=== PATIENT | male | born 1975 | race Caucasian/White ===

== ENCOUNTER → 2016-04-19 | Outpatient (CLI) | payer OTHER ==
[~2016-04-19] MED LIST: ACET-1311 PO; ARIP1INJ INJ; AUG0.05O4 TOP; AZITTAB PO; BENZ100C84 PO; CARV25TA2 PO; CHLO100T8 PO; CHOL2000 PO; CLOT1CRE4 TOP; CRG25 PO; DICY10CA12 PO; EPP3 IM; EPP3/2 IM; EZET10TA63 PO; FLUO40CA8 PO; GUAI1TAB55 PO; HALO2TAB PO; IMD/2 PO; INSDGIPEN SC; IPRA1AER2 INH; IPRASOL4 INH; LEVO100T7 PO; LEVO100T84 PO; LISI-461 PO; LISI40TA PO; LTRCR15 TOP; LVQ750 PO; MENTOIN TOP; METF1000 PO; NVLGI/PEN SC; NYST80OI TOP; OMEP40CA PO; POTA-335 PO; POTA20TA16 PO; PRLSR20 PO; PSYLPOW6 PO; SIMV40TA2 PO; TRAZ100T29 PO; TRAZ150T64 PO
[2016-04-19 08:34] LABS: BLOOD UREA NITROGEN 20 mg/dl (7-18); BUN/CREATININE RATIO 17.9 (10-20); CALCIUM 8.9 mg/dl (8.5-10.1); CARBON DIOXIDE 25 mmol/L (21-32); CHLORIDE 106 mmol/L (98-107); GLUCOSE 71 mg/dl (70-99); POTASSIUM 4.1 mmol/L (3.5-5.1); SODIUM 141 mmol/L (136-145)
== END | disposition home or self-care (01) ==
LOC: C.LABSPEC 08:17
PROVIDERS: ATTEND Nurse Practitioner Family
DX: I10 Essential (primary) hypertension (principal)

== ENCOUNTER 2016-06-27 13:25 | Emergency (ER) | payer OTHER ==
[~2016-06-27] VITALS: Ht 172.7 cm; Wt 125.1 kg
[~2016-06-27 13:25] MED LIST changes: -AZITTAB PO; -BENZ100C84 PO; -CARV25TA2 PO; -CHLO100T8 PO; -CLOT1CRE4 TOP; -EPP3/2 IM; -HALO2TAB PO; -IPRA1AER2 INH; -IPRASOL4 INH; -LEVO100T7 PO; -LISI40TA PO; -MENTOIN TOP; -METF1000 PO; -POTA20TA16 PO; -PRLSR20 PO; -TRAZ100T29 PO
[2016-06-27 13:31] VITALS: TEMP 37.1; Ht 172.7 cm; Wt 125.1 kg
[2016-06-27] MEDS ORDERED: ALBUT/IPRATROP 3MG/0.5MG NEB 3 ML VIAL INH STA (14:26)
--- NOTE | 2016-06-27 14:33 | EMERGENCY ROOM VISIT NOTE ---
History Report prepared by Anuradha: Marialuisa Andres Under the Supervision of: Dr. Claudia Mota, RosannaO. First contact with patient: 14:21 Chief Complaint: CONGESTION Stated Complaint: CONGESTION, COUGH Nursing Triage Summary: pt reports stuffy nose and cough with yellow mucus. started 1 week ago has hx of copd. has been taken mucinex and combivent inhaler no relief History of Present Illness The patient is a 40 year old male who presents to the Emergency Room with complaints of a persistent cold-like symptoms for the past week. His symptoms include nasal congestion and a productive cough with yellow sputum. He has been taking Mucinex DM every 12 hours and uses a Combivent inhaler with little relief. He most recently used the Combivent around 7:15 this morning. The patient was evaluated by a nurse this morning at [facility] and was referred to the ED. He has not been around sick contacts. Denies recent travel. Denies fevers, ear ache, sore throat, chest pain, shortness of breath, leg pain or swelling, or other complaints. He is a former smoker. Past medical history includes COPD and pneumonia. Source of History: patient Onset: a week ago Position: other (global) Quality: other (cold-like symptoms) Timing: other (persistent) Associated Symptoms: + cough, No SOB, No chest pain, No fevers, No sorethroat Note: Other symptoms: congestion Review of Systems See HPI for pertinent positives & negatives. A total of 10 systems reviewed and were otherwise negative. Past Medical & Surgical Medical Problems: (1) COPD (chronic obstructive pulmonary disease) (2) Depression (3) Diabetes mellitus (4) Dyslipidemia (5) GERD (gastroesophageal reflux disease) (6) Hypothyroidism (7) Neurogenic bladder (8) Paranoid schizophrenia (9) Respiratory failure Surgical Problems: (1) H/O inguinal hernia repair Family History Cancer Diabetes mellitus Hypertension Lung disease Social History Smoking Status: Former Smoker Smokeless Tobacco Use: No Alcohol Use: none Marital Status: single Housing Status: other ([facility]) Occupation Status: disabled Current/Historical Medications Scheduled Aripiprazole (Abilify Maintena), 400 MG INJ Q4WK Azithromycin (Zithromax Z-Johnathon), 1 PKT PO UD Carvedilol (Coreg), 25 MG PO BID Cholecalciferol (Vitamin D3), 2,000 UNITS PO DAILY Clotrimazole (Topical) (Lotrimin Af), 1 APPLN TOP BID Dicyclomine Hcl (Dicyclomine Hcl), 10 MG PO BID Epinephrine (Epipen), 0.3 MG IM UD Ezetimibe (Zetia), 10 MG PO QAM Fluoxetine (Prozac), 40 MG PO QAM Haloperidol (Haloperidol), 1 MG PO BID Insulin Aspart (Novolog Flexpen), Unknown Dose SC TID Insulin Glargine (Lantus Solostar), 85 UNITS SC BID Levothyroxine Sodium (Levothyroxine Sodium), 100 MCG PO QAM Lisinopril (Zestril), 40 MG PO DAILY Loperamide Hcl (Imodium), 2 MG PO BID PRN Menthol-Zinc Oxide (Calmoseptine), 1 APPLN TOP PRN Metformin Hcl (Glucophage), 1,000 MG PO BID Omeprazole (Prilosec), 40 MG PO BID Potassium Ext Rel (Klor-Con), 20 MEQ PO QAM Simvastatin (Zocor), 40 MG PO HS Trazodone Hcl (Trazodone), 150 MG PO QPM Scheduled PRN Acetaminophen (Tylenol), 650 MG PO Q6H PRN for Pain Guaifenesin Ext Rel (Mucinex Ext Rel), 600 MG PO BID PRN for congestion Ipratropium-Albuterol (Combivent Respimat), 1 PUFFS INH QID PRN for SOB/Wheezing Allergies Coded Allergies: BEE STING (Verified Allergy, Severe, ANAPHYLAXIS, 05/27/15) Antihistamines, Diphenhydramine-typ (Unverified Allergy, Unknown, _, ) Physical Exam Vital Signs Date Time Temp Pulse Resp B/P Pulse Ox O2 Delivery O2 Flow Rate FiO2 06/27/16 15:05 95 24 142/98 21 Room Air 06/27/16 13:31 37.1 97 22 165/83 93 Room Air Physical Exam GENERAL: The patient is a pleasant 40 year old male in no acute distress. VITALS: Afebrile, hypertensive, normal pulse oximetry on room air. EARS: Right sided cerumen impaction. Left TM clear. THROAT: No pharyngeal injection, exudates, or tonsillar hypertrophy. Airway is patent. NECK: Supple, nontender, no lymphadenopathy or nuchal rigidity. THORAX : Symmetrical and nontender to palpation without deformity or palpable crepitus. LUNGS : Rhonchi and expiratory wheezes throughout. HEART: Regular rate and rhythm without murmur, S3, S4, or rub. ABDOMEN: Soft and nontender without guarding, rigidity, or rebound tenderness. Bowel sounds are present in all 4 quadrants. There are no palpable masses organomegaly. No CVA tenderness. Femoral pulses are symmetrical EXTREMITIES : Without deformity or point tenderness. There are no palpable cords, edema, or erythema.. NEUROLOGIC: Intact without focal deficits Medical Decision & Procedures ER Provider Diagnostic Interpretation: Radiology results as stated below per my review and radiologist interpretation: CHEST ONE VIEW PORTABLE CLINICAL HISTORY: cough/copd dyspnea COMPARISON STUDY: 05/22/2015 FINDINGS: Subtle indistinctness of the right cardiac border with mild interstitial prominence both lung bases. There are no focal or consolidative infiltrative changes. Mid and upper lungs are entirely clear. IMPRESSION: Mild basilar bronchitis. Medications Administered Medications (Trade) Dose Ordered Sig/Arlen Route Start Time Stop Time Status Last Admin Dose Admin Albuterol/ Ipratropium (Duoneb) 3 ml NOW STAT INH 06/27/16 14:26 06/27/16 14:27 DC 06/27/16 15:04 3 ML ED Course 1423: The patient was evaluated in room C3. A complete history and physical examination was performed. On examination he appeared comfortable . He did have rhonchi and wheezing throughout. He was treated with a DuoNeb with improvement. X-ray was done and he had findings consistent with acute bronchitis. No pneumonia. No heart failure. At this time he, is being discharged home accompanied his , with instructions on symptomatic care. He is being placed on Zithromax and is to continue using [id number] products, as prescribed. He should have close outpatient follow-up with his personal physician. Return if worsening symptoms or concerns. The patient is comfortable with this treatment plan. 1426: Ordered DuoNeb 3 ml INH. Medical Decision EMR, nurse's notes, diagnostic studies personally reviewed Differential diagnosis-see above The chart was completed utilizing [employer] Voice [employer]ognition Software. Grammatical errors, random word insertions, pronoun errors, and incomplete sentences are an occasional consequence of this system due to software limitations, ambient noise, and hardware issues. Any formal questions or concerns about the content, text, or information contained within the body of this dictation should be directly addressed to the physician for clarification. Impression Primary Impression: Bronchitis Additional Impression: COPD (chronic obstructive pulmonary disease) Scribe Attestation The scribe's documentation has been prepared under my direction and personally reviewed by me in its entirety. I confirm that the note above accurately reflects all work, treatment, procedures, and medical decision making performed by me. Departure Information Prescriptions Azithromycin (ZITHROMAX Z-JOHANTHON) 250 Mg Tab 1 PKT PO UD for 5 Days, #1 PKT Prov: Claudia Mota D.O. 06/27/16 Referrals [facility] (PCP) Patient Instructions My [facility] Problem Qualifiers
[2016-06-27] MEDS ORDERED: TRAZ100T29 PO (14:49)
[2016-06-27] MEDS ORDERED: LEVO100T7 PO (14:49)
[2016-06-27] MEDS ORDERED: HALO2TAB PO (14:49)
[2016-06-27] MEDS ORDERED: PRLSR20 PO (14:49)
[2016-06-27] MEDS ORDERED: MENTOIN TOP (14:49)
[2016-06-27] MEDS ORDERED: METF1000 PO (14:49)
[2016-06-27] MEDS ORDERED: CARV25TA2 PO (14:49)
[2016-06-27] MEDS ORDERED: LISI40TA PO (14:49)
[2016-06-27] MEDS ORDERED: POTA20TA16 PO (14:49)
[2016-06-27] MEDS ORDERED: CLOT1CRE4 TOP (14:49)
[2016-06-27] MEDS ORDERED: IPRA1AER2 INH (14:49)
[2016-06-27] MEDS ORDERED: EPP3/2 IM (14:49)
--- NOTE | 2016-06-27 15:00 | DIAGNOSTIC IMAGING REPORT ---
CHEST ONE VIEW PORTABLE CLINICAL HISTORY: cough/copd dyspnea COMPARISON STUDY: 05/22/2015 FINDINGS: Subtle indistinctness of the right cardiac border with mild interstitial prominence both lung bases. There are no focal or consolidative infiltrative changes. Mid and upper lungs are entirely clear. IMPRESSION: Mild basilar bronchitis. Electronically signed by: Elijah Abebe M.D. 06/27/2016 2:59 PM Dictated Date/Time: 06/27/2016 2:58 PM
[2016-06-27 15:05] VITALS: BP 142/98; PULSE 95; O2SAT 21
[2016-06-27] MEDS ORDERED: AZITTAB PO (15:09)
== END 2016-06-27 15:30 | disposition home or self-care (01) ==
LOC: C.EDB 13:26 → C.EDC 15:30
DX: J40 Bronchitis, not specified as acute or chronic (principal); J44.9 Chronic obstructive pulmonary disease, unspecified; E11.9 Type 2 diabetes mellitus without complications; E78.5 Hyperlipidemia, unspecified; K21.9 Gastro-esophageal reflux disease without esophagitis; E03.9 Hypothyroidism, unspecified; F32.9 Major depressive disorder, single episode, unspecified; F20.0 Paranoid schizophrenia; Z98.890 Other specified postprocedural states; Z87.891 Personal history of nicotine dependence; Z79.4 Long term (current) use of insulin; Z79.84 Long term (current) use of oral hypoglycemic drugs; Z79.899 Other long term (current) drug therapy; Z88.8 Allergy status to other drugs, medicaments and biological substances; Z91.030 Bee allergy status

== ENCOUNTER → 2016-08-02 | Outpatient (CLI) | payer OTHER ==
[~2016-08-02] MED LIST changes: -AUG0.05O4 TOP; +BENZ100C84 PO; +CARV25TA2 PO; +CHLO100T8 PO; +CLOT-40 TOP; -CRG25 PO; -EPP3 IM; +EPP3/2 IM; +HALO2TAB PO; +IPRA1AER2 INH; +IPRASOL4 INH; +LEVO100T7 PO; -LEVO100T84 PO; -LISI-461 PO; +LISI40TA PO; -LTRCR15 TOP; -LVQ750 PO; +MENTOIN TOP; +METF1000 PO; -NYST80OI TOP; -OMEP40CA PO; -POTA-335 PO; +POTA20TA16 PO; +PRLSR20 PO; -PSYLPOW6 PO; +TRAZ100T29 PO; -TRAZ150T64 PO
[2016-08-02 10:17] LABS: AST/SGOT 27 U/L (15-37); BLOOD UREA NITROGEN 21 mg/dl (7-18); BUN/CREATININE RATIO 17.1 (10-20); CALCIUM 8.5 mg/dl (8.5-10.1); CARBON DIOXIDE 27 mmol/L (21-32); CHLORIDE 107 mmol/L (98-107); CHOLESTEROL 131 mg/dl (0-200); GLUCOSE 200 mg/dl (70-99); POTASSIUM 4.2 mmol/L (3.5-5.1); SODIUM 140 mmol/L (136-145)
[2016-08-02 10:29] LABS: ALB/GLOB RATIO 1.1 (0.9-2); ALKALINE PHOSPHATASE 81 U/L (45-117); ALT/SGPT 60 U/L (12-78); CHOLESTEROL/HDL RATIO 2.3; HDL CHOLESTEROL 57 mg/dl; TRIGLYCERIDES 182 mg/dl (0-150); VERY LOW DENSITY LIPOPROT CALC 36 mg/dl
[2016-08-02 10:48] LABS: ESTIMATED AVERAGE GLUCOSE 169 mg/dl; HA1C FLAG Normal (Normal)
== END | disposition home or self-care (01) ==
LOC: C.LABSPEC 08:58
PROVIDERS: ATTEND Nurse Practitioner Family
DX: E78.5 Hyperlipidemia, unspecified (principal); E11.9 Type 2 diabetes mellitus without complications; E03.9 Hypothyroidism, unspecified

== ENCOUNTER → 2016-08-22 | Outpatient (CLI) | payer OTHER ==
--- NOTE | 2016-08-22 10:55 | DIAGNOSTIC IMAGING REPORT ---
RENAL ULTRASOUND HISTORY: Infection R33.9 Retention of [id number] Urinary tract [id number] Bladed COMPARISON: None. FINDINGS: Right kidney: Maximum dimension 11.3 cm. No evidence for hydronephrosis. Left kidney: Maximum dimension 11.5 cm. No evidence for hydronephrosis. Normal corticomedullary differentiation and cortical thickness. Bladder: No bladder wall thickening. The bilateral ureteral jets were identified. IMPRESSION: Normal renal ultrasound. Electronically signed by: Elijah Abebe M.D. 08/22/2016 10:54 AM Dictated Date/Time: 08/22/2016 10:01 AM
== END | disposition home or self-care (01) ==
LOC: C.ULTR 09:34
PROVIDERS: ATTEND Urology
DX: N21.0 Calculus in bladder (principal); N39.0 Urinary tract infection, site not specified; R33.9 Retention of urine, unspecified

== ENCOUNTER 2016-11-22 08:04 | Emergency (ER) | payer OTHER ==
[~2016-11-22] VITALS: Ht 172.7 cm; Wt 125.6 kg
[~2016-11-22 08:04] MED LIST changes: -BENZ100C84 PO; -CHLO100T8 PO; -CLOT-40 TOP; +CLOT1CRE4 TOP; -IPRASOL4 INH
[2016-11-22 08:09] VITALS: TEMP 36.8; Ht 172.7 cm; Wt 125.6 kg
[2016-11-22] MEDS ORDERED: SODIUM CHLORIDE 0.9% 1000ML 1,000 ML IV STA (08:23)
--- NOTE | 2016-11-22 08:29 | EMERGENCY ROOM VISIT NOTE ---
History Report prepared by Anuradha: Apoorva Baptiste Under the Supervision of: Dr. Russell Young M.D. First contact with patient: 08:16 Chief Complaint: HYPERGLYCEMIA Stated Complaint: BLOOD SUGAR HIGH History of Present Illness The patient is a 41 year old male who presents to the Emergency Room with complaints of persistent hyperglycemia that began today prior to arrival. Per the patient's caregiver, the patient had some high blood glucose levels over the weekend, but notes that they normalized. The patient's caregiver reports that last night the patient's blood glucose reading was 308. She states that this morning his blood glucose was up over 400. The patient's caregiver states that she consulted the patient's PCP and was instructed to give the patient 22 units of NovoLog and 85 units of Lantus. She states that the patient typically takes 85 units of Lantus twice per day. The patient's caregiver states that the patient has had a cough for quite some time. She states that one week ago the patient was started on Thorazine. Source of History: patient, caregiver Onset: prior to arrival Position: other (global) Quality: other (hyperglycemia) Timing: other (persistent) Associated Symptoms: + cough Review of Systems See HPI for pertinent positives & negatives. A total of 10 systems reviewed and were otherwise negative. Past Medical & Surgical Medical Problems: (1) COPD (chronic obstructive pulmonary disease) (2) Depression (3) Diabetes mellitus (4) Dyslipidemia (5) GERD (gastroesophageal reflux disease) (6) Hypothyroidism (7) Neurogenic bladder (8) Paranoid schizophrenia (9) Respiratory failure Surgical Problems: (1) H/O inguinal hernia repair Family History Cancer Diabetes mellitus Hypertension Lung disease Social History Smoking Status: Former Smoker Alcohol Use: none Marital Status: single Housing Status: other Occupation Status: disabled Current/Historical Medications Scheduled Aripiprazole (Abilify Maintena), 400 MG INJ Q4WK Carvedilol (Coreg), 25 MG PO BID Chlorpromazine Hcl (Thorazine), 100 MG PO DAILY Cholecalciferol (Vitamin D3), 2,000 UNITS PO DAILY Clotrimazole (Topical) (Lotrimin Af), 1 APPLN TOP BID Dicyclomine Hcl (Dicyclomine Hcl), 10 MG PO BID Epinephrine (Epipen), 0.3 MG IM UD Fluoxetine (Prozac), 40 MG PO QAM Insulin Aspart (Novolog Flexpen), Unknown Dose SC TID Insulin Glargine (Lantus Solostar), 85 UNITS SC BID Levothyroxine Sodium (Levothyroxine Sodium), 100 MCG PO QAM Lisinopril (Zestril), 40 MG PO DAILY Loperamide Hcl (Imodium), 2 MG PO BID PRN Menthol-Zinc Oxide (Calmoseptine), 1 APPLN TOP PRN Metformin Hcl (Glucophage), 1,000 MG PO BID Omeprazole (Prilosec), 40 MG PO BID Potassium Ext Rel (Klor-Con), 20 MEQ PO QAM Simvastatin (Zocor), 40 MG PO HS Trazodone Hcl (Trazodone), 150 MG PO QPM Scheduled PRN Acetaminophen (Tylenol), 650 MG PO Q6H PRN for Pain Benzonatate (Tessalon Perles), 100 MG PO HS PRN for cough\ Guaifenesin Ext Rel (Mucinex Ext Rel), 600 MG PO BID PRN for congestion Ipratropium-Albuterol (Combivent Respimat), 1 PUFFS INH QID PRN for SOB/Wheezing Ipratropium-Albuterol (Duoneb), 1 TREATMENT INH QID PRN for Shortness of Breath Allergies Coded Allergies: BEE STING (Verified Allergy, Severe, ANAPHYLAXIS, 11/22/16) Antihistamines, Diphenhydramine-typ (Unverified Allergy, Unknown, _, ) Physical Exam Vital Signs Date Time Temp Pulse Resp B/P (MAP) Pulse Ox O2 Delivery O2 Flow Rate FiO2 11/22/16 10:38 105 150/75 94 11/22/16 10:13 105 20 134/84 99 Room Air 11/22/16 09:16 103 133/72 93 Room Air 11/22/16 09:14 104 11/22/16 08:09 36.8 102 18 160/84 94 Room Air Physical Exam GENERAL: Patient is in no acute distress. HEENT: No acute trauma, normocephalic atraumatic, mucous membranes moist, no nasal congestion, no scleral icterus. NECK: No stridor, no adenopathy, no meningismus, trachea is midline. LUNGS: Clear to auscultation bilaterally, no wheeze, no rhonchi, breath sounds equal. HEART: Tachycardic with a regular rhythm, no murmurs. ABDOMEN: Soft, nontender, bowel sounds positive, no hernias, no peritonitis. EXTREMITIES: No cyanosis or edema, full range of motion of all the joints without pain or difficulty, no signs for acute trauma. NEUROLOGIC: Mild MR noted, moving all extremities, awake and alert. SKIN: No rash, no jaundice, no diaphoresis. Medical Decision & Procedures ER Provider Diagnostic Interpretation: X-ray results as stated below per interpretation by me and the radiologist: CHEST ONE VIEW PORTABLE HISTORY: EVALUATE ALTERED MENTAL STATUS/WEAKNESS COMPARISON: Chest 06/27/2016. FINDINGS: Mild diffuse interstitial thickening which is likely chronic. No focal lung consolidations to suggest pneumonia. No evidence for pulmonary edema. Small lobular retrocardiac density favors a hiatus hernia. The heart is normal in size. No pleural effusions. No pneumothorax. IMPRESSION: Mild chronic interstitial thickening, unchanged. No acute process within the chest. Electronically signed by: Bro Alfaro M.D. 11/22/2016 8:58 AM Dictated Date/Time: 11/22/2016 8:57 AM Laboratory Results 11/22/16 09:09 Red Blood Count 4.59, Mean Corpuscular Volume 89.1, Mean Corpuscular Hemoglobin 30.3, Mean Corpuscular Hemoglobin Concent 34.0, Mean Platelet Volume 10.0, Neutrophils (%) (Auto) 82.0, Lymphocytes (%) (Auto) 12.5, Monocytes (%) (Auto) 5.2, Eosinophils (%) (Auto) 0.0, Basophils (%) (Auto) 0.1, Neutrophils # (Auto) 11.11, Lymphocytes # (Auto) 1.70, Monocytes # (Auto) 0.70, Eosinophils # (Auto) 0.00, Basophils # (Auto) 0.02 11/22/16 09:09 Test 11/22/16 08:20 11/22/16 09:09 11/22/16 10:09 Urine Color YELLOW Urine Appearance CLEAR (CLEAR) Urine pH 5.5 (4.5-7.5) Urine Specific Thornton 1.030 (1.000-1.030) Urine Protein NEG (NEG) Urine Glucose (UA) 3+ (NEG) Urine Ketones NEG (NEG) Urine Occult Blood NEG (NEG) Urine Nitrite NEG (NEG) Urine Bilirubin NEG (NEG) Urine Urobilinogen NEG (NEG) Urine Leukocyte Esterase NEG (NEG) White Blood Count 13.56 K/uL (4.8-10.8) Red Blood Count 4.59 M/uL (4.7-6.1) Hemoglobin 13.9 g/dL (14.0-18.0) Hematocrit 40.9 % (42-52) Mean Corpuscular Volume 89.1 fL (80-100) Mean Corpuscular Hemoglobin 30.3 pg (25-34) Mean Corpuscular Hemoglobin Concent 34.0 g/dl (32-36) Platelet Count 160 K/uL (130-400) Mean Platelet Volume 10.0 fL (7.4-10.4) Neutrophils (%) (Auto) 82.0 % Lymphocytes (%) (Auto) 12.5 % Monocytes (%) (Auto) 5.2 % Eosinophils (%) (Auto) 0.0 % Basophils (%) (Auto) 0.1 % Neutrophils # (Auto) 11.11 K/uL (1.4-6.5) Lymphocytes # (Auto) 1.70 K/uL (1.2-3.4) Monocytes # (Auto) 0.70 K/uL (0.11-0.59) Eosinophils # (Auto) 0.00 K/uL (0-0.5) Basophils # (Auto) 0.02 K/uL (0-0.2) RDW Standard Deviation 45.3 fL (36.4-46.3) RDW Coefficient of Variation 13.8 % (11.5-14.5) Immature Granulocyte % (Auto) 0.2 % Immature Granulocyte # (Auto) 0.03 K/uL (0.00-0.02) Polychromasia 1+ Anion Gap 7.0 mmol/L (3-11) Est Creatinine Clear Calc Drug Dose 102.5 ml/min Estimated GFR () 85.3 Estimated GFR (Non- 73.6 BUN/Creatinine Ratio 10.0 (10-20) Calcium Level 8.3 mg/dl (8.5-10.1) Magnesium Level 1.8 mg/dl (1.8-2.4) Total Bilirubin 0.4 mg/dl (0.2-1) Aspartate Amino Transf (AST/SGOT) 22 U/L (15-37) Alanine Aminotransferase (ALT/SGPT) 43 U/L (12-78) Alkaline Phosphatase 86 U/L (45-117) Total Protein 7.3 gm/dl (6.4-8.2) Albumin 3.4 gm/dl (3.4-5.0) Globulin 3.9 gm/dl (2.5-4.0) Albumin/Globulin Ratio 0.9 (0.9-2) Beta-Hydroxybutyric Acid 1.11 mg/dL (0.2-2.81) Thyroid Stimulating Hormone (TSH) 1.400 uIu/ml (0.300-4.500) Free Thyroxine 1.05 ng/dl (0.80-1.60) Bedside Glucose 259 mg/dl (70-99) Laboratory results reviewed by me. Medications Administered Medications (Trade) Dose Ordered Sig/Arlen Route Start Time Stop Time Status Last Admin Dose Admin Sodium Chloride 1,000 ml @ 999 mls/hr Q1H1M STAT IV 11/22/16 08:23 11/22/16 09:23 DC 11/22/16 09:16 999 MLS/HR ECG Indication: other (hyperglycemia) Rate (beats per minute): 100 Rhythm: normal sinus Findings: no acute ischemic change, no ectopy ED Course 0819: The patient was evaluated in room B3B. A complete history and physical exam was performed. 0823: Ordered Sodium Chloride 1000 ml @ 999 mls/hr IV. 0830: Per the pharmacist, there are some rare cases of Thorazine causing hyperglycemia according to literature. 1019: Per nursing staff, the patient is feeling fine and his blood glucose is down to 259. Nursing staff states that the patient has a doctors appointment tomorrow regarding his hyperglycemia. The patient additionally reports that he has been running in the 200s the last couple weeks. 1023: I reevaluated the patient and he is resting comfortably. I discussed the exam findings with him and his caregiver and I discussed the treatment plan. They verbalized complete understanding and agreement. The patient is ready to go home. The patient's caregiver notes that the patient will also be started on Januvia for his blood glucose. Medical Decision The patient is a 41 year old male who presents to the ED with complaints of hyperglycemia. Differential diagnoses considered include Dehydration, hyperglycemia, electrolyte imbalance, UTI, pneumonia, cellulitis, viral illness , medication reaction. There is a mild leukocytosis with a white count of 13,000, this could be consistent with infection or the stress of his current situation. No concerning anemia. No kidney failure or hepatitis. Glucose is elevated at over 400. Urinalysis does not show infection. Chest film does not show pneumonia. On exam, there were no findings to suggest cellulitis. The patient was not toxic or febrile. The patient presents with hyperglycemia. He received IV saline. His sugar is now in the mid 200s, I suspect the saline coupled with his insulin taken prior to arrival has decreased his blood sugar. He has an appointment tomorrow with his doctor's office, his doctor has already called in a new medication for his hyperglycemia. I did discuss the use of Thorazine with the pharmacist-this is a new medication for the patient. Thorazine has occasionally been responsible for hyperglycemia. This information was relayed to the caregiver. The patient is stable for discharge, hydration, frequent blood sugar checks were recommended. If things are worsening, he can return for reassessment. Medication Reconcilliation Current Medication List: was personally reviewed by me Blood Pressure Screening Patient's blood pressure: Elevated blood pressure Blood pressure disposition: Elevated BP felt to be situational, Did not require urgent referral Impression Primary Impression: Hyperglycemia Scribe Attestation The scribe's documentation has been prepared under my direction and personally reviewed by me in its entirety. I confirm that the note above accurately reflects all work, treatment, procedures, and medical decision making performed by me. Departure Information Dispostion Home / Self-Care Referrals Josephine Garnett,C.R.N.P. Forms HOME CARE DOCUMENTATION FORM, IMPORTANT VISIT INFORMATION Patient Instructions My [facility] Additional Instructions keep watch on the sugars fluids see doctor tomorrow as scheduled return for fever or vomiting or uncontrolled sugars
[2016-11-22 08:39] LABS: URINE APPEARANCE CLEAR (CLEAR); URINE BILIRUBIN NEG (NEG); URINE COLOR YELLOW; URINE NITRITE NEG (NEG); URINE PH 5.5 (4.5-7.5); UROBILINOGEN NEG (NEG); ZZUR CULT IF INDIC CLEAN CATCH NO
[2016-11-22 08:41] LABS: MANUAL MICROSCOPIC REQUIRED? NO; REVIEW REQ? NO
[2016-11-22] MEDS ORDERED: IPRASOL4 INH (08:44)
[2016-11-22] MEDS ORDERED: BENZ100C84 PO (08:44)
[2016-11-22] MEDS ORDERED: CHLO100T8 PO (08:44)
--- NOTE | 2016-11-22 09:00 | DIAGNOSTIC IMAGING REPORT ---
CHEST ONE VIEW PORTABLE HISTORY: EVALUATE ALTERED MENTAL STATUS/WEAKNESS COMPARISON: Chest 06/27/2016. FINDINGS: Mild diffuse interstitial thickening which is likely chronic. No focal lung consolidations to suggest pneumonia. No evidence for pulmonary edema. Small lobular retrocardiac density favors a hiatus hernia. The heart is normal in size. No pleural effusions. No pneumothorax. IMPRESSION: Mild chronic interstitial thickening, unchanged. No acute process within the chest. Electronically signed by: Bro Alfaro M.D. 11/22/2016 8:58 AM Dictated Date/Time: 11/22/2016 8:57 AM
[2016-11-22 09:25] LABS: HEMATOCRIT 40.9 % (42-52); MEAN CELL VOLUME 89.1 fL (80-100); MEAN CORPUSCULAR HEMOGLOBIN 30.3 pg (25-34); PLATELET COUNT 160 K/uL (130-400); RED BLOOD COUNT 4.59 M/uL (4.7-6.1); WHITE BLOOD COUNT 13.56 K/uL (4.8-10.8)
[2016-11-22 09:43] LABS: BASO % 0.1 %; BASO ABS # 0.02 K/uL (0-0.2); COMPLETE YES; IG% 0.2 %; LYMPH % 12.5 %; MONO % 5.2 %; POLYCHROMASIA 1+
[2016-11-22 09:49] LABS: CALCIUM 8.3 mg/dl (8.5-10.1); CREATININE 1.2 mg/dl (0.60-1.40); MAGNESIUM 1.8 mg/dl (1.8-2.4); POTASSIUM 4.5 mmol/L (3.5-5.1)
[2016-11-22 09:52] LABS: ALB/GLOB RATIO 0.9 (0.9-2)
[2016-11-22 10:01] LABS: BETA-HYDROXYBUTYRATE 1.11 mg/dL (0.2-2.81); THYROID STIMULATING HORMONE 1.4 uIu/ml (0.300-4.500)
[2016-11-22 10:38] VITALS: BP 150/75; PULSE 105; O2SAT 94
== END 2016-11-22 10:40 | disposition home or self-care (01) ==
LOC: C.EDB 08:06
DX: E11.65 Type 2 diabetes mellitus with hyperglycemia (principal); R05 Cough; J44.9 Chronic obstructive pulmonary disease, unspecified; F32.9 Major depressive disorder, single episode, unspecified; E78.5 Hyperlipidemia, unspecified; E03.9 Hypothyroidism, unspecified; K21.9 Gastro-esophageal reflux disease without esophagitis; F20.0 Paranoid schizophrenia; N31.9 Neuromuscular dysfunction of bladder, unspecified; Z87.891 Personal history of nicotine dependence; Z79.4 Long term (current) use of insulin; Z79.84 Long term (current) use of oral hypoglycemic drugs; Z83.3 Family history of diabetes mellitus; Z82.49 Family history of ischemic heart disease and other diseases of the circulatory system

== ENCOUNTER → 2016-11-29 | Outpatient (CLI) | payer OTHER ==
[~2016-11-29] MED LIST changes: +BENZ100C84 PO; +CHLO100T8 PO; -EZET10TA63 PO; -HALO2TAB PO; +IPRASOL4 INH
[2016-11-29 08:30] LABS: BLOOD UREA NITROGEN 17 mg/dl (7-18); BUN/CREATININE RATIO 13.2 (10-20); CALCIUM 8.8 mg/dl (8.5-10.1); CARBON DIOXIDE 27 mmol/L (21-32); CHLORIDE 106 mmol/L (98-107); GLUCOSE 114 mg/dl (70-99); POTASSIUM 4.2 mmol/L (3.5-5.1); SODIUM 139 mmol/L (136-145)
[2016-11-29 13:30] LABS: ESTIMATED AVERAGE GLUCOSE 180 mg/dl; HA1C FLAG Normal (Normal)
== END | disposition home or self-care (01) ==
LOC: C.LABSPEC 07:39
PROVIDERS: ATTEND Nurse Practitioner Family
DX: E11.9 Type 2 diabetes mellitus without complications (principal)

== ENCOUNTER 2017-05-14 06:27 | Inpatient (IN) | payer OTHER ==
[~2017-05-14] VITALS: Ht 170.2 cm; Wt 129.5 kg
[2017-05-14] VITALS (10 sets, daily range): BP systolic 115–144; BP diastolic 57–84; PULSE 99–125; TEMP 36.4–37.1; O2SAT 90–97; Ht 170.2 cm; Wt 129.5 kg
[~2017-05-14 06:27] MED LIST changes: +CLOT-51 TOP; -CLOT1CRE4 TOP
[2017-05-14] MEDS ORDERED: SITA100T3 PO (06:53)
[2017-05-14] MEDS ORDERED: EZET10TA63 PO (06:55)
[2017-05-14] MEDS ORDERED: TRAZ1TAB52 PO (06:55)
[2017-05-14] MEDS ORDERED: SODIUM CHLORIDE 0.9% 1000ML 1,000 ML IV STA (06:57)
[2017-05-14] MEDS ORDERED: LEVAQUIN 750MG / 150ML D5W IV STA (06:57)
[2017-05-14] MEDS ORDERED: CEFTRIAXONE SOD INJ 1 GM ADDVIAL IV STA (06:57)
[2017-05-14] MEDS ORDERED: POLYSOL OPB (06:57)
[2017-05-14] MEDS ORDERED: ALBUT/IPRATROP 3MG/0.5MG NEB 3 ML VIAL INH STA (06:57)
[2017-05-14] MEDS ORDERED: ABL10 PO (06:59)
[2017-05-14] MEDS ORDERED: INSU100I23 SQ (06:59)
[2017-05-14 07:07] LABS: HEMATOCRIT 40.5 % (42-52); HEMOGLOBIN 13.6 g/dL (14.0-18.0); MEAN CELL VOLUME 89.2 fL (80-100); MEAN CORPUSCULAR HGB CONC 33.6 g/dl (32-36); MEAN PLATELET VOLUME 9.8 fL (7.4-10.4); PLATELET COUNT 127 K/uL (130-400); RED CELL DISTRIBUTION WIDTH CV 14.2 % (11.5-14.5); RED CELL DISTRIBUTION WIDTH SD 46.1 fL (36.4-46.3); WHITE BLOOD COUNT 8.64 K/uL (4.8-10.8)
[2017-05-14] MEDS ORDERED: NVLGI/PEN SQ (07:17)
[2017-05-14] MEDS ORDERED: NVLGIPEN SQ (07:17)
[2017-05-14 07:18] LABS: PTT PATIENT 23.6 SECONDS (21.0-31.0)
--- NOTE | 2017-05-14 07:19 | EMERGENCY ROOM VISIT NOTE ---
History Report prepared by Anuradha: Russell Wall Under the Supervision of: Dr. Rian Salgado D.O. First contact with patient: 06:52 Chief Complaint: ILLNESS Stated Complaint: PALPITATIONS/SHORT OF BREATH History of Present Illness The patient is a 41 year old male who presents to the Emergency Room with complaints of a rapid heart rate and constant shortness of breath that he noticed this morning at 0530, 1 hour prior to arrival. The patient states that when he woke up this morning he felt like his "heart was beating out of my chest ," and he was short of breath. The assisted living staff member at bedside with the patient notes that the "longterm" staff at [facility] woke him up this morning at 0530 as usual, and noticed that his breathing was labored. They administered his morning medications and recorded a Pulse O2 of 78% on room air. The patient is not normally on oxygen. The staff member notes that he has been coughing persistently at night time for the past two nights. He does not cough throughout the day. 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 A total of 10 systems reviewed and were otherwise negative. Past Medical & Surgical Medical Problems: (1) COPD (chronic obstructive pulmonary disease) (2) Depression (3) Diabetes mellitus (4) Dyslipidemia (5) GERD (gastroesophageal reflux disease) (6) Hypothyroidism (7) Neurogenic bladder (8) Paranoid schizophrenia (9) Respiratory failure (10) Sepsis Surgical Problems: (1) H/O inguinal hernia repair Family History Cancer Diabetes mellitus Hypertension Lung disease Social History Smoking Status: Former Smoker Alcohol Use: none Marital Status: single Housing Status: other Occupation Status: disabled Current/Historical Medications Scheduled Aripiprazole (Abilify Maintena), 400 MG INJ Q4WK Aripiprazole (Abilify), 1 TAB PO DAILY Carvedilol (Coreg), 25 MG PO BID Chlorpromazine Hcl (Thorazine), 100 MG PO HS Cholecalciferol (Vitamin D3), 2,000 UNITS PO DAILY Dicyclomine Hcl (Dicyclomine Hcl), 10 MG PO BID Ezetimibe (Zetia), 10 MG PO QAM Fluoxetine (Prozac), 40 MG PO QAM Insulin Aspart (Novolog Flexpen), SQ BID Insulin Aspart (Novolog Flexpen), SQ HS Insulin Glargine (Basaglar Kwikpen), 75 UNITS SQ Q12 Levothyroxine Sodium (Levothyroxine Sodium), 100 MCG PO QAM Lisinopril (Zestril), 40 MG PO DAILY Menthol-Zinc Oxide (Calmoseptine), 1 APPLN TOP PRN Metformin Hcl (Glucophage), 1,000 MG PO BID Omeprazole (Prilosec), 40 MG PO BID Potassium Ext Rel (Klor-Con), 20 MEQ PO QAM Simvastatin (Zocor), 40 MG PO HS Sitagliptin Phosphate (Januvia), 100 MG PO DAILY Trazodone Hcl (Desyrel), 150 MG PO HS Scheduled PRN Acetaminophen (Tylenol), 650 MG PO Q6H PRN for Pain Benzonatate (Tessalon Perles), 100 MG PO HS PRN for cough\\ Epinephrine (Epipen), 0.3 MG IM UD PRN for BEE STING Guaifenesin Ext Rel (Mucinex Ext Rel), 600 MG PO BID PRN for congestion Ipratropium-Albuterol (Combivent Respimat), 1 PUFFS INH QID PRN for SOB/Wheezing Ipratropium-Albuterol (Duoneb), 1 TREATMENT INH QID PRN for Shortness of Breath Polyvinyl Alcohol-Povidone (Op (Refresh), 1 DROP OPB QID PRN for DRYNESS Allergies Coded Allergies: BEE STING (Verified Allergy, Severe, ANAPHYLAXIS, 05/14/17) Antihistamines, Diphenhydramine-typ (Unverified Allergy, Unknown, _, ) Physical Exam Vital Signs Date Time Temp Pulse Resp B/P (MAP) Pulse Ox O2 Delivery O2 Flow Rate FiO2 05/14/17 09:36 123 94 05/14/17 09:32 126 05/14/17 09:31 122/60 05/14/17 09:07 37.6 126 110/54 05/14/17 09:06 127 94 05/14/17 09:01 110/54 05/14/17 08:36 126 18 93 05/14/17 08:31 143/73 05/14/17 08:06 120 20 94 2/12/18 08:01 113/53 05/14/17 07:36 120 28 97 05/14/17 07:31 122/74 05/14/17 07:27 122 21 94 05/14/17 07:13 93 Nasal Cannula 4.0 05/14/17 07:01 121/83 05/14/17 06:57 120 35 90 05/14/17 06:54 38.7 122 22 121/83 88 Room Air 05/14/17 06:37 124 05/14/17 06:34 134/66 Physical Exam CONSTITUTIONAL/VITAL SIGNS: Reviewed / noted above. GENERAL: Non-toxic in appearance. INTEGUMENTARY: Warm, dry, and [place]. HEAD: Normocephalic. EYES: without scleral icterus or trauma. ENT/OROPHARYNX: clear and moist. LYMPHADENOPATHY/NECK: Is supple without lymphadenopathy or meningismus. RESPIRATORY: There are decreased breath sounds bilaterally. There is increased work of breathing any tachypnea. CARDIOVASCULAR: Regular rate and rhythm. GI/ABDOMEN: Soft and nontender. No organomegaly or pulsatile mass. No rebound or guarding. Normal bowel sounds. EXTREMITIES: Warm and well perfused. BACK: No CVA tenderness. NEUROLOGICAL: Intact without focal deficits. PSYCHIATRIC: normal affect. SKIN: Diaphoretic MUSCULOSKELETAL: Normally developed with good muscle tone. Medical Decision & Procedures ER Provider Diagnostic Interpretation: Radiology results as stated below per my review and radiologist interpretation: CHEST ONE VIEW PORTABLE CLINICAL HISTORY: 41 years-old Male presenting with Evaluate Fever/Sepsis. TECHNIQUE: Portable upright AP view of the chest was obtained. COMPARISON: 11/22/2016. FINDINGS: Atherosclerosis of aortic arch. Cardiac silhouette mildly enlarged. Pulmonary vascular prominence. Patchy nodular opacities somewhat diffusely throughout the left lung and focally in the right lower lung. Bronchial wall thickening. No large effusion or pneumothorax. Osseous structures normal. Upper abdomen normal. IMPRESSION: 1. Findings concerning for multifocal pneumonia. Electronically signed by: Miles Connors M.D. 05/14/2017 7:22 AM Dictated Date/Time: 05/14/2017 7:21 AM Laboratory Results 05/14/17 06:40 Red Blood Count 4.54, Mean Corpuscular Volume 89.2, Mean Corpuscular Hemoglobin 30.0, Mean Corpuscular Hemoglobin Concent 33.6, Mean Platelet Volume 9.8, Neutrophils (%) (Auto) 82.3, Lymphocytes (%) (Auto) 8.9, Monocytes (%) (Auto) 8.6, Eosinophils (%) (Auto) 0.0, Basophils (%) (Auto) 0.0, Neutrophils # (Auto) 7.11, Lymphocytes # (Auto) 0.77, Monocytes # (Auto) 0.74, Eosinophils # (Auto) 0.00, Basophils # (Auto) 0.00 05/14/17 06:40 Test 05/14/17 06:37 05/14/17 06:40 05/14/17 09:00 Influenza Type A Antigen Neg for Influ A (NEG) Influenza Type B Antigen Neg for Influ B (NEG) White Blood Count 8.64 K/uL (4.8-10.8) Red Blood Count 4.54 M/uL (4.7-6.1) Hemoglobin 13.6 g/dL (14.0-18.0) Hematocrit 40.5 % (42-52) Mean Corpuscular Volume 89.2 fL (80-100) Mean Corpuscular Hemoglobin 30.0 pg (25-34) Mean Corpuscular Hemoglobin Concent 33.6 g/dl (32-36) Platelet Count 127 K/uL (130-400) Mean Platelet Volume 9.8 fL (7.4-10.4) Neutrophils (%) (Auto) 82.3 % Lymphocytes (%) (Auto) 8.9 % Monocytes (%) (Auto) 8.6 % Eosinophils (%) (Auto) 0.0 % Basophils (%) (Auto) 0.0 % Neutrophils # (Auto) 7.11 K/uL (1.4-6.5) Lymphocytes # (Auto) 0.77 K/uL (1.2-3.4) Monocytes # (Auto) 0.74 K/uL (0.11-0.59) Eosinophils # (Auto) 0.00 K/uL (0-0.5) Basophils # (Auto) 0.00 K/uL (0-0.2) RDW Standard Deviation 46.1 fL (36.4-46.3) RDW Coefficient of Variation 14.2 % (11.5-14.5) Immature Granulocyte % (Auto) 0.2 % Immature Granulocyte # (Auto) 0.02 K/uL (0.00-0.02) Prothrombin Time 10.6 SECONDS (9.0-12.0) Prothromb Time International Ratio 1.0 (0.9-1.1) Activated Partial Thromboplast Time 23.6 SECONDS (21.0-31.0) Partial Thromboplastin Ratio 0.9 Anion Gap 11.0 mmol/L (3-11) Est Creatinine Clear Calc Drug Dose 101.8 ml/min Estimated GFR () 84.5 Estimated GFR (Non- 72.9 BUN/Creatinine Ratio 14.6 (10-20) Calcium Level 7.9 mg/dl (8.5-10.1) Total Bilirubin 0.4 mg/dl (0.2-1) Direct Bilirubin 0.2 mg/dl (0-0.2) Aspartate Amino Transf (AST/SGOT) 23 U/L (15-37) Alanine Aminotransferase (ALT/SGPT) 47 U/L (12-78) Alkaline Phosphatase 57 U/L (45-117) Total Creatine Kinase 283 U/L (39-308) Creatine Kinase MB 2.2 ng/ml (0.5-3.6) Creatine Kinase MB Ratio 0.8 (0-3.0) Troponin I < 0.015 ng/ml (0-0.045) Total Protein 6.5 gm/dl (6.4-8.2) Albumin 3.2 gm/dl (3.4-5.0) Lipase 101 U/L (73-393) Bedside Lactic Acid Venous 2.52 mmol/L (0.90-1.70) Laboratory results as stated above per my review. Medications Administered Medications (Trade) Dose Ordered Sig/Arlen Route Start Time Stop Time Status Last Admin Dose Admin Sodium Chloride 1,000 ml @ 999 mls/hr Q1H1M STAT IV 05/14/17 06:57 05/14/17 07:57 DC 05/14/17 07:21 999 MLS/HR Albuterol/ Ipratropium (Duoneb) 3 ml NOW STAT INH 05/14/17 06:57 18 07:00 DC 05/14/17 07:22 3 ML Ceftriaxone Sodium (Rocephin Inj) 1 gm NOW STAT IV 05/14/17 06:57 2/12/18 07:00 DC 05/14/17 07:22 1 GM Levofloxacin (Levaquin / D5W) 750 mg NOW STAT IV 05/14/17 06:57 05/14/17 07:00 DC 05/14/17 07:51 750 MG Sodium Chloride 2,000 ml @ 999 mls/hr Q2H1M STAT IV 05/14/17 08:41 05/14/17 10:41 05/14/17 08:41 999 MLS/HR ECG Rate (beats per minute): 125 Rhythm: sinus tachycardia Findings: RBBB, other (No ST Elevations or Depressions, Normal [place], Normal Intervals. ) Change: Patient's electrocardiogram interpreted by me. ED Course 0653: Previous medical records were reviewed. The patient was evaluated in room B11B. A complete history and physical examination was performed. 0657: Ordered Levofloxacin 750 mg IV, Rocephin 1 gm IV, Duoneb 3 mL INH, Sodium Chloride 1000 mL @ 999 mL/hr IV. 0838: I discussed the case with Dr. Briggs [place] [facility] [place]. He will evaluate the patient for further treatment. 0840: I checked on the patient at this time. He is still agreeable to an admission stay. Medical Decision the differential was considered includes acute myocardial infarction, acute coronary syndrome, myocarditis, pericarditis, pericardial effusions /tamponade, esophageal perforation, pulmonary embolism, pneumonia, pneumothorax, cardiomyopathy, congestive heart, anemia , COPD/asthma exacerbation. This is a 41-year-old male who presents to the ED with a chief complaint of shortness of breath and tachycardia. The patient was at home at the longterm where he resides. The patient was noted, by staff, to have an elevated heart rate and respiratory rate. His pulse ox was noted to be 78% there. BST was 216. He is a diabetic. The patient denies any other complaints. He only reports tachycardia on this initial assessment. His vital signs revealed temperature of 38.7 and a heart rate of 124. His exam reveals some scattered wheezes and diminished breath sounds bilaterally. He does have some mild increased respiratory rate and mild increased work of breathing. He is also diaphoretic on exam. A chest x-ray reveals multifocal pneumonia. His CBC is normal, complete metabolic panel was unremarkable, troponin is negative and a flu swab was negative. The patient was treated with Levaquin IV, Rocephin IV, normal saline 3 L IV, DuoNeb treatment as well as oxygen via nasal cannula. The patient does have a slightly elevated lactate level. He will be seen by the hospitalist for further inpatient evaluation and care. Medication Reconcilliation Current Medication List: was personally reviewed by me Blood Pressure Screening Patient's blood pressure: Normal blood pressure Consults Time Called: 08 Consulting Physician: Dr. Chester ALEXIS Hospitalist Returned Call: 08 I discussed the case with Dr. Chester ALEXIS Hospitalist. He will evaluate the patient for further treatment. Impression Primary Impression: Pneumonia Additional Impression: Hypoxia Scribe Attestation The scribe's documentation has been prepared under my direction and personally reviewed by me in its entirety. I confirm that the note above accurately reflects all work, treatment, procedures, and medical decision making performed by me. Departure Information Dispostion Being Evaluated By Hospitalist [facility] Patient Instructions My [facility] Problem Qualifiers
--- NOTE | 2017-05-14 07:24 | DIAGNOSTIC IMAGING REPORT ---
CHEST ONE VIEW PORTABLE CLINICAL HISTORY: 41 years-old Male presenting with Evaluate Fever/Sepsis. TECHNIQUE: Portable upright AP view of the chest was obtained. COMPARISON: 11/22/2016. FINDINGS: Atherosclerosis of aortic arch. Cardiac silhouette mildly enlarged. Pulmonary vascular prominence. Patchy nodular opacities somewhat diffusely throughout the left lung and focally in the right lower lung. Bronchial wall thickening. No large effusion or pneumothorax. Osseous structures normal. Upper abdomen normal. IMPRESSION: 1. Findings concerning for multifocal pneumonia. Electronically signed by: Miles Connors M.D. 05/14/2017 7:22 AM Dictated Date/Time: 05/14/2017 7:21 AM
[2017-05-14 07:26] LABS: ALBUMIN 3.2 gm/dl (3.4-5.0); ALT/SGPT 47 U/L (12-78); BLOOD UREA NITROGEN 18 mg/dl (7-18); CALCIUM 7.9 mg/dl (8.5-10.1); CARBON DIOXIDE 21 mmol/L (21-32); CREATININE 1.21 mg/dl (0.60-1.40); GLUCOSE 149 mg/dl (70-99); LIPASE 101 U/L (73-393); POTASSIUM 3.9 mmol/L (3.5-5.1); SODIUM 140 mmol/L (136-145)
[2017-05-14 07:31] LABS: ALKALINE PHOSPHATASE 57 U/L (45-117); AST/SGOT 23 U/L (15-37); CKMB 2.2 ng/ml (0.5-3.6); TOTAL PROTEIN 6.5 gm/dl (6.4-8.2)
[2017-05-14 07:51] LABS: IG# 0.02 K/uL (0.00-0.02); LYMPH % 8.9 %; LYMPH ABS # 0.77 K/uL (1.2-3.4); MONO % 8.6 %; MONO ABS # 0.74 K/uL (0.11-0.59); NEUT % 82.3 %; NEUT ABS # 7.11 K/uL (1.4-6.5)
[2017-05-14 07:54] LABS: INFLUENZA B ANTIGEN Neg for Influ B (NEG)
[2017-05-14] MEDS ORDERED: SODIUM CHLORIDE 0.9% 1000ML 2,000 ML IV STA (08:41)
[2017-05-14] MEDS ORDERED: LEVALBUTEROL 1.25MG/0.5ML NEB INH PRN (09:15)
[2017-05-14] MEDS ORDERED: MENTHOL-ZINC OXIDE 360 APPLN/120 GM TUBE EXT PRN (09:15)
[2017-05-14] MEDS ORDERED: NITROGLYCERIN 0.4 MG SL PER TAB CHARGE SL PRN (09:15)
[2017-05-14] MEDS ORDERED: ONDANSETRON INJ 2 MG/ML 2 ML VIAL IV PRN (09:15)
[2017-05-14] MEDS ORDERED: MoRPHine SULFATE 2 MG/ML CARP IV PRN (09:15)
[2017-05-14] MEDS ORDERED: MAGNESIUM HYDROXIDE SUSP 30 ML UDC PO PRN (09:15)
[2017-05-14] MEDS ORDERED: ALUMINUM/MAGNESIUM/SIMETH (MAALOX MAX) 30 ML UDC PO PRN (09:15)
[2017-05-14] MEDS ORDERED: POLYETHYLENE (MIRALAX) 17 GM PACK PO PRN (09:15)
[2017-05-14] MEDS ORDERED: GUAIFENESIN 600 MG TABCR PO PRN (09:15)
[2017-05-14] MEDS ORDERED: ACETAMINOPHEN 325 MG TAB PO PRN (09:15)
--- NOTE | 2017-05-14 09:36 | History and Physical ---
History & Physical Date & Time of Service: May 14, 2017 at 09:17 Chief Complaint: Palpitations/Short Of Breath Primary Care Physician: Reji Zayas,Personal Care,Panda History of Present Illness Source: patient, caregiver, clinic records, hospital records Patient is a pleasant 41 y/o male, with PMHx of T2DM, HTN, HLD, hypothyroidism, neurogenic bladder, COPD, mood disorder, depression, hypokalemia, and GERD, who presented to the ED because of chest palpitations and hypoxia. Patient was resides at [facility]. When he was woken by staff this AM, he complained of "heart beating out of chest." Staff noted labored breathing and O2 sats were found to be 78%. Patient states he has been coughing at night, but otherwise denies any other complaints. Per client integration manager present, patient has demonstrated no signs of acute illness until this AM. Patient/client integration manager denies any issues with swallowing. Patient denies any fever, chills, sweats, lightheadedness, dizziness, vision changes, CP, edema, SOB, wheezing, abdominal pain, nausea, vomiting, diarrhea, urinary symptoms, melena, numbness/tingling, weakness, muscle/joint pain, anxiety/depression, active bleeding, or new skin discoloration/changes. Past Medical/Surgical History Medical Problems: T2DM HTN HLD hypothyroidism neurogenic bladder COPD mood disorder depression hypokalemia GERD Surgical Problems: (1) H/O inguinal hernia repair Status: Chronic Family History Cancer Diabetes mellitus Hypertension Lung disease Social History Smoking Status: Former Smoker Alcohol Use: none Marital Status: single Housing status: assisted living Occupational Status: disabled Multi-Drug Resistant Organisms History of MDRO: No Allergies Coded Allergies: BEE STING (Verified Allergy, Severe, ANAPHYLAXIS, 05/14/17) Antihistamines, Diphenhydramine-typ (Unverified Allergy, Unknown, _, ) Home Medications Scheduled Aripiprazole (Abilify Maintena), 400 MG INJ Q4WK Aripiprazole (Abilify), 1 TAB PO DAILY Carvedilol (Coreg), 25 MG PO BID Chlorpromazine Hcl (Thorazine), 100 MG PO HS Cholecalciferol (Vitamin D3), 2,000 UNITS PO DAILY Dicyclomine Hcl (Dicyclomine Hcl), 10 MG PO BID Ezetimibe (Zetia), 10 MG PO QAM Fluoxetine (Prozac), 40 MG PO QAM Insulin Aspart (Novolog Flexpen), SQ BID Insulin Aspart (Novolog Flexpen), SQ HS Insulin Glargine (Basaglar Kwikpen), 75 UNITS SQ Q12 Levothyroxine Sodium (Levothyroxine Sodium), 100 MCG PO QAM Lisinopril (Zestril), 40 MG PO DAILY Menthol-Zinc Oxide (Calmoseptine), 1 APPLN TOP PRN Metformin Hcl (Glucophage), 1,000 MG PO BID Omeprazole (Prilosec), 40 MG PO BID Potassium Ext Rel (Klor-Con), 20 MEQ PO QAM Simvastatin (Zocor), 40 MG PO HS Sitagliptin Phosphate (Januvia), 100 MG PO DAILY Trazodone Hcl (Desyrel), 150 MG PO HS Scheduled PRN Acetaminophen (Tylenol), 650 MG PO Q6H PRN for Pain Benzonatate (Tessalon Perles), 100 MG PO HS PRN for cough\\ Epinephrine (Epipen), 0.3 MG IM UD PRN for BEE STING Guaifenesin Ext Rel (Mucinex Ext Rel), 600 MG PO BID PRN for congestion Ipratropium-Albuterol (Combivent Respimat), 1 PUFFS INH QID PRN for SOB/Wheezing Ipratropium-Albuterol (Duoneb), 1 TREATMENT INH QID PRN for Shortness of Breath Polyvinyl Alcohol-Povidone (Op (Refresh), 1 DROP OPB QID PRN for DRYNESS Physical Exam Vital Signs Date Time Temp Pulse Resp B/P (MAP) Pulse Ox O2 Delivery O2 Flow Rate FiO2 05/14/17 09:07 37.6 126 110/54 05/14/17 07:31 122/74 05/14/17 07:27 122 21 94 05/14/17 07:13 93 Nasal Cannula 4.0 05/14/17 07:01 121/83 05/14/17 06:57 120 35 90 05/14/17 06:54 38.7 122 22 121/83 88 Room Air 05/14/17 06:37 124 05/14/17 06:34 134/66 General Appearance: no apparent distress, + obese, + pertinent finding ( diaphoretic ) Head: normocephalic, atraumatic Eyes: normal inspection, PERRL ENT: hearing grossly normal Neck: supple Respiratory/Chest: lungs clear, no respiratory distress, no accessory muscle use, + decreased breath sounds (throughout ) Cardiovascular: + tachycardia (regular rhythm ) Abdomen/GI: normal bowel sounds, non tender, soft Back: normal inspection Extremities/Musculoskelatal: no calf tenderness, no pedal edema Neurologic/Psych: alert, normal mood/affect, oriented x 3 Skin: normal color, warm/dry, no rash Diagnostics Laboratory Results Results Past 24 Hours Test 05/14/17 06:37 05/14/17 06:40 05/14/17 09:00 Range/Units Influenza Type A Antigen Neg for Influ A NEG Influenza Type B Antigen Neg for Influ B NEG White Blood Count 8.64 4.8-10.8 K/uL Red Blood Count 4.54 4.7-6.1 M/uL Hemoglobin 13.6 14.0-18.0 g/dL Hematocrit 40.5 42-52 % Mean Corpuscular Volume 89.2 80-100 fL Mean Corpuscular Hemoglobin 30.0 25-34 pg Mean Corpuscular Hemoglobin Concent 33.6 32-36 g/dl Platelet Count 127 130-400 K/uL Mean Platelet Volume 9.8 7.4-10.4 fL Neutrophils (%) (Auto) 82.3 % Lymphocytes (%) (Auto) 8.9 % Monocytes (%) (Auto) 8.6 % Eosinophils (%) (Auto) 0.0 % Basophils (%) (Auto) 0.0 % Neutrophils # (Auto) 7.11 1.4-6.5 K/uL Lymphocytes # (Auto) 0.77 1.2-3.4 K/uL Monocytes # (Auto) 0.74 0.11-0.59 K/uL Eosinophils # (Auto) 0.00 0-0.5 K/uL Basophils # (Auto) 0.00 0-0.2 K/uL RDW Standard Deviation 46.1 36.4-46.3 fL RDW Coefficient of Variation 14.2 11.5-14.5 % Immature Granulocyte % (Auto) 0.2 % Immature Granulocyte # (Auto) 0.02 0.00-0.02 K/uL Prothrombin Time 10.6 9.0-12.0 SECONDS Prothromb Time International Ratio 1.0 0.9-1.1 Activated Partial Thromboplast Time 23.6 21.0-31.0 SECONDS Partial Thromboplastin Ratio 0.9 Sodium Level 140 136-145 mmol/L Potassium Level 3.9 3.5-5.1 mmol/L Chloride Level 108 98-107 mmol/L Carbon Dioxide Level 21 21-32 mmol/L Anion Gap 11.0 3-11 mmol/L Blood Urea Nitrogen 18 7-18 mg/dl Creatinine 1.21 0.60-1.40 mg/dl Est Creatinine Clear Calc Drug Dose 101.8 ml/min Estimated GFR () 84.5 Estimated GFR (Non- 72.9 BUN/Creatinine Ratio 14.6 10-20 Random Glucose 149 70-99 mg/dl Calcium Level 7.9 8.5-10.1 mg/dl Total Bilirubin 0.4 0.2-1 mg/dl Direct Bilirubin 0.2 0-0.2 mg/dl Aspartate Amino Transf (AST/SGOT) 23 15-37 U/L Alanine Aminotransferase (ALT/SGPT) 47 12-78 U/L Alkaline Phosphatase 57 45-117 U/L Total Creatine Kinase 283 39-308 U/L Creatine Kinase MB 2.2 0.5-3.6 ng/ml Creatine Kinase MB Ratio 0.8 0-3.0 Troponin I < 0.015 0-0.045 ng/ml Total Protein 6.5 6.4-8.2 gm/dl Albumin 3.2 3.4-5.0 gm/dl Lipase 101 73-393 U/L Bedside Lactic Acid Venous 2.52 0.90-1.70 mmol/L Microbiology Results 05/14/17 Blood Culture, Received Pending 05/14/17 Blood Culture, Received Pending Diagnostic Radiology CHEST ONE VIEW PORTABLE CLINICAL HISTORY: 41 years-old Male presenting with Evaluate Fever/Sepsis. TECHNIQUE: Portable upright AP view of the chest was obtained. COMPARISON: 11/22/2016. FINDINGS: Atherosclerosis of aortic arch. Cardiac silhouette mildly enlarged. Pulmonary vascular prominence. Patchy nodular opacities somewhat diffusely throughout the left lung and focally in the right lower lung. Bronchial wall thickening. No large effusion or pneumothorax. Osseous structures normal. Upper abdomen normal. IMPRESSION: 1. Findings concerning for multifocal pneumonia. Electronically signed by: Miles Connors M.D. 05/14/2017 7:22 AM Dictated Date/Time: 05/14/2017 7:21 AM The status of this report is Signed. Draft = Not yet reviewed or approved by Radiologist. Signed = Reviewed and approved by Radiologist. Impression Assessment and Plan Patient is a pleasant 41 y/o male, with PMHx of T2DM, HTN, HLD, hypothyroidism, neurogenic bladder, COPD, mood disorder, depression, hypokalemia, and GERD, who presented to the ED because of chest palpitations and hypoxia. Acute hypoxic respiratory failure secondary to sepsis from multifocal PNA: - Admit to tele for cardiac monitoring - Cardiac enzymes negative x1- repeat x1 more in q8 hrs - O2 protocol, wean as tolerated- does NOT wear O2 supplement normally - IV Levaquin 750 mg daily- check MRSA swab, if + will add Vancomycin - DuoNebs QID and q2h PRN for SOB/wheezing - Mucinex 600 mg BID - BCx, UA, and sputum culture pending - Influenza negative - Lactic acidosis at 2.5- repeat in q6 hrs HTN: Continue Coreg 25 mg BID and Lisinopril 40 mg daily Hypothyroidism: Continue Synthroid 100 mcg daily HLD: Continue Zetia and Zocor 40 mg HS T2DM: - Hold Metformin while inpatient - Continue Januvia 100 mg daily and Lantus 75 u BID - BSG ACHS and ISS Chronic hypokalemia: Continue KCL 20 mEq daily supplement COPD- STABLE: - No indication for steroids at this time - Combivent held due to DuoNeb treatments Mood disorder, depression: Continue Trazodone 150 mg HS, Prozac 40 mg daily, Thorazine 100 mg HS, Abilify 10 mg daily and 400 mg injection monthly GERD: Protonix daily- resume Prilosec at discharge DVT prophylaxis: Lovenox SQ daily Code status: LEVEL I, FULL Dispo: From assisted living- PT/OT and CM consulted Supervising Note Dr. Phillips I performed a history and physical examination on the patient. I reviewed above note and agree with it. I discussed plan with APC and patient. During my face to face encounter with the patient, I answered all of the patient's questions. Level of Care Telemetry Resuscitation Status FULL RESUSCITATION VTE Prophylaxis VTE Risk Assessment Done? Y/N: Yes Risk Level: Moderate Given or contraindicated: Enoxaparin (Lovenox)SQ, Lori Walsh, SCD's
[2017-05-14] MEDS ORDERED: GLUCAGON FOR INJ 1 MG VIAL SQ PRN (10:15)
[2017-05-14] MEDS ORDERED: DEXTROSE 50% 50 ML SYR IV PRN (10:15)
[2017-05-14] MEDS ORDERED: GLUCOSE 10 TABS/TUBE PO PRN (10:15)
[2017-05-14] MEDS ORDERED: GLUCOSE 40% GEL 15 GM TUBE PO PRN (10:15)
[2017-05-14] MEDS ORDERED: ARTIFICIAL TEARS OP SOLN OPB PRN (10:15)
[2017-05-14] MEDS: ENOXAPARIN 40 MG/0.4 ML SYR SC SCH (11:40)
[2017-05-14] MEDS: SODIUM CHLORIDE 0.9% 1000ML 1,000 ML IV SCH ×2 (11:40→22:05)
[2017-05-14] MEDS: INSULIN ASPART 100 UNITS/ML 3 ML PEN SC SCH ×3 (12:46→21:00)
[2017-05-14] MEDS: LEVALBUTEROL 1.25MG/0.5ML NEB INH SCH ×2 (13:52→19:24)
[2017-05-14 15:30] LABS: CKMB 2.7 ng/ml (0.5-3.6)
[2017-05-14] MEDS: INSULIN GLARGINE SOLOSTAR 100 UNITS/ML 3 ML PEN SQ SCH (17:27)
[2017-05-14] MEDS: DICYCLOMINE HCL 10 MG CAP PO SCH (21:07)
[2017-05-14] MEDS: CHLORPROMAZINE HCL 100 MG TAB PO SCH (21:07)
[2017-05-14] MEDS: TRAZODONE HCL 50 MG TAB PO SCH (21:07)
[2017-05-14] MEDS: CARVEDILOL 25 MG TAB PO SCH (21:07)
[2017-05-14] MEDS: SIMVASTATIN 40 MG TAB PO SCH (21:08)
[2017-05-15] VITALS (14 sets, daily range): BP systolic 126–160; BP diastolic 65–92; PULSE 92–111; TEMP 36.8–37.5; O2SAT 90–95
[2017-05-15] MEDS: LEVALBUTEROL 1.25MG/0.5ML NEB INH SCH ×4 (01:47→19:35)
[2017-05-15] MEDS: SODIUM CHLORIDE 0.9% 1000ML 1,000 ML IV SCH (04:58)
[2017-05-15] MEDS: CEFTRIAXONE SOD INJ 1 GM in DEXTROSE 5% ADD-VANTAGE 50ML 50 ML IV SCH (04:58)
[2017-05-15] MEDS: INSULIN GLARGINE SOLOSTAR 100 UNITS/ML 3 ML PEN SQ SCH ×2 (05:57→17:35)
[2017-05-15] MEDS: LEVOTHYROXINE 100 MCG TAB PO SCH (05:58)
[2017-05-15 06:56] LABS: HEMATOCRIT 38.1 % (42-52); HEMOGLOBIN 12.5 g/dL (14.0-18.0); MEAN CELL VOLUME 90.5 fL (80-100); MEAN CORPUSCULAR HEMOGLOBIN 29.7 pg (25-34); MEAN CORPUSCULAR HGB CONC 32.8 g/dl (32-36); MEAN PLATELET VOLUME 9.7 fL (7.4-10.4); PLATELET COUNT 134 K/uL (130-400); RED CELL DISTRIBUTION WIDTH CV 14.6 % (11.5-14.5); WHITE BLOOD COUNT 10.58 K/uL (4.8-10.8)
[2017-05-15 07:37] LABS: CALCIUM 7.5 mg/dl (8.5-10.1); CREATININE 1.16 mg/dl (0.60-1.40); POTASSIUM 3.9 mmol/L (3.5-5.1)
[2017-05-15] MEDS ORDERED: LEVOFLOXACIN / D5W 750 MG in PREMIXED IN D5W 150 ML IV SCH (08:00)
[2017-05-15] MEDS: PANTOprazole SOD 40 MG TAB PO SCH (08:30)
[2017-05-15] MEDS: EZETIMIBE 10MG TAB PO SCH (08:31)
[2017-05-15] MEDS: DICYCLOMINE HCL 10 MG CAP PO SCH ×2 (08:32→21:20)
[2017-05-15] MEDS: CARVEDILOL 25 MG TAB PO SCH ×2 (08:32→21:20)
[2017-05-15] MEDS: FLUOXETINE HCL 20 MG CAP PO SCH (08:33)
[2017-05-15] MEDS: SITAGLIPTIN 100 MG TAB PO SCH (08:33)
[2017-05-15] MEDS: POTASSIUM CHLORIDE 20 MEQ TABCR PO SCH (08:33)
[2017-05-15] MEDS: LISINOPRIL 40 MG TAB PO SCH (08:33)
[2017-05-15] MEDS: INSULIN ASPART 100 UNITS/ML 3 ML PEN SC SCH ×4 (08:36→21:00)
[2017-05-15] MEDS ORDERED: ARIPIprazole TAB 10 MG TAB PO SCH (09:00)
[2017-05-15] MEDS: ENOXAPARIN 40 MG/0.4 ML SYR SC SCH (11:11)
--- NOTE | 2017-05-15 13:14 | Hospitalist Progress Note ---
Hospitalist Progress Note Date of Service May 15, 2017. (Mónica Livingston ., PABrittneyC) Subjective Pt evaluation today including: conversation w/ patient, physical exam, lab review, review of inpatient medication list Voiding: no voiding problems Patient sitting in bedside chair. States he is feeling significantly improved since admission. +cough- no sputum production. Eating and drinking OK. Denies SOB- now on RA. Patient denies any fever, chills, sweats, lightheadedness, dizziness, vision changes, CP, palpitations, edema, SOB, wheezing, abdominal pain, nausea, vomiting, diarrhea, urinary symptoms, melena, numbness/tingling, weakness, muscle/joint pain, anxiety/depression, active bleeding, or new skin discoloration/changes. (Mónica Livingston ., RILEYC) Medications Current Inpatient Medications Medications (Trade) Dose Ordered Sig/Arlen Route Start Time Stop Time Status Last Admin Dose Admin Enoxaparin Sodium (Lovenox Inj) 40 mg Q24H SC 05/14/17 11:00 06/13/17 10:59 05/15/17 11:11 40 MG Acetaminophen (Tylenol Tab) 650 mg Q4H PRN PO 05/14/17 09:15 06/13/17 09:14 Al Hydrox/Mg Hydrox/Simethicone (Maalox Max Susp) 15 ml Q4H PRN PO 05/14/17 09:15 06/13/17 09:14 Magnesium Hydroxide (Milk Of Magnesia Susp) 30 ml Q12H PRN PO 05/14/17 09:15 06/13/17 09:14 Ondansetron HCl (Zofran Inj) 4 mg Q6H PRN IV 05/14/17 09:15 06/13/17 09:14 Nitroglycerin (Nitrostat Tab) 0.4 mg UD PRN SL 05/14/17 09:15 06/13/17 09:14 Morphine Sulfate (MoRPHine SULFATE INJ) 2 mg Q30M PRN IV 05/14/17 09:15 05/28/17 09:14 Polyethylene (Miralax Powder Packet) 17 gm DAILY PRN PO 05/14/17 09:15 06/13/17 09:14 Levalbuterol (Xopenex 1.25MG/ 0.5ML Neb) 1.25 mg Q6R INH 05/14/17 15:00 06/13/17 14:59 05/15/17 07:06 1.25 MG Levalbuterol (Xopenex 1.25MG/ 0.5ML Neb) 1.25 mg Q2H PRN INH 05/14/17 09:15 06/13/17 09:14 Levofloxacin 750 mg/Prmx 150 ml @ 100 mls/hr Q24H IV 05/15/17 08:00 05/21/17 07:59 05/15/17 08:34 100 MLS/HR Carvedilol (Coreg Tab) 25 mg BID PO 05/14/17 21:00 06/13/17 20:59 05/15/17 08:32 25 MG Chlorpromazine HCl (Thorazine Tab) 100 mg HS PO 05/14/17 21:00 06/13/17 20:59 05/14/17 21:07 100 MG Dicyclomine HCl (Bentyl Cap) 10 mg BID PO 05/14/17 21:00 06/13/17 20:59 05/15/17 08:32 10 MG EZETIMIBE (Zetia Tab) 10 mg QAM PO 05/15/17 09:00 06/14/17 08:59 05/15/17 08:31 10 MG Fluoxetine HCl (Prozac Cap) 40 mg QAM PO 05/15/17 09:00 06/14/17 08:59 05/15/17 08:33 40 MG Guaifenesin (Mucinex Contr Rel Tab) 600 mg BID PRN PO 05/14/17 09:15 06/13/17 09:14 Insulin Glargine (Lantus Solostar Pen) 75 units Q12H SQ 05/14/17 18:00 06/13/17 17:59 05/15/17 05:57 75 UNITS Levothyroxine Sodium (Synthroid Tab) 100 mcg DAILYBB PO 05/15/17 06:30 06/14/17 06:29 05/15/17 05:58 100 MCG Lisinopril (Zestril Tab) 40 mg DAILY PO 05/15/17 09:00 06/14/17 08:59 05/15/17 08:33 40 MG Menthol/Zinc Oxide (Calmoseptine Oint) 1 appln UD PRN EXT 05/14/17 09:15 06/13/17 09:14 Potassium Chloride (Klor-Con Tab) 20 meq QAM PO 05/15/17 09:00 06/14/17 08:59 05/15/17 08:33 20 MEQ Simvastatin (Zocor Tab) 40 mg HS PO 05/14/17 21:00 06/13/17 20:59 05/14/17 21:08 40 MG Sitagliptin Phosphate (Januvia Tab) 100 mg DAILY PO 05/15/17 09:00 06/14/17 08:59 05/15/17 08:33 100 MG Trazodone HCl (Desyrel Tab) 150 mg HS PO 05/14/17 21:00 06/13/17 20:59 05/14/17 21:07 150 MG Artificial Tears (Artificial Tears) 1 drops QID PRN OPB 05/14/17 10:15 06/13/17 10:14 Sodium Chloride 1,000 ml @ 100 mls/hr Q10H IV 05/14/17 09:15 06/13/17 09:14 05/15/17 04:58 100 MLS/HR Pantoprazole Sodium (Protonix Tab) 40 mg QAM PO 05/15/17 09:00 05/19/17 08:59 05/15/17 08:30 40 MG Insulin Aspart (novoLOG ASPART) SLIDING SCALE G... ACHS SC 05/14/17 11:00 06/13/17 10:59 05/15/17 12:15 6 UNITS Glucose (Glucose 40% Gel) 15-30 GRAMS 15 GRAMS... UD PRN PO 05/14/17 10:15 06/13/17 10:14 Glucose (Glucose Chew Tab) 4-8 Tablets 4 Tabl... UD PRN PO 05/14/17 10:15 06/13/17 10:14 Dextrose (Dextrose 50% 50ML Syringe) 25-50ML OF 50% DW IV FOR... UD PRN IV 05/14/17 10:15 06/13/17 10:14 Glucagon (Glucagon Inj) 1 mg UD PRN SQ 05/14/17 10:15 06/13/17 10:14 Aripiprazole (Abilify Maintena Kit) 400 mg Q28D IM 06/07/17 09:00 4/7/18 08:59 Ceftriaxone Sodium 1 gm/ Dextrose 50 ml @ 100 mls/hr Q24H IV 05/15/17 05:00 05/29/17 04:59 05/15/17 04:58 100 MLS/HR (Mónica Livingston, PA-C) Objective Vital Signs Date Time Temp Pulse Resp B/P (MAP) Pulse Ox O2 Delivery O2 Flow Rate FiO2 05/15/17 11:51 36.9 92 18 126/77 (93) 93 Room Air 05/15/17 10:27 92 Room Air 05/15/17 09:16 Room Air 05/15/17 09:11 159/86 (110) 92 Room Air 05/15/17 08:19 37.0 99 20 145/91 (109) 91 Room Air 05/15/17 08:00 91 Room Air 05/15/17 07:06 103 18 90 Room Air 05/15/17 04:00 Room Air 05/15/17 03:52 36.8 107 18 160/65 (96) 90 Room Air 05/15/17 01:47 107 18 90 Room Air 05/15/17 00:00 90 Room Air 05/14/17 23:52 37.1 99 18 129/84 (99) 90 Room Air 05/14/17 21:12 108 90 Room Air 05/14/17 20:05 36.4 107 17 144/83 (103) 94 Nasal Cannula 2.0 05/14/17 20:00 94 Nasal Cannula 2.0 05/14/17 19:24 111 16 94 Nasal Cannula 2.0 05/14/17 16:00 94 Nasal Cannula 2.0 05/14/17 15:49 36.4 117 22 129/70 (89) 94 Nasal Cannula 3.0 05/14/17 13:55 115 16 97 Nasal Cannula 4.0 (Mónica Livingston, PA-C) Physical Exam General Appearance: no apparent distress, + obese Eyes: normal inspection, PERRL ENT: hearing grossly normal Neck: supple Respiratory/Chest: lungs clear, no respiratory distress, no accessory muscle use, + decreased breath sounds (throughout ) Cardiovascular: regular rate, rhythm Abdomen: normal bowel sounds, non tender, soft Extremities: no pedal edema, no calf tenderness Neurologic/Psychiatric: alert, normal mood/affect Skin: normal color, warm/dry, no rash (Mónica Livingston ., PA-C) Laboratory Results Last 24 Hours Test 05/14/17 14:30 05/14/17 14:59 05/14/17 16:57 05/14/17 20:55 Creatine Kinase MB Ratio Lactic Acid Level 1.7 mmol/L Creatine Kinase MB 2.7 ng/ml Troponin I < 0.015 ng/ml Bedside Glucose 146 mg/dl 157 mg/dl Test 05/15/17 05:54 05/15/17 06:38 05/15/17 07:23 05/15/17 11:06 Bedside Glucose 178 mg/dl 142 mg/dl 230 mg/dl White Blood Count 10.58 K/uL Red Blood Count 4.21 M/uL Hemoglobin 12.5 g/dL Hematocrit 38.1 % Mean Corpuscular Volume 90.5 fL Mean Corpuscular Hemoglobin 29.7 pg Mean Corpuscular Hemoglobin Concent 32.8 g/dl RDW Standard Deviation 48.0 fL RDW Coefficient of Variation 14.6 % Platelet Count 134 K/uL Mean Platelet Volume 9.7 fL Sodium Level 142 mmol/L Potassium Level 3.9 mmol/L Chloride Level 110 mmol/L Carbon Dioxide Level 25 mmol/L Anion Gap 7.0 mmol/L Blood Urea Nitrogen 19 mg/dl Creatinine 1.16 mg/dl Est Creatinine Clear Calc Drug Dose 106.2 ml/min Estimated GFR () 88.9 Estimated GFR (Non- 76.7 BUN/Creatinine Ratio 16.2 Random Glucose 157 mg/dl Calcium Level 7.5 mg/dl Magnesium Level 2.1 mg/dl Thyroid Stimulating Hormone (TSH) 0.740 uIu/ml (Mónica Livingston ., PA-C) Assessment and Plan Patient is a pleasant 41 y/o male, with PMHx of T2DM, HTN, HLD, hypothyroidism, neurogenic bladder, COPD, mood disorder, depression, hypokalemia, and GERD, who presented to the ED because of chest palpitations and hypoxia. Acute hypoxic respiratory failure secondary to sepsis from multifocal PNA- IMPROVING: - Admit to tele for cardiac monitoring- no acute events, transfer to med/surg - Cardiac enzymes negative x2- negative - O2 protocol, wean as tolerated- does NOT wear O2 supplement normally- currently on RA - IV Levaquin 750 mg daily- transition to PO tomorrow - DuoNebs QID and q2h PRN for SOB/wheezing - Mucinex 600 mg BID - Sputum culture, if able, pending - Influenza negative, MRSA negative, UA unremarkable - Lactic acidosis at 2.5- repeat in q6 hrs 1/2 BCx positive for Bacillus species, likely contamination: - IV Rocephin started - Pending final BCx on 05/14; repeat BCx today HTN: Continue Coreg 25 mg BID and Lisinopril 40 mg daily Hypothyroidism: Continue Synthroid 100 mcg daily HLD: Continue Zetia and Zocor 40 mg HS T2DM: - Hold Metformin while inpatient - Continue Januvia 100 mg daily and Lantus 75 u BID - BSG ACHS and ISS Chronic hypokalemia: Continue KCL 20 mEq daily supplement COPD- STABLE: - No indication for steroids at this time - Combivent held due to DuoNeb treatments Mood disorder, depression: Continue Trazodone 150 mg HS, Prozac 40 mg daily, Thorazine 100 mg HS, Abilify 10 mg daily and 400 mg injection monthly GERD: Protonix daily- resume Prilosec at discharge DVT prophylaxis: Lovenox SQ daily Code status: LEVEL I, FULL Dispo: From assisted living- PT/OT and CM consulted- likely discharge tomorrow (Mónica Livingston, PA-C) Supervising Note Dr. Phillips I performed a history and physical examination on the patient. I reviewed above note and agree with it. I discussed plan with APC and patient. During my face to face encounter with the patient, I answered all of the patient's questions. (Yash Phillips M.D.)
[2017-05-15] MEDS ORDERED: NURSING VERBAL MED ORDER ONE (13:15)
[2017-05-15] MEDS: SIMVASTATIN 40 MG TAB PO SCH (21:20)
[2017-05-15] MEDS: TRAZODONE HCL 50 MG TAB PO SCH (21:21)
[2017-05-15] MEDS: CHLORPROMAZINE HCL 100 MG TAB PO SCH (21:21)
[2017-05-16] VITALS (8 sets, daily range): BP systolic 142–145; BP diastolic 83–86; PULSE 91–109; TEMP 36.7–36.9; O2SAT 92–96
[2017-05-16] MEDS: LEVALBUTEROL 1.25MG/0.5ML NEB INH SCH ×3 (01:50→15:06)
[2017-05-16] MEDS: CEFTRIAXONE SOD INJ 1 GM in DEXTROSE 5% ADD-VANTAGE 50ML 50 ML IV SCH (05:52)
[2017-05-16] MEDS: LEVOTHYROXINE 100 MCG TAB PO SCH (05:52)
[2017-05-16] MEDS: INSULIN GLARGINE SOLOSTAR 100 UNITS/ML 3 ML PEN SQ SCH (05:55)
[2017-05-16 06:17] LABS: HEMOGLOBIN 12.2 g/dL (14.0-18.0); MEAN CELL VOLUME 90.2 fL (80-100); MEAN CORPUSCULAR HEMOGLOBIN 29.8 pg (25-34); MEAN PLATELET VOLUME 9.9 fL (7.4-10.4); PLATELET COUNT 144 K/uL (130-400); RED CELL DISTRIBUTION WIDTH CV 14.3 % (11.5-14.5); RED CELL DISTRIBUTION WIDTH SD 47.1 fL (36.4-46.3)
[2017-05-16 06:51] LABS: CALCIUM 7.9 mg/dl (8.5-10.1); CREATININE 1.01 mg/dl (0.60-1.40)
[2017-05-16] MEDS: LISINOPRIL 40 MG TAB PO SCH (08:20)
[2017-05-16] MEDS: CARVEDILOL 25 MG TAB PO SCH (08:20)
[2017-05-16] MEDS: PANTOprazole SOD 40 MG TAB PO SCH (08:20)
[2017-05-16] MEDS: FLUOXETINE HCL 20 MG CAP PO SCH (08:20)
[2017-05-16] MEDS: DICYCLOMINE HCL 10 MG CAP PO SCH (08:21)
[2017-05-16] MEDS: POTASSIUM CHLORIDE 20 MEQ TABCR PO SCH (08:21)
[2017-05-16] MEDS: SITAGLIPTIN 100 MG TAB PO SCH (08:21)
[2017-05-16] MEDS: INSULIN ASPART 100 UNITS/ML 3 ML PEN SC SCH (08:23)
[2017-05-16] MEDS: EZETIMIBE 10MG TAB PO SCH (08:24)
[2017-05-16] MEDS ORDERED: LEVOFLOXACIN 750 MG TAB PO SCH (11:00)
[2017-05-16] MEDS: ENOXAPARIN 40 MG/0.4 ML SYR SC SCH (11:50)
[2017-05-16] MEDS ORDERED: LVQ750 PO (11:50)
--- NOTE | 2017-05-16 11:51 | Discharge Instructions ---
Discharge Instructions Date of Service May 16, 2017. Admission Reason for Admission: Pneumonia, Sepsis Discharge Discharge Diagnosis / Problem: Pneumonia Discharge Goals Goal(s): Decrease discomfort, Improve function, Improve disease control, Learn about illness, Diagnostic testing, Therapeutic intervention, Prevent Disease Progression Activity Recommendations Activity Limitations: resume your previous activity . Instructions / Follow-Up Instructions / Follow-Up Pneumonia (lung infection): Levaquin 750 mg daily until prescription is completed- start this medication on 05/17 Resume all other regular home medications as prescribed FOLLOW-UPS: Please follow-up with your PCP within 5-7 days Please follow-up/keep all of your subspecialty appointments Current Hospital Diet Patient's current hospital diet: Diabetes Type 2 Diet Discharge Diet Recommended Diet: Diabetes Type 2 Diet Pending Studies Studies pending at discharge: yes List of pending studies: Repeat blood cultures Medical Emergencies . Who to Call and When: Medical Emergencies: If at any time you feel your situation is an emergency, please call 911 immediately. . Non-Emergent Contact Non-Emergency issues call your: Primary Care Provider Call Non-Emergent contact if: you have a fever, your pain is not controlled, your pain is worsening, your pain is unusual for you, your pain is concerning you, you have any medication questions . . "Provider Documentation" section prepared by Mónica Livingston. . VTE Core Measure Inpt VTE Proph given/why not?: Enoxaparin (Lovenox)HAO, TPumaEGabriela Walsh, SCD's
--- NOTE | 2017-05-16 11:59 | Discharge Summary ---
Discharge Summary Date of Service May 16, 2017. Discharge Summary Admission Date: May 14, 2017 at 09:17 Discharge Date: May 16, 2017 Discharge Disposition: Personal care Principal Diagnosis: Pneumonia Problems/Secondary Diagnoses: Acute hypoxic respiratory failure secondary to sepsis from multifocal PNA 1/2 BCx positive for Bacillus species, likely contamination HTN Hypothyroidism HLD T2DM Chronic hypokalemia COPD Mood disorder depression GERD Procedures: CHEST ONE VIEW PORTABLE CLINICAL HISTORY: 41 years-old Male presenting with Evaluate Fever/Sepsis. TECHNIQUE: Portable upright AP view of the chest was obtained. COMPARISON: 11/22/2016. FINDINGS: Atherosclerosis of aortic arch. Cardiac silhouette mildly enlarged. Pulmonary vascular prominence. Patchy nodular opacities somewhat diffusely throughout the left lung and focally in the right lower lung. Bronchial wall thickening. No large effusion or pneumothorax. Osseous structures normal. Upper abdomen normal. IMPRESSION: 1. Findings concerning for multifocal pneumonia. Electronically signed by: Miles Connors M.D. 05/14/2017 7:22 AM Dictated Date/Time: 05/14/2017 7:21 AM The status of this report is Signed. Draft = Not yet reviewed or approved by Radiologist. Signed = Reviewed and approved by Radiologist. Medication Reconciliation New Medications: Levofloxacin (Levofloxacin) 750 Mg Tab 750 MG PO DAILY for 2 Days, #2 TAB Continued Medications: Acetaminophen (Tylenol) 325 Mg Tab 650 MG PO Q6H PRN for Pain, TAB Aripiprazole (Abilify Maintena) 400 Mg Inj 400 MG INJ Q4WK Aripiprazole (Abilify) 10 Mg Tab 1 TAB PO DAILY, TAB 2 Refills Benzonatate (Tessalon Perles) 100 Mg Cap 100 MG PO HS PRN for cough\, CAP Carvedilol (Coreg) 25 Mg Tab 25 MG PO BID 0600 & 1600 Chlorpromazine Hcl (Thorazine) 100 Mg Tab 100 MG PO HS, TAB Cholecalciferol (Vitamin D3) 2,000 Unit Cap 2000 UNITS PO DAILY Dicyclomine Hcl (Dicyclomine Hcl) 10 Mg Cap 10 MG PO BID 0600 & 1600 Epinephrine (Epipen) 0.3 Mg/0.3 Ml Inj 0.3 MG IM UD PRN for BEE STING, BOX Ezetimibe (Zetia) 10 Mg Tab 10 MG PO QAM, TAB Fluoxetine (Prozac) 40 Mg Cap 40 MG PO QAM Guaifenesin Ext Rel (Mucinex Ext Rel) 600 Mg Tab 600 MG PO BID PRN for congestion, TAB Insulin Aspart (Novolog Flexpen) 100 Units/Ml Inj SQ BID BREAKFAST AND SUPPER SLIDING SCALE 80-129=6U 130-139=7U 140-159=8U 160-169=9U 170-179=10U 180-189=11U 190-199=12U 200-209=13U 210-219=14U 220-229=15U 230-239=16U 240-249=17U 250-259=18U 260-269=19U 270-279=20U 280-289=21U 290-299=22U 300-309=23U 310-319=24U 320-329=25U 330-339=26U 340-349=27U 350-359=28U 360-369=29U 370-379=30U 380-389=31U 390-399=32U 400-409=33U 410-419=34U GREATER THAN 419 CALL Insulin Aspart (Novolog Flexpen) 100 Units/Ml Inj SQ HS HS SLIDING SCALE <160 = 0U 160-169=1U 170-179=2U 180-189=3U 190-199=4U 200-209=5U 210-219=6U 220-229=7U 230-239=8U 240-249=9U 250-259=10U 260-269=11U 270-279=12U 280-289=13U 290-299=14U 300-309=15U 310-319=16U 320-329=17U 330-339=18U 340-349=19U 350-359=20U 360-369=21U 370-379=22U 380-389=23U 390-399=24U 400-409=25U 410-419=26U GREATER THAN 419 CALL Insulin Glargine (Basaglar Kwikpen) 100 Unit/Ml Inj 75 UNITS SQ Q12 GIVE AT 6AM & 6PM Ipratropium-Albuterol (Combivent Respimat) 1 Aer Aer 1 PUFFS INH QID PRN for SOB/Wheezing Ipratropium-Albuterol (Duoneb) 3 Ml Nebu 1 TREATMENT INH QID PRN for Shortness of Breath, INHA Levothyroxine Sodium (Levothyroxine Sodium) 100 Mcg Tab 100 MCG PO QAM Lisinopril (Zestril) 40 Mg Tab 40 MG PO DAILY Menthol-Zinc Oxide (Calmoseptine) 1 Oin Oin 1 APPLN TOP PRN Metformin Hcl (Glucophage) 1,000 Mg Tab 1000 MG PO BID Omeprazole (Prilosec) 20 Mg Capcr 40 MG PO BID 0600 & 1600 Polyvinyl Alcohol-Povidone (Op (Refresh) 1 Scott Scott 1 DROP OPB QID PRN for DRYNESS Potassium Ext Rel (Klor-Con) 20 Meq Tabcr 20 MEQ PO QAM Simvastatin (Zocor) 40 Mg Tab 40 MG PO HS, 0 Refills Sitagliptin Phosphate (Januvia) 100 Mg Tab 100 MG PO DAILY, TAB Trazodone Hcl (Desyrel) 150 Mg Tab 150 MG PO HS, TAB Discharge Exam Review of Systems: Constitutional: No fever, No chills, No sweats, No weakness, No fatigue Eyes: No worsening of vision ENT: No hearing loss Respiratory: + cough, + sputum, No shortness of breath, No hemoptysis Cardiovascular: No chest pain, No edema, No palpitations Abdomen: No pain, No nausea, No vomiting, No diarrhea, No constipation Musculoskeletal: No joint pain, No muscle pain, No swelling, No calf pain Genitourinary - Male: No hematuria, No dysuria Neurologic: No weakness, No numbness/tingling Psychiatric: No depression symptoms, No anxiety Endocrine: No fatigue Hematologic / Lymphatic: No abnormal bleeding/bruising Integumentary: No rash, No itch, No new/changing skin lesions Physical Exam: General Appearance: no apparent distress, + obese Eyes: normal inspection, PERRL ENT: hearing grossly normal Neck: supple Respiratory/Chest: lungs clear, no respiratory distress, no accessory muscle use Cardiovascular: regular rate, rhythm Abdomen / GI: normal bowel sounds, non tender, soft Extremities: no calf tenderness, no pedal edema Neurologic/Psychiatric: alert, normal mood/affect, oriented x 3 Skin: normal color, warm/dry, no rash Hospital Course Patient is a pleasant 41 y/o male, with PMHx of T2DM, HTN, HLD, hypothyroidism, neurogenic bladder, COPD, mood disorder, depression, hypokalemia, and GERD, who presented to the ED because of chest palpitations and hypoxia. Acute hypoxic respiratory failure secondary to sepsis from multifocal PNA- IMPROVING: - Admit to tele for cardiac monitoring- no acute events, transferred to med/surg - Cardiac enzymes negative x2- negative - O2 protocol, wean as tolerated- does NOT wear O2 supplement normally- currently on RA - Levaquin 750 mg daily x5 days- last day of treatment on 05/18 - DuoNebs QID and q2h PRN for SOB/wheezing - Mucinex 600 mg BID - No sputum culture collected - Influenza negative, MRSA negative, UA unremarkable - Lactic acidosis at 2.5- repeat in q6 hrs at 1.7 / BCx on 05/14 positive for Bacillus species, likely contamination: - NGTD on 04/03 on BCx from 05/14 - Repeat BCx on 05/15 pending- will continue to follow-up and call if positive results - IV Rocephin x2 doses HTN: Continue Coreg 25 mg BID and Lisinopril 40 mg daily Hypothyroidism: Continue Synthroid 100 mcg daily HLD: Continue Zetia and Zocor 40 mg HS T2DM: - Hold Metformin while inpatient- resume at discharge - Continue Januvia 100 mg daily and Lantus 75 u BID - BSG ACHS and ISS Chronic hypokalemia: Continue KCL 20 mEq daily supplement COPD- STABLE: - No indication for steroids at this time - Combivent held due to DuoNeb treatments- resume at discharge Mood disorder, depression: Continue Trazodone 150 mg HS, Prozac 40 mg daily, Thorazine 100 mg HS, Abilify 10 mg daily and 400 mg injection monthly GERD: Protonix daily- resume Prilosec at discharge DVT prophylaxis: Lovenox SQ daily Code status: LEVEL I, FULL Dispo: Discharge to [facility] Supervising Note Dr. Phillips I performed a history and physical examination on the patient. I reviewed above note and agree with it. I discussed plan with APC and patient. During my face to face encounter with the patient, I answered all of the patient's questions. Total Time Spent: Greater than 30 minutes This includes examination of the patient, discharge planning, medication reconciliation, and communication with other providers. Discharge Instructions Please refer to the electronic Patient Visit Report (Discharge Instructions) for additional information. Follow-Up Please follow-up with your PCP within 5-7 days Please follow-up/keep all of your subspecialty appointments Additional Copies To [facility]ention
[2017-06-07] MEDS ORDERED: ARIPIPRAZOLE 400 MG KIT IM SCH (09:00)
== END 2017-05-16 16:18 | disposition home or self-care (01) | DRG 871 ==
LOC: EDBD 06:27 → C.EDB 06:28 → C.MED 09:17 → ENRESERV 09:42
PROVIDERS: ADMIT Internal Medicine Sports Medicine; ATTEND Internal Medicine Sports Medicine
DX: A41.9 Sepsis, unspecified organism (principal); J18.9 Pneumonia, unspecified organism; J96.01 Acute respiratory failure with hypoxia; F20.0 Paranoid schizophrenia; E87.1 Hypo-osmolality and hyponatremia; Z68.41 Body mass index [BMI] 40.0-44.9, adult; J44.9 Chronic obstructive pulmonary disease, unspecified; F32.9 Major depressive disorder, single episode, unspecified; E11.9 Type 2 diabetes mellitus without complications; K21.9 Gastro-esophageal reflux disease without esophagitis; E03.9 Hypothyroidism, unspecified; E66.3 Overweight; I10 Essential (primary) hypertension; E78.5 Hyperlipidemia, unspecified; E87.6 Hypokalemia; N31.9 Neuromuscular dysfunction of bladder, unspecified; Z88.8 Allergy status to other drugs, medicaments and biological substances; Z91.030 Bee allergy status; Z79.4 Long term (current) use of insulin; Z87.891 Personal history of nicotine dependence; Z80.9 Family history of malignant neoplasm, unspecified; Z83.3 Family history of diabetes mellitus; Z82.49 Family history of ischemic heart disease and other diseases of the circulatory system

== ENCOUNTER → 2017-08-01 | Outpatient (CLI) | payer OTHER ==
[~2017-08-01] MED LIST changes: +ABL10 PO; -CLOT-51 TOP; +EZET10TA63 PO; -IMD/2 PO; -INSDGIPEN SC; +INSU100I23 SQ; +LVQ750 PO; -NVLGI/PEN SC; +NVLGI/PEN SQ; +NVLGIPEN SQ; +POLYSOL OPB; +POTA-639 PO; -POTA20TA16 PO; +SITA100T3 PO; -TRAZ100T29 PO; +TRAZ1TAB52 PO
[2017-08-01 08:40] LABS: BLOOD UREA NITROGEN 21 mg/dl (7-18); CREATININE 1.27 mg/dl (0.60-1.40)
== END | disposition home or self-care (01) ==
LOC: C.LABSPEC 08:17
PROVIDERS: ATTEND Nurse Practitioner Adult Health
DX: R33.9 Retention of urine, unspecified (principal); R30.0 Dysuria; N39.0 Urinary tract infection, site not specified; N21.0 Calculus in bladder

== ENCOUNTER 2017-10-25 07:36 | Inpatient (IN) | payer OTHER ==
[~2017-10-25] VITALS: Ht 172.7 cm; Wt 130.5 kg
[~2017-10-25 07:36] MED LIST changes: -ACET-1311 PO; -ARIP1INJ INJ; -BENZ100C84 PO; -CARV25TA2 PO; -CHLO100T8 PO; -CHOL2000 PO; -DICY10CA12 PO; -EPP3/2 IM; -FLUO40CA8 PO; -GUAI1TAB55 PO; +IPRA-64 INH; -IPRA1AER2 INH; -IPRASOL4 INH; -LEVO100T7 PO; -LISI40TA PO; -METF1000 PO; -POTA-639 PO; -PRLSR20 PO; -SIMV40TA2 PO
[2017-10-25] MEDS ORDERED: LEVALBUTEROL 1.25MG/3ML NEB INH STA (07:48)
[2017-10-25 08:27] VITALS: PULSE 120; O2SAT 90
[2017-10-25 08:32] LABS: BASO % 0.1 %; BASO ABS # 0.01 K/uL (0-0.2); EOS % 0.1 %; EOS ABS # 0.01 K/uL (0-0.5); HEMATOCRIT 39.7 % (42-52); HEMOGLOBIN 13.1 g/dL (14.0-18.0); IG# 0.02 K/uL (0.00-0.02); LYMPH % 13.5 %; LYMPH ABS # 1.28 K/uL (1.2-3.4); MONO % 7.2 %; MONO ABS # 0.68 K/uL (0.11-0.59); NEUT % 78.9 %; NEUT ABS # 7.51 K/uL (1.4-6.5); PLATELET COUNT 142 K/uL (130-400); RED CELL DISTRIBUTION WIDTH CV 14.4 % (11.5-14.5); RED CELL DISTRIBUTION WIDTH SD 46.4 fL (36.4-46.3); WHITE BLOOD COUNT 9.51 K/uL (4.8-10.8)
[2017-10-25] MEDS ORDERED: PIPERACILLIN/TAZOBACTAM 4.5 GM/100ML D5W IV STA (08:38)
[2017-10-25] MEDS ORDERED: VANCOMYCIN 1GM ED/ASU OMNICELL IV STA (08:38)
[2017-10-25] MEDS ORDERED: LEVAQUIN 750MG / 150ML D5W IV STA (08:38)
[2017-10-25 08:42] LABS: ISTAT CREATININE 1.1 mg/dl (0.6-1.3); ISTAT IONIZED CALCIUM 1.21 mmol/l (1.12-1.32); ISTAT POTASSIUM 4.8 mEq/L (3.3-5.0)
[2017-10-25] MEDS ORDERED: CHLO100T8 PO (08:44)
[2017-10-25] MEDS ORDERED: BENZ100C84 PO (08:44)
--- NOTE | 2017-10-25 09:04 | DIAGNOSTIC IMAGING REPORT ---
CHEST ONE VIEW PORTABLE CLINICAL HISTORY: Pt c/o SOB dyspnea COMPARISON STUDY: 09/05/2017 FINDINGS: Diffuse parenchymal infiltrative change left mid and lower lung. Right lung is clear. Diaphragms are smooth. IMPRESSION: Diffuse left mid and lower lung parenchymal infiltrate. The above report was generated using voice recognition software. It may contain grammatical, syntax or spelling errors. Electronically signed by: Elijah Abebe M.D. 10/25/2017 8:09 AM Dictated Date/Time: 10/25/2017 8:09 AM
[2017-10-25 09:28] LABS: ALBUMIN 3.4 gm/dl (3.4-5.0); ALKALINE PHOSPHATASE 61 U/L (45-117); ALT/SGPT 56 U/L (12-78); AST/SGOT 31 U/L (15-37); BLOOD UREA NITROGEN 24 mg/dl (7-18); CALCIUM 9.3 mg/dl (8.5-10.1); CARBON DIOXIDE 25 mmol/L (21-32); CKMB 2.5 ng/ml (0.5-3.6); CREATININE 1.27 mg/dl (0.60-1.40); GLUCOSE 244 mg/dl (70-99); POTASSIUM 4.7 mmol/L (3.5-5.1); SODIUM 138 mmol/L (136-145); TOTAL PROTEIN 7.1 gm/dl (6.4-8.2)
[2017-10-25 09:28] LABS: PTT PATIENT 22.7 SECONDS (21.0-31.0)
[2017-10-25] MEDS ORDERED: SIMV40TA2 PO (09:43)
[2017-10-25] MEDS ORDERED: FLUO40CA8 PO (09:43)
[2017-10-25] MEDS ORDERED: OPTIRAY 320 IV PRN (10:00)
--- NOTE | 2017-10-25 10:19 | DIAGNOSTIC IMAGING REPORT ---
(CHEST FOR PE) ANGIO WITH CT DOSE: 722.83 mGy.cm HISTORY: Chest pain dyspnea. TECHNIQUE: Multiaxial CT images of the chest were performed following the intravenous administration of contrast to evaluate the pulmonary arteries. Maximal intensity projection images were also obtained. A dose lowering technique was utilized adhering to the principles of ALARA. COMPARISON STUDY: 05/27/2015 FINDINGS: Thoracic aorta is unremarkable. No evidence of pulmonary embolism. The pulmonary vasculature enhances appropriately. Interval development of a diffuse patchy parenchymal infiltrate of the left mid to lower lung. Right lung remains clear and is improved compared to the prior exam. Small fixed lateral hernia. No significant mediastinal or hilar chastity pathology. Several benign reactive nodes unchanged from the prior study. IMPRESSION: 1. Study is negative for pulmonary embolus. 2. Diffuse scattered parenchymal infiltrate left hemithorax. The above report was generated using voice recognition software. It may contain grammatical, syntax or spelling errors. Electronically signed by: Elijah Abebe M.D. 10/25/2017 10:17 AM Dictated Date/Time: 10/25/2017 10:07 AM
[2017-10-25 11:12] VITALS: O2SAT 97; Ht 172.7 cm; Wt 130.5 kg
[2017-10-25] MEDS ORDERED: ONDANSETRON INJ 2 MG/ML 2 ML VIAL IV PRN (11:15)
[2017-10-25] MEDS ORDERED: ACETAMINOPHEN 325 MG TAB PO PRN (11:15)
[2017-10-25] MEDS ORDERED: DICY10CA12 PO (11:31)
[2017-10-25] MEDS ORDERED: IPRA-64 INH (11:44)
[2017-10-25] MEDS ORDERED: NVLGI7030 SC ×2 (11:44)
[2017-10-25] MEDS ORDERED: POLYSOL OPB (11:44)
[2017-10-25] MEDS ORDERED: BENZONATATE 100MG CAP PO PRN (11:45)
[2017-10-25] MEDS ORDERED: ALBUT/IPRATROP 3MG/0.5MG NEB 3 ML VIAL INH PRN (11:45)
--- NOTE | 2017-10-25 11:55 | EMERGENCY ROOM VISIT NOTE ---
History Report prepared by Anuradha: Dorinda Delgadillo Under the Supervision of: Dr. Rian Cornejo M.D. First contact with patient: 07:37 Stated Complaint: CHEST DISCOMFORT History of Present Illness The patient is a 42 year old male who presents to the Emergency Room with complaints of persistent SOB starting this morning. The patient woke up this morning with chest pain and SOB. He reports that he had similar symptoms with his previous pneumonia. The chest pain resolved after he was started on oxygen in the ambulance. He is normally not on oxygen. He is having some pain with deep breaths. He denies any fever or abdominal pain. He is from [facility]. He is not on any blood thinners. Source of History: patient Onset: this morning Position: chest Quality: other (SOB) Timing: other (persistent) Associated Symptoms: + chest pain, No fevers, No abdominal pain Review of Systems See HPI for pertinent positives & negatives. A total of 10 systems reviewed and were otherwise negative. Past Medical & Surgical Medical Problems: (1) COPD (chronic obstructive pulmonary disease) (2) Depression (3) Diabetes mellitus (4) Dyslipidemia (5) GERD (gastroesophageal reflux disease) (6) Hypothyroidism (7) Neurogenic bladder (8) Paranoid schizophrenia Surgical Problems: (1) H/O inguinal hernia repair Family History Cancer Diabetes mellitus Hypertension Lung disease Social History Smoking Status: Former Smoker Alcohol Use: none Marital Status: single Housing Status: other Occupation Status: disabled Current/Historical Medications Scheduled Aripiprazole (Abilify Maintena), 400 MG INJ Q4WK Aripiprazole (Abilify), 1 TAB PO DAILY Carvedilol (Coreg), 25 MG PO BID Chlorpromazine Hcl (Thorazine), 100 MG PO HS Cholecalciferol (Vitamin D3), 2,000 UNITS PO DAILY Dicyclomine Hcl (Dicyclomine Hcl), 10 MG PO BID Ezetimibe (Zetia), 10 MG PO QAM Fluoxetine (Prozac), 40 MG PO QAM Insulin Aspart (Novolog Flexpen), SQ TID Insulin Aspart Protamine & Asp (Novolog Mix 70/30), 15 UNITS SC HS Insulin Aspart Protamine & Asp (Novolog Mix 70/30), 12 UNITS SC DAILY Insulin Glargine (Basaglar Kwikpen), 75 UNITS SQ Q12 Levothyroxine Sodium (Levothyroxine Sodium), 100 MCG PO QAM Lisinopril (Zestril), 40 MG PO DAILY Metformin Hcl (Glucophage), 1,000 MG PO BID Omeprazole (Prilosec), 40 MG PO BID Potassium Ext Rel (Klor-Con), 20 MEQ PO QAM Simvastatin (Zocor), 40 MG PO HS Sitagliptin Phosphate (Januvia), 100 MG PO DAILY Trazodone Hcl (Desyrel), 150 MG PO HS Scheduled PRN Acetaminophen (Tylenol), 650 MG PO Q6H PRN for Pain Benzonatate (Tessalon Perles), 100 MG PO HS PRN for cough\ Epinephrine (Epipen), 0.3 MG IM UD PRN for BEE STING Guaifenesin Ext Rel (Mucinex Ext Rel), 600 MG PO BID PRN for congestion Ipratropium-Albuterol (Combivent Respimat), 1 PUFFS INH QID PRN for SOB/Wheezing Ipratropium-Albuterol (Duoneb), 1 TREATMENT INH QID PRN for SOB/Wheezing Polyvinyl Alcohol-Povidone (Op (Refresh), 1 DROP OPB for DRYNESS Allergies Coded Allergies: BEE STING (Verified Allergy, Severe, ANAPHYLAXIS, 10/25/17) Antihistamines, Diphenhydramine-typ (Unverified Allergy, Unknown, _, ) Physical Exam Vital Signs Date Time Temp Pulse Resp B/P (MAP) Pulse Ox O2 Delivery O2 Flow Rate FiO2 10/25/17 10:35 97 Nasal Cannula 2.0 10/25/17 10:30 110 28 148/83 97 Nasal Cannula 4.0 10/25/17 09:30 114 30 154/74 95 Nasal Cannula 4.0 10/25/17 08:27 120 26 90 Room Air 10/25/17 07:45 118 10/25/17 07:40 94 Nasal Cannula 4.0 10/25/17 07:40 37.1 117 30 159/107 87 Room Air 10/25/17 07:40 94 Nasal Cannula 4.0 10/25/17 07:40 87 Room Air Physical Exam GENERAL: Awake, alert, well-appearing, in no acute distress HENT: Normocephalic, atraumatic. Oropharynx unremarkable. EYES: Normal conjunctiva. Sclera non-icteric. NECK: Supple. No nuchal rigidity. FROM. No JVD. RESPIRATORY: Clear to auscultation. CARDIAC: Regular rate, normal rhythm. Extremities warm and well perfused. Pulses equal. ABDOMEN: Soft, non-distended. No tenderness to palpation. No rebound or guarding. No masses. RECTAL: Deferred. MUSCULOSKELETAL: Chest examination reveals no tenderness. The back is symmetrical on inspection without obvious abnormality. There is no CVA tenderness to palpation. No joint edema. LOWER EXTREMITIES: Calves are equal size bilaterally and non-tender. No edema. No discoloration. NEURO: Normal sensorium. No sensory or motor deficits noted. SKIN: No rash or jaundice noted. Medical Decision & Procedures ER Provider Diagnostic Interpretation: X-ray results as stated below per interpretation by me and the radiologist. Radiology results as stated below per my review and radiologist interpretation: CHEST ONE VIEW PORTABLE CLINICAL HISTORY: Pt c/o SOB dyspnea COMPARISON STUDY: 09/05/2017 FINDINGS: Diffuse parenchymal infiltrative change left mid and lower lung. Right lung is clear. Diaphragms are smooth. IMPRESSION: Diffuse left mid and lower lung parenchymal infiltrate. The above report was generated using voice recognition software. It may contain grammatical, syntax or spelling errors. Electronically signed by: Elijah Abebe M.D. 10/25/2017 8:09 AM Dictated Date/Time: 10/25/2017 8:09 AM (CHEST FOR PE) ANGIO WITH CT DOSE: 722.83 mGy.cm HISTORY: Chest pain dyspnea. TECHNIQUE: Multiaxial CT images of the chest were performed following the intravenous administration of contrast to evaluate the pulmonary arteries. Maximal intensity projection images were also obtained. A dose lowering technique was utilized adhering to the principles of ALARA. COMPARISON STUDY: 05/27/2015 FINDINGS: Thoracic aorta is unremarkable. No evidence of pulmonary embolism. The pulmonary vasculature enhances appropriately. Interval development of a diffuse patchy parenchymal infiltrate of the left mid to lower lung. Right lung remains clear and is improved compared to the prior exam. Small fixed lateral hernia. No significant mediastinal or hilar chastity pathology. Several benign reactive nodes unchanged from the prior study. IMPRESSION: 1. Study is negative for pulmonary embolus. 2. Diffuse scattered parenchymal infiltrate left hemithorax. The above report was generated using voice recognition software. It may contain grammatical, syntax or spelling errors. Electronically signed by: Elijah Abebe M.D. 10/25/2017 10:17 AM Dictated Date/Time: 10/25/2017 10:07 AM Laboratory Results Test 10/25/17 08:15 10/25/17 08:23 10/25/17 08:30 10/25/17 08:58 Immature Granulocyte % (Auto) 0.2 % White Blood Count 9.51 K/uL (4.8-10.8) Red Blood Count 4.51 M/uL (4.7-6.1) Hemoglobin 13.1 g/dL (14.0-18.0) Hematocrit 39.7 % (42-52) Mean Corpuscular Volume 88.0 fL (80-100) Mean Corpuscular Hemoglobin 29.0 pg (25-34) Mean Corpuscular Hemoglobin Concent 33.0 g/dl (32-36) Platelet Count 142 K/uL (130-400) Mean Platelet Volume 10.0 fL (7.4-10.4) Neutrophils (%) (Auto) 78.9 % Lymphocytes (%) (Auto) 13.5 % Monocytes (%) (Auto) 7.2 % Eosinophils (%) (Auto) 0.1 % Basophils (%) (Auto) 0.1 % Neutrophils # (Auto) 7.51 K/uL (1.4-6.5) Lymphocytes # (Auto) 1.28 K/uL (1.2-3.4) Monocytes # (Auto) 0.68 K/uL (0.11-0.59) Eosinophils # (Auto) 0.01 K/uL (0-0.5) Basophils # (Auto) 0.01 K/uL (0-0.2) Immature Granulocyte # (Auto) 0.02 K/uL (0.00-0.02) Total Bilirubin 0.4 mg/dl (0.2-1) Aspartate Amino Transf (AST/SGOT) 31 U/L (15-37) Alanine Aminotransferase (ALT/SGPT) 56 U/L (12-78) Alkaline Phosphatase 61 U/L (45-117) Total Creatine Kinase 353 U/L (39-308) Creatine Kinase MB 2.5 ng/ml (0.5-3.6) Creatine Kinase MB Ratio 0.7 (0-3.0) Troponin I < 0.015 ng/ml (0-0.045) Pro-B-Type Natriuretic Peptide 37 pg/ml (0-450) Total Protein 7.1 gm/dl (6.4-8.2) Albumin 3.4 gm/dl (3.4-5.0) Globulin 3.7 gm/dl (2.5-4.0) Albumin/Globulin Ratio 0.9 (0.9-2) Urine Color YELLOW Urine Appearance CLEAR (CLEAR) Urine pH 5.0 (4.5-7.5) Urine Specific [place] 1.021 (1.000-1.030) Urine Protein NEG (NEG) Urine Glucose (UA) 2+ (NEG) Urine Ketones NEG (NEG) Urine Occult Blood NEG (NEG) Urine Nitrite NEG (NEG) Urine Bilirubin NEG (NEG) Urine Urobilinogen NEG (NEG) Urine Leukocyte Esterase NEG (NEG) Bedside Hemoglobin 13.3 g/dl (14.0-18.0) Bedside Hematocrit 39 % (42-52) Bedside Sodium 138 mEq/L (135-144) Bedside Potassium 4.8 mEq/L (3.3-5.0) Bedside Chloride 104 mEq/L (101-112) Bedside Total CO2 24 mEq/l (24-31) Bedside Blood Urea Nitrogen 25 mg/dl (7-18) Bedside Creatinine 1.1 mg/dl (0.6-1.3) Bedside Glucose (other) 242 mg/dl (70-99) Bedside Ionized Calcium (Harpal) 1.21 mmol/l (1.12-1.32) Prothrombin Time 10.5 SECONDS (9.0-12.0) Prothromb Time International Ratio 1.0 (0.9-1.1) Activated Partial Thromboplast Time 22.7 SECONDS (21.0-31.0) Partial Thromboplastin Ratio 0.9 D-Dimer 1160 ug/L FEU (0-500) Date/Time Source Procedure Growth Status 10/25/17 09:00 Blood Blood Culture - Final NO GROWTH Complete Labs reviewed by ED physician. Medications Administered Medications (Trade) Dose Ordered Sig/Arlen Route Start Time Stop Time Status Last Admin Dose Admin Levalbuterol (Xopenex 1.25MG/ 3ML Neb) 1.25 mg NOW STAT INH 10/25/17 07:48 10/25/17 07:51 DC 10/25/17 07:48 1.25 MG Piperacillin Sod/ Tazobactam Sod (Zosyn Iv) 4.5 gm NOW STAT IV 10/25/17 08:38 10/25/17 08:41 DC 10/25/17 09:14 4.5 GM Levofloxacin (Levaquin / D5W) 750 mg NOW STAT IV 10/25/17 08:38 10/25/17 08:41 DC 10/25/17 10:11 750 MG Vancomycin HCl (Vancomycin 1gm Ed/Asu Omnicell) 1 gm NOW STAT IV 10/25/17 08:38 10/25/17 08:41 DC 10/25/17 10:11 1 GM ECG Per My Interpretation Indication: SOB/dyspnea Rate (beats per minute): 114 Rhythm: sinus tachycardia Findings: RBBB, other (no ST elevation or depression) ED Course 0743: Past medical records reviewed. The patient was evaluated in room B7. A complete history and physical examination was performed. 1039: I discussed the patient's case with KATIE Jaffe. She has agreed to evaluate the patient for further management and care. Medical Decision Differential diagnosis: Etiologies such as infections, reactive airway disease, pneumonia, pneumothorax , COPD, CHF, cardiac ischemia, pulmonary embolism, musculoskeletal, gastrointestinal, as well as others were entertained. This is a 42-year-old male who presents emergency department complaining of hypoxia and shortness of breath. Patient was found to be hypoxic upon arrival to the emergency department therefore was given Xopenex. His chest x-ray is concerning for pneumonia. He was sent for CAT scan of the chest which confirmed pneumonia. He was pancultured and started on antibiotics. I did discuss the case with the medicine service who agreed to admit the patient. Patient was in agreement with the treatment plan. Medication Reconcilliation Current Medication List: was personally reviewed by me Blood Pressure Screening Patient's blood pressure: Elevated blood pressure Referred to hospitalist Consults Time Called: 1035 Consulting Physician: KATIE Jaffe Returned Call: [phone] I discussed the patient's case with her. She has agreed to evaluate the patient for further management and care. Impression Primary Impression: Pneumonia Scribe Attestation The scribe's documentation has been prepared under my direction and personally reviewed by me in its entirety. I confirm that the note above accurately reflects all work, treatment, procedures, and medical decision making performed by me. Departure Information Dispostion Being Evaluated By Hospitalist Referrals Nano Paul D.O. (PCP) Problem Qualifiers Primary Impression: Pneumonia Pneumonia type: due to unspecified organism Laterality: unspecified laterality Lung location: unspecified part of lung Qualified Codes: J18.9 - Pneumonia, unspecified organism
[2017-10-25] MEDS ORDERED: GLUCOSE 10 TABS/TUBE PO PRN (12:00)
[2017-10-25] MEDS ORDERED: GLUCOSE 40% GEL 15 GM TUBE PO PRN (12:00)
[2017-10-25] MEDS ORDERED: DEXTROSE 50% 50 ML SYR IV PRN (12:00)
[2017-10-25] MEDS ORDERED: GLUCAGON FOR INJ 1 MG VIAL SQ PRN (12:00)
[2017-10-25] MEDS ORDERED: CARBOHYDRATES FOR HYPOGLYCEMIA PO PRN (12:00)
[2017-10-25 12:05] VITALS: O2SAT 91
[2017-10-25] MEDS ORDERED: PIPERACILL/TAZOBAC CONSULT ACTIVE PRN (12:06)
[2017-10-25] MEDS ORDERED: PHARMACY GLYCEMIC MGMT CONSULT PRN (12:08)
[2017-10-25 12:45] VITALS: BP 157/100; PULSE 108; TEMP 36.9; O2SAT 93
[2017-10-25] MEDS: SODIUM CHLORIDE 0.9% 1000ML 1,000 ML IV SCH ×2 (12:55→21:29)
[2017-10-25] MEDS ORDERED: INSULIN GLARGINE SOLOSTAR 100 UNITS/ML 3 ML PEN SC ONE (13:30)
[2017-10-25] MEDS: PIPERACILL/TAZOBAC IV 4.5 GM in D5W 100 ML IV SCH ×2 (13:39→21:32)
--- NOTE | 2017-10-25 14:13 | History and Physical ---
History & Physical Date & Time of Service: Oct 25, 2017 ~ 10:45 Chief Complaint: Cough, shortness of breath Primary Care Physician: Nano Paul D.O. History of Present Illness 42-year-old male who presents to the ED with cough and shortness of breath. Patient has mild mental retardation and lives at [facility]. Patient has history of recurrent pneumonia most recently in August treated with Levaquin. He reports yesterday he developed a cough productive for yellow sputum. This morning whenever he woke up he reports he was feeling short of breath and having left-sided rib pain. He denies fevers and chills however at the time my exam patient is found to be diaphoretic, temperature was taken and found to be 37.2. He denies chest pain. No lightheadedness, dizziness, syncopal events. He denies abdominal pain, nausea, vomiting, diarrhea. No urinary symptoms. In the ED, chest CT is negative for pulmonary embolism however showing left mid to left lower infiltrate. Patient was hypoxic on room air at 88%, this improved with oxygen 4 L via nasal cannula. He is mildly tachycardic but otherwise hemodynamically stable without leukocytosis. Patient was given a neb, IV Levaquin, IV Zosyn, IV vancomycin. Past Medical/Surgical History Medical Problems: (1) COPD (chronic obstructive pulmonary disease) Status: Chronic (2) Depression Status: Chronic (3) Diabetes mellitus Status: Chronic (4) Dyslipidemia Status: Chronic (5) GERD (gastroesophageal reflux disease) Status: Chronic (6) Hypothyroidism Status: Chronic (7) Neurogenic bladder Status: Chronic (8) Paranoid schizophrenia Status: Chronic Surgical Problems: (1) H/O inguinal hernia repair Status: Chronic Family History Diabetes mellitus MOTHER Hypertension FATHER Social History Smoking Status: Former Smoker Alcohol Use: none Housing status: assisted living Occupational Status: employed Immunizations History of Influenza Vaccine: Yes Influenza Vaccine Date: Dec 07, 2016 History of Tetanus Vaccine?: Yes Tetanus Immunization Date: Jun 14, 2017 History of Pneumococcal: Yes Pneumococcal Date: Jun 14, 2017 Allergies Coded Allergies: BEE STING (Verified Allergy, Severe, ANAPHYLAXIS, 10/25/17) Antihistamines, Diphenhydramine-typ (Unverified Allergy, Unknown, _, ) Home Medications Scheduled Aripiprazole (Abilify Maintena), 400 MG INJ Q4WK Aripiprazole (Abilify), 1 TAB PO DAILY Carvedilol (Coreg), 25 MG PO BID Chlorpromazine Hcl (Thorazine), 100 MG PO HS Cholecalciferol (Vitamin D3), 2,000 UNITS PO DAILY Dicyclomine Hcl (Dicyclomine Hcl), 10 MG PO BID Ezetimibe (Zetia), 10 MG PO QAM Fluoxetine (Prozac), 40 MG PO QAM Insulin Aspart (Novolog Flexpen), SQ TID Insulin Aspart Protamine & Asp (Novolog Mix 70/30), 15 UNITS SC HS Insulin Aspart Protamine & Asp (Novolog Mix 70/30), 12 UNITS SC DAILY Insulin Glargine (Basaglar Kwikpen), 75 UNITS SQ Q12 Levothyroxine Sodium (Levothyroxine Sodium), 100 MCG PO QAM Lisinopril (Zestril), 40 MG PO DAILY Metformin Hcl (Glucophage), 1,000 MG PO BID Omeprazole (Prilosec), 40 MG PO BID Potassium Ext Rel (Klor-Con), 20 MEQ PO QAM Simvastatin (Zocor), 40 MG PO HS Sitagliptin Phosphate (Januvia), 100 MG PO DAILY Trazodone Hcl (Desyrel), 150 MG PO HS Scheduled PRN Acetaminophen (Tylenol), 650 MG PO Q6H PRN for Pain Benzonatate (Tessalon Perles), 100 MG PO HS PRN for cough\ Epinephrine (Epipen), 0.3 MG IM UD PRN for BEE STING Guaifenesin Ext Rel (Mucinex Ext Rel), 600 MG PO BID PRN for congestion Ipratropium-Albuterol (Combivent Respimat), 1 PUFFS INH QID PRN for SOB/Wheezing Ipratropium-Albuterol (Duoneb), 1 TREATMENT INH QID PRN for SOB/Wheezing Polyvinyl Alcohol-Povidone (Op (Refresh), 1 DROP OPB for DRYNESS Review of Systems ROS per HPI, all other systems reviewed and negative Physical Exam Vital Signs Date Time Temp Pulse Resp B/P (MAP) Pulse Ox O2 Delivery O2 Flow Rate FiO2 10/25/17 12:45 36.9 108 20 157/100 (119) 93 Room Air 10/25/17 12:05 37.1 105 26 104/75 91 10/25/17 11:41 105 26 104/75 91 Room Air 10/25/17 11:12 97 Nasal Cannula 2.0 10/25/17 10:35 97 Nasal Cannula 2.0 10/25/17 10:30 110 28 148/83 97 Nasal Cannula 4.0 10/25/17 09:30 114 30 154/74 95 Nasal Cannula 4.0 10/25/17 08:27 120 26 90 Room Air 10/25/17 07:45 118 10/25/17 07:40 94 Nasal Cannula 4.0 10/25/17 07:40 37.1 117 30 159/107 87 Room Air 10/25/17 07:40 94 Nasal Cannula 4.0 10/25/17 07:40 87 Room Air General Appearance: WD/WN, no apparent distress Head: normocephalic, atraumatic Eyes: normal inspection, EOMI, sclerae normal ENT: hearing grossly normal, + pertinent finding (Mucous membranes moist) Neck: supple, no JVD, trachea midline Respiratory/Chest: no respiratory distress, + decreased breath sounds (Left mid /lower lung krishnan), + crackles (Left mid/lower lung krishnan) Cardiovascular: no edema, normal peripheral pulses, + tachycardia (Regular rhythm) Abdomen/GI: normal bowel sounds, non tender, soft, no organomegaly Extremities/Musculoskelatal: normal inspection, no calf tenderness, normal capillary refill Neurologic/Psych: no motor/sensory deficits, alert, normal mood/affect, oriented x 3, + pertinent finding (Mild mental retardation) Skin: normal color, + diaphoresis Diagnostics Laboratory Results Results Past 24 Hours Test 10/25/17 08:15 10/25/17 08:23 10/25/17 08:30 10/25/17 08:58 Range/Units White Blood Count 9.51 4.8-10.8 K/uL Red Blood Count 4.51 4.7-6.1 M/uL Hemoglobin 13.1 14.0-18.0 g/dL Hematocrit 39.7 42-52 % Mean Corpuscular Volume 88.0 80-100 fL Mean Corpuscular Hemoglobin 29.0 25-34 pg Mean Corpuscular Hemoglobin Concent 33.0 32-36 g/dl Platelet Count 142 130-400 K/uL Mean Platelet Volume 10.0 7.4-10.4 fL Neutrophils (%) (Auto) 78.9 % Lymphocytes (%) (Auto) 13.5 % Monocytes (%) (Auto) 7.2 % Eosinophils (%) (Auto) 0.1 % Basophils (%) (Auto) 0.1 % Neutrophils # (Auto) 7.51 1.4-6.5 K/uL Lymphocytes # (Auto) 1.28 1.2-3.4 K/uL Monocytes # (Auto) 0.68 0.11-0.59 K/uL Eosinophils # (Auto) 0.01 0-0.5 K/uL Basophils # (Auto) 0.01 0-0.2 K/uL RDW Standard Deviation 46.4 36.4-46.3 fL RDW Coefficient of Variation 14.4 11.5-14.5 % Immature Granulocyte % (Auto) 0.2 % Immature Granulocyte # (Auto) 0.02 0.00-0.02 K/uL Sodium Level 138 136-145 mmol/L Potassium Level 4.7 3.5-5.1 mmol/L Chloride Level 106 98-107 mmol/L Carbon Dioxide Level 25 21-32 mmol/L Anion Gap 7.0 15.0 16-25 mmol/L Blood Urea Nitrogen 24 7-18 mg/dl Creatinine 1.27 0.60-1.40 mg/dl Est Creatinine Clear Calc Drug Dose 98.0 ml/min Estimated GFR () 79.1 Estimated GFR (Non- 68.3 BUN/Creatinine Ratio 18.6 10-20 Random Glucose 244 70-99 mg/dl Calcium Level 9.3 8.5-10.1 mg/dl Total Bilirubin 0.4 0.2-1 mg/dl Aspartate Amino Transf (AST/SGOT) 31 15-37 U/L Alanine Aminotransferase (ALT/SGPT) 56 12-78 U/L Alkaline Phosphatase 61 45-117 U/L Total Creatine Kinase 353 39-308 U/L Creatine Kinase MB 2.5 0.5-3.6 ng/ml Creatine Kinase MB Ratio 0.7 0-3.0 Troponin I < 0.015 0-0.045 ng/ml Pro-B-Type Natriuretic Peptide 37 0-450 pg/ml Total Protein 7.1 6.4-8.2 gm/dl Albumin 3.4 3.4-5.0 gm/dl Globulin 3.7 2.5-4.0 gm/dl Albumin/Globulin Ratio 0.9 0.9-2 Urine Color YELLOW Urine Appearance CLEAR CLEAR Urine pH 5.0 4.5-7.5 Urine Specific [place] 1.021 1.000-1.030 Urine Protein NEG NEG Urine Glucose (UA) 2+ NEG Urine Ketones NEG NEG Urine Occult Blood NEG NEG Urine Nitrite NEG NEG Urine Bilirubin NEG NEG Urine Urobilinogen NEG NEG Urine Leukocyte Esterase NEG NEG Bedside Hemoglobin 13.3 14.0-18.0 g/dl Bedside Hematocrit 39 42-52 % Bedside Sodium 138 135-144 mEq/L Bedside Potassium 4.8 3.3-5.0 mEq/L Bedside Chloride 104 101-112 mEq/L Bedside Total CO2 24 24-31 mEq/l Bedside Blood Urea Nitrogen 25 7-18 mg/dl Bedside Creatinine 1.1 0.6-1.3 mg/dl Bedside Glucose (other) 242 70-99 mg/dl Bedside Ionized Calcium (Harpal) 1.21 1.12-1.32 mmol/l Prothrombin Time 10.5 9.0-12.0 SECONDS Prothromb Time International Ratio 1.0 0.9-1.1 Activated Partial Thromboplast Time 22.7 21.0-31.0 SECONDS Partial Thromboplastin Ratio 0.9 D-Dimer 1160 0-500 ug/L FEU Test 10/25/17 10:58 Range/Units Bedside Glucose 184 70-99 mg/dl Microbiology Results 10/25/17 Blood Culture, Received Pending 10/25/17 Blood Culture, Received Pending 10/25/17 MRSA DNA Surveillance Screen, Received Pending Diagnostic Radiology CXR IMPRESSION: Diffuse left mid and lower lung parenchymal infiltrate. CTA CHEST IMPRESSION: 1. Study is negative for pulmonary embolus. 2. Diffuse scattered parenchymal infiltrate left hemithorax. Impression Assessment and Plan ACUTE HYPOXIC RESPIRATORY FAILURE DUE TO PNEUMONIA, HCAP vs ASPIRATION COPD POSSIBLE EARLY SEPSIS -Admit to [facility] -Patient presenting from [facility] with reports of productive cough and shortness of breath; in the ED, hypoxic on room air at 88% which improved with oxygen 4 L via nasal cannula and patient found to have left mid to lower lung infiltrate -CT negative for PE -Patient with history of recurrent pneumonia, consider aspiration; speech evaluation placed -On presentation: Tachycardic, low-grade fever noted during my exam at 37.2; no leukocytosis, BP stable -S/P Vanco, Zosyn, Levaquin in the ED; will continue with Zosyn only for now, check MRSA nasal swab and if positive will add Vanco -Has history of COPD however no wheezing is noted on exam; as needed nebs ordered -Supportive care with IVF DM TYPE II -Hgb A1c 8.4 07/2017 -At home managed on metformin, Januvia, Basaglar, NovoLog 70/30, NovoLog sliding scale -Hold oral agents -Glycemic consult placed HYPERTENSION -Continue lisinopril HYPOTHYROIDISM -Continue levothyroxine DEPRESSION, PARANOID SCHIZOPHRENIA -Continue home meds DVT PROPHYLAXIS -SQ Lovenox DISPOSITION -In my clinical judgment this beneficiary meets acute admission criteria, established by [facility], that includes being hospitalized through two midnights. ADDENDUM: This is a 42 year old male with a past medical history of paranoid schizophrenia , depression/anxiety, insulin dependent DM2, HTN, hypothyroid, COPD - presents from [facility] secondary to shortness of breath/cough/ hypoxia. States this morning, he had some L sided pain, worse with deep inspiration. Presented to the ED; had a CT done, ruling out PE. Noted to have infiltrate on the L side. On exam, +sweats, diaphoretic Plan Has had a hx. of pneumonia and aspiration speech consulted Zosyn started MRSA nasal swab ordered, holding Vancomycin for now for the diabetes, hold oral agents, insulin sliding scale started and pharmacy consulted Advanced Directives Existing Living Will: Yes Existing Power of Disease Management Nurse: Yes Resuscitation Status VTE Prophylaxis Will order VTE Prophylaxis: Yes
[2017-10-25] MEDS ORDERED: GUAI1TAB55 PO (14:36)
[2017-10-25] MEDS ORDERED: CHOL2000 PO (14:36)
[2017-10-25] MEDS ORDERED: ARIP1INJ INJ (14:36)
[2017-10-25 14:44] VITALS: BP 144/83; PULSE 111; TEMP 36.7; O2SAT 91
[2017-10-25] MEDS ORDERED: CARV25TA2 PO (14:49)
[2017-10-25] MEDS ORDERED: LEVO100T7 PO (14:49)
[2017-10-25] MEDS ORDERED: IPRA1AER2 INH (14:49)
[2017-10-25] MEDS ORDERED: LISI40TA PO (14:49)
[2017-10-25] MEDS ORDERED: EPP3/2 IM (14:49)
[2017-10-25] MEDS ORDERED: METF1000 PO (14:49)
[2017-10-25] MEDS ORDERED: POTA-639 PO (14:49)
[2017-10-25] MEDS ORDERED: PRLSR20 PO (14:49)
--- NOTE | 2017-10-25 14:56 | Pharmacy Progress Note ---
Glycemic Control Intl Consult Date of Service Oct 25, 2017. Scope Glycemic Pharmacist consulted by Rosalind Márquez on 10/25 for glycemic control and to write orders per [facility] inpatient glycemic control protocol Objective Weight (Kilograms): 130.700 Accuchecks BSG (last 24hrs): Test 10/25/17 08:15 10/25/17 10:58 Random Glucose 244 mg/dl (70-99) Bedside Glucose 184 mg/dl (70-99) Laboratory Data (last 24hrs) Test 10/25/17 08:15 10/25/17 08:30 Anion Gap 7.0 mmol/L 15.0 mmol/L BUN/Creatinine Ratio 18.6 Blood Urea Nitrogen 24 mg/dl Creatinine 1.27 mg/dl Potassium Level 4.7 mmol/L Sodium Level 138 mmol/L White Blood Count 9.51 K/uL Red Blood Count 4.51 M/uL Hemoglobin 13.1 g/dL Hematocrit 39.7 % Mean Corpuscular Volume 88.0 fL Mean Corpuscular Hemoglobin 29.0 pg Mean Corpuscular Hemoglobin Concent 33.0 g/dl Platelet Count 142 K/uL Mean Platelet Volume 10.0 fL Neutrophils (%) (Auto) 78.9 % Lymphocytes (%) (Auto) 13.5 % Monocytes (%) (Auto) 7.2 % Eosinophils (%) (Auto) 0.1 % Basophils (%) (Auto) 0.1 % Neutrophils # (Auto) 7.51 K/uL Lymphocytes # (Auto) 1.28 K/uL Monocytes # (Auto) 0.68 K/uL Eosinophils # (Auto) 0.01 K/uL Basophils # (Auto) 0.01 K/uL Recent Pertinent Medications Outpatient Anti-diabetic Regimen: * Basaglar 75 units SC q12 * Novolog 70/30 12 units daily, 15 units qHS * Novolog TIDM, sliding scale * Metformin 1000 mg po BID * Sitagliptin 100 mg po daily * A1c pending for 10/26/17 Risk Factors for Insulin Resistance: * Infection: PNA * Diet: T2DM Assessment & Plan ASSESSMENT: * 42 yo M admitted with PNA. Glycemic stressors minimal (excepting acute illness) - glycemic consult placed 2nd complexity of outpatient regimen and high outpatient insulin doses (>170 units/day) * Unclear why patient on both Novolog 70/30 with Basaglar and Novolog - will continue inpatient with only Lantus and Novolog * Previous admission May 2017 with similar stressors in which BSG's ranged 117-230 mg/dL over 24 hours when patient received 167 units of insulin. Of note , at that time, this was very heavily weighted towards basal (90%) and patient' s AM fasting BSG trended down from 142 to 108 mg/dL over 24 hours. * Will target similar total daily dose as compared to previous admission, but will adjust to target closer to 50/50 split basal/bolus insulin * RN spoke with patient, who denied taking his AM dose of Basaglar prior to admission (BSG 244 mg/dL this AM) PLAN FOR INPATIENT GLYCEMIC CONTROL: * Hold outpatient oral medications * Lantus 50 units x1 now, then ongoing BID based on BSG * 20 units for BSG less than 100 mg/dL * 30 units for BSG 100-180 mg/dL * 40 units for BSG greater than 180 mg/dL * Novolog ACHS * Goal range 120-160 mg/dL * Correction factor: 15 mg/dL/unit * Carb ratio: 1 unit / 3 g CHO * Please note that the plan above was derived based on current level of insulin resistance and hospital stress. These recommendations are appropriate for inpatient admission only. Plan of care upon discharge will need to be reassessed to avoid potential outpatient hypo/hyperglycemia. Thank you.
[2017-10-25] MEDS ORDERED: ACET-1311 PO (16:18)
[2017-10-25] MEDS: INSULIN ASPART 100 UNITS/ML 3 ML PEN SC SCH ×2 (17:16→21:25)
[2017-10-25] MEDS ORDERED: INSULIN 70% ASPART PROTAMINE/30% ASPART SC SCH (21:00)
[2017-10-25] MEDS ORDERED: INSULIN GLARGINE SOLOSTAR 100 UNITS/ML 3 ML PEN SQ SCH (21:00)
[2017-10-25] MEDS: INSULIN GLARGINE SOLOSTAR 100 UNITS/ML 3 ML PEN SC SCH (21:26)
[2017-10-25] MEDS: DICYCLOMINE HCL 10 MG CAP PO SCH (21:27)
[2017-10-25] MEDS: CARVEDILOL 25 MG TAB PO SCH (21:27)
[2017-10-25] MEDS: TRAZODONE HCL 50 MG TAB PO SCH (21:28)
[2017-10-25] MEDS: PANTOprazole SOD 40 MG TAB PO SCH (21:28)
[2017-10-25] MEDS: SIMVASTATIN 40 MG TAB PO SCH (21:28)
[2017-10-25] MEDS: CHLORPROMAZINE HCL 100 MG TAB PO SCH (21:28)
[2017-10-25] MEDS: ENOXAPARIN 40 MG/0.4 ML SYR SQ SCH (21:29)
[2017-10-26 00:11] VITALS: BP 104/69; PULSE 79; TEMP 36.8; O2SAT 93
[2017-10-26 04:10] VITALS: BP 138/76; PULSE 84; TEMP 36.6; O2SAT 93
[2017-10-26] MEDS: LEVOTHYROXINE 100 MCG TAB PO SCH (05:42)
[2017-10-26] MEDS: PIPERACILL/TAZOBAC IV 4.5 GM in D5W 100 ML IV SCH ×3 (05:42→21:44)
[2017-10-26 07:13] VITALS: BP 132/76; PULSE 85; TEMP 36.3; O2SAT 93
[2017-10-26] MEDS: SODIUM CHLORIDE 0.9% 1000ML 1,000 ML IV SCH ×2 (07:33→17:46)
[2017-10-26] MEDS: ARIPIprazole TAB 10 MG TAB PO SCH (08:17)
[2017-10-26] MEDS: DICYCLOMINE HCL 10 MG CAP PO SCH ×2 (08:17→20:29)
[2017-10-26] MEDS: CARVEDILOL 25 MG TAB PO SCH ×2 (08:18→20:31)
[2017-10-26] MEDS: POTASSIUM CHLORIDE 20 MEQ TABCR PO SCH (08:19)
[2017-10-26] MEDS: FLUOXETINE HCL 20 MG CAP PO SCH (08:19)
[2017-10-26] MEDS: PANTOprazole SOD 40 MG TAB PO SCH ×2 (08:19→20:30)
[2017-10-26] MEDS: CHOLECALCIFEROL 1000 INTER.UNIT TAB PO SCH (08:20)
[2017-10-26] MEDS: LISINOPRIL 40 MG TAB PO SCH (08:20)
[2017-10-26] MEDS: EZETIMIBE 10MG TAB PO SCH (08:20)
[2017-10-26] MEDS: INSULIN GLARGINE SOLOSTAR 100 UNITS/ML 3 ML PEN SC SCH ×2 (08:24→20:27)
[2017-10-26] MEDS: INSULIN ASPART 100 UNITS/ML 3 ML PEN SC SCH ×4 (08:24→20:30)
[2017-10-26] MEDS ORDERED: INSULIN 70% ASPART PROTAMINE/30% ASPART SC SCH (09:00)
[2017-10-26 09:13] LABS: HEMATOCRIT 40.1 % (42-52); HEMOGLOBIN 12.7 g/dL (14.0-18.0); MEAN CELL VOLUME 88.9 fL (80-100); MEAN CORPUSCULAR HEMOGLOBIN 28.2 pg (25-34); MEAN CORPUSCULAR HGB CONC 31.7 g/dl (32-36); MEAN PLATELET VOLUME 10.2 fL (7.4-10.4); PLATELET COUNT 154 K/uL (130-400); RED CELL DISTRIBUTION WIDTH CV 14.7 % (11.5-14.5); RED CELL DISTRIBUTION WIDTH SD 47.5 fL (36.4-46.3); WHITE BLOOD COUNT 7.33 K/uL (4.8-10.8)
--- NOTE | 2017-10-26 09:26 | Clinical Documentation Query ---
INGRIS Mg : CLINICAL DOCUMENTATION QUERY BMI noted per EMR nursing documentation to be 43.8 kg/m*m. In order to capture this clinically relevant information, an associated clinical diagnosis must explicitly be documented by the provider. As appropriate, consider documentation as suggested below. Thank you. In your clinical opinion is this patient : ( X ) Obese, BMI 43.8 kg/m*m ( ) Not Agree ( ) Other explanation of clinical findings (No explanation is considered a No Response) ( ) Unable to determine ( ) Need to Discuss (Phone CDS or qliq) (No discussion is considered a No Response) The medical record reflects the following clinical findings, treatment, and risk factors. Clinical Indicators: As above Treatment: AH/DM type 2 diet, I/O Risk Factors: Caloric intake > caloric expenditure Please clarify and document your clinical opinion in the progress notes and discharge summary. Terms such as "probable", "suspected", "likely", "questionable", "possible", or "still to be ruled out" are acceptable. IF IN AGREEMENT, YOU MUST DOCUMENT ABOVE DIAGNOSTIC STATEMENT IN DAILY PROGRESS NOTES AND DISCHARGE SUMMARY. This document is not part of the patient's record. Thank You, Omero Bernard, YULIA [phone]
[2017-10-26 09:32] LABS: HEMOGLOBIN A1C 8.6 % (4.5-5.6)
[2017-10-26 09:53] LABS: CALCIUM 8.1 mg/dl (8.5-10.1); CREATININE 1.18 mg/dl (0.60-1.40); POTASSIUM 4.1 mmol/L (3.5-5.1)
--- NOTE | 2017-10-26 11:04 | DIAGNOSTIC IMAGING REPORT ---
BILATERAL LOWER EXTREMITY VENOUS DOPPLER HISTORY: Dyspnea. Assess for DVT. COMPARISON STUDY: None. FINDINGS: There is normal compressibility, flow, and augmentation within the bilateral lower extremity deep venous systems. IMPRESSION: No DVT within the right or left lower extremity. Electronically signed by: Bro Alfaro M.D. 10/26/2017 11:03 AM Dictated Date/Time: 10/26/2017 11:02 AM
--- NOTE | 2017-10-26 16:26 | Progress Note ---
Medicine Progress Note Date & Time of Visit: Oct 26, 2017 at 16:20. Subjective Seen sitting up in bed, comfortable States he feels improved compared to admission Denies shortness of breath Has less cough, dry Denies other symptoms Objective Last 8 Hrs Date Time Temp Pulse Resp B/P (MAP) Pulse Ox O2 Delivery O2 Flow Rate FiO2 10/26/17 09:00 Room Air 10/26/17 08:30 Room Air Physical Exam: General-oriented 2 not in distress, speaking sentences Head- atraumatic Eyes- PERRL, EOMI, anicteric ENT- oropharynx clear Neck- supple, no JVD, no adenopathy, no thyromegaly; carotids +2/2, no bruits appreciated Lungs-mild rales bilateral mid to base, no wheezing on the left, Clear on the right Heart- regular rhythm; no murmur, no gallop, no rub appreciated Abdomen- normal bowel sounds, soft, nontender, no masses or hepatosplenomegaly Extremities- no pretibial edema, no calf tenderness; peripheral pulses intact Neuro- alert, oriented x 3; no gross focal neurologic deficits Skin- warm & dry Laboratory Results: Last 24 Hours Test 10/25/17 16:35 10/25/17 20:29 10/26/17 07:32 10/26/17 08:42 Bedside Glucose 225 mg/dl 188 mg/dl 164 mg/dl White Blood Count 7.33 K/uL Red Blood Count 4.51 M/uL Hemoglobin 12.7 g/dL Hematocrit 40.1 % Mean Corpuscular Volume 88.9 fL Mean Corpuscular Hemoglobin 28.2 pg Mean Corpuscular Hemoglobin Concent 31.7 g/dl RDW Standard Deviation 47.5 fL RDW Coefficient of Variation 14.7 % Platelet Count 154 K/uL Mean Platelet Volume 10.2 fL Sodium Level 136 mmol/L Potassium Level 4.1 mmol/L Chloride Level 104 mmol/L Carbon Dioxide Level 24 mmol/L Anion Gap 8.0 mmol/L Blood Urea Nitrogen 18 mg/dl Creatinine 1.18 mg/dl Est Creatinine Clear Calc Drug Dose 105.3 ml/min Estimated GFR () 86.5 Estimated GFR (Non- 74.6 BUN/Creatinine Ratio 15.5 Random Glucose 232 mg/dl Estimated Average Glucose 200 mg/dl Hemoglobin A1c 8.6 % Calcium Level 8.1 mg/dl Test 10/26/17 11:21 Bedside Glucose 171 mg/dl Assessment & Plan ACUTE HYPOXIC RESPIRATORY FAILURE DUE TO PNEUMONIA, HCAP vs ASPIRATION COPD POSSIBLE EARLY SEPSIS -Admit to [facility] -Patient presenting from [facility] with reports of productive cough and shortness of breath; in the ED, hypoxic on room air at 88% which improved with oxygen 4 L via nasal cannula and patient found to have left mid to lower lung infiltrate -CT negative for PE -Patient with history of recurrent pneumonia, consider aspiration; speech evaluation placed -On presentation: Tachycardic, low-grade fever noted during my exam at 37.2; no leukocytosis, BP stable No afebrile, no leukocytosis, saturating well on room air On Zosyn day #2 Cultures pending MRSA nasal swab negative Anticipate transition to Augmentin and doxycycline on discharge Probiotics to be ordered DM TYPE II -Hgb A1c 8.4 07/2017 -At home managed on metformin, Januvia, Basaglar, NovoLog 70/30, NovoLog sliding scale -Hold oral agents -Glycemic consult placed HYPERTENSION -Continue lisinopril HYPOTHYROIDISM -Continue levothyroxine DEPRESSION, PARANOID SCHIZOPHRENIA -Continue home meds DVT PROPHYLAXIS -SQ Lovenox DISPOSITION -In my clinical judgment this beneficiary meets acute admission criteria, established by [facility], that includes being hospitalized through two midnights. Current Inpatient Medications: Current Inpatient Medications Medications (Trade) Dose Ordered Sig/Arlen Route Start Time Stop Time Status Last Admin Dose Admin Ioversol (Optiray 320) 100 ml UD PRN IV 10/25/17 10:00 10/29/17 09:59 Enoxaparin Sodium (Lovenox Inj) 40 mg Q24H SQ 10/25/17 21:00 11/24/17 20:59 10/25/17 21:29 40 MG Acetaminophen (Tylenol Tab) 650 mg Q4H PRN PO 10/25/17 11:15 11/24/17 11:14 Ondansetron HCl (Zofran Inj) 4 mg Q6H PRN IV 10/25/17 11:15 11/24/17 11:14 Miscellaneous Information (Consult) 1 ea UD PRN N/A 10/25/17 12:06 11/24/17 12:05 Sodium Chloride 1,000 ml @ 100 mls/hr Q10H IV 10/25/17 11:30 11/24/17 11:29 10/26/17 07:33 100 MLS/HR Aripiprazole (Abilify Tab) 10 mg DAILY PO 10/26/17 09:00 11/25/17 08:59 10/26/17 08:17 10 MG Benzonatate (Tessalon Perles Cap) 100 mg HS PRN PO 10/25/17 11:45 11/24/17 11:44 Carvedilol (Coreg Tab) 25 mg BID PO 10/25/17 21:00 11/24/17 20:59 10/26/17 08:18 25 MG Chlorpromazine HCl (Thorazine Tab) 100 mg HS PO 10/25/17 21:00 11/24/17 20:59 10/25/17 21:28 100 MG Dicyclomine HCl (Bentyl Cap) 10 mg BID PO 10/25/17 21:00 11/24/17 20:59 10/26/17 08:17 10 MG EZETIMIBE (Zetia Tab) 10 mg QAM PO 10/26/17 09:00 11/25/17 08:59 10/26/17 08:20 10 MG Fluoxetine HCl (Prozac Cap) 40 mg QAM PO 10/26/17 09:00 11/25/17 08:59 10/26/17 08:19 40 MG Albuterol/ Ipratropium (Duoneb) 3 ml QID PRN INH 10/25/17 11:45 11/24/17 11:44 Levothyroxine Sodium (Synthroid Tab) 100 mcg DAILYBB PO 10/26/17 06:30 11/25/17 06:29 10/26/17 05:42 100 MCG Lisinopril (Zestril Tab) 40 mg DAILY PO 10/26/17 09:00 11/25/17 08:59 10/26/17 08:20 40 MG Potassium Chloride (Klor-Con Tab) 20 meq QAM PO 10/26/17 09:00 11/25/17 08:59 10/26/17 08:19 20 MEQ Simvastatin (Zocor Tab) 40 mg HS PO 10/25/17 21:00 11/24/17 20:59 10/25/17 21:28 40 MG Trazodone HCl (Desyrel Tab) 150 mg HS PO 10/25/17 21:00 11/24/17 20:59 10/25/17 21:28 150 MG Cholecalciferol (Vitamin D Tab) 2,000 inter.unit DAILY PO 10/26/17 09:00 11/25/17 08:59 10/26/17 08:20 2,000 INTER.UNIT Pantoprazole Sodium (Protonix Tab) 40 mg BID PO 10/25/17 21:00 11/24/17 20:59 10/26/17 08:19 40 MG Insulin Aspart (novoLOG ASPART) SLIDING SCALE If C... ACHS SC 10/25/17 16:00 11/24/17 15:59 10/26/17 12:29 16 UNITS Glucose (Glucose 40% Gel) 15-30 GRAMS 15 GRAMS... UD PRN PO 10/25/17 12:00 11/24/17 11:59 Glucose (Glucose Chew Tab) 4-8 Tablets 4 Tabl... UD PRN PO 10/25/17 12:00 11/24/17 11:59 Dextrose (Dextrose 50% 50ML Syringe) 25-50ML 25ML FOR ... UD PRN IV 10/25/17 12:00 11/24/17 11:59 Glucagon (Glucagon Inj) 1 mg UD PRN SQ 10/25/17 12:00 11/24/17 11:59 Carbohydrates (Carbohydrates For Hypoglycemia) 15-30 GRAMS 15 grams if BSG 54-69... UD PRN PO 10/25/17 12:00 11/24/17 11:59 Miscellaneous Information (Consult Glycemic Management Pharmacy) 1 ea UD PRN N/A 10/25/17 12:08 11/24/17 12:07 Piperacillin Sod/ Tazobactam Sod 4.5 gm/Dextrose 120 ml @ 30 mls/hr Q8H IV 10/25/17 14:00 11/01/17 13:59 10/26/17 13:46 30 MLS/HR Insulin Glargine (Lantus Solostar Pen) BID SC 10/25/17 21:00 11/24/17 20:59 10/26/17 08:24 30 UNITS
[2017-10-26 16:34] VITALS: BP 123/77; PULSE 74; TEMP 36.9; O2SAT 94
[2017-10-26] MEDS ORDERED: NURSING VERBAL MED ORDER ONE (16:45)
[2017-10-26] MEDS ORDERED: ARIPIPRAZOLE IM SCH (18:00)
[2017-10-26] MEDS ORDERED: [UNRECOGNIZED DRUG - OTHER] IM SCH (18:00)
[2017-10-26] MEDS: CHLORPROMAZINE HCL 100 MG TAB PO SCH (20:28)
[2017-10-26] MEDS: TRAZODONE HCL 50 MG TAB PO SCH (20:28)
[2017-10-26] MEDS: ENOXAPARIN 40 MG/0.4 ML SYR SQ SCH (20:29)
[2017-10-26 20:30] VITALS: BP 130/77; PULSE 85
[2017-10-26] MEDS: SIMVASTATIN 40 MG TAB PO SCH (20:31)
[2017-10-26 23:53] VITALS: BP 129/82; PULSE 77; TEMP 36.5; O2SAT 92
[2017-10-27] MEDS: PIPERACILL/TAZOBAC IV 4.5 GM in D5W 100 ML IV SCH ×3 (06:04→21:51)
[2017-10-27] MEDS: LEVOTHYROXINE 100 MCG TAB PO SCH (06:33)
[2017-10-27 07:43] VITALS: BP 134/83; PULSE 77; TEMP 36.6; O2SAT 93
[2017-10-27] MEDS: CARVEDILOL 25 MG TAB PO SCH ×2 (08:25→20:55)
[2017-10-27] MEDS: ARIPIprazole TAB 10 MG TAB PO SCH (08:25)
[2017-10-27] MEDS: CHOLECALCIFEROL 1000 INTER.UNIT TAB PO SCH (08:25)
[2017-10-27] MEDS: DICYCLOMINE HCL 10 MG CAP PO SCH ×2 (08:26→20:54)
[2017-10-27] MEDS: PANTOprazole SOD 40 MG TAB PO SCH ×2 (08:26→20:53)
[2017-10-27] MEDS: FLUOXETINE HCL 20 MG CAP PO SCH (08:27)
[2017-10-27] MEDS: LISINOPRIL 40 MG TAB PO SCH (08:27)
[2017-10-27] MEDS: EZETIMIBE 10MG TAB PO SCH (08:27)
[2017-10-27] MEDS: POTASSIUM CHLORIDE 20 MEQ TABCR PO SCH (08:28)
[2017-10-27] MEDS: INSULIN ASPART 100 UNITS/ML 3 ML PEN SC SCH ×4 (08:41→21:52)
[2017-10-27] MEDS: INSULIN GLARGINE SOLOSTAR 100 UNITS/ML 3 ML PEN SC SCH ×2 (08:41→21:02)
[2017-10-27] MEDS: SODIUM CHLORIDE 0.9% 1000ML 1,000 ML IV SCH (10:28)
--- NOTE | 2017-10-27 14:04 | Pulmonary Consultation ---
History General Date of Service: Oct 27, 2017. Stated Complaint: Pneumonia HPI The patient is a 42 year old male who presents to [facility] with complaints of Pneumonia. The patient's primary care provider is Nano Paul D.O.. 42-year-old male admitted from assisted facility with recurrent pneumonia. The patient has had recurrent pneumonias multiple times of the past 2-3 years. I have reviewed previous radiographic studies from CTs as as well as chest x-rays dating back to 05/27/2015 any constantly has waxing and waning interstitial changes/opacifications bilaterally. At the time of my evaluation the patient was doing well and walking throughout his room and described no shortness of breath. He noted he is back to his baseline which she says is able to walk 2 miles without notable shortness of breath. After trying to evaluate his overall pulmonary function/status he notes he has not been able to walk that far in multiple years secondary to musculoskeletal discomfort as well as dyspnea. The patient notes his episodes of dyspnea and cough often occur her after waking up. They are notably acute in onset and there is no prodrome multi S type syndromes including lower extremity swelling, palpitations, postnasal drip, fever, chills. Over the past 2 years the patient has been admitted on multiple occasions the 1st being 05/27/2015 with hypoxic respiratory insufficiency, sepsis and diagnosis of community-acquired pneumonia. He recently had an emergency room visit on 09/05/2017 with notable complaints of coughing, shortness of breath and was treated with antibiotics/ Levaquin 750 mg x9 days with notable resolution of his signs and symptoms. In the hospital the patient was initially noted to be hypoxic on room air but currently saturating 97% on room air. Previous microbiology history Urine: Proteus, Enterobacter Cloasae, Klebsiella pneumoniae, Proteus mirabilis , S trachea coli, [place] Ascobata Blood: Bacillus species (not anthoracis) Current in hospital workup WBC 10K (Neutro#: >7.51) H/H: 13/40 PLT: 154K D-dimer: >1160 BUN/Cr: 24/1.27 Creatine kinase: >353 CXR: Diffuse left mid and lower lobe parenchymal infiltrates CTA chest: No pulmonary embolism, diffuse parenchymal infiltrate left hemithorax, hiatal hernia Venous Doppler study: No signs of DVT in the right and/or left lower extremity UA: Within normal limits MRSA nasal screen: Negative Pending: Blood culture x2 Previous workup Echocardiogram 05/28/2015 LV: mild concentric LVH, EF=60-65% RV: TAPSE >1.5cm LA: WNL RA: WNL CTA 05/27/2015: Multifocal airspace consolidations bilaterally, greatest in the upper lobes , right greater than left Bilateral posterior lower lobe infiltrates possibly atelectasis Small pleural effusions bilaterally Moderate hiatal hernia Severe hepatic steatosis Mildly enlarged mediastinal lymph nodes PmHx: 1. Bladder stones (N21.0) 2. Depression (F32.9) 3. Diabetes mellitus (E11.9) 4. Dysuria (R30.0) 5. Hearing loss of right ear due to cerumen impaction (H61.21) 6. Hypertension (I10) 7. Mental retardation (F79) 8. Pure hypercholesterolemia (E78.00) 9. Neurogenic bladder 10. Urinary tract infection (N39.0) 11. Hypothyroidism 12. Depression 13. Vitamin-D deficiency 14. Right inguinal hernia/lipoma of the cord 15. COPD 16. Paranoid schizophrenia 17. Mild intellectual disability Surgical History 1. History of right inguinal Hernia Repair 05/18/2011 2. History of Oral Surgery Tooth Extraction 3. TURBN Family History 1. Family history of diabetes mellitus 2. Family history of Cancer 3. Family history of Hypertension Social History tobacco: Current smoker (1ppd 03/11/08) smokeless tobacco: No history of use Living In An Assisted Living Facility Marital History - Single Unemployed Current Meds 1. Abilify 30 MG Oral Tablet; TAKE 1 TABLET DAILY 2. Arthritis Pain Relief 650 MG Oral Tablet Extended Release; TAKE 2 TABLET 3 times daily PRN 3. Calmoseptine OINT; 4. Carvedilol 25 MG Oral Tablet; TAKE 1 TABLET TWICE DAILY; 5. Combivent AERO 6. Dicyclomine HCl - 10 MG Oral Capsule; Take 1 capsule twice daily; 7. EpiPen 2-Johnathon NELL; 8. FLUoxetine HCl - 40 MG Oral Capsule; 9. GlipiZIDE ER 10 MG Oral Tablet Extended Release 24 Hour; Take 1 tablet twice daily; 10. Haloperidol POWD; 11. Ibuprofen 600 MG Oral Tablet; TAKE 1 TABLET 3 TIMES DAILY WITH FOOD NEEDED; 12. Januvia 100 MG Oral Tablet; TAKE 1 TABLET DAILY 13. Klor-Con 20 MEQ Oral Packet; TAKE 1 PACKET DAILY 14. Lantus SOLN; 15. Levothyroxine Sodium 100 MCG Oral Tablet; 16. Lisinopril 10 MG Oral Tablet; Take 1 tablet twice daily; 17. Loperamide HCl - 2 MG Oral Capsule; TAKE 2 CAPSULE Daily PRN diarrhea; 18. Lotrimin CREA 19. MetFORMIN HCl - 1000 MG Oral Tablet; Take 1 tablet twice daily; 20. Mucinex Fast-Max Cold & Sinus TABS 21. NovoLOG SOLN; 22. Omeprazole 20 MG Oral Capsule Delayed Release 23. Refresh Tears SOLN 24. Reguloid POWD; 25. Simvastatin 40 MG Oral Tablet; TAKE 1 TABLET Bedtime; 26. TraZODone HCl - 100 MG Oral Tablet; 27. Triple Antibiotic OINT; 28. Vitamin D3 47978 UNIT Oral Capsule; 29. Zetia 10 MG Oral Tablet Allergies 1. Histamine POWD/antihistamine 2. Bee sting Historian: patient, EMS Family History Diabetes mellitus MOTHER Hypertension FATHER Social History Hx Tobacco Use In Past Year?: Yes Smoking Status: Former Smoker Housing status: assisted living Occupational Status: employed Immunizations History of Influenza Vaccine: Yes Influenza Vaccine Date: Dec 07, 2016 History of Tetanus Vaccine?: Yes Tetanus Immunization Date: Jun 14, 2017 History of Pneumococcal: Yes Pneumococcal Date: Jun 14, 2017 History of MDRO History of MDRO: No Allergies Coded Allergies: BEE STING (Verified Allergy, Severe, ANAPHYLAXIS, 10/25/17) Antihistamines, Diphenhydramine-typ (Unverified Allergy, Unknown, _, ) Current Medications Reported Home Medications Medications Dose Route/Sig Max Daily Dose Days Date Category Dose Instructions Refresh (Polyvinyl Alcohol-Povidone (Op) 1 Scott Scott 1 Drop OPB PRN 10/25/17 Reported Novolog Mix 70/30 (Insulin Aspart Protamine & Asp) 1 Inj Inj 12 Units SC DAILY 10/25/17 Reported Novolog Mix 70/30 (Insulin Aspart Protamine & Asp) 1 Inj Inj 15 Units SC HS 10/25/17 Reported Duoneb (Ipratropium-Albuterol) 3 Ml Nebu 1 Treatment INH QID PRN 10/25/17 Reported Novolog Flexpen (Insulin Aspart) 100 Units/Ml Inj SQ TID 05/14/17 Reported sliding scale Basaglar Kwikpen (Insulin Glargine) 100 Unit/Ml Inj 75 Units SQ Q12 05/14/17 Reported GIVE AT 6AM & 6PM Abilify (Aripiprazole) 10 Mg Tab 1 Tab PO DAILY 05/14/17 Reported Zetia (Ezetimibe) 10 Mg Tab 10 Mg PO QAM 05/14/17 Reported Desyrel (Trazodone Hcl) 150 Mg Tab 150 Mg PO HS 05/14/17 Reported Januvia (Sitagliptin Phosphate) 100 Mg Tab 100 Mg PO DAILY 05/14/17 Reported Thorazine (Chlorpromazine HCl) 100 Mg Tab 100 Mg PO HS 11/22/16 Reported Tessalon Perles (Benzonatate) 100 Mg Cap 100 Mg PO HS PRN 11/22/16 Reported Klor-Con (Potassium Chloride) 20 Meq Tabcr 20 Meq PO QAM 06/27/16 Reported Prilosec (Omeprazole) 20 Mg Capcr 40 Mg PO BID 06/27/16 Reported 0600 & 1600 Glucophage (Metformin Hcl) 1,000 Mg Tab 1,000 Mg PO BID 06/27/16 Reported Zestril (Lisinopril) 40 Mg Tab 40 Mg PO DAILY 06/27/16 Reported Levothyroxine Sodium 100 Mcg Tab 100 Mcg PO QAM 06/27/16 Reported Epipen (Epinephrine) 0.3 Mg/0.3 Ml Inj 0.3 Mg IM UD PRN 06/27/16 Reported Combivent Respimat (Ipratropium-Albuterol) 1 Aer Aer 1 Puffs INH QID PRN 06/27/16 Reported Coreg (Carvedilol) 25 Mg Tab 25 Mg PO BID 06/27/16 Reported 0600 & 1600 Tylenol (Acetaminophen) 325 Mg Tab 650 Mg PO Q6H PRN 05/27/15 Reported Mucinex Ext Rel (Guaifenesin) 600 Mg Tab 600 Mg PO BID PRN 05/27/15 Reported Vitamin D3 (Cholecalciferol) 2,000 Unit Cap 2,000 Units PO DAILY 05/27/15 Reported Abilify Maintena (Aripiprazole) 400 Mg Inj 400 Mg INJ Q4WK 05/27/15 Reported Dicyclomine Hcl 10 Mg Cap 10 Mg PO BID 01/29/13 Reported Zocor (Simvastatin) 40 Mg Tab 40 Mg PO HS 05/01/11 Reported Prozac (Fluoxetine HCl) 40 Mg Cap 40 Mg PO QAM 05/01/11 Reported Physical Physical Exam Vital Signs: Date Time Temp Pulse Resp B/P (MAP) Pulse Ox O2 Delivery O2 Flow Rate FiO2 10/27/17 07:43 36.6 77 20 134/83 (100) 93 Room Air 10/27/17 00:00 Room Air 10/26/17 23:53 36.5 77 16 129/82 (98) 92 Room Air 10/26/17 20:30 85 130/77 (94) 10/26/17 19:45 Room Air 10/26/17 16:34 36.9 74 20 123/77 (92) 94 Room Air General Appearance: WELL-APPEARING, obese Head: NORMOCEPHALIC, ATRAUMATIC Eyes: PERRLA, NO DISCHARGE, EOMI, SCLERAE NORMAL ENT: NORMAL EAR EXAM, NORMAL NASAL EXAM, NORMAL MOUTH EXAM, NORMAL THROAT EXAM Neck: NORMAL RANGE OF MOTION, NO TENDERNESS, TRACHEA MIDLINE, NO STRIDOR Respiratory: BREATH SOUNDS NORMAL, CLEAR TO AUSCULTATION, CLEAR TO PERCUSSION Cardiovasular: REGULAR RATE/RHYTHM, NORMAL S1S2, NO M/G/R, NO MURMUR Abdomen: NON TENDER, NORMAL BOWEL SOUNDS, NO REBOUND, NO MASSES, NO GUARDING Genitourinary - Male: EXTERNAL GENITALIA NORMAL Back: NORMAL INSPECTION, NO MIDLINE TENDERNESS, NO CVA TENDERNESS Upper Extremities: NO EDEMA, NO DEFORMITY, NORMAL ROM Lower Extremities: edema Edema: Bilateral LE (1+) Pulses: carotid (R) (2+), carotid (L) (2+), dorsalis pedis (R) (2+), dorsalis pedis (L) (2+) Neuro: ALERT, ORIENTED x 3, NORMAL MOTOR EXAM, NORMAL SENSATION, NORMAL CEREBELLAR EXAM, NORMAL SPEECH, NORMAL GAIT Reflexes: biceps (R) (2+), bicpes (L) (2+), patellar (R) (2+), patellar (L) (2+ ) Babinski Testing: right (downgoing), left (downgoing) Psychiatric: NORMAL AFFECT, NO SUICIDAL IDEATION Diagnostics Labs Results Past 24 Hours Test 10/26/17 16:31 10/26/17 20:18 10/27/17 07:58 10/27/17 11:24 Range/Units Bedside Glucose 122 157 154 207 70-99 mg/dl Diagnostic Radiology Please refer to HPI EKG Tachycardia rate 114 with new right bundle branch block Repeat EKG normal sinus rhythm rate 77 Impression Assessment and Plan 42-year-old male admitted with notable recurrent pneumonia: 1. Recurrent Pneumonia: Patient has had diffuse infiltrative processes occurring bilaterally for multiple years now. At this time there is no specific etiology. Before performing any invasive studies I would like to obtain a 24 urine calcium, Nitesh level, hypersensitivity pneumonitis panel, QuantiFERON GOLD, IgG, IgM and IgA levels, Legionella urine antigen, sputum for Legionella urine antigen if possible, fungal serum studies, HIV (patient has agreed and has been counseled). Patient's CT has diffuse nodular is were as emerson lobular patterns which is not consistent with any specific disease. If current studies are nondiagnostic do suggest moving forward even possibly as an outpatient with bronchoscopic evaluation and transbronchial biopsies. 2. COPD: The patient would be very young for a diagnosis of COPD. As an outpatient he should obtain full pulmonary function studies and if notable for obstructive ventilatory disease then workup for alpha-1 antitrypsin and other etiologies for early-onset obstructive ventilatory disease is indicated. 3. Infectious Disease: Patient currently being treated with broad-spectrum antibiotics. I will also obtain a procalcitonin to help understand if this inflammatory/infiltrative process is bacterial in nature. As the patient has been on antibiotics over the last 12-24 hours this study will be less sensitive but if positive specificity would be helpful.
[2017-10-27 15:37] VITALS: BP 113/69; PULSE 77; TEMP 36.7; O2SAT 93
--- NOTE | 2017-10-27 20:52 | Progress Note ---
Medicine Progress Note Date & Time of Visit: Oct 27, 2017 at 20:50. Subjective resting in bed, comfortable denies dyspnea cough resolved no sputum no other symptoms Objective Last 8 Hrs Date Time Temp Pulse Resp B/P (MAP) Pulse Ox O2 Delivery O2 Flow Rate FiO2 10/27/17 15:37 36.7 77 18 113/69 (84) 93 Room Air Physical Exam: General-oriented 2 not in distress, speaking sentences Eyes- anicteric ENT- oropharynx clear Neck- supple, no JVD Lungs-mild rales on the left, no wheezes Clear on the right Heart- regular rhythm; no murmur, normal rate Abdomen- normal bowel sounds, soft, nontender Extremities- no pretibial edema, no calf tenderness Neuro- alert, oriented x 3; no gross focal neurologic deficits Skin- warm & dry Laboratory Results: Last 24 Hours Test 10/27/17 07:58 10/27/17 11:24 10/27/17 15:57 10/27/17 15:58 Bedside Glucose 154 mg/dl 207 mg/dl Immunoglobulin G 839.0 mg/dL Immunoglobulin A 173.0 mg/dL Immunoglobulin M 52.4 mg/dL Test 10/27/17 16:24 10/27/17 20:14 Bedside Glucose 111 mg/dl 106 mg/dl Assessment & Plan ACUTE HYPOXIC RESPIRATORY FAILURE DUE TO PNEUMONIA, HCAP vs ASPIRATION COPD POSSIBLE EARLY SEPSIS -Admit to [facility] -Patient presenting from [facility] with reports of productive cough and shortness of breath; in the ED, hypoxic on room air at 88% which improved with oxygen 4 L via nasal cannula and patient found to have left mid to lower lung infiltrate -CT negative for PE -Patient with history of recurrent pneumonia, consider aspiration; speech evaluation placed -On presentation: Tachycardic, low-grade fever noted during my exam at 37.2; no leukocytosis, BP stable remains afebrile, o2 sats > 90 on room air On Zosyn day #3 blood cultures negative so far MRSA nasal swab negative Pulmonary consulted in light of recurrent PNA serologies ordered DM TYPE II -Hgb A1c 8.4 07/2017 -At home managed on metformin, Januvia, Basaglar, NovoLog 70/30, NovoLog sliding scale -Hold oral agents -Glycemic consult placed HYPERTENSION -Continue lisinopril HYPOTHYROIDISM -Continue levothyroxine DEPRESSION, PARANOID SCHIZOPHRENIA -Continue home meds DVT PROPHYLAXIS -SQ Lovenox DISPOSITION anticipate d/c to custodial when medically stable Current Inpatient Medications: Current Inpatient Medications Medications (Trade) Dose Ordered Sig/Arlen Route Start Time Stop Time Status Last Admin Dose Admin Ioversol (Optiray 320) 100 ml UD PRN IV 10/25/17 10:00 10/29/17 09:59 Enoxaparin Sodium (Lovenox Inj) 40 mg Q24H SQ 10/25/17 21:00 11/24/17 20:59 10/26/17 20:29 40 MG Acetaminophen (Tylenol Tab) 650 mg Q4H PRN PO 10/25/17 11:15 11/24/17 11:14 Ondansetron HCl (Zofran Inj) 4 mg Q6H PRN IV 10/25/17 11:15 11/24/17 11:14 Miscellaneous Information (Consult) 1 ea UD PRN N/A 10/25/17 12:06 11/24/17 12:05 Sodium Chloride 1,000 ml @ 60 mls/hr [id number] IV 10/25/17 11:30 11/24/17 11:29 10/27/17 10:28 60 MLS/HR Aripiprazole (Abilify Tab) 10 mg DAILY PO 10/26/17 09:00 11/25/17 08:59 10/27/17 08:25 10 MG Benzonatate (Tessalon Perles Cap) 100 mg HS PRN PO 10/25/17 11:45 11/24/17 11:44 Carvedilol (Coreg Tab) 25 mg BID PO 10/25/17 21:00 11/24/17 20:59 10/27/17 08:25 25 MG Chlorpromazine HCl (Thorazine Tab) 100 mg HS PO 10/25/17 21:00 11/24/17 20:59 10/26/17 20:28 100 MG Dicyclomine HCl (Bentyl Cap) 10 mg BID PO 10/25/17 21:00 11/24/17 20:59 10/27/17 08:26 10 MG EZETIMIBE (Zetia Tab) 10 mg QAM PO 10/26/17 09:00 11/25/17 08:59 10/27/17 08:27 10 MG Fluoxetine HCl (Prozac Cap) 40 mg QAM PO 10/26/17 09:00 11/25/17 08:59 10/27/17 08:27 40 MG Albuterol/ Ipratropium (Duoneb) 3 ml QID PRN INH 10/25/17 11:45 11/24/17 11:44 Levothyroxine Sodium (Synthroid Tab) 100 mcg DAILYBB PO 10/26/17 06:30 11/25/17 06:29 10/27/17 06:33 100 MCG Lisinopril (Zestril Tab) 40 mg DAILY PO 10/26/17 09:00 11/25/17 08:59 10/27/17 08:27 40 MG Potassium Chloride (Klor-Con Tab) 20 meq QAM PO 10/26/17 09:00 11/25/17 08:59 10/27/17 08:28 20 MEQ Simvastatin (Zocor Tab) 40 mg HS PO 10/25/17 21:00 11/24/17 20:59 10/26/17 20:31 40 MG Trazodone HCl (Desyrel Tab) 150 mg HS PO 10/25/17 21:00 11/24/17 20:59 10/26/17 20:28 150 MG Cholecalciferol (Vitamin D Tab) 2,000 inter.unit DAILY PO 10/26/17 09:00 11/25/17 08:59 10/27/17 08:25 2,000 INTER.UNIT Pantoprazole Sodium (Protonix Tab) 40 mg BID PO 10/25/17 21:00 11/24/17 20:59 10/27/17 08:26 40 MG Insulin Aspart (novoLOG ASPART) SLIDING SCALE If C... ACHS SC 10/25/17 16:00 11/24/17 15:59 10/27/17 18:15 5 UNITS Glucose (Glucose 40% Gel) 15-30 GRAMS 15 GRAMS... UD PRN PO 10/25/17 12:00 11/24/17 11:59 Glucose (Glucose Chew Tab) 4-8 Tablets 4 Tabl... UD PRN PO 10/25/17 12:00 11/24/17 11:59 Dextrose (Dextrose 50% 50ML Syringe) 25-50ML 25ML FOR ... UD PRN IV 10/25/17 12:00 11/24/17 11:59 Glucagon (Glucagon Inj) 1 mg UD PRN SQ 10/25/17 12:00 11/24/17 11:59 Carbohydrates (Carbohydrates For Hypoglycemia) 15-30 GRAMS 15 grams if BSG 54-69... UD PRN PO 10/25/17 12:00 11/24/17 11:59 Miscellaneous Information (Consult Glycemic Management Pharmacy) 1 ea UD PRN N/A 10/25/17 12:08 11/24/17 12:07 Piperacillin Sod/ Tazobactam Sod 4.5 gm/Dextrose 120 ml @ 30 mls/hr Q8H IV 10/25/17 14:00 11/01/17 13:59 10/27/17 13:53 30 MLS/HR Insulin Glargine (Lantus Solostar Pen) BID SC 10/25/17 21:00 11/24/17 20:59 10/27/17 08:41 30 UNITS
[2017-10-27 20:53] VITALS: BP 125/78; PULSE 69
[2017-10-27] MEDS: ENOXAPARIN 40 MG/0.4 ML SYR SQ SCH (20:56)
[2017-10-27] MEDS: SIMVASTATIN 40 MG TAB PO SCH (21:52)
[2017-10-27] MEDS: TRAZODONE HCL 50 MG TAB PO SCH (21:52)
[2017-10-27] MEDS: CHLORPROMAZINE HCL 100 MG TAB PO SCH (21:52)
[2017-10-27 22:43] VITALS: BP 117/76; PULSE 72; TEMP 36.5; O2SAT 92
[2017-10-28] MEDS: SODIUM CHLORIDE 0.9% 1000ML 1,000 ML IV SCH (05:14)
[2017-10-28] MEDS: LEVOTHYROXINE 100 MCG TAB PO SCH (06:17)
[2017-10-28] MEDS: PIPERACILL/TAZOBAC IV 4.5 GM in D5W 100 ML IV SCH ×2 (06:17→14:00)
[2017-10-28 07:02] VITALS: BP 138/85; PULSE 87; TEMP 36.5; O2SAT 95
[2017-10-28 07:12] LABS: HEMATOCRIT 40.4 % (42-52); HEMOGLOBIN 13.1 g/dL (14.0-18.0); MEAN CELL VOLUME 89.4 fL (80-100); MEAN CORPUSCULAR HGB CONC 32.4 g/dl (32-36); MEAN PLATELET VOLUME 10.2 fL (7.4-10.4); PLATELET COUNT 161 K/uL (130-400); RED CELL DISTRIBUTION WIDTH CV 14.6 % (11.5-14.5); RED CELL DISTRIBUTION WIDTH SD 47.4 fL (36.4-46.3); WHITE BLOOD COUNT 6.07 K/uL (4.8-10.8)
[2017-10-28 07:30] LABS: CREATININE 1.1 mg/dl (0.60-1.40)
[2017-10-28] MEDS: EZETIMIBE 10MG TAB PO SCH (08:04)
[2017-10-28] MEDS: CHOLECALCIFEROL 1000 INTER.UNIT TAB PO SCH (08:04)
[2017-10-28] MEDS: LISINOPRIL 40 MG TAB PO SCH (08:04)
[2017-10-28] MEDS: FLUOXETINE HCL 20 MG CAP PO SCH (08:05)
[2017-10-28] MEDS: POTASSIUM CHLORIDE 20 MEQ TABCR PO SCH (08:05)
[2017-10-28] MEDS: CARVEDILOL 25 MG TAB PO SCH (08:05)
[2017-10-28] MEDS: DICYCLOMINE HCL 10 MG CAP PO SCH (08:05)
[2017-10-28] MEDS: ARIPIprazole TAB 10 MG TAB PO SCH (08:05)
[2017-10-28] MEDS: PANTOprazole SOD 40 MG TAB PO SCH (08:05)
[2017-10-28] MEDS: INSULIN GLARGINE SOLOSTAR 100 UNITS/ML 3 ML PEN SC SCH (08:56)
[2017-10-28] MEDS: INSULIN ASPART 100 UNITS/ML 3 ML PEN SC SCH ×2 (08:56→12:43)
--- NOTE | 2017-10-28 12:30 | Pharmacy Progress Note ---
Pharmacy Glycemic Short Note 2 Date of Service Oct 28, 2017. OUTPATIENT ANTIDIABETIC REGIMEN: * Basaglar 75 units SC q12 * Novolog 70/30 12 units daily, 15 units qHS * Novolog TIDM, sliding scale * Metformin 1000 mg po BID * Sitagliptin 100 mg po daily * A1c pending for 10/26/17 Test 10/27/17 16:24 10/27/17 20:14 10/28/17 08:11 10/28/17 11:30 Bedside Glucose 111 mg/dl (70-99) 106 mg/dl (70-99) 152 mg/dl (70-99) 139 mg/dl (70-99) Test 10/26/17 08:42 Hemoglobin A1c 8.6 % (4.5-5.6) H ASSESSMENT: * Blood sugars at goal, no changes needed at this time PLAN FOR INPATIENT GLYCEMIC CONTROL: * Hold outpatient oral diabetes medications * Basal insulin * Lantus SQ BID * 20 units for BSG less than 100 mg/dL * 30 units for BSG 100-180 mg/dL * 40 units for BSG greater than 180 mg/dL * Bolus insulin * NovoLog per scale ACHS or Q6hrs while NPO * Goal Range: Low 120 mg/dL - High 160 mg/dL * Correction Factor: 15 mg/dL/unit * Nutritional / Prandial insulin per carb ratio of 1 unit per 5 grams CHO consumed PLAN FOR DISCHARGE: * Unclear why patient on both Novolog 70/30 with Basaglar and Novolog?? Especially for all of those injections/day * A1c elevated at 8.6%, follow-up with out patient provider for possible simplifying outpatient regimen to just 4 injections per day
--- NOTE | 2017-10-28 14:32 | Progress Note ---
Medicine Progress Note Date & Time of Visit: Oct 28, 2017 at 14:17. Subjective seen resting in bed, comfortable states he feels fine feeling much better denies cough, shortness of breath, sputum no chest pain ambulated with no problems states he is ready and would like to be discharged today Objective Last 8 Hrs Date Time Temp Pulse Resp B/P (MAP) Pulse Ox O2 Delivery O2 Flow Rate FiO2 10/28/17 08:00 Room Air 10/28/17 07:02 36.5 87 18 138/85 (102) 95 Room Air Physical Exam: General-oriented 2 not in distress, speaking sentences Eyes- anicteric ENT- oropharynx clear Neck no JVD Lungs-clear breath sounds bilaterally,no rales/wheezes Heart- regular rhythm; no murmur, normal rate Abdomen- normal bowel sounds, soft, nontender Extremities- no pretibial edema, no calf tenderness Neuro- alert, oriented x 3; no gross focal neurologic deficits Skin- warm & dry Laboratory Results: Last 24 Hours Test 10/27/17 15:57 10/27/17 15:58 10/27/17 16:24 10/27/17 20:14 Immunoglobulin G 839.0 mg/dL Immunoglobulin A 173.0 mg/dL Immunoglobulin M 52.4 mg/dL Bedside Glucose 111 mg/dl 106 mg/dl Test 10/28/17 06:30 10/28/17 08:11 10/28/17 11:30 White Blood Count 6.07 K/uL Red Blood Count 4.52 M/uL Hemoglobin 13.1 g/dL Hematocrit 40.4 % Mean Corpuscular Volume 89.4 fL Mean Corpuscular Hemoglobin 29.0 pg Mean Corpuscular Hemoglobin Concent 32.4 g/dl RDW Standard Deviation 47.4 fL RDW Coefficient of Variation 14.6 % Platelet Count 161 K/uL Mean Platelet Volume 10.2 fL Creatinine 1.10 mg/dl Est Creatinine Clear Calc Drug Dose 113.0 ml/min Estimated GFR () 94.1 Estimated GFR (Non- 81.2 Bedside Glucose 152 mg/dl 139 mg/dl Assessment & Plan ACUTE HYPOXIC RESPIRATORY FAILURE DUE TO PNEUMONIA COPD POSSIBLE EARLY SEPSIS -Patient presenting from [facility] with reports of productive cough and shortness of breath; in the ED, hypoxic on room air at 88% which improved with oxygen 4 L via nasal cannula and patient found to have left mid to lower lung infiltrate -CT negative for PE -Patient with history of recurrent pneumonia, consider aspiration; speech evaluation placed -On presentation: Tachycardic, low-grade fever noted during my exam at 37.2; no leukocytosis, BP stable remains afebrile, o2 sats > 90 on room air On Zosyn day #4--> change to Augmentin 875 BID x 7 days blood cultures negative so far MRSA nasal swab negative Pulmonary consulted in light of recurrent PNA--> Dr. Infante serologies ordered and pendin urine calcium, Nitesh level, hypersensitivity pneumonitis panel, QuantiFERON GOLD, IgG, IgM and IgA levels, Legionella urine antigen, sputum for Legionella urine antigen if possible, fungal serum studies, HIV (patient has agreed and has been counseled). will needFollow up with Dr. Infante at [facility] in 2 weeks : please call for appointment DM TYPE II -Hgb A1c 8.4 07/2017 -At home managed on metformin, Januvia, Basaglar, NovoLog 70/30, NovoLog sliding scale -continue outpatient regimen follow up with PCP HYPERTENSION -Continue lisinopril HYPOTHYROIDISM -Continue levothyroxine DEPRESSION, PARANOID SCHIZOPHRENIA -Continue home meds DVT PROPHYLAXIS -SQ Lovenox DISPOSITION d/c home ff up with [facility] Primary Care Physician on 11/01/17 at 11:25am. Follow up with Dr. Infante at [facility] in 2 weeks : please call for appointment Current Inpatient Medications: Current Inpatient Medications Medications (Trade) Dose Ordered Sig/Arlen Route Start Time Stop Time Status Last Admin Dose Admin Ioversol (Optiray 320) 100 ml UD PRN IV 10/25/17 10:00 10/29/17 09:59 Enoxaparin Sodium (Lovenox Inj) 40 mg Q24H SQ 10/25/17 21:00 11/24/17 20:59 10/27/17 20:56 40 MG Acetaminophen (Tylenol Tab) 650 mg Q4H PRN PO 10/25/17 11:15 11/24/17 11:14 Ondansetron HCl (Zofran Inj) 4 mg Q6H PRN IV 10/25/17 11:15 11/24/17 11:14 Miscellaneous Information (Consult) 1 ea UD PRN N/A 10/25/17 12:06 11/24/17 12:05 Sodium Chloride 1,000 ml @ 60 mls/hr [id number] IV 10/25/17 11:30 11/24/17 11:29 10/28/17 05:14 60 MLS/HR Aripiprazole (Abilify Tab) 10 mg DAILY PO 10/26/17 09:00 11/25/17 08:59 10/28/17 08:05 10 MG Benzonatate (Tessalon Perles Cap) 100 mg HS PRN PO 10/25/17 11:45 11/24/17 11:44 Carvedilol (Coreg Tab) 25 mg BID PO 10/25/17 21:00 11/24/17 20:59 10/28/17 08:05 25 MG Chlorpromazine HCl (Thorazine Tab) 100 mg HS PO 10/25/17 21:00 11/24/17 20:59 10/27/17 21:52 100 MG Dicyclomine HCl (Bentyl Cap) 10 mg BID PO 10/25/17 21:00 11/24/17 20:59 10/28/17 08:05 10 MG EZETIMIBE (Zetia Tab) 10 mg QAM PO 10/26/17 09:00 11/25/17 08:59 10/28/17 08:04 10 MG Fluoxetine HCl (Prozac Cap) 40 mg QAM PO 10/26/17 09:00 11/25/17 08:59 10/28/17 08:05 40 MG Albuterol/ Ipratropium (Duoneb) 3 ml QID PRN INH 10/25/17 11:45 11/24/17 11:44 Levothyroxine Sodium (Synthroid Tab) 100 mcg DAILYBB PO 10/26/17 06:30 11/25/17 06:29 10/28/17 06:17 100 MCG Lisinopril (Zestril Tab) 40 mg DAILY PO 10/26/17 09:00 11/25/17 08:59 10/28/17 08:04 40 MG Potassium Chloride (Klor-Con Tab) 20 meq QAM PO 10/26/17 09:00 11/25/17 08:59 10/28/17 08:05 20 MEQ Simvastatin (Zocor Tab) 40 mg HS PO 10/25/17 21:00 11/24/17 20:59 10/27/17 21:52 40 MG Trazodone HCl (Desyrel Tab) 150 mg HS PO 10/25/17 21:00 11/24/17 20:59 10/27/17 21:52 150 MG Cholecalciferol (Vitamin D Tab) 2,000 inter.unit DAILY PO 10/26/17 09:00 11/25/17 08:59 10/28/17 08:04 2,000 INTER.UNIT Pantoprazole Sodium (Protonix Tab) 40 mg BID PO 10/25/17 21:00 11/24/17 20:59 10/28/17 08:05 40 MG Insulin Aspart (novoLOG ASPART) SLIDING SCALE If C... ACHS SC 10/25/17 16:00 11/24/17 15:59 10/28/17 12:43 15 UNITS Glucose (Glucose 40% Gel) 15-30 GRAMS 15 GRAMS... UD PRN PO 10/25/17 12:00 11/24/17 11:59 Glucose (Glucose Chew Tab) 4-8 Tablets 4 Tabl... UD PRN PO 10/25/17 12:00 11/24/17 11:59 Dextrose (Dextrose 50% 50ML Syringe) 25-50ML 25ML FOR ... UD PRN IV 10/25/17 12:00 11/24/17 11:59 Glucagon (Glucagon Inj) 1 mg UD PRN SQ 10/25/17 12:00 11/24/17 11:59 Carbohydrates (Carbohydrates For Hypoglycemia) 15-30 GRAMS 15 grams if BSG 54-69... UD PRN PO 10/25/17 12:00 11/24/17 11:59 Miscellaneous Information (Consult Glycemic Management Pharmacy) 1 ea UD PRN N/A 10/25/17 12:08 11/24/17 12:07 Piperacillin Sod/ Tazobactam Sod 4.5 gm/Dextrose 120 ml @ 30 mls/hr Q8H IV 10/25/17 14:00 11/01/17 13:59 10/28/17 06:17 30 MLS/HR Insulin Glargine (Lantus Solostar Pen) BID SC 10/25/17 21:00 11/24/17 20:59 10/28/17 08:56 30 UNITS
[2017-10-28] MEDS ORDERED: AMOX875T PO (14:35)
--- NOTE | 2017-10-28 14:40 | Pulmonology Progress Note ---
Pulmonary Progress Note Date of Service Oct 28, 2017. Attending Dr. Infante Subjective Patient is up and walking around his room in notes no shortness of breath, cough , fever Objective Patient is currently walking around his room showing no signs of respiratory insufficiency, night using accessory muscles unable to complete conversation as he is walking through the room no signs of dyspnea/tachypnea. Vital signs: Stable on room air Respiratory: Clear to auscultation Cardiac: S1-S2 regular rate and rhythm Abdomen: Obese but positive bowel sounds soft nontender CTA chest: No pulmonary embolism, diffuse parenchymal infiltrate left hemithorax, hiatal hernia Assessment & Plan 42-year-old male admitted with notable recurrent pneumonia: 1. Recurrent Pneumonia: At this time I have obtain the blood work and as the patient is notably stable/greatly improved I believe he can be discharged with close follow-up. 2. COPD: The patient would be very young for a diagnosis of COPD. As an outpatient he should obtain full pulmonary function studies and if notable for obstructive ventilatory disease then workup for alpha-1 antitrypsin and other etiologies for early-onset obstructive ventilatory disease is indicated. 3. Infectious Disease: As the patient is doing well and has responded well to current treatment I do believe he can be discharged but should most likely finish off a 7 day course of Augmentin. 4. Oxygen: Patient has 2 steep study as well as nocturnal sleep study both suggests he can't be discharged without the need for supplemental oxygen. Follow-up: This time pulmonary will follow up the patient should be seen in the clinic for follow-up on his abnormal CT as well as blood work. Data Medications: Current Inpatient Medications Medications (Trade) Dose Ordered Sig/Arlen Route Start Time Stop Time Status Last Admin Dose Admin Ioversol (Optiray 320) 100 ml UD PRN IV 10/25/17 10:00 10/29/17 09:59 Enoxaparin Sodium (Lovenox Inj) 40 mg Q24H SQ 10/25/17 21:00 11/24/17 20:59 10/27/17 20:56 40 MG Acetaminophen (Tylenol Tab) 650 mg Q4H PRN PO 10/25/17 11:15 11/24/17 11:14 Ondansetron HCl (Zofran Inj) 4 mg Q6H PRN IV 10/25/17 11:15 11/24/17 11:14 Miscellaneous Information (Consult) 1 ea UD PRN N/A 10/25/17 12:06 11/24/17 12:05 Sodium Chloride 1,000 ml @ 60 mls/hr [id number] IV 10/25/17 11:30 11/24/17 11:29 10/28/17 05:14 60 MLS/HR Aripiprazole (Abilify Tab) 10 mg DAILY PO 10/26/17 09:00 11/25/17 08:59 10/28/17 08:05 10 MG Benzonatate (Tessalon Perles Cap) 100 mg HS PRN PO 10/25/17 11:45 11/24/17 11:44 Carvedilol (Coreg Tab) 25 mg BID PO 10/25/17 21:00 11/24/17 20:59 10/28/17 08:05 25 MG Chlorpromazine HCl (Thorazine Tab) 100 mg HS PO 10/25/17 21:00 11/24/17 20:59 10/27/17 21:52 100 MG Dicyclomine HCl (Bentyl Cap) 10 mg BID PO 10/25/17 21:00 11/24/17 20:59 10/28/17 08:05 10 MG EZETIMIBE (Zetia Tab) 10 mg QAM PO 10/26/17 09:00 11/25/17 08:59 10/28/17 08:04 10 MG Fluoxetine HCl (Prozac Cap) 40 mg QAM PO 10/26/17 09:00 11/25/17 08:59 10/28/17 08:05 40 MG Albuterol/ Ipratropium (Duoneb) 3 ml QID PRN INH 10/25/17 11:45 11/24/17 11:44 Levothyroxine Sodium (Synthroid Tab) 100 mcg DAILYBB PO 10/26/17 06:30 11/25/17 06:29 10/28/17 06:17 100 MCG Lisinopril (Zestril Tab) 40 mg DAILY PO 10/26/17 09:00 11/25/17 08:59 10/28/17 08:04 40 MG Potassium Chloride (Klor-Con Tab) 20 meq QAM PO 10/26/17 09:00 11/25/17 08:59 10/28/17 08:05 20 MEQ Simvastatin (Zocor Tab) 40 mg HS PO 10/25/17 21:00 11/24/17 20:59 10/27/17 21:52 40 MG Trazodone HCl (Desyrel Tab) 150 mg HS PO 10/25/17 21:00 11/24/17 20:59 10/27/17 21:52 150 MG Cholecalciferol (Vitamin D Tab) 2,000 inter.unit DAILY PO 10/26/17 09:00 11/25/17 08:59 10/28/17 08:04 2,000 INTER.UNIT Pantoprazole Sodium (Protonix Tab) 40 mg BID PO 10/25/17 21:00 11/24/17 20:59 10/28/17 08:05 40 MG Insulin Aspart (novoLOG ASPART) SLIDING SCALE If C... ACHS SC 10/25/17 16:00 11/24/17 15:59 10/28/17 12:43 15 UNITS Glucose (Glucose 40% Gel) 15-30 GRAMS 15 GRAMS... UD PRN PO 10/25/17 12:00 11/24/17 11:59 Glucose (Glucose Chew Tab) 4-8 Tablets 4 Tabl... UD PRN PO 10/25/17 12:00 11/24/17 11:59 Dextrose (Dextrose 50% 50ML Syringe) 25-50ML 25ML FOR ... UD PRN IV 10/25/17 12:00 11/24/17 11:59 Glucagon (Glucagon Inj) 1 mg UD PRN SQ 10/25/17 12:00 11/24/17 11:59 Carbohydrates (Carbohydrates For Hypoglycemia) 15-30 GRAMS 15 grams if BSG 54-69... UD PRN PO 10/25/17 12:00 11/24/17 11:59 Miscellaneous Information (Consult Glycemic Management Pharmacy) 1 ea UD PRN N/A 10/25/17 12:08 11/24/17 12:07 Piperacillin Sod/ Tazobactam Sod 4.5 gm/Dextrose 120 ml @ 30 mls/hr Q8H IV 10/25/17 14:00 11/01/17 13:59 10/28/17 06:17 30 MLS/HR Insulin Glargine (Lantus Solostar Pen) BID SC 10/25/17 21:00 11/24/17 20:59 10/28/17 08:56 30 UNITS Vital Signs: Date Time Temp Pulse Resp B/P (MAP) Pulse Ox O2 Delivery O2 Flow Rate FiO2 10/28/17 08:00 Room Air 10/28/17 07:02 36.5 87 18 138/85 (102) 95 Room Air 10/27/17 23:45 Room Air 10/27/17 22:43 36.5 72 17 117/76 (90) 92 Room Air 10/27/17 20:53 69 125/78 (94) 10/27/17 15:37 36.7 77 18 113/69 (84) 93 Room Air Laboratory Results: Last 24 Hours Test 10/27/17 15:57 10/27/17 15:58 10/27/17 16:24 10/27/17 20:14 Immunoglobulin G 839.0 mg/dL Immunoglobulin A 173.0 mg/dL Immunoglobulin M 52.4 mg/dL Bedside Glucose 111 mg/dl 106 mg/dl Test 10/28/17 06:30 10/28/17 08:11 10/28/17 11:30 White Blood Count 6.07 K/uL Red Blood Count 4.52 M/uL Hemoglobin 13.1 g/dL Hematocrit 40.4 % Mean Corpuscular Volume 89.4 fL Mean Corpuscular Hemoglobin 29.0 pg Mean Corpuscular Hemoglobin Concent 32.4 g/dl RDW Standard Deviation 47.4 fL RDW Coefficient of Variation 14.6 % Platelet Count 161 K/uL Mean Platelet Volume 10.2 fL Creatinine 1.10 mg/dl Est Creatinine Clear Calc Drug Dose 113.0 ml/min Estimated GFR () 94.1 Estimated GFR (Non- 81.2 Bedside Glucose 152 mg/dl 139 mg/dl
--- NOTE | 2017-10-28 14:41 | Discharge Instructions ---
Discharge Instructions Date of Service Oct 28, 2017. Admission Reason for Admission: Pneumonia Discharge Discharge Diagnosis / Problem: PNEUMONIA Discharge Goals Goal(s): Diagnostic testing, Therapeutic intervention Activity Recommendations Activity Limitations: as noted below (NO HEAVY EXERTION UNTIL RE-EVALUATED BY PRIMARY CARE PHYSICIAN) Lifting Limitations: until after follow-up appointment Exercise/Sports Limitations: until after follow-up appointment Driving or Machine Use: NO DRIVING . Instructions / Follow-Up Instructions / Follow-Up PLEASE REFER TO YOUR NEW MEDICATION AND FOLLOW INSTRUCTIONS CAREFULLY. PLEASE CALL PRIMARY CARE PHYSICIAN OR RETURN TO ER IMMEDIATELY IF WITH INCREASING SHORTNESS OF BREATH, COUGH, FEVER/CHILLS. FOLLOW SPEECH THERAPY RECOMMENDATIONS 1. Regular diet, slippery. Avoid foods that are dry, thick, pasty, doughy. Use condiments on food to assist in keeping moist. 2. Aspiration and GERD precautions, straws OK. Fully upright for meals and for 30 minutes after meals. Please keep head of the bed elevated to at least 30 degrees at all times, to include while sleeping. Alternate solids and liquids. Rest breaks as needed. FOLLOW UP WITH [facility] PRIMARY CARE PHYSICIAN DR. MORENO ON Sunday11/01/17 AT 11:25AM. will need Follow up with Dr. 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 Who to Call and When: Medical Emergencies: If at any time you feel your situation is an emergency, please call 911 immediately. . Non-Emergent Contact Non-Emergency issues call your: Primary Care Provider Call Non-Emergent contact if: you have a fever, you have any medication questions . . "Provider Documentation" section prepared by Abdiaziz Garcia. .
[2017-10-28 14:51] VITALS: BP 138/85; PULSE 87; TEMP 36.5; O2SAT 95
--- NOTE | 2017-10-28 14:53 | Discharge Summary ---
Discharge Summary Date of Service Oct 28, 2017. Discharge Summary Admission Date: Oct 25, 2017 at 11:11 Discharge Date: Oct 28, 2017 Discharge Disposition: Home Principal Diagnosis: ACUTE HYPOXIC RESPIRATORY FAILURE SECONDARY TO PNEUMONIA Secondary Diagnoses/Problems: Please refer to hospital course below. Procedures: (CHEST FOR PE) ANGIO WITH CT DOSE: 722.83 mGy.cm HISTORY: Chest pain dyspnea. TECHNIQUE: Multiaxial CT images of the chest were performed following the intravenous administration of contrast to evaluate the pulmonary arteries. Maximal intensity projection images were also obtained. A dose lowering technique was utilized adhering to the principles of ALARA. COMPARISON STUDY: 05/27/2015 FINDINGS: Thoracic aorta is unremarkable. No evidence of pulmonary embolism. The pulmonary vasculature enhances appropriately. Interval development of a diffuse patchy parenchymal infiltrate of the left mid to lower lung. Right lung remains clear and is improved compared to the prior exam. Small fixed lateral hernia. No significant mediastinal or hilar chastity pathology. Several benign reactive nodes unchanged from the prior study. IMPRESSION: 1. Study is negative for pulmonary embolus. 2. Diffuse scattered parenchymal infiltrate left hemithorax. The above report was generated using voice recognition software. It may contain grammatical, syntax or spelling errors. Electronically signed by: Elijah Abebe M.D. 10/25/2017 10:17 AM LEG DOPPLER ULTRASOUND HISTORY: Dyspnea. Assess for DVT. COMPARISON STUDY: None. FINDINGS: There is normal compressibility, flow, and augmentation within the bilateral lower extremity deep venous systems. IMPRESSION: No DVT within the right or left lower extremity. Electronically signed by: Bro Alfaro M.D. 10/26/2017 11:03 AM Consultations: PULMONARY DR. PARIKH Pending Studies/Follow-Up: Please refer to hospital course below. Medication Reconciliation New Medications: Amoxicillin & Pot Clavulanate (Augmentin 875-125 mg) 1 Tab Tab 875 MG PO BID for 7 Days, #14 TAB Continued Medications: Acetaminophen (Tylenol) 325 Mg Tab 650 MG PO Q6H PRN for Pain, TAB Aripiprazole (Abilify Maintena) 400 Mg Inj 400 MG INJ Q4WK Aripiprazole (Abilify) 10 Mg Tab 1 TAB PO DAILY, TAB 2 Refills Benzonatate (Tessalon Perles) 100 Mg Cap 100 MG PO HS PRN for cough\, CAP Carvedilol (Coreg) 25 Mg Tab 25 MG PO BID 0600 & 1600 Chlorpromazine Hcl (Thorazine) 100 Mg Tab 100 MG PO HS, TAB Cholecalciferol (Vitamin D3) 2,000 Unit Cap 2000 UNITS PO DAILY Dicyclomine Hcl (Dicyclomine Hcl) 10 Mg Cap 10 MG PO BID Epinephrine (Epipen) 0.3 Mg/0.3 Ml Inj 0.3 MG IM UD PRN for BEE STING, BOX Ezetimibe (Zetia) 10 Mg Tab 10 MG PO QAM, TAB Fluoxetine (Prozac) 40 Mg Cap 40 MG PO QAM Guaifenesin Ext Rel (Mucinex Ext Rel) 600 Mg Tab 600 MG PO BID PRN for congestion, TAB Insulin Aspart (Novolog Flexpen) 100 Units/Ml Inj SQ TID sliding scale Insulin Aspart Protamine & Asp (Novolog Mix 70/30) 1 Inj Inj 15 UNITS SC HS, BTL Insulin Aspart Protamine & Asp (Novolog Mix 70/30) 1 Inj Inj 12 UNITS SC DAILY, BTL Insulin Glargine (Basaglar Kwikpen) 100 Unit/Ml Inj 75 UNITS SQ Q12 GIVE AT 6AM & 6PM Ipratropium-Albuterol (Combivent Respimat) 1 Aer Aer 1 PUFFS INH QID PRN for SOB/Wheezing Ipratropium-Albuterol (Duoneb) 3 Ml Nebu 1 TREATMENT INH QID PRN for SOB/Wheezing, INHA Levothyroxine Sodium (Levothyroxine Sodium) 100 Mcg Tab 100 MCG PO QAM Lisinopril (Zestril) 40 Mg Tab 40 MG PO DAILY Metformin Hcl (Glucophage) 1,000 Mg Tab 1000 MG PO BID Omeprazole (Prilosec) 20 Mg Capcr 40 MG PO BID 0600 & 1600 Polyvinyl Alcohol-Povidone (Op (Refresh) 1 Scott Scott 1 DROP OPB PRN for DRYNESS Potassium Ext Rel (Klor-Con) 20 Meq Tabcr 20 MEQ PO QAM Simvastatin (Zocor) 40 Mg Tab 40 MG PO HS Sitagliptin Phosphate (Januvia) 100 Mg Tab 100 MG PO DAILY Trazodone Hcl (Desyrel) 150 Mg Tab 150 MG PO HS, TAB Admission Information HPI (per Admitting provider): 42-year-old male who presents to the ED with cough and shortness of breath. Patient has mild mental retardation and lives at [facility]. Patient has history of recurrent pneumonia most recently in August treated with Levaquin. He reports yesterday he developed a cough productive for yellow sputum. This morning whenever he woke up he reports he was feeling short of breath and having left-sided rib pain. He denies fevers and chills however at the time my exam patient is found to be diaphoretic, temperature was taken and found to be 37.2. He denies chest pain. No lightheadedness, dizziness, syncopal events. He denies abdominal pain, nausea, vomiting, diarrhea. No urinary symptoms. In the ED, chest CT is negative for pulmonary embolism however showing left mid to left lower infiltrate. Patient was hypoxic on room air at 88%, this improved with oxygen 4 L via nasal cannula. He is mildly tachycardic but otherwise hemodynamically stable without leukocytosis. Patient was given a neb, IV Levaquin, IV Zosyn, IV vancomycin. Physical Exam (per Admitting): General Appearance: WD/WN, no apparent distress Head: normocephalic, atraumatic Eyes: normal inspection, EOMI, sclerae normal ENT: hearing grossly normal, + pertinent finding (Mucous membranes moist) Neck: supple, no JVD, trachea midline Respiratory/Chest: no respiratory distress, + decreased breath sounds (Left mid/lower lung krishnan), + crackles (Left mid/lower lung krishnan) Cardiovascular: no edema, normal peripheral pulses, + tachycardia (Regular rhythm) Abdomen/GI: normal bowel sounds, non tender, soft, no organomegaly Extremities/Musculoskelatal: normal inspection, no calf tenderness, normal capillary refill Neurologic/Psych: no motor/sensory deficits, alert, normal mood/affect, oriented x 3, + pertinent finding (Mild mental retardation) Skin: normal color, + diaphoresis Hospital Course ACUTE HYPOXIC RESPIRATORY FAILURE DUE TO PNEUMONIA, RECURRENT UNDERLYING COPD POSSIBLE EARLY SEPSIS -Patient presenting from [facility] with reports of productive cough and shortness of breath; in the ED, hypoxic on room air at 88% which improved with oxygen 4 L via nasal cannula and patient found to have left mid to lower lung infiltrate -Patient with history of recurrent pneumonia -On presentation: Tachycardic, low-grade fever noted during my exam at 37.2; no leukocytosis, BP stable - CT chest: 1. Study is negative for pulmonary embolus. 2. Diffuse scattered parenchymal infiltrate left hemithorax. - placed on Zosyn IV x 4 days evaluated by Speech Therapist: recommend slippery diet - improved remained afebrile, o2 sats > 90 on room air - blood cultures negative so far MRSA nasal swab negative Pulmonary Dr. Parikh consulted in light of recurrent PNA, parenchymal infiltrates serologies ordered and pendin urine calcium, Nitesh level, hypersensitivity pneumonitis panel, QuantiFERON GOLD, IgG, IgM and IgA levels, Legionella urine antigen, sputum for Legionella urine antigen if possible, fungal serum studies, HIV (patient has agreed and has been counseled). may need bronchoscopy, Pulmonary Function Tests will need close Follow up with Dr. Parikh at [facility] at [facility] in 2 weeks : please call for appointment continue Augmentin 875 BID x 7 days DM TYPE II -Hgb A1c 8.4 07/2017 -At home managed on metformin, Januvia, Basaglar, NovoLog 70/30, NovoLog sliding scale -continue outpatient regimen follow up with PCP HYPERTENSION -Continue lisinopril HYPOTHYROIDISM -Continue levothyroxine DEPRESSION, PARANOID SCHIZOPHRENIA -Continue home meds DISPOSITION d/[facility] at 11:25am. Follow up with Dr. Parikh at [facility] at [facility] in 2 weeks : please call for appointment Total time spent on discharge = 30 minutes This includes examination of the patient, discharge planning, medication reconciliation, and communication with other providers. Discharge Instructions Discharge Instructions Date of Service Oct 28, 2017. Admission Reason for Admission: Pneumonia Discharge Discharge Diagnosis / Problem: PNEUMONIA Discharge Goals Goal(s): Diagnostic testing, Therapeutic intervention Activity Recommendations Activity Limitations: as noted below (NO HEAVY EXERTION UNTIL RE-EVALUATED BY PRIMARY CARE PHYSICIAN) Lifting Limitations: until after follow-up appointment Exercise/Sports Limitations: until after follow-up appointment Driving or Machine Use: NO DRIVING . Instructions / Follow-Up Instructions / Follow-Up PLEASE REFER TO YOUR NEW MEDICATION AND FOLLOW INSTRUCTIONS CAREFULLY. PLEASE CALL PRIMARY CARE PHYSICIAN OR RETURN TO ER IMMEDIATELY IF WITH INCREASING SHORTNESS OF BREATH, COUGH, FEVER/CHILLS. FOLLOW SPEECH THERAPY RECOMMENDATIONS 1. Regular diet, slippery. Avoid foods that are dry, thick, pasty, doughy. Use condiments on food to assist in keeping moist. 2. Aspiration and GERD precautions, straws OK. Fully upright for meals and for 30 minutes after meals. Please keep head of the bed elevated to at least 30 degrees at all times, to include while sleeping. Alternate solids and liquids. Rest breaks as needed. FOLLOW UP WITH [facility] PRIMARY CARE PHYSICIAN DR. MORENO ON Sunday11/01/17 AT 11:25AM. will need Follow up with Dr. Parikh at [facility] at 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
[2017-10-31 13:09] LABS: QUANTIF MITOGEN-NIL 8.37 IU/ML; QUANTIFERON NEGATIVE (NEGATIVE); QUANTIFERON NIL 0.02 IU/ML
== END 2017-10-28 15:47 | disposition home health service (06) | DRG 871 ==
LOC: EDBD 07:36 → C.EDB 07:37 → C.MED 11:11 → ENRESERV 11:40 → C.MS4W 10-26 22:38
PROVIDERS: ADMIT Family Medicine; ATTEND Internal Medicine
DX: A41.9 Sepsis, unspecified organism (principal); J18.9 Pneumonia, unspecified organism; J44.9 Chronic obstructive pulmonary disease, unspecified; F32.9 Major depressive disorder, single episode, unspecified; E78.5 Hyperlipidemia, unspecified; K21.9 Gastro-esophageal reflux disease without esophagitis; N31.9 Neuromuscular dysfunction of bladder, unspecified; Z87.891 Personal history of nicotine dependence; Z79.4 Long term (current) use of insulin; Z79.84 Long term (current) use of oral hypoglycemic drugs; E11.9 Type 2 diabetes mellitus without complications; F20.0 Paranoid schizophrenia; J96.01 Acute respiratory failure with hypoxia; F70 Mild intellectual disabilities; I10 Essential (primary) hypertension; E78.00 Pure hypercholesterolemia, unspecified

== ENCOUNTER 2020-10-13 09:14 | Inpatient (IN) ==
[2020-10-13] MEDS ORDERED: predniSONE 50 MG TAB PO STA (09:50)
[2020-10-13] MEDS ORDERED: ALBUT/IPRATROP 3MG/0.5MG NEB 3 ML VIAL NEB STA (09:50)
[2020-10-13 09:58] LABS: Basophils # (auto) 0.01 K/uL (0-0.2); Basophils % (auto) 0.1 %; Hematocrit (blood only) 47.3 % (42-52); Hemoglobin 15.2 g/dL (14.0-18.0); Immature Granulocytes # (auto) 0.03 K/uL (0.00-0.02); Immature Granulocytes % (auto) 0.2 %; Lymphocytes # (auto) 1.07 K/uL (1.2-3.4); Lymphocytes % (auto) 7.5 %; Mean Corpuscular Hemoglobin 27.6 pg (25-34); Mean Corpuscular Hgb Conc 32.1 g/dL (32-36); Mean Platelet Volume 10.6 fL (7.4-10.4); Monocytes # (auto) 0.36 K/uL (0.11-0.59); Monocytes % (auto) 2.5 %; Neutrophils # (auto) 12.78 K/uL (1.4-6.5); Neutrophils % (auto) 89.7 %; Platelet Count 164 K/uL (130-400); RDW Standard Deviation 47.3 fL (36.4-46.3); White Blood Count 14.25 K/uL (4.8-10.8)
[2020-10-13 10:06] LABS: Blood Urea Nitrogen 21 mg/dl (7-18); Calcium 8.7 mg/dl (8.5-10.1); Carbon Dioxide 25 mmol/L (21-32); Chloride 106 mmol/L (98-107); Creatinine Clr Calc Pharmacy 71.2 ml/min; Est GFR (African American) 62.8 ml/min; Est GFR (Non-African American) 54.2 ml/min; Glucose 205 mg/dl (70-99); Lipase 157 U/L (73-393); Potassium 4.8 mmol/L (3.5-5.1); Sodium 138 mmol/L (136-145)
[2020-10-13 10:11] LABS: NT Pro B Type Natriuretic Pept 17 pg/ml (0-450); Troponin I < 0.015 ng/ml (0-0.045)
--- NOTE | 2020-10-13 10:15 | XRay Report ---
XR chest 1V portable CLINICAL HISTORY: Chest Pain COMPARISON STUDY: Chest radiograph September 15, 2020. FINDINGS: Lung volumes are normal. There is no pneumothorax or pleural effusion. Extensive right lowe r lung airspace opacity has developed. Evidence for pulmonary edema. Cardiac size is normal. IMPRESSION: Interval development of right lower lung airspace opacity suggestive of pneumonia. Radio graphic follow up to ensure resolution is recommended. ACT 112: Negative or not required by law. Electronically signed by: Shade Carlisle M.D. 10/13/2020 10:13 AM
[2020-10-13] MEDS ORDERED: SODIUM CHLORIDE 0.9% 1000ML 1,000 ML IV ONE ×2 (10:23→14:15)
[2020-10-13 10:26] LABS: Base Excess VBG 0.1 mEq/L; Oxygen Saturation VBG 63.8 %; pH VBG 7.43 (7.36-7.41)
[2020-10-13 10:35] LABS: Partial Thromboplastin Ratio 0.9; Partial Thromboplastin Time 23.2 Seconds (21.0-31.0); Prothrombin Time 10.5 Seconds (9.0-12.0)
[2020-10-13 10:42] LABS: D Dimer 1110 ug/L FEU (0-500)
[2020-10-13] MEDS ORDERED: cefTRIAXone SODIUM 1,000 MG/50 ML BAG IV STA (10:52)
[2020-10-13] MEDS ORDERED: DOXYCYCLINE HYCLATE 100 MG CAP PO STA (10:52)
[2020-10-13] MEDS ORDERED: LORazepam 1 MG/2 ML VIAL IV STA (11:58)
[2020-10-13 12:13] LABS: Influenza A virus by PCR Negative (Negative); Influenza B virus by PCR Negative (Negative)
[2020-10-13] MEDS ORDERED: PHARMACY GLYCEMIC MGMT CONSULT STA (12:42)
--- NOTE | 2020-10-13 13:11 | History & Physical Report ---
Date of Service October 13, 2020 Assessment & Plan (1) Sepsis: (2) Pneumonia: (3) Hypoxia: Plan: Patient meets sepsis criteria per current CMS guidelines secondary to leukocytosis, tachycardia, lactic acidosis. Source of infection: Right lower lobe pneumonia Blood cultures obtained, urine culture ordered Received IV Rocephin and oral doxy in ED 22-gauge IV was established and he was started on 1 L fluid bolus -nursing was educated to increase additional IV access for further fluid administration given lactic acidosis admit to PCU IV zosyn and oral doxy ordered given Sepsis with lactic acidosis (also likely 2/2 to hypoxia) Duoneb QID and q2hr prn incentive spirometry continue home inhalers no indication for oral steroids at this time obtain VQ scan and b/l venous doppler of lower ext 2/2 to elevate d - dimer in setting of hypoxia - previously elevated in past (4) MOSES (acute kidney injury): Plan: Baseline creatinine 1-1.2 BUN/creatinine 21/1.51 today Likely secondary to drug infection and poor intake Continue IV fluid Patient on potassium supplementation, K4.8 today -hold this for now (5) COPD (chronic obstructive pulmonary disease): Plan: no acute exac continue wisam caruso (6) Diabetes mellitus: Plan: Last A1c 6.6 05/2020 Hold Metformin secondary to MOSES Also hard Jardiance and Ozempic Lantus/NovoLog per protocol A1c in a.m. consult glycemic pharmacist - appreciate their management in setting of sepsis (7) Hypertension: Plan: Blood pressure stable Hold lisinopril secondary to MOSES Continue Coreg (8) Paranoid schizophrenia: (9) Intellectual disability: Plan: Continue supportive care Continue Prozac and chlorpromazine He does receive monthly Abilify injection Mood is stable (10) DVT prophylaxis: Plan: SQ Lovenox Dispo:PCU PCP: Humberto Full Code Patient was seen and examined in collaboration with Dr. Garzon, please see addendum History of Present Illness Chief Complaint: Cough and congestion x 1 day. Primary Care Provider: Nano Paul, This is a 45-year-old male who has significant past medical history of insulin- dependent T2DM, HTN, HLD, COPD, ANTONINA on CPAP, paranoid schizophrenia, depression, mild intellectual disability, neurogenic bladder status post repair who presents ED secondary to cough and congestion x1 day. Patient resides in a residential they found him to be hypoxic at 88% today. They referred him to ED for further evaluation. He further complains of chills and sweats but denies any documented fever, lightheadedness, dizziness, chest pain, shortness of breath, JACKSON, hemoptysis, nausea, vomiting, abdominal pain, changes bowel or urinary habits. Although he does admit to decreased urinary frequency. He does have a prior h istory of pneumonia requiring antibiotic therapy. In ED patient met sepsis criteria secondary to leukocytosis, tachycardia and evidence of a right lower lobe pneumonia. He was treated with IV Rocephin and oral doxycycline. He received IV fluid. His lactic acid was elevated at 3.2. In regards to history of COPD it is maintained with Breo, Combivent and as needed nebulizers. He also was recently diagnosed with sleep apnea and has been compliant with CPAP therapy. Initially patient was refusing admission and previously had refused in the past. ER physician was able to convince patient to stay for further treatment of sepsis and pneumonia. Allergies Allergy/AdvReac Type Severity Reaction Status Date / Time bee venom protein (honey bee) Allergy Severe ANAPHYLAXIS Verified 10/13/20 11:09 diphenhydramine Allergy Unknown Unknown Verified 10/13/20 18:19 Home Medications Medication Instructions Recorded Confirmed Type acetaminophen 325 mg tablet 650 mg PO Q6H PRN 02/01/18 10/13/20 History aripiprazole 400 mg intramuscular 1 dose IM MONTHLY 02/01/18 10/13/20 History suspension,extended release carvedilol 25 mg tablet 25 mg PO BID 02/01/18 10/13/20 History cholecalciferol (vitamin D3) 50 2,000 unit PO DAILY 02/01/18 10/13/20 History mcg (2,000 unit) capsule (Vitamin D3) ezetimibe 10 mg tablet 10 mg PO QAM 02/01/18 10/13/20 History fluoxetine 40 mg capsule 40 mg PO QAM 02/01/18 10/13/20 History fluticasone furoate 100 1 inh INHALATION PM 02/01/18 10/13/20 History mcg-vilanterol 25 mcg/dose inhalation powder (Breo Ellipta) fluticasone propionate 50 2 spray INTRANASAL PM 02/01/18 10/13/20 History mcg/actuation nasal spray,suspension (Flonase Allergy Relief) guaifenesin 600 mg tablet, 600 mg PO Q12H PRN 02/01/18 10/13/20 History extended release 12 hr (Mucinex) insulin aspart U-100 100 unit/mL 0 unit SUBCUT BID 02/01/18 10/13/20 History (3 mL) subcutaneous pen (Novolog Flexpen U-100 Insulin aspart) levothyroxine 100 mcg tablet 100 mcg PO QAM 02/01/18 10/13/20 History metformin 1,000 mg tablet 1,000 mg PO BID 02/01/18 10/13/20 History omeprazole 40 mg capsule,delayed 40 mg PO BID 02/01/18 10/13/20 History release potassium chloride 20 mEq 20 meq PO QAM 02/01/18 10/13/20 History tablet,extended release(part/cryst) simvastatin 40 mg tablet 40 mg PO HS 02/01/18 10/13/20 History trazodone 150 mg tablet 150 mg PO HS 02/01/18 10/13/20 History epinephrine 0.3 mg/0.3 mL 0.3 mg IM .INJECT INTRAMUSCULAR ea 11/21/18 10/13/20 History injection, auto-injector empagliflozin 25 mg tablet 25 mg PO QAM 09/03/19 10/13/20 History (Jardiance) temazepam 30 mg capsule 30 mg PO PM PRN cap 09/03/19 10/13/20 History ipratropium 0.5 mg-albuterol 3 mg 3 ml INHALATION Q4H PRN #180 ml 04/12/20 10/13/20 Rx (2.5 mg base)/3 mL nebulization soln chlorpromazine 100 mg tablet 100 mg PO HS tab 04/29/20 10/13/20 History insulin glargine 100 unit/mL (3 38 unit SUBCUT BID ml 04/29/20 10/13/20 History mL) subcutaneous pen nystatin 100,000 unit/gram topical 1 applic TOPICAL BID 04/29/20 10/13/20 History cream chlorpromazine 200 mg tablet 200 mg PO HS 06/29/20 10/13/20 History lisinopril 20 mg tablet (Zestril) 20 mg PO QAM 06/29/20 10/13/20 History semaglutide 1 mg/dose (2 mg/1.5 1 mg SUBCUT MARTINEZ 06/29/20 10/13/20 History mL) subcutaneous pen injector (Ozempic) CPAP Machine #1 ea 09/16/20 09/16/20 Rx dicyclomine 10 mg capsule 10 mg PO BID 10/13/20 10/13/20 History fluoxetine 20 mg capsule 20 mg PO DAILY 10/13/20 10/13/20 History ipratropium 20 mcg-albuterol 100 1 puff INHALATION QID 10/13/20 10/13/20 History mcg/actuation mist for inhalation (Combivent Respimat) Past Med/Surg History Medical History COPD (chronic obstructive pulmonary disease) Depression Diabetes mellitus Dyslipidemia GERD (gastroesophageal reflux disease) Hypertension Hypothyroidism Intellectual disability Neurogenic bladder Paranoid schizophrenia Surgical History H/O inguinal hernia repair Family History Mother Diabetes Father Hypertension Social History Smoking Status: Never smoker Second Hand Exposure: No; Hx Alcohol Use: No Hx Substance Use: No Preferred Language: Latvian Communication Ability: Effective Precinct Captain Required: No Beliefs That Will Affect Care: None Current Living Situation: Other Current Living Situation Comment: Lives with roommate Other Information That Helps Us Care for You: No Feels Safe at Home: Yes Safety Concerns: Feels Safe At This Time Assistive Devices: Denture - Upper, Denture - Lower and Glasses Assistive Devices Comment: Dentures not here Review of Systems Review of Systems: All systems reviewed & are unremarkable except as noted in HPI & below Physical Exam Physical Exam: Constitutional: WD/WN, vitals as above, NAD, sitting up in bed, pleasant, conversing easily Head: Normocephalic, Atraumatic Eyes: PERRL, conjunctivae normal, anicteric sclerae ENMT: external ear and nose normal, oropharynx normal Neck: trachea midline, no thyromegaly normal visual inspection Respiratory: normal respiratory effort, lungs clear to auscultation, no wheeze, rales, right lower lobe rhonchi. Normal insp/exp effort, no accessory muscle use on O2 via NC 2 L 93% Cardiovascular: Tachycardic rate, regular rhythm, no murmur, no edema Vessels: no JVD or carotid bruit Chest: normal inspection of chest Abdomen: Protuberant abdomen, obese, normal bowel sounds, soft, nontender, no hepatosplenomegaly Musculoskeletal: no cyanosis or clubbing, extremities motor strength 5/5 Skin: no rashes, warm and dry normal turgor Neurologic: PERRL, EOMI, accommodation nl, no face palsy, no dysarthria CN's II-XI intact bilaterally and moves all extremities Psychiatric: A+Ox3, euthymic affect Lymphatic: no cervical or axillary lymphadenopathy : deferred Results & Data Results & Data ([facility]) Vital Signs (Past 12 Hours) Vital Signs Temp Pulse Pulse Resp BP BP Pulse Ox 10/13/20 11:24 120 H 22 106/68 92 10/13/20 10:37 120 H 16 92 10/13/20 10:25 91 10/13/20 09:51 93 10/13/20 09:29 36.9 C 114 H 22 104/74 90 Diagnostic Findings Chest X-Ray 10/13/20 09:52 XR chest 1V portable CLINICAL HISTORY: Chest Pain COMPARISON STUDY: Chest radiograph September 15, 2020. FINDINGS: Lung volumes are normal. There is no pneumothorax or pleural effusion. Extensive right lower lung airspace opacity has developed. Evidence for pulmonary edema. Cardiac size is normal. IMPRESSION: Interval development of right lower lung airspace opacity suggestive of pneumonia. Radiographic follow up to ensure resolution is recommended. ACT 112: Negative or not required by law. Electronically signed by: Shade Carlisle M.D. 10/13/2020 10:13 AM Medications Administered Medication List Discontinued Medications Albuterol (Albut/Ipratrop 3mg/0.5mg Neb 3 Ml Vial) 3 ml NEB NOW STA Stop: 10/13/20 09:51 Last Admin: 10/13/20 10:37 Dose: 3 ml Documented by: [id number] Doxycycline Hyclate (Doxycycline Hyclate 100 Mg Cap) 100 mg PO NOW STA Stop: 10/13/20 10:53 Last Admin: 10/13/20 12:01 Dose: 100 mg Documented by: [id number] Sodium Chloride (Nss 1000ml) 1,000 mls @ 999 mls/hr IV .Q1H1M ONE Stop: 10/13/20 11:23 Last Infusion: 10/13/20 11:44 Dose: 0 mls/hr Documented by: [id number] Admin: 10/13/20 10:30 Dose: 999 mls/hr Documented by: [id number] Ceftriaxone Sodium (Rocephin) 1,000 mg in 50 mls @ 100 mls/hr IV NOW STA Stop: 10/13/20 11:21 Last Infusion: 10/13/20 12:32 Dose: 0 mls/hr Documented by: [id number] Admin: 10/13/20 12:01 Dose: 100 mls/hr Documented by: [id number] Lorazepam (Ativan) 1 mg in 2 mls @ 2 mls/min IV NOW STA Stop: 10/13/20 11:59 Last Admin: 10/13/20 12:16 Dose: Not Given Documented by: [id number] Prednisone (Prednisone 50 Mg Tab) 50 mg PO NOW STA Stop: 10/13/20 09:51 Last Admin: 10/13/20 10:30 Dose: 50 mg Documented by: [id number] ECG Rate (beats per minute): 116 Rhythm: sinus tachycardia Findings: + RBBB COVID-19 Results Results COVID-19 Adm Lab Results: RBC 5.50 M/uL (4.7-6.1) 10/13/20 WBC 14.25 K/uL (4.8-10.8) H 10/13/20 Hgb 15.2 g/dL (14.0-18.0) 10/13/20 Hct 47.3 % (42-52) 10/13/20 Plt Count 164 K/uL (130-400) 10/13/20 Neutrophils (%) (Auto) 89.7 % 10/13/20 Lymphocytes (%) (Auto) 7.5 % 10/13/20 Monocytes # (Auto) 0.36 K/uL (0.11-0.59) 10/13/20 Eosinophils # (Auto) 0.00 K/uL (0-0.5) 10/13/20 Immature Granulocyte % (Auto) 0.2 % 10/13/20 Neutrophils # (Auto) 12.78 K/uL (1.4-6.5) H 10/13/20 Lymphocytes # (Auto) 1.07 K/uL (1.2-3.4) L 10/13/20 Monocytes # (Auto) 0.36 K/uL (0.11-0.59) 10/13/20 Eosinophils # (Auto) 0.00 K/uL (0-0.5) 10/13/20 Basophils # (Auto) 0.01 K/uL (0-0.2) 10/13/20 Immature Granulocyte # (Auto) 0.03 K/uL (0.00-0.02) H 10/13/20 Na 138 mmol/L (136-145) 10/13/20 K 4.8 mmol/L (3.5-5.1) 10/13/20 Cl 106 mmol/L (98-107) 10/13/20 CO2 25 mmol/L (21-32) 10/13/20 Anion Gap 7.0 (3-11) 10/13/20 BUN 21 mg/dl (7-18) H 10/13/20 Creatinine 1.51 mg/dl (0.6-1.4) H 10/13/20 BUN/Creatinine Ratio 14.0 (10-20) 10/13/20 Glucose Level 205 mg/dl (70-99) H 10/13/20 Ca 8.7 mg/dl (8.5-10.1) 10/13/20 Troponin I < 0.015 ng/ml (0-0.045) 10/13/20 PA-Sns-O-Type Natriuretic Pep 17 pg/ml (0-450) 10/13/20 Procalcitonin 4.07 ng/ml (0-0.5) H 10/13/20 D-Dimer 1110 ug/L FEU (0-500) H* 10/13/20 PTT 23.2 Seconds (21.0-31.0) 10/13/20 INR 1.0 (0.9-1.1) 10/13/20 COVID-19 PCR NEGATIVE (Negative) 10/13/20 Chest X-Ray 10/13/20 Code Status & VTE Plan Code Status Ful Code VTE Prophylaxis Plan VTE Prophylaxis will be ordered: Yes Supervising Physician Co-Signing Physician Notes Patient is a 45-year-old male with history of diabetes mellitus, hypertension, COPD, schizophrenia, mild intellectual disability and other medical problems presents with history of cough, chest congestion, hypoxia since 1 day duration. He was found to be hypoxic in 80s at residential and was sent to ED for further evaluation. He denies any chest pain, dyspnea currently. Please review HPI for complete details of presentation. He recently recovered from Covid 4 months ago. Chest x-ray suggestive of right lower lobe pneumonia. Could not perform CTA to rule out PE given renal insufficiency. VQ scan indeterminate. Normal venous Dopplers. On exam patient is obese, no apparent distress, normocephalic atraumatic, lungs are clear to auscultation, normal breath sounds, S1-S2, tachycardic, no murmur, abdomen soft, nontender, normal bowel sounds, no pedal edema, alert, awake, oriented, grossly no focal deficits. Patient is admitted for management of sepsis secondary to pneumonia, Hypoxia. Cannot rule out pulmonary embolism. Agree with starting broad-spectrum IV antibiotics. Will start on IV heparin for now given indeterminate VQ scan. Will consider CTA once renal function back to baseline. Continue home inhalers for COPD. I personally reviewed the record. Patient is interviewed and examined at bedside. Patient's care is coordinated with Vannessa Parks PA-C. Please refer to the documentation above for details of patient's presentation and for discussion of other issues. (1) Pneumonia Laterality: bilateral Lung location: unspecified part of lung Pneumonia type: due to unspecified organism Qualified Code(s): J18.9 - Pneumonia, unspecified organism
--- NOTE | 2020-10-13 14:51 | Ultrasound Report ---
BILATERAL LOWER EXTREMITY VENOUS DOPPLER HISTORY: Acutely elevated d-dimer elevated dimer COMPARISON STUDY: Doppler study 10/26/2017. FINDINGS: There is normal compressibility, flow, and augmentation within the bilateral lower extremit y deep venous systems. IMPRESSION: No DVT within the right or left lower extremity. ACT 112: Negative or not required by law. Electronically signed by: Oj Burgess M.D. 10/13/2020 2:50 PM
[2020-10-13] MEDS ORDERED: ONDANSETRON INJ 2 MG/ML 2 ML VIAL IV PRN (15:13)
[2020-10-13] MEDS ORDERED: GLUCOSE 40% GEL 15 GM TUBE PO PRN (15:13)
[2020-10-13] MEDS ORDERED: PIPERACILL/TAZOBAC CONSULT ACTIVE PRN (15:13)
[2020-10-13] MEDS ORDERED: ACETAMINOPHEN 325 MG TAB PO PRN (15:13)
[2020-10-13] MEDS ORDERED: DEXTROSE 50% 50 ML SYRINGE IV PRN (15:13)
[2020-10-13] MEDS ORDERED: ALUMINUM/MAGNESIUM SUSP 30 ML UDC PO PRN (15:13)
[2020-10-13] MEDS ORDERED: POLYETHYLENE (MIRALAX) 17 GM PACK PO PRN (15:13)
[2020-10-13] MEDS ORDERED: MAGNESIUM HYDROXIDE SUSP 30 ML UDC PO PRN (15:13)
[2020-10-13] MEDS ORDERED: TEMAZEPAM 15 MG CAPSULE PO PRN (15:13)
[2020-10-13] MEDS ORDERED: GLUCOSE 10 TABS/TUBE PO PRN (15:13)
[2020-10-13] MEDS ORDERED: CARBOHYDRATES FOR HYPOGLYCEMIA PO PRN (15:13)
[2020-10-13] MEDS ORDERED: GLUCAGON FOR INJ 1 MG VIAL SQ PRN (15:13)
[2020-10-13] MEDS ORDERED: guaiFENesin 600 MG TABCR PO PRN (15:13)
[2020-10-13] MEDS ORDERED: PHARMACY GLYCEMIC MGMT CONSULT PRN (15:18)
[2020-10-13] MEDS ORDERED: PIPERACILLIN/TAZOBACTAM 3.375 GM in DEXTROSE 5% 100 ML IV ONE (16:00)
[2020-10-13] MEDS: ALBUT/IPRATROP 3MG/0.5MG NEB 3 ML VIAL NEB SCH ×2 (16:03→19:22)
--- NOTE | 2020-10-13 16:13 | Nuclear Medicine Report ---
NM pulmonary perfusion CLINICAL HISTORY: Hypoxia. Elevated d-dimer COMPARISON STUDY: Chest x-ray performed the same day FINDINGS: The patient was injected with 5.1 mCi of technetium 99m MAA. There is a right lower lobe perfusion defect corresponding to an area of parenchymal consolidation on the chest x-ray. There is also a djrci-[id number]-zrufvudb perfusion defect visualized on the LPO images pos teriorly No ventilation study was performed, as well as ventilation studies are prohibited at this in [facility] during the current pandemic. This examination is therefore indeterminate for acute pulmonary embolism. CT angiography is recommend ed in follow-up. IMPRESSION: 1. Small to moderate perfusion defect within the left lower lobe 2. Right lower lobe perfusion defect corresponding to an area of parenchymal consolidation on chest x -ray 3. This study is indeterminate for acute pulmonary embolism. CT angiography should be considered in f ollow-up. ACT 112: Negative or not required by law. Electronically signed by: Jesus Gomez M.D. 10/13/2020 4:12 PM
[2020-10-13] MEDS: SODIUM CHLORIDE 0.9% 1000ML 1,000 ML IV SCH (16:45)
[2020-10-13] MEDS ORDERED: Heparin IV Adult Wt-Based Low-Dose *NO* Bolus Protocol IV SCH (17:02)
--- NOTE | 2020-10-13 17:10 | Electrocardiogram Report ---
Test Reason : Blood Pressure : / mmHG Vent. Rate : 116 BPM Atrial Rate : 116 BPM P-R Int : 136 ms QRS Dur : 134 ms QT Int : 358 ms P-R-T Axes : 061 018 003 degrees QTc Int : 497 ms Sinus tachycardia Right bundle branch block Abnormal ECG When compared with ECG of 29-JUN-2020 13:38, No significant change was found Confirmed by Leonard Martinez ([id number]) on 10/13/2020 5:10:34 PM Referred By: Confirmed By:Burke Martinez
[2020-10-13] MEDS ORDERED: HEPARIN SODIUM/DEXTROSE 25,000 UNITS/500 ML BAG IV SCH (17:15)
[2020-10-13] MEDS: INSULIN ASPART 100 UNITS/ML 3 ML PEN SC SCH ×2 (17:34→22:54)
--- NOTE | 2020-10-13 17:35 | Emergency Department Note ---
History of Present Illness General Chief Complaint: Shortness of Breath/Dyspnea Stated Complaint: SOB, CHILLS Time Seen by Provider: 10/13/20 09:36 History of Present Illness Provider Complaint: shortness of breath and cough Onset (ago): day(s) (2) Severity: moderate Maximum Pain Intensity: 0 Relieved By: + nothing Exacerbated By: + coughing Context: no choking/aspiration, no medication noncompliance or no smoke/fume exposure Known history of: COPD Associated symptoms: + cough and + sputum production; no chest pain, no fever, no orthopnea, no polyuria, no polydipsia, no paresthesias, no hemoptysis, no diaphoresis, no syncope, no abdominal pain, no chest congestion or no dizziness HPI Narrative: [facility]. Per EMS the patient was hypoxic on room air and supplemental oxygen was applied to the patient which improved his oxygen saturation with EMS. Home Medications Medication Instructions Recorded Confirmed Type acetaminophen 325 mg tablet 650 mg PO Q6H PRN 02/01/18 10/13/20 History aripiprazole 400 mg intramuscular 1 dose IM MONTHLY 02/01/18 10/13/20 History suspension,extended release carvedilol 25 mg tablet 25 mg PO BID 02/01/18 10/13/20 History cholecalciferol (vitamin D3) 50 2,000 unit PO DAILY 02/01/18 10/13/20 History mcg (2,000 unit) capsule (Vitamin D3) ezetimibe 10 mg tablet 10 mg PO QAM 02/01/18 10/13/20 History fluoxetine 40 mg capsule 40 mg PO QAM 02/01/18 10/13/20 History fluticasone furoate 100 1 inh INHALATION PM 02/01/18 10/13/20 History mcg-vilanterol 25 mcg/dose inhalation powder (Breo Ellipta) fluticasone propionate 50 2 spray INTRANASAL PM 02/01/18 10/13/20 History mcg/actuation nasal spray,suspension (Flonase Allergy Relief) guaifenesin 600 mg tablet, 600 mg PO Q12H PRN 02/01/18 10/13/20 History extended release 12 hr (Mucinex) insulin aspart U-100 100 unit/mL 0 unit SUBCUT BID 02/01/18 10/13/20 History (3 mL) subcutaneous pen (Novolog Flexpen U-100 Insulin aspart) levothyroxine 100 mcg tablet 100 mcg PO QAM 02/01/18 10/13/20 History metformin 1,000 mg tablet 1,000 mg PO BID 02/01/18 10/13/20 History omeprazole 40 mg capsule,delayed 40 mg PO BID 02/01/18 10/13/20 History release potassium chloride 20 mEq 20 meq PO QAM 02/01/18 10/13/20 History tablet,extended release(part/cryst) simvastatin 40 mg tablet 40 mg PO HS 02/01/18 10/13/20 History trazodone 150 mg tablet 150 mg PO HS 02/01/18 10/13/20 History epinephrine 0.3 mg/0.3 mL 0.3 mg IM .INJECT INTRAMUSCULAR ea 11/21/18 10/13/20 History injection, auto-injector empagliflozin 25 mg tablet 25 mg PO QAM 09/03/19 10/13/20 History (Jardiance) temazepam 30 mg capsule 30 mg PO PM PRN cap 09/03/19 10/13/20 History ipratropium 0.5 mg-albuterol 3 mg 3 ml INHALATION Q4H PRN #180 ml 04/12/20 10/13/20 Rx (2.5 mg base)/3 mL nebulization soln chlorpromazine 100 mg tablet 100 mg PO HS tab 04/29/20 10/13/20 History insulin glargine 100 unit/mL (3 38 unit SUBCUT BID ml 04/29/20 10/13/20 History mL) subcutaneous pen nystatin 100,000 unit/gram topical 1 applic TOPICAL BID 04/29/20 10/13/20 History cream chlorpromazine 200 mg tablet 200 mg PO HS 06/29/20 10/13/20 History lisinopril 20 mg tablet (Zestril) 20 mg PO QAM 06/29/20 10/13/20 History semaglutide 1 mg/dose (2 mg/1.5 1 mg SUBCUT MARTINEZ 06/29/20 10/13/20 History mL) subcutaneous pen injector (Ozempic) CPAP Machine #1 ea 09/16/20 09/16/20 Rx dicyclomine 10 mg capsule 10 mg PO BID 10/13/20 10/13/20 History fluoxetine 20 mg capsule 20 mg PO DAILY 10/13/20 10/13/20 History ipratropium 20 mcg-albuterol 100 1 puff INHALATION QID 10/13/20 10/13/20 History mcg/actuation mist for inhalation (Combivent Respimat) Allergies Allergy/AdvReac Type Severity Reaction Status Date / Time bee venom protein (honey bee) Allergy Severe ANAPHYLAXIS Verified 10/13/20 11:09 diphenhydramine Allergy Unknown _ Verified 10/13/20 11:09 Past Med/Surg History Medical History COPD (chronic obstructive pulmonary disease) Depression Diabetes mellitus Dyslipidemia GERD (gastroesophageal reflux disease) Hypertension Hypothyroidism Intellectual disability Neurogenic bladder Paranoid schizophrenia Surgical History H/O inguinal hernia repair Family History Mother Diabetes Father Hypertension Social History Smoking Status: Never smoker Second Hand Exposure: No; Hx Alcohol Use: No Hx Substance Use: No Preferred Language: Tongan Communication Ability: Effective 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 Beliefs That Will Affect Care: None Current Living Situation: Other Current Living Situation Comment: Lives with roommate Other Information That Helps Us Care for You: No Feels Safe at Home: Yes Safety Concerns: Feels Safe At This Time Assistive Devices: Denture - Upper, Denture - Lower and Glasses Assistive Devices Comment: Dentures not here Review of Systems A total of 10 systems reviewed and were otherwise negative Physical Exam Vital Signs: Vital Signs - 24 hr 10/13/20 09:29 10/13/20 09:51 10/13/20 10:25 Temperature 36.9 C Temperature Source Oral Pulse Rate 114 H Pulse Rate [Apical ] Respiratory Rate 22 Respiratory Effort / Characteristics Non-Labored Respiratory Depth Normal Blood Pressure 104/74 Blood Pressure [Le ft Arm] Blood Pressure Natty n 84 Blood Pressure Natty n [Left Arm] Pulse Oximetry 90 93 91 Oxygen Delivery Me thod Room Air Room Air Room Air Sepsis Recent Feve r Within 48 Hours No Sepsis New/Unexpla ined Change in Men brynn Status No Sepsis Action Take n by Nursing No Action Required 10/13/20 10:37 10/13/20 11:24 Temperature Temperature Source Pulse Rate Pulse Rate [Apical ] 120 H 120 H Respiratory Rate 16 22 Respiratory Effort / Characteristics Spontaneous Respiratory Depth Blood Pressure Blood Pressure [Le ft Arm] 106/68 Blood Pressure Natty n Blood Pressure Natty n [Left Arm] 80 Pulse Oximetry 92 92 Oxygen Delivery Me thod Room Air Room Air Sepsis Recent Feve r Within 48 Hours Sepsis New/Unexpla ined Change in Men brynn Status Sepsis Action Take n by Nursing Physical Exam: Physical Exam GENERAL: He is oriented to person, place, and time. He appears well-developed and well-nourished. He does not appear distressed. HENT: Exam performed. - Head: Normocephalic and atraumatic. - Right Ear: External ear normal. No mastoid tenderness. - Left Ear: External ear normal. No mastoid tenderness. - Mouth/Throat: The oropharynx is clear and moist. No trismus in the jaw. No dental abscesses or uvula swelling. No oropharyngeal exudate or tonsillar abscesses. EYES: Conjunctivae and EOM are normal. Pupils are equal, round, and reactive to light. Right eye exhibits no discharge. Left eye exhibits no discharge. No scleral icterus. NECK: Normal range of motion. Neck supple. No JVD present. No spinous process tenderness present. No carotid bruit present. No rigidity. No tracheal deviation and normal range of motion present. No Brudzinski's sign and no Kernig's sign noted. CV: tachycardic rate, regular rhythm, normal heart sounds and intact distal pulses. There is no peripheral edema. Palpable radial pulses bue. PULM/CHEST: Rhonchi bilaterally ABD: The abdomen is soft. Bowel sounds are normal. He has no distension. No mass is present. There is no tenderness. There is no rebound, no guarding, no Prieto's sign and no tenderness at McBurney's point. Rovsig negative. MUSC/SKEL: Normal range of motion. There is no peripheral edema, tenderness or deformity. LYMPH: No cervical adenopathy. NEURO: He is alert and oriented to person, place, and time. He has normal strength. No cranial nerve deficit or sensory deficit. Coordination and gait normal. GCS eye subscore is 4. GCS verbal subscore is 5. GCS motor subscore is 6. Cerebellar tests wnl. SKIN: Skin is warm and dry. He is not diaphoretic. PSYCH: He has a normal mood and affect. Behavior is normal. Judgment and thought content normal. Course Course 09: The patient was evaluated in room C11. A complete history and physical exam was performed Cardiac monitoring: An order was placed for continuous cardiac monitoring. The monitor shows a rate of 110 with sinus tachycardia rhythm 1100: Vital signs stable. Labs show an elevated white blood cell count of 14.25. D-dimer is elevated 1110. VBG is within normal limits. Patient's creatinine is elevated is 1.51. Lactic acid and blood culture will be ordered. Chest x-ray shows pneumonia. Is thought the D-dimer is most likely elevated due to patient's pneumonia. Patient will be treated with Rocephin and doxycycline for commune acquired pneumonia. [facility] 1200: [facility] hospitalist team evaluated the patient and initially the patient was refusing to come into be admitted. Patient's lactic acid came back elevated 3.2. I explained to the patient he is putting his life at severe risk and is worried that he may have sepsis due to pneumonia. IV fluids are started on the patient. After sitting down explaining to the patient the risks and benefits of leaving, the patient did agree to be admitted to the hospital. [facility] hospitalist team will admit the patient Vannessa Callahan PA-C for Dr. Horta. Administered Medications Albuterol (Albut/Ipratrop 3mg/0.5mg Neb 3 Ml Vial) 3 ml NEB QIDR ABE Stop: 11/12/20 15:12 Last Admin: 10/13/20 16:03 Dose: 3 ml Documented by: [id number] Discontinued Medications Albuterol (Albut/Ipratrop 3mg/0.5mg Neb 3 Ml Vial) 3 ml NEB NOW STA Stop: 10/13/20 09:51 Last Admin: 10/13/20 10:37 Dose: 3 ml Documented by: [id number] Doxycycline Hyclate (Doxycycline Hyclate 100 Mg Cap) 100 mg PO NOW STA Stop: 10/13/20 10:53 Last Admin: 10/13/20 12:01 Dose: 100 mg Documented by: [id number] Sodium Chloride (Nss 1000ml) 1,000 mls @ 999 mls/hr IV .Q1H1M ONE Stop: 10/13/20 11:23 Last Infusion: 10/13/20 11:44 Dose: 0 mls/hr Documented by: [id number] Admin: 10/13/20 10:30 Dose: 999 mls/hr Documented by: [id number] Ceftriaxone Sodium (Rocephin) 1,000 mg in 50 mls @ 100 mls/hr IV NOW STA Stop: 10/13/20 11:21 Last Infusion: 10/13/20 12:32 Dose: 0 mls/hr Documented by: [id number] Admin: 10/13/20 12:01 Dose: 100 mls/hr Documented by: [id number] Lorazepam (Ativan) 1 mg in 2 mls @ 2 mls/min IV NOW STA Stop: 10/13/20 11:59 Last Admin: 10/13/20 12:16 Dose: Not Given Documented by: [id number] Miscellaneous Information (Pharmacy Glycemic Mgmt Consult) 1 ea N/A NOW STA; Protocol Stop: 10/13/20 12:43 Last Admin: 10/13/20 17:22 Dose: 1 ea Documented by: [id number] Prednisone (Prednisone 50 Mg Tab) 50 mg PO NOW STA Stop: 10/13/20 09:51 Last Admin: 10/13/20 10:30 Dose: 50 mg Documented by: [id number] Medical Decision Making Laboratory Data Result diagrams: 10/13/20 09:30 10/13/20 09:30 Lab Results 10/13/20 10/13/20 10/13/20 Range/Units 09:30 09:30 09:30 WBC 14.25 H (4.8-10.8) K/uL RBC 5.50 (4.7-6.1) M/uL Hgb 15.2 (14.0-18.0) g/dL Hct 47.3 (42-52) % MCV 86.0 (80-100) fL MCH 27.6 (25-34) pg MCHC 32.1 (32-36) g/dL RDW Std Deviation 47.3 H (36.4-46.3) fL RDW Coeff of Yadiel 15.0 H (11.5-14.5) % Plt Count 164 (130-400) K/uL MPV 10.6 H (7.4-10.4) fL Immature Gran % (Auto) 0.2 % Neut % (Auto) 89.7 % Lymph % (Auto) 7.5 % Nicholas % (Auto) 2.5 % Eos % (Auto) 0.0 % Baso % (Auto) 0.1 % Neut # (Auto) 12.78 H (1.4-6.5) K/uL Lymph # (Auto) 1.07 L (1.2-3.4) K/uL Nicholas # (Auto) 0.36 (0.11-0.59) K/uL Eos # (Auto) 0.00 (0-0.5) K/uL Baso # (Auto) 0.01 (0-0.2) K/uL Immature Gran # (Auto) 0.03 H (0.00-0.02) K/uL PT 10.5 (9.0-12.0) Seconds INR 1.0 (0.9-1.1) APTT 23.2 (21.0-31.0) Seconds PTT Ratio 0.9 D-Dimer 1110 H* (0-500) ug/L FEU VBG pH (7.36-7.41) VBG pCO2 (38-50) mmHg VBG pO2 mmHg VBG HCO3 mmol/L VBG O2 Saturation % VBG Base Excess mEq/L Barometric Pressure mm/Hg Sodium 138 (136-145) mmol/L Potassium 4.8 (3.5-5.1) mmol/L Chloride 106 (98-107) mmol/L Carbon Dioxide 25 (21-32) mmol/L Anion Gap 7.0 (3-11) BUN 21 H (7-18) mg/dl Creatinine 1.51 H (0.6-1.4) mg/dl Est Cr Clr Drug Dosing 71.2 ml/min Est GFR ( Amer) 62.8 ml/min Est GFR (Non-Af Amer) 54.2 ml/min BUN/Creatinine Ratio 14.0 (10-20) Glucose 205 H (70-99) mg/dl Lactate (0.4-2.0) mmol/L Calcium 8.7 (8.5-10.1) mg/dl Troponin I < 0.015 (0-0.045) ng/ml NT-Pro-B Natriuret Pep 17 (0-450) pg/ml Lipase 157 (73-393) U/L COVID-19 Eval Order SARS-CoV-2 (PCR) (Negative) Influ A Molecular Assay (Negative) Influ B Molecular Assay (Negative) 10/13/20 10/13/20 10/13/20 Range/Units 10:12 11:12 11:24 WBC (4.8-10.8) K/uL RBC (4.7-6.1) M/uL Hgb (14.0-18.0) g/dL Hct (42-52) % MCV (80-100) fL MCH (25-34) pg MCHC (32-36) g/dL RDW Std Deviation (36.4-46.3) fL RDW Coeff of Yadiel (11.5-14.5) % Plt Count (130-400) K/uL MPV (7.4-10.4) fL Immature Gran % (Auto) % Neut % (Auto) % Lymph % (Auto) % Nicholas % (Auto) % Eos % (Auto) % Baso % (Auto) % Neut # (Auto) (1.4-6.5) K/uL Lymph # (Auto) (1.2-3.4) K/uL Nicholas # (Auto) (0.11-0.59) K/uL Eos # (Auto) (0-0.5) K/uL Baso # (Auto) (0-0.2) K/uL Immature Gran # (Auto) (0.00-0.02) K/uL PT (9.0-12.0) Seconds INR (0.9-1.1) APTT (21.0-31.0) Seconds PTT Ratio D-Dimer (0-500) ug/L FEU VBG pH 7.43 H (7.36-7.41) VBG pCO2 37 L (38-50) mmHg VBG pO2 32 mmHg VBG HCO3 24 mmol/L VBG O2 Saturation 63.8 % VBG Base Excess 0.1 mEq/L Barometric Pressure 736.9 mm/Hg Sodium (136-145) mmol/L Potassium (3.5-5.1) mmol/L Chloride (98-107) mmol/L Carbon Dioxide (21-32) mmol/L Anion Gap (3-11) BUN (7-18) mg/dl Creatinine (0.6-1.4) mg/dl Est Cr Clr Drug Dosing ml/min Est GFR ( Amer) ml/min Est GFR (Non-Af Amer) ml/min BUN/Creatinine Ratio (10-20) Glucose (70-99) mg/dl Lactate (0.4-2.0) mmol/L Calcium (8.5-10.1) mg/dl Troponin I (0-0.045) ng/ml NT-Pro-B Natriuret Pep (0-450) pg/ml Lipase (73-393) U/L COVID-19 Eval Order Covid19 at [facility] SARS-CoV-2 (PCR) (Negative) Influ A Molecular Assay Negative (Negative) Influ B Molecular Assay Negative (Negative) 10/13/20 10/13/20 Range/Units 11:24 11:25 WBC (4.8-10.8) K/uL RBC (4.7-6.1) M/uL Hgb (14.0-18.0) g/dL Hct (42-52) % MCV (80-100) fL MCH (25-34) pg MCHC (32-36) g/dL RDW Std Deviation (36.4-46.3) fL RDW Coeff of Yadiel (11.5-14.5) % Plt Count (130-400) K/uL MPV (7.4-10.4) fL Immature Gran % (Auto) % Neut % (Auto) % Lymph % (Auto) % Nicholas % (Auto) % Eos % (Auto) % Baso % (Auto) % Neut # (Auto) (1.4-6.5) K/uL Lymph # (Auto) (1.2-3.4) K/uL Nicholas # (Auto) (0.11-0.59) K/uL Eos # (Auto) (0-0.5) K/uL Baso # (Auto) (0-0.2) K/uL Immature Gran # (Auto) (0.00-0.02) K/uL PT (9.0-12.0) Seconds INR (0.9-1.1) APTT (21.0-31.0) Seconds PTT Ratio D-Dimer (0-500) ug/L FEU VBG pH (7.36-7.41) VBG pCO2 (38-50) mmHg VBG pO2 mmHg VBG HCO3 mmol/L VBG O2 Saturation % VBG Base Excess mEq/L Barometric Pressure mm/Hg Sodium (136-145) mmol/L Potassium (3.5-5.1) mmol/L Chloride (98-107) mmol/L Carbon Dioxide (21-32) mmol/L Anion Gap (3-11) BUN (7-18) mg/dl Creatinine (0.6-1.4) mg/dl Est Cr Clr Drug Dosing ml/min Est GFR ( Amer) ml/min Est GFR (Non-Af Amer) ml/min BUN/Creatinine Ratio (10-20) Glucose (70-99) mg/dl Lactate 3.2 H* (0.4-2.0) mmol/L Calcium (8.5-10.1) mg/dl Troponin I (0-0.045) ng/ml NT-Pro-B Natriuret Pep (0-450) pg/ml Lipase (73-393) U/L COVID-19 Eval Order SARS-CoV-2 (PCR) NEGATIVE (Negative) Influ A Molecular Assay (Negative) Influ B Molecular Assay (Negative) Imaging Data Radiologist's Impression: Chest X-Ray 10/13/20 09:52 XR chest 1V portable CLINICAL HISTORY: Chest Pain COMPARISON STUDY: Chest radiograph September 15, 2020. FINDINGS: Lung volumes are normal. There is no pneumothorax or pleural effusion. Extensive right lower lung airspace opacity has developed. Evidence for pulmonary edema. Cardiac size is normal. IMPRESSION: Interval development of right lower lung airspace opacity suggestive of pneumonia. Radiographic follow up to ensure resolution is recommended. ACT 112: Negative or not required by law. Electronically signed by: Shade Carlisle M.D. 10/13/2020 10:13 AM ECG Data Interpretation: Sinus tachycardia with rate of 116. RI 136 QRS 134 QTC 497. Right bundle branch block present. No ST elevation or ST depression. MDM Narrative 0936: The patient was evaluated in room C11. A complete history and physical exam was performed Cardiac monitoring: An order was placed for continuous cardiac monitoring. The monitor shows a rate of 110 with sinus tachycardia rhythm 1100: Vital signs stable. Labs show an elevated white blood cell count of 14. 25. D-dimer is elevated 1110. VBG is within normal limits. Patient's creatinine is elevated is 1.51. Lactic acid and blood culture will be ordered. Chest x-ray shows pneumonia. Is thought the D-dimer is most likely elevated due to patient's pneumonia. Patient will be treated with Rocephin and doxycycline for commune acquired pneumonia. We will plan [facility] the [facility]. 1200: [facility] evaluated the patient and initially the patient was refusing to come into be admitted. Patient's lactic acid came back elevated 3.2. I explained to the patient he is putting his life at severe risk and is worried that he may have sepsis due to pneumonia. IV fluids are started on the patient. After sitting down explaining to the patient the risks and benefits of leaving, the patient did agree to be admitted to the hospital[facility] Vannessa Callahan PA-C for Dr. Horta. Impression & Plan Pneumonia, Sepsis Discharge Plan Visit Data Chief Complaint: Shortness of Breath/Dyspnea Stated Complaint: SOB, CHILLS Discharge Problem: Pneumonia, Sepsis Patient Disposition: Admitted As Inpatient
[2020-10-13] MEDS ORDERED: INSULIN GLARGINE SOLOSTAR 100 UNITS/ML 3 ML PEN SC SCH (21:00)
[2020-10-13] MEDS ORDERED: ENOXAPARIN INJ 40 MG/0.4 ML SYR SQ SCH (21:00)
[2020-10-13] MEDS: PIPERACILLIN/TAZOBACTAM 3.375 GM in DEXTROSE 5% 100 ML IV SCH (22:43)
[2020-10-13] MEDS: carvediloL 25 MG TAB PO SCH (22:44)
[2020-10-13] MEDS: traZODone HCL 50 MG TAB PO SCH (22:44)
[2020-10-13] MEDS: DICYCLOMINE HCL 10 MG CAP PO SCH (22:45)
[2020-10-13] MEDS: PANTOprazole 40 MG TAB PO SCH (22:45)
[2020-10-13] MEDS: DOXYCYCLINE HYCLATE 100 MG CAP PO SCH (22:45)
[2020-10-13] MEDS: SIMVASTATIN 40 MG TAB PO SCH (22:46)
[2020-10-13] MEDS: FLUTICASONE PROPIONATE NA SPR 16 GM BTL SCH (22:46)
[2020-10-14] MEDS: SODIUM CHLORIDE 0.9% 1000ML 1,000 ML IV SCH ×4 (00:15→20:21)
[2020-10-14 00:54] LABS: Partial Thromboplastin Ratio 1.2; Partial Thromboplastin Time 31.1 Seconds (21.0-31.0)
[2020-10-14] MEDS ORDERED: HEPARIN IV BOLUS 3,000 UNITS in SYRINGE 0 ML IV ONE (02:30)
[2020-10-14] MEDS: LEVOTHYROXINE SODIUM 100 MCG TABLET PO SCH (05:56)
[2020-10-14] MEDS: PIPERACILLIN/TAZOBACTAM 3.375 GM in DEXTROSE 5% 100 ML IV SCH ×2 (05:56→15:20)
[2020-10-14] MEDS: FLUTICASONE/VILANTEROL 100/25MCG 14 PUFFS/INHALER INH SCH ×3 (06:13→21:50)
[2020-10-14] MEDS: ALBUT/IPRATROP 3MG/0.5MG NEB 3 ML VIAL NEB SCH ×4 (07:18→19:38)
[2020-10-14] MEDS: FLUoxetine HCL 20 MG CAP PO SCH ×2 (08:20→12:28)
[2020-10-14] MEDS: CHOLECALCIFEROL 1,000 UNITS 25 MCG TAB PO SCH (08:21)
[2020-10-14 08:22] LABS: Basophils # (auto) 0.01 K/uL (0-0.2); Basophils % (auto) 0.1 %; Eosinophils # (auto) 0.01 K/uL (0-0.5); Eosinophils % (auto) 0.1 %; Hematocrit (blood only) 38.7 % (42-52); Hemoglobin 12.7 g/dL (14.0-18.0); Immature Granulocytes # (auto) 0.02 K/uL (0.00-0.02); Immature Granulocytes % (auto) 0.1 %; Mean Corpuscular Hemoglobin 28.2 pg (25-34); Mean Corpuscular Hgb Conc 32.8 g/dL (32-36); Mean Corpuscular Volume 85.8 fL (80-100); Monocytes # (auto) 0.51 K/uL (0.11-0.59); Monocytes % (auto) 3.8 %; Neutrophils # (auto) 10.23 K/uL (1.4-6.5); Neutrophils % (auto) 75.9 %; Platelet Count 156 K/uL (130-400); RDW Coefficient of Variation 15.6 % (11.5-14.5); Red Blood Count 4.51 M/uL (4.7-6.1); White Blood Count 13.48 K/uL (4.8-10.8)
[2020-10-14] MEDS: EZETIMIBE 10 MG TABLET PO SCH (08:22)
[2020-10-14] MEDS: PANTOprazole 40 MG TAB PO SCH ×2 (08:22→20:22)
[2020-10-14] MEDS: DICYCLOMINE HCL 10 MG CAP PO SCH ×2 (08:22→20:22)
[2020-10-14] MEDS: carvediloL 25 MG TAB PO SCH ×2 (08:22→20:22)
[2020-10-14] MEDS: DOXYCYCLINE HYCLATE 100 MG CAP PO SCH ×2 (08:23→20:22)
[2020-10-14] MEDS: INSULIN ASPART 100 UNITS/ML 3 ML PEN SC SCH ×4 (08:25→21:46)
[2020-10-14 08:32] LABS: Partial Thromboplastin Ratio 1.4; Partial Thromboplastin Time 37.9 Seconds (21.0-31.0)
[2020-10-14 08:43] LABS: Appearance Urine Clear (Clear); Bilirubin Urine Negative (Negative); Blood Urine Negative (Negative); Color Urine Yellow; Glucose Urine UA 3+ (Negative); Ketones Urine Negative (Negative); Leukocyte Esterase Urine Negative (Negative); Nitrite Urine Negative (Negative); Protein Urine Negative (Negative); Specific Gravity Urine > 1.045 (1.000-1.030); Urobilinogen Urine Negative (Negative); pH Urine 5.5 (4.5-7.5)
[2020-10-14] MEDS ORDERED: INSULIN GLARGINE SOLOSTAR 100 UNITS/ML 3 ML PEN SC SCH (09:00)
[2020-10-14 09:07] LABS: Albumin Level 2.8 gm/dl (3.4-5.0); BUN Creatinine Ratio 17.1 (10-20); Calcium 7.4 mg/dl (8.5-10.1); Creatinine Clr Calc Pharmacy 85.4 ml/min; Est GFR (African American) 78.2 ml/min; Est GFR (Non-African American) 67.5 ml/min; Magnesium 2.2 mg/dl (1.8-2.4); Potassium 4.1 mmol/L (3.5-5.1)
[2020-10-14 09:10] LABS: Albumin Globulin Ratio 0.8 (0.9-2); Bilirubin,Total 0.4 mg/dl (0.2-1); Globulin 3.6 gm/dl (2.5-4.0); Total Protein 6.4 gm/dl (6.4-8.2)
[2020-10-14 09:14] LABS: Estimated Average Glucose 180 mg/dl; Hemoglobin A1C 7.9 % (4.5-5.6)
[2020-10-14] MEDS ORDERED: OPTIRAY 320 125ml IV ONE (11:43)
--- NOTE | 2020-10-14 11:58 | Pharmacy Report ---
Pharmacy Glycemic Short Note 2 - Date of Service October 14, 2020 - Glycemic Short BSG Results (Last 24 hours): 10/13/20 10/13/20 10/14/20 16:34 21:21 07:03 Glucose POC Glucose 243 H 175 H 197 H 10/14/20 10/14/20 08:07 11:13 Glucose 116 H POC Glucose 103 H OUTPATIENT ANTIDIABETIC REGIMEN: * Lantus 38 units SQ BID * Novolog SQ BID per scale * Metformin 1000mg PO BID * Semaglutide 1mg SQ weekly * Empagliflozin 25mg PO daily * A1c = 7.9% 10/14/20 ASSESSMENT: * Type 2 diabetic admitted for RLL pneumonia, sepsis * Patient is known to the glycemic control service from past admissions however it has been many years since we last followed * Will continue patient's home dose of basal insulin initially and follow fasting BSG pattern * Novolog doses will be based upon patient wt and severe stress, also factoring in outpt regimen PLAN FOR INPATIENT GLYCEMIC CONTROL: * Hold outpatient diabetes medications (metformin semaglutide, empagliflozin) * Basal insulin * Lantus 38 units SQ BID * Bolus insulin * NovoLog per scale ACHS or Q6hrs while NPO * Goal Range: Low 110 mg/dL - High 140 mg/dL * Correction Factor: 10 mg/dL/unit * Nutritional / Prandial insulin per carb ratio of 1 unit per 4 grams CHO consumed PLAN FOR DISCHARGE: * A1c of 7.9 is likely elevated above goal for this patient. It appears last A1c in 05/2020 was 6.6%. He may require adjustments to his insulin regimen in order to reduce A1c.
--- NOTE | 2020-10-14 12:24 | CT Scan Report ---
CT ANGIOGRAPHY OF THE CHEST, PULMONARY EMBOLUS PROTOCOL CLINICAL HISTORY: Shortness of breath. Evaluate for pulmonary embolus. COMPARISON STUDY: Chest CT October 25, 2017. Chest radiograph and nuclear medicine perfusion study perf ormed October 13, 2020. TECHNIQUE: Following IV administration of Optiray, helical axial images of the chest were obtained ut ilizing the pulmonary embolus protocol. Maximal intensity projections and sagittal and coronal refor mats were viewed on an independent 3D workstation. IV contrast was administered without complication . Automated exposure control was utilized for the study. A dose lowering technique was utilized adh ering to the principles of ALARA. CT DOSE: 802.47 mGy.cm FINDINGS: No pulmonary emboli are identified. There is no thoracic aortic dissection. A moderate siz ed hiatal hernia is present. Size of the heart is normal. There is no pericardial effusion. Note is m bo of an enlarged subcarinal lymph node that measures 1.9 cm in short axis diameter. This is probabl y reactive. No pneumothorax or pleural effusion is present. Extensive airspace opacities are noted wi thin the right lung. Multifocal consolidation within the right lower lobe is noted. There are mild ai rspace opacities within the left lung. Central airways are patent. No acute fracture or suspicious le trevor is identified within visualized portions of the bony thorax. There is probable hepatic steatosis . IMPRESSION: 1. No pulmonary emboli identified. 2. Extensive right lung airspace opacities with right lower lobe consolidation. Mild airspace opaciti es within the left lung. The findings suggest multifocal pneumonia. 3. A few mildly enlarged mediastinal lymph nodes which are likely reactive. 4. Moderate-sized hiatal hernia. ACT 112: Negative or not required by law. Electronically signed by: Shade Carlisle M.D. 10/14/2020 12:23 PM
[2020-10-14] MEDS ORDERED: HEPARIN SOD (PORCINE) 1000 UNIT/ML IV ONE (12:36)
--- NOTE | 2020-10-14 15:21 | Hospitalist Progress Note ---
Date of Service October 14, 2020 Assessment & Plan (1) Sepsis: (2) Pneumonia: (3) Hypoxia: Plan: Sepsis Multifocal pneumonia Hypoxia -CTA:No pulmonary emboli identified. Extensive right lung airspace opacities with right lower lobe consolidation. Mild airspace opacities within the left lung. The findings suggest multifocal pneumonia. A few mildly enlarged mediastinal lymph nodes which are likely reactive. Moderate-sized hiatal hernia. -No growth to date IV Zosyn, doxycycline transition to Rocephin, doxycycline Continue IV fluids Duoneb PRN Incentive spirometry continue home inhalers Elevated D dimer CTA showed no PE Venous Doppler: No DVT within the right or left lower extremity. (4) MOSES (acute kidney injury): Plan: Baseline creatinine 1-1.2 Cr: 1.5>>1.2 Continue IV fluid Monitor renal function Avoid nephrotoxic agents as able (5) COPD (chronic obstructive pulmonary disease): Plan: No signs of exacerbation Continue breo, nebs (6) Diabetes mellitus: Plan: A1c 7.9 Hold Metformin secondary to MOSES Also on Jardiance and Ozempic Lantus/NovoLog per protocol Glycemic pharmacist - appreciate input (7) Hypertension: Plan: Continue Coreg Hold lisinopril for now (8) Paranoid schizophrenia: Plan: Continue home medication (9) Intellectual disability: Plan: Continue supportive care Continue Prozac and chlorpromazine He does receive monthly Abilify injection Mood is stable (10) DVT prophylaxis: Plan: SQ Lovenox Code Status Full Code Admission and Anticipated Discharge Date Admission Date: October 13, 2020 Subjective Patient is seen and examined at bedside States feeling much better today Less cough today Denies shortness of breath, dizziness, nausea, abdominal pain Eager to get discharged Saturating well on room air Review of Systems Review of Systems: All systems reviewed & are unremarkable except as noted in Subjective Physical Exam Physical Exam: Physical Exam: Vitals signs as noted above General Appearance:Obese, no apparent distress Head: normocephalic, Atraumatic Eyes: normal inspection, EOMI Neck: supple, Trachea midline Respiratory/Chest: Decreased breath sounds, basal crackles Cardiovascular: S1, S2, No murmur Abdomen/GI:Soft, Non tender, Bowel sounds present Extremities/Musculoskeletal:normal inspection, no edema Neurologic/Psych:AAOX3, grossly no focal neurological deficits Skin: normal color, warm Results & Data Results & Data ([facility]) Vital Signs (Past 12 Hours) Vital Signs Temp Pulse Pulse Resp BP Pulse Ox 10/14/20 15:09 76 16 95 10/14/20 12:07 36.5 C 89 19 111/75 95 10/14/20 10:43 91 H 18 96 10/14/20 07:49 36.7 C 90 19 108/70 90 10/14/20 07:19 87 18 91 10/14/20 04:32 36.3 C L 93 H 18 92/57 L 94 10/14/20 03:35 92 H 20 93 Laboratory Results Short CBC 10/14/20 Range/Units 08:07 WBC 13.48 H (4.8-10.8) K/uL Hgb 12.7 L (14.0-18.0) g/dL Hct 38.7 L (42-52) % Plt Count 156 (130-400) K/uL BMP 10/14/20 08:07 Sodium 142 Potassium 4.1 Chloride 113 H Carbon Dioxide 24 BUN 22 H Creatinine 1.26 Glucose 116 H Calcium 7.4 L Liver Function 10/14/20 Range/Units 08:07 Total Bilirubin 0.4 (0.2-1) mg/dl AST 17 (15-37) U/L ALT 37 (12-78) U/L Alkaline Phosphatase 50 (45-117) U/L Albumin 2.8 L (3.4-5.0) gm/dl Urine 10/14/20 Range/Units 08:40 Urine Color Yellow Urine Appearance Clear (Clear) Urine pH 5.5 (4.5-7.5) Ur Specific [place] > 1.045 H (1.000-1.030) Urine Protein Negative (Negative) Urine Glucose (UA) 3+ H (Negative) (1) Sepsis Acute renal failure type: unspecified Sepsis acute organ dysfunction status: with acute organ dysfunction Sepsis type: sepsis due to unspecified organism Severe sepsis acute organ dysfunction type: acute renal failure Severe sepsis shock status: without septic shock Qualified Code(s): A41.9 - Sepsis, unspecified organism; R65.20 - Severe sepsis without septic shock; N17.9 - Acute kidney failure, unspecified (2) Pneumonia Laterality: right Lung location: unspecified part of lung Pneumonia type: due to unspecified organism Qualified Code(s): J18.9 - Pneumonia, unspecified organism
[2020-10-14] MEDS: cefTRIAXone SODIUM 2,000 MG in DEXTROSE 5% 50 ML IV SCH (16:39)
[2020-10-14] MEDS: FLUTICASONE PROPIONATE NA SPR 16 GM BTL SCH (20:22)
[2020-10-14] MEDS: SIMVASTATIN 40 MG TAB PO SCH (20:23)
[2020-10-14] MEDS: INSULIN GLARGINE SOLOSTAR 100 UNITS/ML 3 ML PEN SC SCH (21:47)
[2020-10-14] MEDS: traZODone HCL 50 MG TAB PO SCH (21:47)
[2020-10-15] MEDS ORDERED: INSULIN ASPART 100 UNITS/ML 3 ML PEN SC SCH (02:00)
[2020-10-15] MEDS: LEVOTHYROXINE SODIUM 100 MCG TABLET PO SCH (06:01)
[2020-10-15] MEDS: ALBUT/IPRATROP 3MG/0.5MG NEB 3 ML VIAL NEB SCH (07:25)
[2020-10-15 07:40] LABS: Hematocrit (blood only) 38.2 % (42-52); Mean Corpuscular Hemoglobin 27.9 pg (25-34); Mean Corpuscular Hgb Conc 31.4 g/dL (32-36); Mean Corpuscular Volume 88.8 fL (80-100); Mean Platelet Volume 9.9 fL (7.4-10.4); Platelet Count 155 K/uL (130-400); RDW Coefficient of Variation 15.7 % (11.5-14.5); RDW Standard Deviation 50.6 fL (36.4-46.3)
[2020-10-15] MEDS: INSULIN ASPART 100 UNITS/ML 3 ML PEN SC SCH ×2 (08:11→12:13)
[2020-10-15] MEDS: DICYCLOMINE HCL 10 MG CAP PO SCH (08:12)
[2020-10-15] MEDS: FLUoxetine HCL 20 MG CAP PO SCH ×2 (08:12→08:14)
[2020-10-15] MEDS: EZETIMIBE 10 MG TABLET PO SCH (08:13)
[2020-10-15] MEDS: PANTOprazole 40 MG TAB PO SCH (08:13)
[2020-10-15] MEDS: DOXYCYCLINE HYCLATE 100 MG CAP PO SCH (08:13)
[2020-10-15] MEDS: CHOLECALCIFEROL 1,000 UNITS 25 MCG TAB PO SCH (08:13)
[2020-10-15] MEDS: INSULIN GLARGINE SOLOSTAR 100 UNITS/ML 3 ML PEN SC SCH (08:14)
[2020-10-15] MEDS: carvediloL 25 MG TAB PO SCH (08:14)
[2020-10-15 08:22] LABS: BUN Creatinine Ratio 16.6 (10-20); Calcium 7.7 mg/dl (8.5-10.1); Creatinine Clr Calc Pharmacy 102.9 ml/min; Est GFR (African American) 96.4 ml/min; Est GFR (Non-African American) 83.2 ml/min; Potassium 4.2 mmol/L (3.5-5.1)
[2020-10-15] MEDS ORDERED: ALBUT/IPRATROP 3MG/0.5MG NEB 3 ML VIAL NEB PRN (08:50)
[2020-10-15] MEDS ORDERED: ENOXAPARIN INJ 40 MG/0.4 ML SYR SQ SCH (09:00)
--- NOTE | 2020-10-15 10:42 | Hospitalist Progress Note ---
Date of Service October 15, 2020 Assessment & Plan (1) Sepsis: (2) Pneumonia: (3) Hypoxia: Plan: Sepsis Multifocal pneumonia Hypoxia -CTA:No pulmonary emboli identified. Extensive right lung airspace opacities with right lower lobe consolidation. Mild airspace opacities within the left lung. The findings suggest multifocal pneumonia. A few mildly enlarged mediastinal lymph nodes which are likely reactive. Moderate-sized hiatal hernia. -No growth to date IV Zosyn, doxycycline transition to Rocephin, doxycycline Received IV fluids DuoNeb PRN Incentive spirometry continue home inhalers Clinically much improved Procalcitonin trending down Plan to transition to PO antibiotics upon discharge Elevated D dimer CTA showed no PE Venous Doppler: No DVT within the right or left lower extremity. (4) MOSES (acute kidney injury): Plan: Baseline creatinine 1-1.2 Cr: 1.5>>1.2>1.06 DC IV fluids Monitor renal function Avoid nephrotoxic agents as able (5) COPD (chronic obstructive pulmonary disease): Plan: No signs of exacerbation Continue wisam caruso (6) Diabetes mellitus: Plan: A1c 7.9 Hold Metformin secondary to MOSES Also on Jardiance and Ozempic Lantus/NovoLog per protocol Glycemic pharmacist - appreciate input (7) Hypertension: Plan: Continue Coreg Hold lisinopril for now (8) Paranoid schizophrenia: Plan: Continue home medication (9) Intellectual disability: Plan: Continue supportive care Continue Prozac and chlorpromazine He does receive monthly Abilify injection Mood is stable (10) DVT prophylaxis: Plan: SQ Lovenox Code Status Full Code Admission and Anticipated Discharge Date Admission Date: October 13, 2020 Subjective Patient is seen and examined at bedside No new complaints Cough resolved as per patient Denies shortness of breath, dizziness, nausea, abdominal pain Caregiver at bedside Saturating well on room air Review of Systems Review of Systems: All systems reviewed & are unremarkable except as noted in Subjective Physical Exam Physical Exam: Physical Exam: Vitals signs as noted above General Appearance:Obese, no apparent distress Head: normocephalic, Atraumatic Eyes: normal inspection, EOMI Neck: supple, Trachea midline Respiratory/Chest: Decreased breath sounds, CTA Cardiovascular: S1, S2, No murmur Abdomen/GI:Soft, Non tender, Bowel sounds present Extremities/Musculoskeletal:normal inspection, no edema Neurologic/Psych:AAOX3, grossly no focal neurological deficits Skin: normal color, warm Results & Data Results & Data ([facility]) Vital Signs (Past 12 Hours) Vital Signs Temp Pulse Pulse Resp BP Pulse Ox 10/15/20 07:26 77 18 96 10/15/20 07:06 36.8 C 78 20 123/78 96 10/15/20 04:08 80 17 94 10/15/20 03:51 36.9 C 77 24 118/77 95 10/14/20 23:30 36.8 C 96 H 18 147/74 H 95 Laboratory Results Short CBC 10/15/20 Range/Units 07:07 WBC 9.60 (4.8-10.8) K/uL Hgb 12.0 L (14.0-18.0) g/dL Hct 38.2 L (42-52) % Plt Count 155 (130-400) K/uL BMP 10/15/20 07:07 Sodium 139 Potassium 4.2 Chloride 112 H Carbon Dioxide 24 BUN 18 Creatinine 1.06 Glucose 104 H Calcium 7.7 L (1) Sepsis Acute renal failure type: unspecified Sepsis acute organ dysfunction status: with acute organ dysfunction Sepsis type: sepsis due to unspecified organism Severe sepsis acute organ dysfunction type: acute renal failure Severe sepsis shock status: without septic shock Qualified Code(s): A41.9 - Sepsis, unspecified organism; R65.20 - Severe sepsis without septic shock; N17.9 - Acute kidney failure, unspecified (2) Pneumonia Laterality: right Lung location: unspecified part of lung Pneumonia type: due to unspecified organism Qualified Code(s): J18.9 - Pneumonia, unspecified organism
--- NOTE | 2020-10-15 10:56 | Discharge Summary ---
Date of Service October 15, 2020 Admission HPI Per Admitting Provider This is a 45-year-old male who has significant past medical history of insulin- dependent T2DM, HTN, HLD, COPD, ANTONINA on CPAP, paranoid schizophrenia, depression, mild intellectual disability, neurogenic bladder status post repair who presents ED secondary to cough and congestion x1 day. Patient resides in a fdc they found him to be hypoxic at 88% today. They referred him to ED for further evaluation. He further complains of chills and sweats but denies any documented fever, lightheadedness, dizziness, chest pain, shortness of breath, JACKSON, hemoptysis, nausea, vomiting, abdominal pain, changes bowel or urinary habits. Although he does admit to decreased urinary frequency. He does have a prior history of pneumonia requiring antibiotic therapy. In ED patient met sepsis criteria secondary to leukocytosis, tachycardia and evidence of a right lower lobe pneumonia. He was treated with IV Rocephin and oral doxycycline. He received IV fluid. His lactic acid was elevated at 3.2. In regards to history of COPD it is maintained with Breo, Combivent and as needed nebulizers. He also was recently diagnosed with sleep apnea and has been compliant with CPAP therapy. Initially patient was refusing admission and previously had refused in the past. ER physician was able to convince patient to stay for further treatment of sepsis and pneumonia. Admission Exam Per Admitting Provider Physical Exam Physical Exam: Constitutional: WD/WN, vitals as above, NAD, sitting up in bed, pleasant, conversing easily Head: Normocephalic, Atraumatic Eyes: PERRL, conjunctivae normal, anicteric sclerae ENMT: external ear and nose normal, oropharynx normal Neck: trachea midline, no thyromegaly normal visual inspection Respiratory: normal respiratory effort, lungs clear to auscultation, no wheeze, rales, right lower lobe rhonchi. Normal insp/exp effort, no accessory muscle use on O2 via NC 2 L 93% Cardiovascular: Tachycardic rate, regular rhythm, no murmur, no edema Vessels: no JVD or carotid bruit Chest: normal inspection of chest Abdomen: Protuberant abdomen, obese, normal bowel sounds, soft, nontender, no hepatosplenomegaly Musculoskeletal: no cyanosis or clubbing, extremities motor strength 5/5 Skin: no rashes, warm and dry normal turgor Neurologic: PERRL, EOMI, accommodation nl, no face palsy, no dysarthria CN's II-XI intact bilaterally and moves all extremities Psychiatric: A+Ox3, euthymic affect Lymphatic: no cervical or axillary lymphadenopathy : deferred Principal Diagnosis Sepsis Multifocal pneumonia Hypoxia Acute kidney injury Discharge Data Allergies Allergy/AdvReac Type Severity Reaction Status Date / Time bee venom protein (honey bee) Allergy Severe ANAPHYLAXIS Verified 10/13/20 11:09 diphenhydramine Allergy Unknown Unknown Verified 10/13/20 18:19 Consultations 10/13/20 10:53 ED Decision to Admit Stat Ordered Studies 10/13/20 13:11 US venous doppler LE BI Stat 10/14/20 09:55 CT angio chest PE protocol Urgent Hospital Course (1) Sepsis: (2) Pneumonia: (3) Hypoxia: Sepsis Multifocal pneumonia Hypoxia -CTA:No pulmonary emboli identified. Extensive right lung airspace opacities with right lower lobe consolidation. Mild airspace opacities within the left lung. The findings suggest multifocal pneumonia. A few mildly enlarged mediastinal lymph nodes which are likely reactive. Moderate-sized hiatal hernia. -No growth to date IV Zosyn, doxycycline transition to Rocephin, doxycycline Received IV fluids DuoNeb PRN Incentive spirometry continue home inhalers Clinically much improved Procalcitonin trending down Plan to transition to PO antibiotics upon discharge Elevated D dimer CTA showed no PE Venous Doppler: No DVT within the right or left lower extremity. (4) MOSES (acute kidney injury): Baseline creatinine 1-1.2 Cr: 1.5>>1.2>1.06 DC IV fluids Monitor renal function Avoid nephrotoxic agents as able (5) COPD (chronic obstructive pulmonary disease): No signs of exacerbation Continue breo, nebs (6) Diabetes mellitus: A1c 7.9 Hold Metformin secondary to MOSES Also on Jardiance and Ozempic Lantus/NovoLog per protocol Glycemic pharmacist - appreciate input (7) Hypertension: Continue Coreg Hold lisinopril for now (8) Paranoid schizophrenia: Continue home medication (9) Intellectual disability: Continue supportive care Continue Prozac and chlorpromazine He does receive monthly Abilify injection Mood is stable (10) DVT prophylaxis: SQ Lovenox Code Status Full Code Total Time Total Time Spent Total Time Spent (In Minutes): 38 minutes Discharge Plan Discharge Items Patient Disposition: Personal [facility] Living Reason For Visit: SEPSIS, PNEUMONIA Discharge Diagnosis: Sepsis Multifocal pneumonia Hypoxia Acute kidney injury Activity: Per Instructions section Exercise/Sports: Wait until after follow-up appointment Non-emergency contact: Primary Care Provider Call non-emergency contact if: you have any medication questions, your symptoms worsen, your pain is not controlled, your pain is concerning for you and you have a fever Follow-up/Referrals: Nano Paul DO [Primary Care Provider] - (Date & Time 10/19/2020 11:00 AM Provider Nano Paul DO Department [facility] ) Diet: Carb Consistent or DM2 Diet Texture: Easy to Chew Addtl Attending Provider Instructions: Follow up with your Primary Care Physician in 1 week as advised Your final blood cultures are pending at the time of discharge. Follow-up with your physician for results. Complete antibiotic course as prescribed. Seek immediate medical attention if your symptoms reoccur or worsen Please take all medications as instructed on discharge list below. Please call if you have any questions or problems. You can reach a [facility] hospitalist on duty at [facility] 24 hours a day by calling [phone] Pending Studies at Discharge: Yes Studies:: Blood Cultures Stand-Alone Forms: [facility], Smoking Cessation Skilled Items Patient informed of condition?: Yes DNR: No Discharge Level of Care: Other Communicable Disease: No Discharge Prognosis: Stable Lines: None Urinary Catheter: No Medications and DC Order Prescriptions: New doxycycline hyclate 100 mg Capsule 100 mg PO BID Qty: 14 RF: 0 cefdinir 300 mg capsule 300 mg PO BID Qty: 14 RF: 0 Continued ipratropium-albuterol 0.5 mg-3 mg(2.5 mg base)/3 mL solution for nebulization 3 ml INHALATION Q4H PRN (Reason: Shortness Of Breath) Qty: 180 RF: 0 nystatin 100,000 unit/gram cream 1 applic topical BID RF: 0 (DME) CPAP Machine Misc See Rx Instructions .MEDSUPPLY Qty: 1 RF: 0 temazepam 30 mg capsule 30 mg PO PM PRN (Reason: Sleep) RF: 0 Jardiance 25 mg tablet 25 mg PO QAM RF: 0 epinephrine 0.3 mg/0.3 mL auto-injector 0.3 mg IM .INJECT INTRAMUSCULAR RF: 0 fluoxetine 40 mg capsule 40 mg PO QAM RF: 0 carvedilol 25 mg tablet 25 mg PO BID RF: 0 omeprazole 40 mg capsule,delayed release(DR/EC) 40 mg PO BID RF: 0 simvastatin 40 mg tablet 40 mg PO HS RF: 0 levothyroxine 100 mcg tablet 100 mcg PO QAM RF: 0 potassium chloride 20 mEq tablet,ER particles/crystals 20 meq PO QAM RF: 0 trazodone 150 mg tablet 150 mg PO HS RF: 0 metformin 1,000 mg tablet 1,000 mg PO BID RF: 0 fluticasone propionate [Flonase Allergy Relief] 50 mcg/actuation spray,suspension 2 spray Intranasal PM RF: 0 ezetimibe 10 mg tablet 10 mg PO QAM RF: 0 aripiprazole 400 mg suspension,extended rel recon 1 dose IM MONTHLY RF: 0 Breo Ellipta 100-25 mcg/dose Blister With Device 1 inh INHALATION PM RF: 0 cholecalciferol (vitamin D3) [Vitamin D3] 2,000 unit Capsule 2,000 unit PO DAILY RF: 0 acetaminophen 325 mg Tablet 650 mg PO Q6H PRN (Reason: pain/fever) RF: 0 insulin aspart U-100 [Novolog Flexpen U-100 Insulin] 100 unit/mL Insulin Pen 0 unit SUBCUT BID RF: 0 guaifenesin [Mucinex] 600 mg Tablet Extended Release 12hr 600 mg PO Q12H PRN (Reason: Cough) RF: 0 insulin glargine 100 unit/mL (3 mL) insulin pen 38 unit subcut BID RF: 0 chlorpromazine 100 mg tablet 100 mg PO HS RF: 0 lisinopril [Zestril] 20 mg tablet 20 mg PO QAM RF: 0 chlorpromazine 200 mg tablet 200 mg PO HS RF: 0 Ozempic 1 mg/dose (2 mg/1.5 mL) pen injector 1 mg SUBCUT MARTINEZ RF: 0 fluoxetine 20 mg capsule 20 mg PO DAILY RF: 0 dicyclomine 10 mg capsule 10 mg PO BID RF: 0 Combivent Respimat 20-100 mcg/actuation Mist 1 puff INHALATION QID RF: 0 Discharge Orders: Discharge Order (Routine); Ordered 10/15/20 Ordered By: Colin Queen/Other Patient Handouts: A1C, Managing Type 2 Diabetes Admission Data Admit Date/Time: 10/13/20 12:42 Attending Provider: Colin Garzon Admit Provider: Colin Garzon Primary Care Provider: Nano Paul Other Providers: Colin Garzon Other Interventions: Discharge Summary Assessment (RN) Last Done: 10/15/20 11:10
[2020-10-15] MEDS ORDERED: cefTRIAXone SODIUM 2,000 MG in DEXTROSE 5% 50 ML IV SCH (11:00)
[2020-10-15] MEDS ORDERED: IPRATROPIUM BROMIDE HFA INHALER INH SCH (11:00)
[2020-10-15] MEDS ORDERED: ALBUTEROL HFA 8 GM INHALER INH SCH (11:00)
[2020-10-15] MEDS: cefTRIAXone SODIUM 2,000 MG in DEXTROSE 5% 50 ML IV SCH (11:30)
== END 2020-10-15 13:29 | disposition home or self-care (01) | DRG 871 ==
LOC: ED 09:14 → EDINP 11:46 → 2S 12:42

== ENCOUNTER 2022-03-05 22:14 | Inpatient (IN) ==
[2022-03-05 22:59] LABS: Basophils # (auto) 0.03 K/uL (0-0.2); Basophils % (auto) 0.2 %; Hematocrit (blood only) 35.9 % (40.1-51.0); Hemoglobin 11.5 g/dl (14.0-18.0); Immature Granulocytes # (auto) 0.14 K/uL (0.00-0.02); Immature Granulocytes % (auto) 0.8 %; Lymphocytes # (auto) 2.09 K/uL (1.2-3.4); Lymphocytes % (auto) 12.4 %; Mean Corpuscular Hemoglobin 25.7 pg (25.0-34.0); Mean Corpuscular Volume 80.3 fL (80.0-100.0); Mean Platelet Volume 9.9 fL (9.4-12.4); Monocytes # (auto) 1.04 K/uL (0.24-0.82); Monocytes % (auto) 6.2 %; Neutrophils # (auto) 13.51 K/uL (1.4-6.5); Neutrophils % (auto) 80.4 %; Platelet Count 297 K/uL (130-400); RDW Coefficient of Variation 15.7 % (11.5-14.5); RDW Standard Deviation 45.4 fL (36.4-46.3); Red Blood Count 4.47 M/uL (4.63-6.08); White Blood Count 16.81 K/ul (4.8-10.8)
[2022-03-05 23:12] LABS: INR 1.1 (0.9-1.1); Partial Thromboplastin Ratio 0.8; Prothrombin Time 12.1 Seconds (9.0-12.0)
[2022-03-05 23:17] LABS: Albumin Globulin Ratio 0.8 (0.9-2); Albumin Level 3.3 gm/dl (3.4-5.0); BUN Creatinine Ratio 19.6 (10-20); Bilirubin,Total 0.5 mg/dl (0.2-1.0); Calcium 8.8 mg/dl (8.5-10.1); Creatinine Clr Calc Pharmacy 102.1 ml/min; Est GFR (African American) 100.3 ml/min; Est GFR (Non-African American) 86.5 ml/min; Globulin 3.9 gm/dl (2.5-4.0); Magnesium 1.8 mg/dl (1.7-2.4); Potassium 4.3 mmol/L (3.5-5.1); Total Protein 7.2 gm/dl (6.0-8.3)
[2022-03-05] MEDS ORDERED: ACETAMINOPHEN 1,000 MG/100 ML VIAL IV STA (23:36)
[2022-03-05] MEDS ORDERED: levoFLOXacin/D5W 750 MG/150 ML BAG IV STA (23:36)
[2022-03-05] MEDS ORDERED: cefTRIAXone SODIUM 2,000 MG/70 ML BAG IV STA (23:39)
[2022-03-05] MEDS ORDERED: DOXYCYCLINE HYCLATE 100 MG in DEXTROSE 5% 100 ML IV STA (23:39)
[2022-03-05] MEDS ORDERED: SODIUM CHLORIDE 0.9% 1000ML 1,000 ML IV SCH (23:45)
--- NOTE | 2022-03-05 23:47 | Emergency Department Note ---
History of Present Illness General Chief complaint: Shortness of Breath/Dyspnea Time Seen by Provider: 03/05/22 23:26 Source: patient and other (Staff from facility) Mode of arrival: EMS Limitations: no limitations History of Present Illness Provider complaint: Recent bronchitis, increased shortness of breath This is a 46-year-old male presents emergency department via EMS with staff from facility at bedside due to concern for increased shortness of breath and low pulse oximeter reading this evening. Staff at bedside states patient was diagnosed with bronchitis several days ago and started on azithromycin. He does use a nebulizer treatment periodically to help with his breathing when he is sick as he has an underlying history of COPD. He did not typically wear home oxygen. Staff states when he checks his oxygen at home they got 85% and after nebulizer treatment it came up to 89%. Per their protocol EMS was contacted. They state they had not noticed any fevers. He has had 3 days of azithromycin w ithout any improvement. Patient admits to fevers, chills, increasing cough although he feels he is not able to mobilize the mucus in his chest. He denies nausea, vomiting, chest pain, abdominal pain, diarrhea, or leg swelling. Staff concerned as patient has previously had pneumonia also. Home Medications Medication Instructions Recorded Confirmed Type acetaminophen 325 mg tablet 650 mg PO QID PRN Fever Or Pain 03/06/22 03/06/22 History (Tylenol) azithromycin 250 mg tablet 2,500 mg PO DIRECTED 03/06/22 03/06/22 History carvedilol 25 mg tablet 25 mg PO BID 03/06/22 03/06/22 History chlorpromazine 100 mg tablet 100 mg PO HS 03/06/22 03/06/22 History chlorpromazine 200 mg tablet 200 mg PO HS 03/06/22 03/06/22 History cholecalciferol (vitamin D3) 50 50 mcg PO DAILY 03/06/22 03/06/22 History mcg (2,000 unit) tablet (Vitamin D3) empagliflozin 25 mg tablet 25 mg PO DAILY 03/06/22 03/06/22 History (Jardiance) epinephrine 0.3 mg/0.3 mL 0.3 mg IM DAILY PRN .anaphylaxis 03/06/22 03/06/22 History injection, auto-injector (EpiPen) ezetimibe 10 mg tablet 10 mg PO DAILY 03/06/22 03/06/22 History fluoride (sodium) 1.1 % dental 1 applic dental DAILY 03/06/22 03/06/22 History cream (Denta 5000 Plus) fluoxetine 20 mg capsule 20 mg PO DAILY 03/06/22 03/06/22 History fluoxetine 40 mg capsule 40 mg PO DAILY 03/06/22 03/06/22 History fluticasone furoate 100 1 ea inhalation DAILY 03/06/22 03/06/22 History mcg-vilanterol 25 mcg/dose inhalation powder (Breo Ellipta) fluticasone propionate 50 2 spray intranasal DAILY 03/06/22 03/06/22 History mcg/actuation nasal spray,suspension guaifenesin 600 mg tablet, 600 mg PO Q12H PRN Congestion 03/06/22 03/06/22 History extended release 12 hr (Mucinex) insulin aspart U-100 100 unit/mL See Rx Instructions .Route .COMPLEX 03/06/22 03/06/22 History (3 mL) subcutaneous pen (Novolog Flexpen U-100 Insulin aspart) insulin glargine 100 unit/mL (3 36 unit subcut BID 03/06/22 03/06/22 History mL) subcutaneous pen (Basaglar KwikPen U-100 Insulin) ipratropium 0.5 mg-albuterol 3 mg 3 ml inhalation QID PRN Shortness 03/06/22 03/06/22 History (2.5 mg base)/3 mL nebulization Of Breath Or Wheezing soln ipratropium 20 mcg-albuterol 100 1 puff inhalation QID PRN 03/06/22 03/06/22 History mcg/actuation mist for inhalation Shortness Of Breath Or Wheezing (Combivent Respimat) levalbuterol tartrate 45 2 puff inhalation Q6 PRN Shortness 03/06/22 03/06/22 History mcg/actuation aerosol inhaler Of Breath levothyroxine 100 mcg tablet 100 mcg PO DAILY 03/06/22 03/06/22 History lisinopril 20 mg tablet 20 mg PO DAILY 03/06/22 03/06/22 History loratadine 10 mg tablet 10 mg PO DAILY 03/06/22 03/06/22 History menthol 0.44 %-zinc oxide 20.6 % 1 applic topical DIRECTED PRN .. 03/06/22 03/06/22 History topical ointment (Calmoseptine) metformin 1,000 mg tablet 1,000 mg PO BID 03/06/22 03/06/22 History mirtazapine 30 mg tablet 30 mg PO HS 03/06/22 03/06/22 History omeprazole 40 mg capsule,delayed 40 mg PO BID 03/06/22 03/06/22 History release paliperidone 9 mg tablet,extended 9 mg PO HS 03/06/22 03/06/22 History release 24 hr potassium chloride 20 mEq 20 meq PO DAILY 03/06/22 03/06/22 History tablet,extended release(part/cryst) semaglutide 1 mg/dose (4 mg/3 mL) 1 mg subcut .QWED 03/06/22 03/06/22 History subcutaneous pen injector (Ozempic) simvastatin 40 mg tablet 40 mg PO DAILY 03/06/22 03/06/22 History temazepam 30 mg capsule 30 mg PO HS 03/06/22 03/06/22 History Allergies Allergy/AdvReac Type Severity Reaction Status Date / Time bee venom protein (honey bee) Allergy Severe ANAPHYLAXIS Verified 03/06/22 02:15 diphenhydramine Allergy Unknown Unknown Verified 03/06/22 02:15 Past Med/Surg History Medical History COPD (chronic obstructive pulmonary disease) Depression Diabetes mellitus Dyslipidemia GERD (gastroesophageal reflux disease) Hypertension Hypothyroidism Intellectual disability Neurogenic bladder Paranoid schizophrenia Surgical History H/O inguinal hernia repair Family History Mother Diabetes Father Hypertension Social History Smoking Status: Unknown if ever smoked Tobacco Type: Cigarettes Second Hand Exposure: No; Hx Alcohol Use: No Hx Substance Use: No Preferred Language: Cameroonian Communication Ability: Effective Legal Technician Required: No Beliefs That Will Affect Care: None Current Living Situation: Alone Current Living Situation Comment: Lives with roommate Feels Safe at Home: Yes Assistive Devices: None Review of Systems A total of 10 systems reviewed and were otherwise negative All systems reviewed & are unremarkable except as noted in HPI & below Physical Exam Vital Signs Vital Signs - 24 hr 03/05/22 22:49 03/05/22 22:49 03/05/22 22:49 Temperature 38.0 C H Temperature Source Oral Pulse Rate 106 H Respiratory Rate 24 Respiratory Effort / Characteristics Spontaneous Accessory Muscle Use SOB on Exertion Spontaneous Short of Breath Respiratory Depth Normal Respiratory Pattern Regular Blood Pressure 121/73 Blood Pressure Mean 89 Blood Pressure Position Sitting Pulse Oximetry 92 92 Oxygen Delivery Method Nasal Cannula Nasal Cannula Nasal Cannula Oxygen Flow Rate 3 3 23 Sepsis Recent Fever Within 48 Hours No Sepsis New/Unexplained Change in Mental Status No Sepsis Action Taken by Nursing No Action Required 03/05/22 22:49 03/05/22 22:49 03/05/22 23:09 Temperature Temperature Source Pulse Rate Respiratory Rate 24 Respiratory Effort / Characteristics Spontaneous Short of Breath Respiratory Depth Respiratory Pattern Blood Pressure Blood Pressure Mean Blood Pressure Position Pulse Oximetry 92 92 90 Oxygen Delivery Method Nasal Cannula Nasal Cannula Nasal Cannula Oxygen Flow Rate 3 3 4 Sepsis Recent Fever Within 48 Hours Sepsis New/Unexplained Change in Mental Status Sepsis Action Taken by Nursing GENERAL: alert, well appearing, well nourished, no distress, non-toxic EYE EXAM: normal conjunctiva, PERRL and EOM's grossly intact OROPHARYNX: no exudate, no erythema, lips, buccal mucosa, and tongue normal and mucous membranes are moist NECK: supple, no nuchal rigidity, no adenopathy, non-tender LUNGS: Clear to auscultation. Normal chest wall mechanics, no w/r, scattered rhonchi noted HEART: no murmurs, S1 normal and S2 normal ABDOMEN: abdomen soft, non-tender, normo-active bowel sounds, no masses, no rebound or guarding. BACK: Back is symmetrical on inspection and there is no deformity, no midline tenderness, no CVA tenderness. SKIN: no rashes and no bruising UPPER EXTREMITIES: upper extremities are grossly normal. FROM, nml pulses b/l. LOWER EXTREMITIES: No pitting edema. FROM, nml pulses b/l. NEURO EXAM: Normal sensorium, cranial nerves II-XII grossly intact, normal speech, no gross weakness of arms, no gross weakness of legs. Gross sensation intact. Course Administered Medications Carvedilol (Carvedilol 12.5 Mg Tab) 12.5 mg PO BID ABE Stop: 04/05/22 21:09 Last Admin: 03/06/22 21:18 Dose: 12.5 mg Documented By: Doxycycline Hyclate (Doxycycline Hyclate 100 Mg Cap) 100 mg PO BID [facility] Stop: 03/13/22 20:59 Last Admin: 03/07/22 08:10 Dose: 100 mg Documented By: Admin: 03/06/22 21:17 Dose: 100 mg Documented By: Ezetimibe (Ezetimibe 10 Mg Tablet) 10 mg PO DAILY [facility] Stop: 04/05/22 08:59 Last Admin: 03/07/22 08:10 Dose: 10 mg Documented By: Admin: 03/06/22 09:59 Dose: 10 mg Documented By: MATT Enoxaparin Sodium (Enoxaparin Inj 40 Mg/0.4 Ml Syr) 40 mg SQ QAM [facility] Stop: 04/05/22 08:59 Last Admin: 03/07/22 08:10 Dose: 40 mg Documented By: Admin: 03/06/22 10:05 Dose: 40 mg Documented By: MATT Fluoxetine HCl (Fluoxetine Hcl 20 Mg Cap) 20 mg PO DAILY [facility] Stop: 04/05/22 08:59 Last Admin: 03/07/22 09:18 Dose: Not Given Documented By: Admin: 03/06/22 10:09 Dose: Not Given Documented By: RIVERA Fluticasone Propionate (Fluticasone Propionate Na Spr 16 Gm Btl) 2 sprays NA DA [facility] Stop: 04/05/22 08:59 Last Admin: 03/07/22 08:11 Dose: 2 sprays Documented By: Admin: 03/06/22 10:02 Dose: 2 sprays Documented By: MATT Fluticasone/Vilanterol (Fluticasone/Vilanterol 100/25mcg 14 Puffs/Inhaler) 1 puffs INH DAILY [facility] Stop: 04/05/22 08:59 Last Admin: 03/07/22 08:11 Dose: 1 puffs Documented By: Admin: 03/06/22 10:03 Dose: 1 puffs Documented By: MATT Cefepime HCl 2,000 mg/ Syringe 20 mls @ 5 mls/min IV Q8H [facility]; Protocol Stop: 03/13/22 07:59 Last Admin: 03/07/22 08:09 Dose: 5 mls/min Documented By: Admin: 03/07/22 00:32 Dose: 5 mls/min Documented By: Admin: 03/06/22 16:08 Dose: 5 mls/min Documented By: Admin: 03/06/22 07:56 Dose: 5 mls/min Documented By: MATT Insulin Aspart (Insulin Aspart Per Unit) 0 units SC ACHS [facility]BE Stop: 04/05/22 07:18 Last Admin: 03/07/22 08:18 Dose: 3 units Documented By: CARRIE Co-signed By: KASHIF Admin: 03/06/22 20:53 Dose: 1 units Documented By: KAVITHA Co-signed By: BERTHA Admin: 03/06/22 18:58 Dose: 4 units Documented By: MATT Co-signed By: RIVERA Admin: 03/06/22 11:36 Dose: 6 units Documented By: RIVERA Co-signed By: ALAINA Admin: 03/06/22 09:16 Dose: 3 units Documented By: MATT Co-signed By: RIVERA Insulin Glargine (Lantus Per Unit Charge) 40 units SQ BID [facility]BE Stop: 04/05/22 08:59 Last Admin: 03/07/22 08:19 Dose: 40 units Documented By: CARRIE Co-signed By: KASHIF Admin: 03/06/22 20:53 Dose: 40 units Documented By: KAVITHA Co-signed By: BERTHA Admin: 03/06/22 10:41 Dose: 40 units Documented By: MATT Co-signed By: RIVERA Ipratropium [place] (Ipratropium [place] Neb Soln 0.02% 2.5 Ml Vial) 0.5 mg INH QIDR [facility] Stop: 04/05/22 10:59 Last Admin: 03/07/22 10:24 Dose: 0.5 mg Documented By: Admin: 03/07/22 07:44 Dose: Not Given Documented By: Admin: 03/06/22 20:24 Dose: 0.5 mg Documented By: Admin: 03/06/22 15:15 Dose: 0.5 mg Documented By: Admin: 03/06/22 11:19 Dose: 0.5 mg Documented By: ELMER Levalbuterol HCl (Levalbuterol 1.25mg/0.5ml Neb) 1.25 mg INH QIDR [facility] Stop: 04/05/22 10:59 Last Admin: 03/07/22 10:24 Dose: 1.25 mg Documented By: Admin: 03/07/22 07:44 Dose: Not Given Documented By: Admin: 03/06/22 20:24 Dose: 1.25 mg Documented By: Admin: 03/06/22 15:15 Dose: 1.25 mg Documented By: Admin: 03/06/22 11:19 Dose: 1.25 mg Documented By: ELMER Levothyroxine Sodium (Levothyroxine Sodium 100 Mcg Tablet) [facility]: 04/06/22 06:29 Last Admin: 03/07/22 05:44 Dose: 100 mcg Documented By: Loratadine (Loratadine 10 Mg Tab) 10 mg PO DAILY [facility] Stop: 04/05/22 08:59 Last Admin: 03/07/22 08:11 Dose: 10 mg Documented By: Admin: 03/06/22 09:58 Dose: 10 mg Documented By: MATT Mirtazapine (Mirtazapine Tab 15 Mg Tab) 30 mg PO [facility] Stop: 04/05/22 20:59 Last Admin: 03/06/22 21:17 Dose: 30 mg Documented By: Oseltamivir Phosphate (Oseltamivir Phosphate 75 Mg Cap) 75 mg PO BID [facility]; Protocol Stop: 03/10/22 21:01 Last Admin: 03/07/22 08:09 Dose: 75 mg Documented By: Admin: 03/06/22 22:26 Dose: 75 mg Documented By: Paliperidone (Paliperidone 3 Mg Tabcr) 9 mg PO [facility] Stop: 04/05/22 20:59 Last Admin: 03/06/22 21:17 Dose: 9 mg Documented By: Pantoprazole Sodium (Pantoprazole 40 Mg Tab) 40 mg PO BID [facility] Stop: 04/05/22 08:59 Last Admin: 03/07/22 08:10 Dose: 40 mg Documented By: Admin: 03/06/22 21:18 Dose: 40 mg Documented By: Admin: 03/06/22 09:58 Dose: 40 mg Documented By: MATT Prednisone (Prednisone 20 Mg Tab) 40 mg PO DAILY [facility] Stop: 03/11/22 08:59 Last Admin: 03/07/22 08:11 Dose: 40 mg Documented By: CC Temazepam (Temazepam 15 Mg Capsule) 30 mg PO HS [facility]BE Stop: 04/05/22 20:59 Last Admin: 03/06/22 21:18 Dose: 30 mg Documented By: Discontinued Medications Albuterol (Albut/Ipratrop 3mg/0.5mg Neb 3 Ml Vial) 3 ml NEB NOW STA; Protocol Stop: 03/06/22 01:16 Last Admin: 03/06/22 01:26 Dose: 3 ml Documented By: ARCELIA Carvedilol (Carvedilol 12.5 Mg Tab) 12.5 mg PO BID [facility] Stop: 04/05/22 08:59 Last Admin: 03/06/22 21:22 Dose: Not Given Documented By: Admin: 03/06/22 10:00 Dose: 12.5 mg Documented By: MATT Cefepime HCl (Cefepime 2,000 Mg/20 Ml Vial) Confirm Administered Dose 2,000 mg .ROUTE .STK-MED ONE Stop: 03/06/22 06:31 Last Admin: 03/06/22 06:33 Dose: Not Given Documented By: Sodium Chloride (Nss 1000ml) 1,000 mls @ 999 mls/hr IV .Q1H1M ABE Stop: 03/06/22 00:45 Last Infusion: 03/06/22 01:34 Dose: 0 mls/hr Documented By: Admin: 03/05/22 23:53 Dose: 999 mls/hr Documented By: Levofloxacin/Dextrose (Levaquin/D5w) 750 mg in 150 mls @ 100 mls/hr IV NOW STA Stop: 03/06/22 01:05 Last Admin: 03/06/22 01:34 Dose: Not Given Documented By: Acetaminophen (Ofirmev) 1,000 mg in 100 mls @ 400 mls/hr IV NOW STA Stop: 03/05/22 23:50 Last Infusion: 03/06/22 00:37 Dose: 0 mls/hr Documented By: Admin: 03/05/22 23:55 Dose: 400 mls/hr Documented By: Ceftriaxone Sodium (Rocephin) 2,000 mg in 70 mls @ 140 mls/hr IV NOW STA Stop: 03/06/22 00:08 Last Infusion: 03/06/22 01:34 Dose: 0 mls/hr Documented By: Admin: 03/06/22 00:49 Dose: 140 mls/hr Documented By: Doxycycline Hyclate 100 mg/ (Dextrose) 110 mls @ 50 mls/hr IV NOW STA Stop: 03/06/22 01:50 Last Infusion: 03/06/22 03:48 Dose: 0 mls/hr Documented By: Admin: 03/06/22 01:38 Dose: 50 mls/hr Documented By: Sodium Chloride (Nss 1000ml) 1,000 mls @ 999 mls/hr IV .Q1H1M ONE Stop: 03/06/22 02:13 Last Infusion: 03/06/22 03:48 Dose: 0 mls/hr Documented By: Admin: 03/06/22 01:41 Dose: 999 mls/hr Documented By: Sodium Chloride (Nss 1000ml) 1,000 mls @ 125 mls/hr IV .Q8H [facility] Stop: 04/05/22 01:29 Last Admin: 03/06/22 03:48 Dose: Not Given Documented By: Magnesium Sulfate/Dextrose (Magnesium Sulfate / D5w) 1 gm in 100 mls @ 50 mls/hr IV Q2H [facility] Stop: 03/06/22 05:59 Last Infusion: 03/06/22 06:01 Dose: 0 mls/hr Documented By: Admin: 03/06/22 04:27 Dose: 50 mls/hr Documented By: Infusion: 03/06/22 04:15 Dose: 50 mls/hr Documented By: Admin: 03/06/22 02:15 Dose: 50 mls/hr Documented By: Dexamethasone 6 mg/ Syringe 1.5 mls @ 1 mls/min IV ONE ONE Stop: 03/06/22 02:00 Last Admin: 03/06/22 02:15 Dose: 1 mls/min Documented By: Cefepime HCl (Maxipime) 2,000 mg in 20 mls @ 5 mls/min IV NOW STA; Protocol Stop: 03/06/22 04:27 Last Admin: 03/06/22 09:11 Dose: Not Given Documented By: MATT Oseltamivir Phosphate (Oseltamivir Phosphate 75 Mg Cap) 75 mg PO NOW STA; Protocol Stop: 03/06/22 04:30 Last Admin: 03/06/22 06:33 Dose: 75 mg Documented By: Medical Decision Making Differential Diagnosis Differential diagnoses includes but is not limited to pneumonia, bronchitis, COPD/Asthma exacerbation, pneumothorax, pulmonary embolism, congestive heart failure, acute coronary syndrome Medical Records Attestation: I reviewed the patient's medical records. Home Medications Current Medication List: was personally reviewed by me Laboratory Data Attestation: I reviewed the patient's lab results. Result diagrams: 03/06/22 05:49 03/07/22 06:15 Lab Results 03/05/22 03/05/22 03/05/22 Range/Units 22:35 22:35 22:39 WBC 16.81 H (4.8-10.8) K/ul RBC 4.47 L (4.63-6.08) M/uL Hgb 11.5 L (14.0-18.0) g/dl Hct 35.9 L (40.1-51.0) % MCV 80.3 (80.0-100.0) fL MCH 25.7 (25.0-34.0) pg MCHC 32.0 (32.0-36.0) g/dL RDW Std Deviation 45.4 (36.4-46.3) fL RDW Coeff of Yadiel 15.7 H (11.5-14.5) % Plt Count 297 (130-400) K/uL MPV 9.9 (9.4-12.4) fL Immature Gran % (Auto) 0.8 % Neut % (Auto) 80.4 % Lymph % (Auto) 12.4 % [place] % (Auto) 6.2 % Eos % (Auto) 0.0 % Baso % (Auto) 0.2 % Neut # (Auto) 13.51 H (1.4-6.5) K/uL Lymph # (Auto) 2.09 (1.2-3.4) K/uL [place] # (Auto) 1.04 H (0.24-0.82) K/uL Eos # (Auto) 0.00 (0-0.50) K/uL Baso # (Auto) 0.03 (0-0.2) K/uL Immature Gran # (Auto) 0.14 H (0.00-0.02) K/uL PT (9.0-12.0) Seconds INR (0.9-1.1) APTT (21.0-31.0) Seconds PTT Ratio ABG pH (7.35-7.45) ABG pCO2 (35-46) mmHg ABG pO2 (80-95) mmHg ABG HCO3 (19-24) mmol/L ABG O2 Saturation (90-95) % ABG Base Excess (-9-1.8) mEq/L Dominick Test (Pos) Oxygen Given Sodium (136-145) mmol/L Potassium (3.5-5.1) mmol/L Chloride (98-107) mmol/L Carbon Dioxide (21-32) mmol/L Anion Gap (3-11) BUN (6-23) mg/dl Creatinine (0.6-1.4) mg/dl Est Cr Clr Drug Dosing ml/min Est GFR ( Amer) ml/min Est GFR (Non-Af Amer) ml/min BUN/Creatinine Ratio (10-20) Glucose (70-99(Fasting)) mg/dl Lactate (0.4-2.0) mmol/L Calcium (8.5-10.1) mg/dl Magnesium (1.7-2.4) mg/dl Total Bilirubin (0.2-1.0) mg/dl AST (13-39) U/L ALT (7-52) U/L Alkaline Phosphatase (34-104) U/L Troponin I High Sens (0-20) pg/ml B-Natriuretic Peptide (0-100) pg/ml Total Protein (6.0-8.3) gm/dl Albumin (3.4-5.0) gm/dl Globulin (2.5-4.0) gm/dl Albumin/Globulin Ratio (0.9-2) Procalcitonin (0-0.5) ng/ml Urine Color Urine Appearance (Clear) Urine pH (4.5-7.5) Ur Specific [place] (1.000-1.030) Urine Protein (Negative) Urine Glucose (UA) (Negative) Urine Ketones (Negative) Urine Blood (Negative) Urine Nitrite (Negative) Urine Bilirubin (Negative) Urine Urobilinogen (Negative) Ur Leukocyte Esterase (Negative) Urine WBC (Auto) (0-5) /hpf Urine RBC (Auto) (0-4) /hpf U Hyaline Cast (Auto) (0-5) /lpf U Epithel Cells (Auto) (0-5) /lpf Urine Bacteria (Auto) (Negative) Urine Mucus (None Prsent) Urine Yeast (None Prsent) SARS-CoV-2 (PCR) NEGATIVE NEGATIVE (Negative) Influenza Type A (PCR) Positive A* (Neg) Influenza Type B (PCR) Negative (Neg) RSV (RT-PCR) Negative (Neg) 03/05/22 03/05/22 03/05/22 Range/Units 22:39 22:39 22:39 WBC (4.8-10.8) K/ul RBC (4.63-6.08) M/uL Hgb (14.0-18.0) g/dl Hct (40.1-51.0) % MCV (80.0-100.0) fL MCH (25.0-34.0) pg MCHC (32.0-36.0) g/dL RDW Std Deviation (36.4-46.3) fL RDW Coeff of Yadiel (11.5-14.5) % Plt Count (130-400) K/uL MPV (9.4-12.4) fL Immature Gran % (Auto) % Neut % (Auto) % Lymph % (Auto) % [place] % (Auto) % Eos % (Auto) % Baso % (Auto) % Neut # (Auto) (1.4-6.5) K/uL Lymph # (Auto) (1.2-3.4) K/uL [place] # (Auto) (0.24-0.82) K/uL Eos # (Auto) (0-0.50) K/uL Baso # (Auto) (0-0.2) K/uL Immature Gran # (Auto) (0.00-0.02) K/uL PT 12.1 H (9.0-12.0) Seconds INR 1.1 (0.9-1.1) APTT 22.0 (21.0-31.0) Seconds PTT Ratio 0.8 ABG pH (7.35-7.45) ABG pCO2 (35-46) mmHg ABG pO2 (80-95) mmHg ABG HCO3 (19-24) mmol/L ABG O2 Saturation (90-95) % ABG Base Excess (-9-1.8) mEq/L Dominick Test (Pos) Oxygen Given Sodium 135 L (136-145) mmol/L Potassium 4.3 (3.5-5.1) mmol/L Chloride 105 (98-107) mmol/L Carbon Dioxide 20 L (21-32) mmol/L Anion Gap 10 (3-11) BUN 20 (6-23) mg/dl Creatinine 1.02 (0.6-1.4) mg/dl Est Cr Clr Drug Dosing 102.1 ml/min Est GFR ( Amer) 100.3 ml/min Est GFR (Non-Af Amer) 86.5 ml/min BUN/Creatinine Ratio 19.6 (10-20) Glucose 98 (70-99(Fasting)) mg/dl Lactate (0.4-2.0) mmol/L Calcium 8.8 (8.5-10.1) mg/dl Magnesium 1.8 (1.7-2.4) mg/dl Total Bilirubin 0.5 (0.2-1.0) mg/dl AST 190 H (13-39) U/L ALT 182 H (7-52) U/L Alkaline Phosphatase 160 H (34-104) U/L Troponin I High Sens (0-20) pg/ml B-Natriuretic Peptide 53 (0-100) pg/ml Total Protein 7.2 (6.0-8.3) gm/dl Albumin 3.3 L (3.4-5.0) gm/dl Globulin 3.9 (2.5-4.0) gm/dl Albumin/Globulin Ratio 0.8 L (0.9-2) Procalcitonin (0-0.5) ng/ml Urine Color Urine Appearance (Clear) Urine pH (4.5-7.5) Ur Specific [place] (1.000-1.030) Urine Protein (Negative) Urine Glucose (UA) (Negative) Urine Ketones (Negative) Urine Blood (Negative) Urine Nitrite (Negative) Urine Bilirubin (Negative) Urine Urobilinogen (Negative) Ur Leukocyte Esterase (Negative) Urine WBC (Auto) (0-5) /hpf Urine RBC (Auto) (0-4) /hpf U Hyaline Cast (Auto) (0-5) /lpf U Epithel Cells (Auto) (0-5) /lpf Urine Bacteria (Auto) (Negative) Urine Mucus (None Prsent) Urine Yeast (None Prsent) SARS-CoV-2 (PCR) (Negative) Influenza Type A (PCR) (Neg) Influenza Type B (PCR) (Neg) RSV (RT-PCR) (Neg) 03/06/22 03/06/22 03/06/22 Range/Units 00:12 00:12 00:12 WBC (4.8-10.8) K/ul RBC (4.63-6.08) M/uL Hgb (14.0-18.0) g/dl Hct (40.1-51.0) % MCV (80.0-100.0) fL MCH (25.0-34.0) pg MCHC (32.0-36.0) g/dL RDW Std Deviation (36.4-46.3) fL RDW Coeff of Yadiel (11.5-14.5) % Plt Count (130-400) K/uL MPV (9.4-12.4) fL Immature Gran % (Auto) % Neut % (Auto) % Lymph % (Auto) % [place] % (Auto) % Eos % (Auto) % Baso % (Auto) % Neut # (Auto) (1.4-6.5) K/uL Lymph # (Auto) (1.2-3.4) K/uL [place] # (Auto) (0.24-0.82) K/uL Eos # (Auto) (0-0.50) K/uL Baso # (Auto) (0-0.2) K/uL Immature Gran # (Auto) (0.00-0.02) K/uL PT (9.0-12.0) Seconds INR (0.9-1.1) APTT (21.0-31.0) Seconds PTT Ratio ABG pH (7.35-7.45) ABG pCO2 (35-46) mmHg ABG pO2 (80-95) mmHg ABG HCO3 (19-24) mmol/L ABG O2 Saturation (90-95) % ABG Base Excess (-9-1.8) mEq/L Dominick Test (Pos) Oxygen Given Sodium (136-145) mmol/L Potassium (3.5-5.1) mmol/L Chloride (98-107) mmol/L Carbon Dioxide (21-32) mmol/L Anion Gap (3-11) BUN (6-23) mg/dl Creatinine (0.6-1.4) mg/dl Est Cr Clr Drug Dosing ml/min Est GFR ( Amer) ml/min Est GFR (Non-Af Amer) ml/min BUN/Creatinine Ratio (10-20) Glucose (70-99(Fasting)) mg/dl Lactate 0.7 (0.4-2.0) mmol/L Calcium (8.5-10.1) mg/dl Magnesium (1.7-2.4) mg/dl Total Bilirubin (0.2-1.0) mg/dl AST (13-39) U/L ALT (7-52) U/L Alkaline Phosphatase (34-104) U/L Troponin I High Sens 13.9 (0-20) pg/ml B-Natriuretic Peptide (0-100) pg/ml Total Protein (6.0-8.3) gm/dl Albumin (3.4-5.0) gm/dl Globulin (2.5-4.0) gm/dl Albumin/Globulin Ratio (0.9-2) Procalcitonin 0.65 H (0-0.5) ng/ml Urine Color Urine Appearance (Clear) Urine pH (4.5-7.5) Ur Specific [place] (1.000-1.030) Urine Protein (Negative) Urine Glucose (UA) (Negative) Urine Ketones (Negative) Urine Blood (Negative) Urine Nitrite (Negative) Urine Bilirubin (Negative) Urine Urobilinogen (Negative) Ur Leukocyte Esterase (Negative) Urine WBC (Auto) (0-5) /hpf Urine RBC (Auto) (0-4) /hpf U Hyaline Cast (Auto) (0-5) /lpf U Epithel Cells (Auto) (0-5) /lpf Urine Bacteria (Auto) (Negative) Urine Mucus (None Prsent) Urine Yeast (None Prsent) SARS-CoV-2 (PCR) (Negative) Influenza Type A (PCR) (Neg) Influenza Type B (PCR) (Neg) RSV (RT-PCR) (Neg) 03/06/22 03/06/22 Range/Units 00:12 02:39 WBC (4.8-10.8) K/ul RBC (4.63-6.08) M/uL Hgb (14.0-18.0) g/dl Hct (40.1-51.0) % MCV (80.0-100.0) fL MCH (25.0-34.0) pg MCHC (32.0-36.0) g/dL RDW Std Deviation (36.4-46.3) fL RDW Coeff of Yadiel (11.5-14.5) % Plt Count (130-400) K/uL MPV (9.4-12.4) fL Immature Gran % (Auto) % Neut % (Auto) % Lymph % (Auto) % [place] % (Auto) % Eos % (Auto) % Baso % (Auto) % Neut # (Auto) (1.4-6.5) K/uL Lymph # (Auto) (1.2-3.4) K/uL [place] # (Auto) (0.24-0.82) K/uL Eos # (Auto) (0-0.50) K/uL Baso # (Auto) (0-0.2) K/uL Immature Gran # (Auto) (0.00-0.02) K/uL PT (9.0-12.0) Seconds INR (0.9-1.1) APTT (21.0-31.0) Seconds PTT Ratio ABG pH 7.43 (7.35-7.45) ABG pCO2 32 L (35-46) mmHg ABG pO2 65 L (80-95) mmHg ABG HCO3 21 (19-24) mmol/L ABG O2 Saturation 93.0 (90-95) % ABG Base Excess -2.3 (-9-1.8) mEq/L Dominick Test POS (Pos) Oxygen Given 4 L Sodium (136-145) mmol/L Potassium (3.5-5.1) mmol/L Chloride (98-107) mmol/L Carbon Dioxide (21-32) mmol/L Anion Gap (3-11) BUN (6-23) mg/dl Creatinine (0.6-1.4) mg/dl Est Cr Clr Drug Dosing ml/min Est GFR ( Amer) ml/min Est GFR (Non-Af Amer) ml/min BUN/Creatinine Ratio (10-20) Glucose (70-99(Fasting)) mg/dl Lactate (0.4-2.0) mmol/L Calcium (8.5-10.1) mg/dl Magnesium (1.7-2.4) mg/dl Total Bilirubin (0.2-1.0) mg/dl AST (13-39) U/L ALT (7-52) U/L Alkaline Phosphatase (34-104) U/L Troponin I High Sens (0-20) pg/ml B-Natriuretic Peptide (0-100) pg/ml Total Protein (6.0-8.3) gm/dl Albumin (3.4-5.0) gm/dl Globulin (2.5-4.0) gm/dl Albumin/Globulin Ratio (0.9-2) Procalcitonin (0-0.5) ng/ml Urine Color Dark Yellow Urine Appearance Clear (Clear) Urine pH 5.5 (4.5-7.5) Ur Specific [place] 1.044 H (1.000-1.030) Urine Protein 1+ H (Negative) Urine Glucose (UA) 3+ H (Negative) Urine Ketones Trace H (Negative) Urine Blood Negative (Negative) Urine Nitrite Negative (Negative) Urine Bilirubin Negative (Negative) Urine Urobilinogen Negative (Negative) Ur Leukocyte Esterase Negative (Negative) Urine WBC (Auto) 5-10 H (0-5) /hpf Urine RBC (Auto) 0-4 (0-4) /hpf U Hyaline Cast (Auto) 0 (0-5) /lpf U Epithel Cells (Auto) 20-30 H (0-5) /lpf Urine Bacteria (Auto) Negative (Negative) Urine Mucus Present A (None Prsent) Urine Yeast Budding A (None Prsent) SARS-CoV-2 (PCR) (Negative) Influenza Type A (PCR) (Neg) Influenza Type B (PCR) (Neg) RSV (RT-PCR) (Neg) Imaging Data My Impression: X-ray: I interpreted the following studies. Chest: A single view study of the chest was reviewed and was negative for cardiomegaly, focal infiltrate, effusion, or wide mediastinum. Increased interstitial markings bilaterally. Suboptimal study. ECG Data Attestation: I personally reviewed and interpreted this ECG as follows: Indication: + SOB/dyspnea Rate (beats per minute): 106 Rhythm: + sinus tachycardia ECG Intervals/blocks: + Right Bundle branch block and + Normal QT ECG Apison: + Normal ECG ST segments: + Nonspecific ST abnormalities MDM Narrative An order was placed for continuous cardiac monitoring. The monitor shows a rate of _102_ with _sinus tachycardia_ rhythm. This is a 46-year-old male presents due to concern for increased trouble breathing despite recent diagnosis and treatment for bronchitis as an outpatient. Patient with history of COPD although does not wear home oxygen. Patient found to be hypoxic by staff, and was placed on oxygen via nasal cannula for EMS with improvement. Patient given additional DuoNeb treatment here. Labs drawn and sent and chest x-ray performed. Patient with elevated white blood cell count despite recent antibiotics. Patient also found to be positive for influenza. I suspect given underlying COPD, pneumonia, and possible bronchitis versus pneumonia that these likely explain the patient's symptoms. I do not suspect occult cardiac etiology. Patient's procalcitonin was elevated additionally although patient remained hemodynamically stable while in the emergency room. Patient was given IV fluids and did receive a total of 30 mL/KG per sepsis guidelines as a precaution. He was also given additional IV antibi otics to broaden coverage from original azithromycin. Patient's abnormal LFTs possibly related to the recent azithromycin which can be hepatotoxic. Patient does also take other medications that are hepatically processed. He had no abdominal pain or other GI symptoms. Case discussed with hospitalist for additional evaluation and management. Impression & Plan Dyspnea, Hypoxia, COPD (chronic obstructive pulmonary disease), Influenza A, Abnormal LFTs Discharge Plan Visit Data Chief Complaint: Shortness of Breath/Dyspnea ED Provider: Kimberlee Hedrick Discharge Problem: Dyspnea, Hypoxia, COPD (chronic obstructive pulmonary disease), Influenza A, Abnormal LFTs Patient Disposition: Admitted As Inpatient Discharge Instructions Interventions: ED Discharge Assessment Last Done: 03/06/22 20:21
[2022-03-06 00:22] LABS: Base Excess ABG -2.3 mEq/L (-9-1.8); HCO3 ABG 21 mmol/L (19-24); PCO2 ABG 32 mmHg (35-46); PO2 ABG 65 mmHg (80-95); pH ABG 7.43 (7.35-7.45)
[2022-03-06 00:39] LABS: Allen Test POS (Pos)
[2022-03-06] MEDS ORDERED: SODIUM CHLORIDE 0.9% 1000ML 1,000 ML IV ONE (01:13)
[2022-03-06] MEDS ORDERED: ALBUT/IPRATROP 3MG/0.5MG NEB 3 ML VIAL NEB STA (01:15)
[2022-03-06] MEDS ORDERED: SODIUM CHLORIDE 0.9% 1000ML 1,000 ML IV SCH (01:30)
[2022-03-06 01:48] LABS: Influenza B virus by PCR Negative (Neg); RSV by PCR Negative (Neg); SARS CoV2 RNA(COVID-19) Ceph NEGATIVE (Negative)
[2022-03-06 01:59] LABS: Influenza A virus by PCR Positive (Neg)
[2022-03-06] MEDS ORDERED: dexAMETHasone 6 MG in SYRINGE 0 ML IV ONE (01:59)
[2022-03-06] MEDS: MAGNESIUM SULFATE / D5W 1 GM/100 ML BAG IV SCH ×2 (02:15→04:27)
[2022-03-06 03:36] LABS: Appearance Urine Clear (Clear); Bacteria Urine Automated Negative (Negative); Bilirubin Urine Negative (Negative); Blood Urine Negative (Negative); Color Urine Dark Yellow; Epithelial Cell Urine Auto 20-30 /lpf (0-5); Glucose Urine UA 3+ (Negative); Ketones Urine Trace (Negative); Leukocyte Esterase Urine Negative (Negative); Nitrite Urine Negative (Negative); Protein Urine 1+ (Negative); RBC Urine Automated 0-4 /hpf (0-4); Specific Gravity Urine 1.044 (1.000-1.030); Urobilinogen Urine Negative (Negative); pH Urine 5.5 (4.5-7.5)
--- NOTE | 2022-03-06 04:26 | History & Physical Report ---
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 Anemia work-up, transfuse PRBC if hemoglobin less than 7 and or for symptomatic anemia Basal bolus insulin, ISS BG goal 1 10-1 40, carb count coverage, update hemoglobin A1c DVT prophylaxis with Lovenox subcu Full code Total critical care time was 40 minutes. Text document was generated using [employer] voice recognition software. It may contain grammatical or spelling errors. Kindly contact undersigned for clarification of any documentation item in question. History of Present Illness Chief Complaint: Worsening shortness of breath Primary Care Provider: Freddie Montoya DO History obtained from patient and records. Medical history significant for chronic diastolic heart failure (EF 56%, TTE 2019), COPD, ANTONINA on CPAP, hypertension, hyperlipidemia, DM2 insulin requiring, paranoid schizophrenia, mood disorder, mild intellectual disability, chronic anemia (baseline hemoglobin of 12), neurogenic bladder as per records, medication noncompliance as per records, past tobacco/alcohol abuse. Last confinement September 2020 for sepsis secondary to multifocal pneumonia. 2 weeks history of cough, congestion, raspy voice and yellow sinus drainage symptoms. Patient seen at PCPs office. Azithromycin prescribed for possible bronchitis. Worsening cough productive of greenish sputum shortness of breath. No chest pain. No abdominal pain, no black no bloody stools. Patient denies aspiration. O2 sats persistently noted to be 80s at personal care facility even after neb treatment. EMS called for worsening symptoms. At the ER, patient received Levaquin and doxycycline for sepsis. Patient currently feeling much better. 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 [employer] Allergies Allergy/AdvReac Type Severity Reaction Status Date / Time bee venom protein (honey bee) Allergy Severe ANAPHYLAXIS Verified 03/06/22 02:15 diphenhydramine Allergy Unknown Unknown Verified 03/06/22 02:15 Home Medications Medication Instructions Recorded Confirmed Type acetaminophen 325 mg tablet 650 mg PO QID PRN Fever Or Pain 03/06/22 03/06/22 History (Tylenol) azithromycin 250 mg tablet 2,500 mg PO DIRECTED 03/06/22 03/06/22 History carvedilol 25 mg tablet 25 mg PO BID 03/06/22 03/06/22 History chlorpromazine 100 mg tablet 100 mg PO HS 03/06/22 03/06/22 History chlorpromazine 200 mg tablet 200 mg PO HS 03/06/22 03/06/22 History cholecalciferol (vitamin D3) 50 50 mcg PO DAILY 03/06/22 03/06/22 History mcg (2,000 unit) tablet (Vitamin D3) empagliflozin 25 mg tablet 25 mg PO DAILY 03/06/22 03/06/22 History (Jardiance) epinephrine 0.3 mg/0.3 mL 0.3 mg IM DAILY PRN .anaphylaxis 03/06/22 03/06/22 History injection, auto-injector (EpiPen) ezetimibe 10 mg tablet 10 mg PO DAILY 03/06/22 03/06/22 History fluoride (sodium) 1.1 % dental 1 applic dental DAILY 03/06/22 03/06/22 History cream (Denta 5000 Plus) fluoxetine 20 mg capsule 20 mg PO DAILY 03/06/22 03/06/22 History fluoxetine 40 mg capsule 40 mg PO DAILY 03/06/22 03/06/22 History fluticasone furoate 100 1 ea inhalation DAILY 03/06/22 03/06/22 History mcg-vilanterol 25 mcg/dose inhalation powder (Breo Ellipta) fluticasone propionate 50 2 spray intranasal DAILY 03/06/22 03/06/22 History mcg/actuation nasal spray,suspension guaifenesin 600 mg tablet, 600 mg PO Q12H PRN Congestion 03/06/22 03/06/22 History extended release 12 hr (Mucinex) insulin aspart U-100 100 unit/mL See Rx Instructions .Route .COMPLEX 03/06/22 03/06/22 History (3 mL) subcutaneous pen (Novolog Flexpen U-100 Insulin aspart) insulin glargine 100 unit/mL (3 36 unit subcut BID 03/06/22 03/06/22 History mL) subcutaneous pen (Basaglar KwikPen U-100 Insulin) ipratropium 0.5 mg-albuterol 3 mg 3 ml inhalation QID PRN Shortness 03/06/22 03/06/22 History (2.5 mg base)/3 mL nebulization Of Breath Or Wheezing soln ipratropium 20 mcg-albuterol 100 1 puff inhalation QID PRN 03/06/22 03/06/22 History mcg/actuation mist for inhalation Shortness Of Breath Or Wheezing (Combivent Respimat) levalbuterol tartrate 45 2 puff inhalation Q6 PRN Shortness 03/06/22 03/06/22 History mcg/actuation aerosol inhaler Of Breath levothyroxine 100 mcg tablet 100 mcg PO DAILY 03/06/22 03/06/22 History lisinopril 20 mg tablet 20 mg PO DAILY 03/06/22 03/06/22 History loratadine 10 mg tablet 10 mg PO DAILY 03/06/22 03/06/22 History menthol 0.44 %-zinc oxide 20.6 % 1 applic topical DIRECTED PRN .. 03/06/22 03/06/22 History topical ointment (Calmoseptine) metformin 1,000 mg tablet 1,000 mg PO BID 03/06/22 03/06/22 History mirtazapine 30 mg tablet 30 mg PO HS 03/06/22 03/06/22 History omeprazole 40 mg capsule,delayed 40 mg PO BID 03/06/22 03/06/22 History release paliperidone 9 mg tablet,extended 9 mg PO HS 03/06/22 03/06/22 History release 24 hr potassium chloride 20 mEq 20 meq PO DAILY 03/06/22 03/06/22 History tablet,extended release(part/cryst) semaglutide 1 mg/dose (4 mg/3 mL) 1 mg subcut .QWED 03/06/22 03/06/22 History subcutaneous pen injector (Ozempic) simvastatin 40 mg tablet 40 mg PO DAILY 03/06/22 03/06/22 History temazepam 30 mg capsule 30 mg PO HS 03/06/22 03/06/22 History Past Med/Surg History Medical History COPD (chronic obstructive pulmonary disease) Depression Diabetes mellitus Dyslipidemia GERD (gastroesophageal reflux disease) Hypertension Hypothyroidism Intellectual disability Neurogenic bladder Paranoid schizophrenia Surgical History H/O inguinal hernia repair Family History Mother Diabetes Father Hypertension Social History Smoking Status: Former smoker Tobacco Type: Cigarettes Second Hand Exposure: No; Hx Alcohol Use: No Hx Substance Use: No Preferred Language: Syriac Communication Ability: Effective Medical Staff Credentialing Coordinator Required: No Beliefs That Will Affect Care: None Current Living Situation: Other Current Living Situation Comment: Lives with roommate Feels Safe at Home: Yes Assistive Devices: None Review of Systems Review of Systems: As per HPI, all other systems reviewed and negative Physical Exam Physical Exam: GENERAL: Slightly uncomfortable, obese, pleasant, minimal respiratory distress SKIN: Pallor , warm HEENT: Bespectacled, pale palpebral conjunctivae, no ptosis, dry buccal mucosa, nasal cannula in place NECK : Supple, short neck, no tenderness CHEST : Decreased breath sounds, occasional expiratory wheezes, no tenderness HEART : RRR, no obvious murmurs ABDOMEN: Some distention, nontender RECTAL : Intact sphincter, brown stool (FOBT negative) EXTREMITIES : Minimal LE swelling, no LE tenderness, no other conspicuous deformities noted NEUROLOGIC : Coherent, no facial asymmetry, no other gross focality Results & Data Results & Data ([facility]) Vital Signs (Past 12 Hours) Vital Signs Temp Pulse Pulse Resp BP BP Pulse Ox 03/06/22 04:00 124/71 92 03/06/22 02:00 99 H 22 126/68 94 03/06/22 01:30 99 H 24 104/59 L 97 03/06/22 01:36 99 H 24 109/76 91 03/06/22 01:36 36.8 C 03/06/22 01:27 104 H 25 H 95 03/06/22 01:00 100 H 21 117/73 95 03/06/22 00:49 127/72 03/06/22 00:00 108 H 27 H 90 03/06/22 00:00 112/72 03/05/22 23:30 107 H 29 H 93 03/05/22 23:30 136/79 03/05/22 23:00 102 H 30 H 88 L 03/05/22 23:00 117/71 03/05/22 22:32 107 H 23 92 03/05/22 22:31 121/73 03/05/22 23:09 90 03/05/22 22:49 92 03/05/22 22:49 24 92 03/05/22 22:49 92 03/05/22 22:49 38.0 C H 106 H 24 121/73 92 03/05/22 22:49 O2 Del Method O2 Flow Rate 03/06/22 04:00 03/06/22 02:00 Nasal Cannula 3 03/06/22 01:30 Nasal Cannula 3 03/06/22 01:36 Room Air 03/06/22 01:36 03/06/22 01:27 Nasal Cannula 4 03/06/22 01:00 Nasal Cannula 4 03/06/22 00:49 03/06/22 00:00 03/06/22 00:00 03/05/22 23:30 03/05/22 23:30 03/05/22 23:00 03/05/22 23:00 03/05/22 22:32 03/05/22 22:31 03/05/22 23:09 Nasal Cannula 4 03/05/22 22:49 Nasal Cannula 3 03/05/22 22:49 Nasal Cannula 3 03/05/22 22:49 Nasal Cannula 23 03/05/22 22:49 Nasal Cannula 3 03/05/22 22:49 Nasal Cannula 3 Laboratory Results Laboratory Results WBC 16.81 K/ul (4.8-10.8) H 03/05/22 22:39 RBC 4.47 M/uL (4.63-6.08) L 03/05/22 22:39 Hgb 11.5 g/dl (14.0-18.0) L 03/05/22 22:39 Hct 35.9 % (40.1-51.0) L 03/05/22 22:39 MCV 80.3 fL (80.0-100.0) 03/05/22 22:39 MCH 25.7 pg (25.0-34.0) 03/05/22 22:39 MCHC 32.0 g/dL (32.0-36.0) 03/05/22 22:39 RDW Std Deviation 45.4 fL (36.4-46.3) 03/05/22 22:39 RDW Coeff of Yadiel 15.7 % (11.5-14.5) H 03/05/22 22:39 Plt Count 297 K/uL (130-400) 03/05/22 22:39 MPV 9.9 fL (9.4-12.4) 03/05/22 22:39 Immature Gran % (Auto) 0.8 % 03/05/22 22:39 Neut % (Auto) 80.4 % 03/05/22 22:39 Lymph % (Auto) 12.4 % 03/05/22 22:39 [facility] % (Auto) 6.2 % 03/05/22 22:39 Eos % (Auto) 0.0 % 03/05/22 22:39 Baso % (Auto) 0.2 % 03/05/22 22:39 Neut # (Auto) 13.51 K/uL (1.4-6.5) H 03/05/22 22:39 Lymph # (Auto) 2.09 K/uL (1.2-3.4) 03/05/22 22:39 [facility] # (Auto) 1.04 K/uL (0.24-0.82) H 03/05/22 22:39 Eos # (Auto) 0.00 K/uL (0-0.50) 03/05/22 22:39 Baso # (Auto) 0.03 K/uL (0-0.2) 03/05/22 22:39 Immature Gran # (Auto) 0.14 K/uL (0.00-0.02) H 03/05/22 22:39 PT 12.1 Seconds (9.0-12.0) H 03/05/22 22:39 INR 1.1 (0.9-1.1) 03/05/22 22:39 APTT 22.0 Seconds (21.0-31.0) 03/05/22 22:39 PTT Ratio 0.8 03/05/22 22:39 ABG pH 7.43 (7.35-7.45) 03/06/22 00:12 ABG pCO2 32 mmHg (35-46) L 03/06/22 00:12 ABG pO2 65 mmHg (80-95) L 03/06/22 00:12 ABG HCO3 21 mmol/L (19-24) 03/06/22 00:12 ABG O2 Saturation 93.0 % (90-95) 03/06/22 00:12 ABG Base Excess -2.3 mEq/L (-9-1.8) 03/06/22 00:12 Dominick Test POS (Pos) 03/06/22 00:12 Oxygen Given 4 L 03/06/22 00:12 Sodium 135 mmol/L (136-145) L 03/05/22 22:39 Potassium 4.3 mmol/L (3.5-5.1) 03/05/22 22:39 Chloride 105 mmol/L (98-107) 03/05/22 22:39 Carbon Dioxide 20 mmol/L (21-32) L 03/05/22 22:39 Anion Gap 10 (3-11) 03/05/22 22:39 BUN 20 mg/dl (6-23) 03/05/22 22:39 Creatinine 1.02 mg/dl (0.6-1.4) 03/05/22 22:39 Est Cr Clr Drug Dosing 102.1 ml/min 03/05/22 22:39 Est GFR ( Amer) 100.3 ml/min 03/05/22 22:39 Est GFR (Non-Af Amer) 86.5 ml/min 03/05/22 22:39 BUN/Creatinine Ratio 19.6 (10-20) 03/05/22 22:39 Glucose 98 mg/dl (70-99(Fasting)) 03/05/22 22:39 Lactate 0.7 mmol/L (0.4-2.0) 03/06/22 00:12 Calcium 8.8 mg/dl (8.5-10.1) 03/05/22 22:39 Magnesium 1.8 mg/dl (1.7-2.4) 03/05/22 22:39 Total Bilirubin 0.5 mg/dl (0.2-1.0) 03/05/22 22:39 AST 190 U/L (13-39) H 03/05/22 22:39 ALT 182 U/L (7-52) H 03/05/22 22:39 Alkaline Phosphatase 160 U/L (34-104) H 03/05/22 22:39 Troponin I High Sens 13.9 pg/ml (0-20) 03/06/22 00:12 B-Natriuretic Peptide 53 pg/ml (0-100) 03/05/22 22:39 Total Protein 7.2 gm/dl (6.0-8.3) 03/05/22 22:39 Albumin 3.3 gm/dl (3.4-5.0) L 03/05/22 22:39 Globulin 3.9 gm/dl (2.5-4.0) 03/05/22 22:39 Albumin/Globulin Ratio 0.8 (0.9-2) L 03/05/22 22:39 Procalcitonin 0.65 ng/ml (0-0.5) H 03/06/22 00:12 SARS-CoV-2 (PCR) NEGATIVE (Negative) 03/05/22 22:35 SARS-CoV-2 (PCR) NEGATIVE (Negative) 03/05/22 22:35 Influenza Type A (PCR) Positive (Neg) A* 03/05/22 22:35 Influenza Type B (PCR) Negative (Neg) 03/05/22 22:35 RSV (RT-PCR) Negative (Neg) 03/05/22 22:35 Diagnostic Findings Chest x-ray as per my interpretation atelectasis, bibasilar infiltrates, minimal congestion EKG as per my interpretation : Rate 105, sinus tachycardia, normal axis, RBBB, T wave abnormalities inferior leads
[2022-03-06] MEDS ORDERED: OSELTAMIVIR PHOSPHATE 75 MG CAP PO STA (04:29)
[2022-03-06 04:53] LABS: Cast Urine Automated 0 /lpf (0-5); Mucus Urine Present (None Prsent)
[2022-03-06] MEDS ORDERED: ACETAMINOPHEN 500 MG TAB PO PRN (05:23)
[2022-03-06 06:01] LABS: Hematocrit (blood only) 35.7 % (40.1-51.0); Hemoglobin 11.3 g/dl (14.0-18.0); Mean Corpuscular Hemoglobin 25.8 pg (25.0-34.0); Mean Corpuscular Hgb Conc 31.7 g/dL (32.0-36.0); Mean Corpuscular Volume 81.5 fL (80.0-100.0); Mean Platelet Volume 10.3 fL (9.4-12.4); Platelet Count 298 K/uL (130-400); RDW Coefficient of Variation 15.8 % (11.5-14.5); RDW Standard Deviation 46.9 fL (36.4-46.3); Red Blood Count 4.38 M/uL (4.63-6.08); Reticulocyte % 1.1 % (0.5-2.0); Reticulocytes # 0.05 10^6/uL (0.02-0.10)
[2022-03-06 06:22] LABS: Albumin Level 3.2 gm/dl (3.4-5.0); BUN Creatinine Ratio 21.5 (10-20); Bilirubin Direct 0.1 mg/dl (0-0.2); Bilirubin,Total 0.4 mg/dl (0.2-1.0); Calcium 8.2 mg/dl (8.5-10.1); Creatinine Clr Calc Pharmacy 111.9 ml/min; Est GFR (African American) 112.1 ml/min; Est GFR (Non-African American) 96.7 ml/min; Potassium 4.4 mmol/L (3.5-5.1); Total Protein 7.2 gm/dl (6.0-8.3)
[2022-03-06] MEDS ORDERED: CEFEPIME 2,000 MG/20 ML VIAL ONE (06:30)
[2022-03-06 06:32] LABS: Basophils # (auto) 0.03 K/uL (0-0.2); Basophils % (auto) 0.2 %; Echinocytes 1+; Immature Granulocytes # (auto) 0.12 K/uL (0.00-0.02); Immature Granulocytes % (auto) 0.8 %; Lymphocytes # (auto) 0.96 K/uL (1.2-3.4); Lymphocytes % (auto) 6.4 %; Monocytes # (auto) 0.31 K/uL (0.24-0.82); Monocytes % (auto) 2.1 %; Neutrophils # (auto) 13.58 K/uL (1.4-6.5); Neutrophils % (auto) 90.5 %; Ovalocytes 1+
[2022-03-06] MEDS: CEFEPIME 2,000 MG/20 ML VIAL IV STA ×2 (06:33→09:11)
[2022-03-06] MEDS ORDERED: GLUCOSE 10 TAB/TUBE PO PRN (07:19)
[2022-03-06] MEDS ORDERED: GLUCAGON FOR INJ 1 MG VIAL SQ PRN (07:19)
[2022-03-06] MEDS ORDERED: DEXTROSE 50% 50 ML SYRINGE IV PRN (07:19)
[2022-03-06] MEDS ORDERED: GLUCOSE 40% GEL 15 GM TUBE PO PRN (07:19)
[2022-03-06] MEDS ORDERED: PROMETHAZINE HCL 12.5 MG in SODIUM CHLORIDE 0.9% 50 ML IV PRN (07:19)
[2022-03-06] MEDS ORDERED: CARBOHYDRATES FOR HYPOGLYCEMIA PO PRN (07:19)
[2022-03-06] MEDS: CEFEPIME 2,000 MG in SYRINGE 0 ML IV SCH ×2 (07:56→16:08)
--- NOTE | 2022-03-06 08:05 | XRay Report ---
XR chest 1V portable CLINICAL HISTORY: SOB TECHNIQUE: Single frontal radiograph of the chest was obtained. Comparison: Comparison is made to chest radiograph 12/22/2020 FINDINGS: No lines and tubes are seen. The cardiomediastinal silhouette is normal. Lungs are underinflated and there are bilateral airspace opacities. Prominence of the vasculature is seen. No evidence of pleural effusion or pneumothorax. IMPRESSION: Bilateral atelectasis is seen with underinflated lungs and airspace opacities which may represent ate lectasis, pneumonia, and/or aspiration. There is mild pulmonary edema. ACT 112: Negative or not required by law. Electronically signed by: Madi Smith M.D. 03/06/2022 8:03 AM
[2022-03-06] MEDS ORDERED: FLUoxetine HCL 20 MG CAP PO SCH (09:00)
[2022-03-06] MEDS ORDERED: XOPENEX/ATROVENT 1.25mg/0.5MG NEB COMBO NEB SCH (09:00)
[2022-03-06] MEDS: INSULIN ASPART PER UNIT SC SCH ×4 (09:16→20:53)
[2022-03-06] MEDS: LORATADINE 10 MG TAB PO SCH (09:58)
[2022-03-06] MEDS: PANTOprazole 40 MG TAB PO SCH ×2 (09:58→21:18)
[2022-03-06] MEDS: EZETIMIBE 10 MG TABLET PO SCH (09:59)
[2022-03-06] MEDS: carvediloL 12.5 MG TAB PO SCH ×3 (10:00→21:22)
[2022-03-06] MEDS: FLUTICASONE PROPIONATE NA SPR 16 GM BTL SCH (10:02)
[2022-03-06] MEDS: FLUTICASONE/VILANTEROL 100/25MCG 14 PUFFS/INHALER INH SCH (10:03)
[2022-03-06] MEDS: ENOXAPARIN INJ 40 MG/0.4 ML SYR SQ SCH (10:05)
[2022-03-06] MEDS: FLUoxetine HCL 20 MG CAP PO SCH (10:09)
[2022-03-06] MEDS: LANTUS PER UNIT CHARGE SQ SCH ×2 (10:41→20:53)
[2022-03-06] MEDS: IPRATROPIUM BROMIDE NEB SOLN 0.02% 2.5 ML VIAL INH SCH ×3 (11:19→20:24)
[2022-03-06] MEDS: LEVALBUTEROL 1.25MG/0.5ML NEB INH SCH ×3 (11:19→20:24)
--- NOTE | 2022-03-06 16:56 | Electrocardiogram Report ---
Test Reason : Blood Pressure : / mmHG Vent. Rate : 106 BPM Atrial Rate : 106 BPM P-R Int : 128 ms QRS Dur : 132 ms QT Int : 402 ms P-R-T Axes : 063 028 004 degrees QTc Int : 533 ms Sinus tachycardia Right bundle branch block Abnormal ECG When compared with ECG of 13-OCT-2020 09:18, No significant change was found Confirmed by Bennett Arcos ([id number]) on 03/06/2022 4:56:33 PM Referred By: REFERRED SELF Confirmed By:Bennett Arcos
[2022-03-06] MEDS: MIRTAZAPINE TAB 15 MG TAB PO SCH (21:17)
[2022-03-06] MEDS: DOXYCYCLINE HYCLATE 100 MG CAP PO SCH (21:17)
[2022-03-06] MEDS: PALIPERIDONE 3 MG TABCR PO SCH (21:17)
[2022-03-06] MEDS: TEMAZEPAM 15 MG CAPSULE PO SCH (21:18)
--- NOTE | 2022-03-06 21:59 | Communication Note ---
Date of Service: March 06, 2022 Pt was seen and examined for follow up of worsening SOB. CXR showed bilateral atelectasis is seen with underinflated lungs and airspace opacities which may represent atelectasis, pneumonia, and/or aspiration. Received Levaquin and doxyccycline in the ER. e. WBC elevated. Blood cx and urine cx pending. Currently on cefepime and doxycycline. Continue oxygen supplement prn. Continue monitor closely. MD Nela
[2022-03-06] MEDS: OSELTAMIVIR PHOSPHATE 75 MG CAP PO SCH (22:26)
[2022-03-07] MEDS: CEFEPIME 2,000 MG in SYRINGE 0 ML IV SCH ×4 (00:32→23:43)
[2022-03-07] MEDS: LEVOTHYROXINE SODIUM 100 MCG TABLET PO SCH (05:44)
[2022-03-07] MEDS: LEVALBUTEROL 1.25MG/0.5ML NEB INH SCH ×4 (07:44→19:36)
[2022-03-07] MEDS: IPRATROPIUM BROMIDE NEB SOLN 0.02% 2.5 ML VIAL INH SCH ×4 (07:44→19:37)
[2022-03-07 07:46] LABS: Creatinine Clr Calc Pharmacy 97.4 ml/min; Est GFR (African American) 96.8 ml/min; Est GFR (Non-African American) 83.5 ml/min
[2022-03-07] MEDS: OSELTAMIVIR PHOSPHATE 75 MG CAP PO SCH ×2 (08:09→20:42)
[2022-03-07] MEDS: PANTOprazole 40 MG TAB PO SCH ×2 (08:10→20:43)
[2022-03-07] MEDS: DOXYCYCLINE HYCLATE 100 MG CAP PO SCH ×2 (08:10→20:43)
[2022-03-07] MEDS: ENOXAPARIN INJ 40 MG/0.4 ML SYR SQ SCH (08:10)
[2022-03-07] MEDS: EZETIMIBE 10 MG TABLET PO SCH (08:10)
[2022-03-07] MEDS: FLUTICASONE/VILANTEROL 100/25MCG 14 PUFFS/INHALER INH SCH (08:11)
[2022-03-07] MEDS: LORATADINE 10 MG TAB PO SCH (08:11)
[2022-03-07] MEDS: FLUTICASONE PROPIONATE NA SPR 16 GM BTL SCH (08:11)
[2022-03-07] MEDS: predniSONE 20 MG TAB PO SCH (08:11)
[2022-03-07] MEDS: INSULIN ASPART PER UNIT SC SCH ×4 (08:18→20:44)
[2022-03-07] MEDS: LANTUS PER UNIT CHARGE SQ SCH ×2 (08:19→20:44)
[2022-03-07] MEDS: FLUoxetine HCL 20 MG CAP PO SCH (09:18)
--- NOTE | 2022-03-07 16:31 | Electrocardiogram Report ---
Test Reason : Blood Pressure : / mmHG Vent. Rate : 090 BPM Atrial Rate : 090 BPM P-R Int : 148 ms QRS Dur : 134 ms QT Int : 404 ms P-R-T Axes : 066 041 012 degrees QTc Int : 494 ms Normal sinus rhythm Right bundle branch block Abnormal ECG When compared with ECG of 05-MAR-2022 22:33, No significant change was found Confirmed by Bennett Arcos ([id number]) on 03/07/2022 4:31:26 PM Referred By: REFERRED SELF Confirmed By:Bennett Arcos
[2022-03-07] MEDS: PALIPERIDONE 3 MG TABCR PO SCH (20:42)
[2022-03-07] MEDS: MIRTAZAPINE TAB 15 MG TAB PO SCH (20:43)
[2022-03-07] MEDS: carvediloL 12.5 MG TAB PO SCH (20:43)
[2022-03-07] MEDS: TEMAZEPAM 15 MG CAPSULE PO SCH (20:44)
--- NOTE | 2022-03-07 23:32 | Hospitalist Progress Note ---
Date of Service March 07, 2022 Assessment & Plan (1) Influenza A: (2) Hypoxia: (3) Cough: (4) Dyspnea: Plan: Met sepsis criteria on admission with Elevated WBC, Tachycardia and positive influenza A Present on admission of SOB associated with productive cough Testing positive for influenza A Procalcitonin mildly elevated at 0.65 with normal lactate on admission CXR showed Bilateral atelectasis is seen with underinflated lungs and airspace opacities which may represent atelectasis, pneumonia, and/or aspiration. currently on cefepime and doxycycline and Tamiflu and steroid continue cough medication, neb treatment Continue monitor closely HTN BP stable Continue Lisinopril and carvedilol Diabetes last hba1c 8.6 in 12/22 Will hold oral DM med bl[place] inpatient Monitor BS closely while on steroid Continue insulin sliding scale and lantus during hospital course Continue monitor BS DVT px on Lovenox Code status Full code Admission and Anticipated Discharge Date Admission Date: March 06, 2022 Subjective Pt was seen and examined for follow up of SOB Lying in bed with no acute distress Pt said that he started to bring phlegm Denies any fever, chest pain and palpitation Review of Systems Review of Systems: All systems reviewed & are unremarkable except as noted in Subjective Physical Exam Physical Exam: General- No acute distress Head- atraumatic Eyes- PERRL, EOMI, ENT- oropharynx clear Neck- supple, no JVD Lungs- +diminished BS Heart- regular rhythm; no murmur Abdomen- normal bowel sounds, soft, nontender Extremities- no calf tenderness Neuro- alert, oriented x 3; PERRL, EOMI; no facial palsy; no dysarthria Skin- warm & dry Results & Data Results & Data ([facility]) Vital Signs (Past 12 Hours) Vital Signs Temp Pulse Pulse Resp BP BP Pulse Ox 03/07/22 23:20 36.6 C 72 20 159/86 H 93 03/07/22 22:42 80 03/07/22 19:50 36.6 C 72 18 146/83 H 95 03/07/22 19:37 78 18 95 03/07/22 15:13 36.6 C 81 18 150/89 H 96 03/07/22 15:00 82 18 95 O2 Del Method 03/07/22 23:20 Room Air 03/07/22 22:42 03/07/22 19:50 Room Air 03/07/22 19:37 Room Air 03/07/22 15:13 Room Air 03/07/22 15:00 Room Air
[2022-03-08] MEDS: LEVOTHYROXINE SODIUM 100 MCG TABLET PO SCH (05:01)
[2022-03-08] MEDS: LEVALBUTEROL 1.25MG/0.5ML NEB INH SCH ×2 (07:15→10:47)
[2022-03-08] MEDS: IPRATROPIUM BROMIDE NEB SOLN 0.02% 2.5 ML VIAL INH SCH ×2 (07:16→10:47)
[2022-03-08] MEDS: FLUTICASONE/VILANTEROL 100/25MCG 14 PUFFS/INHALER INH SCH (07:51)
[2022-03-08] MEDS: FLUTICASONE PROPIONATE NA SPR 16 GM BTL SCH (07:53)
[2022-03-08] MEDS: ENOXAPARIN INJ 40 MG/0.4 ML SYR SQ SCH (07:53)
[2022-03-08] MEDS: CEFEPIME 2,000 MG in SYRINGE 0 ML IV SCH (07:53)
[2022-03-08] MEDS: PANTOprazole 40 MG TAB PO SCH (07:53)
[2022-03-08] MEDS: LORATADINE 10 MG TAB PO SCH (07:53)
[2022-03-08] MEDS: EZETIMIBE 10 MG TABLET PO SCH (07:54)
[2022-03-08] MEDS: carvediloL 12.5 MG TAB PO SCH (07:54)
[2022-03-08] MEDS: OSELTAMIVIR PHOSPHATE 75 MG CAP PO SCH (07:54)
[2022-03-08] MEDS: FLUoxetine HCL 20 MG CAP PO SCH (07:54)
[2022-03-08] MEDS: DOXYCYCLINE HYCLATE 100 MG CAP PO SCH (07:54)
[2022-03-08] MEDS: predniSONE 20 MG TAB PO SCH (07:54)
[2022-03-08] MEDS: INSULIN ASPART PER UNIT SC SCH ×2 (08:31→12:08)
[2022-03-08] MEDS: LANTUS PER UNIT CHARGE SQ SCH (08:32)
[2022-03-08 10:22] LABS: Hematocrit (blood only) 38.3 % (40.1-51.0); Hemoglobin 12.1 g/dl (14.0-18.0); Mean Corpuscular Hemoglobin 25.7 pg (25.0-34.0); Mean Corpuscular Hgb Conc 31.6 g/dL (32.0-36.0); Mean Corpuscular Volume 81.5 fL (80.0-100.0); Mean Platelet Volume 10.4 fL (9.4-12.4); Platelet Count 401 K/uL (130-400); RDW Coefficient of Variation 15.9 % (11.5-14.5); RDW Standard Deviation 46.2 fL (36.4-46.3); White Blood Count 10.36 K/ul (4.8-10.8)
[2022-03-08 10:47] LABS: Calcium 8.5 mg/dl (8.5-10.1); Creatinine Clr Calc Pharmacy 95.6 ml/min; Est GFR (African American) 97.9 ml/min; Est GFR (Non-African American) 84.5 ml/min; Magnesium 1.7 mg/dl (1.7-2.4); Potassium 4.2 mmol/L (3.5-5.1)
[2022-03-08] MEDS ORDERED: MAGNESIUM OXIDE 400 MG TAB PO SCH (11:15)
--- NOTE | 2022-03-16 10:01 | Discharge Summary ---
Date of Service March 08, 2022 Admission HPI Per Admitting Provider History obtained from patient and records. Medical history significant for chronic diastolic heart failure (EF 56%, TTE 2019), COPD, ANTONINA on CPAP, hypertension, hyperlipidemia, DM2 insulin requiring, paranoid schizophrenia, mood disorder, mild intellectual disability, chronic anemia (baseline hemoglobin of 12), neurogenic bladder as per records, medication noncompliance as per records, past tobacco/alcohol abuse. Last confinement September 2020 for sepsis secondary to multifocal pneumonia. 2 weeks history of cough, congestion, raspy voice and yellow sinus drainage symptoms. Patient seen at PCPs office. Azithromycin prescribed for possible bronchitis. Worsening cough productive of greenish sputum shortness of breath. No chest pain. No abdominal pain, no black no bloody stools. Patient denies aspiration. O2 sats persistently noted to be 80s at personal care facility even after neb treatment. EMS called for worsening symptoms. At the ER, patient received Levaquin and doxycycline for sepsis. Patient currently feeling much better. 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 [employer] Admission Exam Per Admitting Provider GENERAL: Slightly uncomfortable, obese, pleasant, minimal respiratory distress SKIN: Pallor , warm HEENT: Bespectacled, pale palpebral conjunctivae, no ptosis, dry buccal mucosa, nasal cannula in place NECK : Supple, short neck, no tenderness CHEST : Decreased breath sounds, occasional expiratory wheezes, no tenderness HEART : RRR, no obvious murmurs ABDOMEN: Some distention, nontender RECTAL : Intact sphincter, brown stool (FOBT negative) EXTREMITIES : Minimal LE swelling, no LE tenderness, no other conspicuous deformities noted NEUROLOGIC : Coherent, no facial asymmetry, no other gross focality Principal Diagnosis Acute respiratory failure Influenza COPD exacerbation Chronic diastolic heart failure, diabetes Discharge Exam General- No acute distress Head- atraumatic Eyes- PERRL, EOMI, ENT- oropharynx clear Neck- supple, no JVD Lungs- +diminished BS Heart- regular rhythm; no murmur Abdomen- normal bowel sounds, soft, nontender Extremities- no calf tenderness Neuro- alert, oriented x 3; PERRL, EOMI; no facial palsy; no dysarthria Skin- warm & dry Discharge Data Allergies Allergy/AdvReac Type Severity Reaction Status Date / Time bee venom protein (honey bee) Allergy Severe ANAPHYLAXIS Verified 03/06/22 02:15 diphenhydramine Allergy Unknown Unknown Verified 03/06/22 02:15 Consultations 03/06/22 01:29 ED Decision to Admit Stat Ordered Studies Laboratory Results WBC 10.36 K/ul (4.8-10.8) 03/08/22 10:03 RBC 4.70 M/uL (4.63-6.08) 03/08/22 10:03 Hgb 12.1 g/dl (14.0-18.0) L 03/08/22 10:03 Hct 38.3 % (40.1-51.0) L 03/08/22 10:03 MCV 81.5 fL (80.0-100.0) 03/08/22 10:03 MCH 25.7 pg (25.0-34.0) 03/08/22 10:03 MCHC 31.6 g/dL (32.0-36.0) L 03/08/22 10:03 RDW Std Deviation 46.2 fL (36.4-46.3) 03/08/22 10:03 RDW Coeff of Yadiel 15.9 % (11.5-14.5) H 03/08/22 10:03 Plt Count 401 K/uL (130-400) H 03/08/22 10:03 MPV 10.4 fL (9.4-12.4) 03/08/22 10:03 Immature Gran % (Auto) 0.8 % 03/06/22 05:49 Neut % (Auto) 90.5 % 03/06/22 05:49 Lymph % (Auto) 6.4 % 03/06/22 05:49 [place] % (Auto) 2.1 % 03/06/22 05:49 Eos % (Auto) 0.0 % 03/06/22 05:49 Baso % (Auto) 0.2 % 03/06/22 05:49 Reticulocyte % (Auto) 1.1 % (0.5-2.0) 03/06/22 05:49 Neut # (Auto) 13.58 K/uL (1.4-6.5) H 03/06/22 05:49 Lymph # (Auto) 0.96 K/uL (1.2-3.4) L 03/06/22 05:49 [place] # (Auto) 0.31 K/uL (0.24-0.82) 03/06/22 05:49 Eos # (Auto) 0.00 K/uL (0-0.50) 03/06/22 05:49 Baso # (Auto) 0.03 K/uL (0-0.2) 03/06/22 05:49 Reticulocyte # 0.05 10^6/uL (0.02-0.10) 03/06/22 05:49 Immature Gran # (Auto) 0.12 K/uL (0.00-0.02) H 03/06/22 05:49 Ovalocytes 1+ 03/06/22 05:49 Echinocytes 1+ 03/06/22 05:49 PT 12.1 Seconds (9.0-12.0) H 03/05/22 22:39 INR 1.1 (0.9-1.1) 03/05/22 22:39 APTT 22.0 Seconds (21.0-31.0) 03/05/22 22:39 PTT Ratio 0.8 03/05/22 22:39 ABG pH 7.43 (7.35-7.45) 03/06/22 00:12 ABG pCO2 32 mmHg (35-46) L 03/06/22 00:12 ABG pO2 65 mmHg (80-95) L 03/06/22 00:12 ABG HCO3 21 mmol/L (19-24) 03/06/22 00:12 ABG O2 Saturation 93.0 % (90-95) 03/06/22 00:12 ABG Base Excess -2.3 mEq/L (-9-1.8) 03/06/22 00:12 Dominick Test POS (Pos) 03/06/22 00:12 Oxygen Given 4 L 03/06/22 00:12 Sodium 135 mmol/L (136-145) L 03/08/22 10:03 Potassium 4.2 mmol/L (3.5-5.1) 03/08/22 10:03 Chloride 105 mmol/L (98-107) 03/08/22 10:03 Carbon Dioxide 19 mmol/L (21-32) L 03/08/22 10:03 Anion Gap 11 (3-11) 03/08/22 10:03 BUN 26 mg/dl (6-23) H 03/08/22 10:03 Creatinine 1.04 mg/dl (0.6-1.4) 03/08/22 10:03 Est Cr Clr Drug Dosing 95.6 ml/min 03/08/22 10:03 Est GFR ( Amer) 97.9 ml/min 03/08/22 10:03 Est GFR (Non-Af Amer) 84.5 ml/min 03/08/22 10:03 BUN/Creatinine Ratio 25.0 (10-20) H 03/08/22 10:03 Glucose 245 mg/dl (70-99(Fasting)) H 03/08/22 10:03 POC Glucose 216 mg/dl (70-99) H 03/08/22 11:33 Lactate 0.7 mmol/L (0.4-2.0) 03/06/22 00:12 Calcium 8.5 mg/dl (8.5-10.1) 03/08/22 10:03 Magnesium 1.7 mg/dl (1.7-2.4) 03/08/22 10:03 Iron 17 mcg/dl (35-175) L 03/06/22 05:49 Transferrin 204 mg/dl (200-360) 03/06/22 05:49 Ferritin 159.0 ng/ml (8-388) 03/06/22 05:49 Total Bilirubin 0.4 mg/dl (0.2-1.0) 03/06/22 05:49 Direct Bilirubin 0.1 mg/dl (0-0.2) 03/06/22 05:49 AST 129 U/L (13-39) H 03/06/22 05:49 ALT 155 U/L (7-52) H 03/06/22 05:49 Alkaline Phosphatase 165 U/L (34-104) H 03/06/22 05:49 Troponin I High Sens 13.9 pg/ml (0-20) 03/06/22 00:12 B-Natriuretic Peptide 53 pg/ml (0-100) 03/05/22 22:39 Total Protein 7.2 gm/dl (6.0-8.3) 03/06/22 05:49 Albumin 3.2 gm/dl (3.4-5.0) L 03/06/22 05:49 Globulin 3.9 gm/dl (2.5-4.0) 03/05/22 22:39 Albumin/Globulin Ratio 0.8 (0.9-2) L 03/05/22 22:39 Vitamin B12 641 pg/ml (180-914) 03/06/22 05:49 Folate 22.27 ng/ml (>5.38) 03/06/22 05:49 Procalcitonin 0.65 ng/ml (0-0.5) H 03/06/22 00:12 Urine Color Dark Yellow 03/06/22 02:39 Urine Appearance Clear (Clear) 03/06/22 02:39 Urine pH 5.5 (4.5-7.5) 03/06/22 02:39 Ur Specific [place] 1.044 (1.000-1.030) H 03/06/22 02:39 Urine Protein 1+ (Negative) H 03/06/22 02:39 Urine Glucose (UA) 3+ (Negative) H 03/06/22 02:39 Urine Ketones Trace (Negative) H 03/06/22 02:39 Urine Blood Negative (Negative) 03/06/22 02:39 Urine Nitrite Negative (Negative) 03/06/22 02:39 Urine Bilirubin Negative (Negative) 03/06/22 02:39 Urine Urobilinogen Negative (Negative) 03/06/22 02:39 Ur Leukocyte Esterase Negative (Negative) 03/06/22 02:39 Urine WBC (Auto) 5-10 /hpf (0-5) H 03/06/22 02:39 Urine RBC (Auto) 0-4 /hpf (0-4) 03/06/22 02:39 U Hyaline Cast (Auto) 0 /lpf (0-5) 03/06/22 02:39 U Epithel Cells (Auto) 20-30 /lpf (0-5) H 03/06/22 02:39 Urine Bacteria (Auto) Negative (Negative) 03/06/22 02:39 Urine Mucus Present (None Prsent) A 03/06/22 02:39 Urine Yeast Budding (None Prsent) A 03/06/22 02:39 SARS-CoV-2 (PCR) NEGATIVE (Negative) 03/05/22 22:35 SARS-CoV-2 (PCR) NEGATIVE (Negative) 03/05/22 22:35 Influenza Type A (PCR) Positive (Neg) A* 03/05/22 22:35 Influenza Type B (PCR) Negative (Neg) 03/05/22 22:35 RSV (RT-PCR) Negative (Neg) 03/05/22 22:35 Blood Type A Positive 03/06/22 05:49 Antibody Screen NEGATIVE 03/06/22 05:49 Impressions Chest X-Ray 03/05/22 22:42 XR chest 1V portable CLINICAL HISTORY: SOB TECHNIQUE: Single frontal radiograph of the chest was obtained. Comparison: Comparison is made to chest radiograph 12/22/2020 FINDINGS: No lines and tubes are seen. The cardiomediastinal silhouette is normal. Lungs are underinflated and there are bilateral airspace opacities. Prominence of the vasculature is seen. No evidence of pleural effusion or pneumothorax. IMPRESSION: Bilateral atelectasis is seen with underinflated lungs and airspace opacities which may represent atelectasis, pneumonia, and/or aspiration. There is mild pulmonary edema. ACT 112: Negative or not required by law. Electronically signed by: Madi Smith M.D. 03/06/2022 8:03 AM Hospital Course (1) Influenza A: (2) Hypoxia: (3) Cough: (4) Dyspnea: COPD exacerbation Met sepsis criteria on admission with Elevated WBC, Tachycardia and positive influenza A Present on admission of SOB associated with productive cough Testing positive for influenza A Procalcitonin mildly elevated at 0.65 with normal lactate on admission CXR showed Bilateral atelectasis is seen with underinflated lungs and airspace opacities which may represent atelectasis, pneumonia, and/or aspiration. currently on cefepime and doxycycline and Tamiflu and steroid continue cough medication, neb treatment Will discharge on short course of prednisone Will complete tamiflu course on discharge and abx with Cefdinir HTN BP stable Continue Lisinopril and carvedilol Diabetes last hba1c 8.6 in 12/22 Will hold oral DM med [facility] inpatient Monitor BS closely while on steroid Continue insulin sliding scale and lantus during hospital course Continue monitor BS DVT px on Lovenox Code status Full code Total Time Total Time Spent Total Time Spent (In Minutes): 35 minutes Discharge Plan Discharge Items Patient Disposition: Personal Intermediate Reason For Visit: RESP FAILURE Discharge Diagnosis: Acute respiratory failure Influenza COPD exacerbation Chronic diastolic heart failure, Activity: Resume your previous activity Non-emergency contact: Primary Care Provider Call non-emergency contact if: you have any medication questions and your symptoms worsen Follow-up/Referrals: Freddie Montoya DO [Primary Care Provider] - (Date & Time 03/13/2022 11:20 AM Provider Freddie Montoya DO [facility] ) Diet: Carb Consistent or DM2 Addtl Attending Provider Instructions: Follow up with your primary care provider 03/13/2022 @ 11:20 AM Freddie Montoya DO [facility] Complete the course of the antibiotic with Cefdinir Complete the course of Tamiflu See medical attention if you develop any fever or your symptoms reoccur fall precaution Continue monitor your blood sugar and bring blood sugar log at your next follow up appointment with your provider Pending Studies at Discharge: No Stand-Alone Forms: My [employer], Smoking Cessation Skilled Items Patient informed of condition?: Yes DNR: No Discharge Level of Care: Other Communicable Disease: Yes Discharge Prognosis: Stable Lines: None Urinary Catheter: No Medications and DC Order Prescriptions: New oseltamivir [Tamiflu] 75 mg Capsule 75 mg PO BID Qty: 6 0RF prednisone 20 mg Tablet 20 mg PO DAILY Qty: 3 0RF cefdinir 300 mg capsule 300 mg PO BID Qty: 6 0RF Continued fluoxetine 40 mg capsule 40 mg PO DAILY carvedilol 25 mg tablet 25 mg PO BID acetaminophen [Tylenol] 325 mg Tablet 650 mg PO QID PRN (Reason: Fever Or Pain) ipratropium-albuterol 0.5 mg-3 mg(2.5 mg base)/3 mL Solution For Nebulization 3 ml INHALATION QID PRN (Reason: Shortness Of Breath Or Wheezing) chlorpromazine 100 mg tablet 100 mg PO HS Rx Instructions: Take with 200 mg =300mg lisinopril 20 mg Tablet 20 mg PO DAILY levothyroxine 100 mcg Tablet 100 mcg PO DAILY temazepam 30 mg capsule 30 mg PO HS mirtazapine 30 mg tablet 30 mg PO HS metformin 1,000 mg tablet 1,000 mg PO BID epinephrine [EpiPen] 0.3 mg/0.3 mL Auto-Injector 0.3 mg IM DAILY PRN (Reason: .anaphylaxis) chlorpromazine 200 mg tablet 200 mg PO HS Rx Instructions: Take with 100mg = 300mg fluoxetine 20 mg capsule 20 mg PO DAILY fluticasone propionate 50 mcg/actuation spray,suspension 2 spray INTRANASAL DAILY loratadine 10 mg Tablet 10 mg PO DAILY ezetimibe 10 mg tablet 10 mg PO DAILY insulin aspart U-100 [Novolog Flexpen U-100 Insulin] 100 unit/mL (3 mL) Insulin Pen See Rx Instructions .ROUTE .COMPLEX Rx Instructions: sliding scale: 150-174=2units, 175-199=3units, 200-224=4, 225-249=5, 250- 274=6, 275-299=7, 300-324=8, 324-349=9, 350-374=10,every 24 add 1 unit, end 650- 674=24. levalbuterol tartrate 45 mcg/actuation HFA aerosol inhaler 2 puff INHALATION Q6 PRN (Reason: Shortness Of Breath) fluoride (sodium) [Denta 5000 Plus] 1.1 % Cream 1 applic DENTAL DAILY Rx Instructions: brush gently for 2 min, do not spit or rinse. insulin glargine [Basaglar KwikPen U-100 Insulin] 100 unit/mL (3 mL) insulin pen 36 unit SUBCUT BID menthol-zinc oxide [Calmoseptine] 0.44-20.6 % Ointment 1 applic TOPICAL DIRECTED PRN (Reason: ..) Rx Instructions: may self administer fluticasone furoate-vilanterol [Breo Ellipta] 100-25 mcg/dose blister with device 1 ea INHALATION DAILY guaifenesin [Mucinex] 600 mg Tablet Extended Release 12hr 600 mg PO Q12H PRN (Reason: Congestion) Jardiance 25 mg tablet 25 mg PO DAILY Combivent Respimat 20-100 mcg/actuation Mist 1 puff INHALATION QID PRN (Reason: Shortness Of Breath Or Wheezing) Rx Instructions: space evenly during waking hours omeprazole 40 mg capsule,delayed release(DR/EC) 40 mg PO BID simvastatin 40 mg Tablet 40 mg PO DAILY potassium chloride 20 mEq tablet,ER particles/crystals 20 meq PO DAILY paliperidone 9 mg tablet extended release 24 hr 9 mg PO HS cholecalciferol (vitamin D3) [Vitamin D3] 50 mcg (2,000 unit) Tablet 50 mcg PO DAILY Ozempic 1 mg/dose (4 mg/3 mL) pen injector 1 mg SUBCUT .QWED Discontinued azithromycin 250 mg tablet 2,500 mg PO DIRECTED Rx Instructions: 4 days, stop 03/07/22 Discharge Orders: Discharge Order (Routine); Ordered 03/08/22 Ordered By: Vivek Rondon Admission Data Admit Date/Time: 03/06/22 04:32 Attending Provider: Vivek Rondon Admit Provider: Nawaf Thomas Primary Care Provider: Freddie Montoya Other Providers: Nawaf Thomas Other Interventions: Discharge Summary Assessment (RN) Last Done: 03/08/22 12:27
== END 2022-03-08 13:24 | disposition home or self-care (01) | DRG 871 ==
LOC: ED 22:14 → EDINP 03-06 04:32 → 2N 03-06 20:31

== ENCOUNTER 2022-09-29 12:16 | Inpatient (IN) ==
[2022-09-29] MEDS ORDERED: methylPREDNISolone 125 MG/2 ML VIAL IV STA (12:53)
[2022-09-29] MEDS ORDERED: ALBUT/IPRATROP 3MG/0.5MG NEB 3 ML VIAL NEB STA (12:53)
--- NOTE | 2022-09-29 12:57 | Emergency Department Note ---
Impression & Plan Pneumonia, COPD exacerbation, Dyspnea, Tachycardia ED Provider Note NAME: EVY MILLER JR AGE: 47 SEX: M : 1975 ARRIVES VIA: Walk-In INFORMANT: Patient, the patient's caregiver ED PROVIDER(S): Bennett Tapia DO CHIEF COMPLAINT: Shortness of breath HPI: The patient is a 47-year-old male who presented to the emergency department for an evaluation of difficulty breathing. The patient has a history of COPD. The patient was last seen by the primary care physician today. Apparently the patient was having worsening shortness of breath and was sent to the emergency department for further evaluation. The patient has had no hemoptysis. He has no lower extremity swelling. He is very diaphoretic. He denies having any chest pain. He does complain of significant cough. The patient has been compliant with his outpatient medications otherwise. ROS: See above HPI for pertinent positives & negatives. A total of 10 systems reviewed and were otherwise negative. PAST MEDICAL HISTORY: See Below PAST SURGICAL HISTORY: See Below FAMILY HISTORY: See Below SOCIAL HISTORY: See Below HOME MEDICATIONS: See Below ALLERGIES: See Below VITALS: See Below PHYSICAL EXAMINATION: GENERAL: The patient is awake and alert. The patient is somewhat anxious appearing. The patient is diaphoretic. EYES: The conjunctivae are clear. The pupils are round and reactive. EARS, NOSE, MOUTH AND THROAT: The nose is without any evidence of any deformity. NECK: The neck is nontender and supple. RESPIRATORY: Diminished breath sounds are noted throughout. CARDIOVASCULAR: Tachycardic and regular heart sounds were noted to auscultation. There is no definite murmur. MUSCULOSKELETAL/EXTREMITIES: There is no evidence of gross deformity full range of motion is noted in the hips and shoulders. SKIN: Skin was cool and diaphoretic. There is no significant edema or calf tenderness. NEUROLOGIC: Patient is awake alert and oriented x3 MEDICAL DECISION MAKING: The patient is a 47-year-old male who presented to the emergency department for an evaluation of shortness of breath. The patient has a history of COPD. The patient was treated with bronchodilator therapy as well as IV steroids in the emergency department. Chest x-ray revealed signs of pneumonia. For this reason blood cultures were ordered. I discussed the patient's laboratory and radiographic studies with him. The patient was found to have an elevation in his D-dimer. I do feel the patient's condition is secondary to pneumonia. I discussed his condition with the on-call [facility] hospitalist group. They have agreed to evaluate the patient in the emergency department for further management and disposition. Further radiographic studies will be deferred to the admitting team as the patient may require further work-up for the elevated D-dimer. Triage Nursing notes reviewed. Prior medical records reviewed Vital Signs: reviewed and remarkable for tachycardia tachypnea. Differential diagnosis: Reactive airway disease, pneumonia, pneumothorax, COPD, CHF, infections, cardiac ischemia, pulmonary embolism, musculoskeletal, gastrointestinal, as well as other pathologies. ER treatment provided: See below Diagnostics interpreted by me: ECG: EKG was obtained in the emergency department. My interpretation is sinus tachycardia 132 bpm. Right bundle branch pattern was noted. This was compared to a tracing from March 06, 2022. There is an increase in the rate otherwise no changes. Cardiac Monitoring: An order was placed for continuous cardiac monitoring. The monitor shows a rate of 124 bpm with sinus tachycardia. Laboratory studies: As stated above and show below. Imaging studies: See below. Radiographic imaging was reviewed by myself Consultation(s): I discussed this case with Rosalind who is on-call for the [facility] hospitalist group. Past Med/Surg History Medical History COPD (chronic obstructive pulmonary disease) Depression Diabetes mellitus Dyslipidemia GERD (gastroesophageal reflux disease) History of pneumonia & flu...nov into march 2022 - resolved/no further issues Hypertension Hypothyroidism Intellectual disability Neurogenic bladder Paranoid schizophrenia Sleep apnea cpap/non compliant Unknown family medical history Vitamin D deficiency Surgical History H/O inguinal hernia repair this sx verified with caregiver/unsure further surgical hx History of cataract surgery Surgical history unknown Family History Mother Diabetes Father Hypertension Social History Smoking Status: Former smoker Tobacco Type: Cigarettes Second Hand Exposure: No; Do You Dip or Chew Tobacco: No; Hx Alcohol Use: No Hx Substance Use: No Preferred Language: Senegalese Communication Ability: Effective Communication Ability Comment: PT 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: No Beliefs That Will Affect Care: None Current Living Situation: Alone Current Living Situation Comment: [facility]LIVES INDEPEDENT/MEDS IN OFFICE Feels Safe at Home: Yes Assistive Devices: CPAP and Glasses Allergies Allergies Allergy/AdvReac Type Severity Reaction Status Date / Time bee venom protein (honey bee) Allergy Unknown ANAPHYLAXIS Verified 07/13/22 07:12 diphenhydramine Allergy Unknown pt care Verified 07/13/22 07:12 conference planner 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 Home Meds Home Medications Medication Instructions Recorded Confirmed acetaminophen 325 mg tablet 650 mg PO QID PRN Fever Or Pain 03/06/22 07/13/22 (Tylenol) carvedilol 25 mg tablet 25 mg PO BID 03/06/22 07/13/22 chlorpromazine 100 mg tablet 100 mg PO HS 03/06/22 07/13/22 chlorpromazine 200 mg tablet 200 mg PO HS 03/06/22 07/13/22 cholecalciferol (vitamin D3) 50 50 mcg PO QAM 03/06/22 07/13/22 mcg (2,000 unit) tablet (Vitamin D3) empagliflozin 25 mg tablet 25 mg PO QAM 03/06/22 07/13/22 (Jardiance) epinephrine 0.3 mg/0.3 mL 0.3 mg IM UD PRN .anaphylaxis 03/06/22 07/13/22 injection, auto-injector (EpiPen) ezetimibe 10 mg tablet 10 mg PO QAM 03/06/22 07/13/22 fluoride (sodium) 1.1 % dental 1 applic dental DAILY 03/06/22 07/13/22 cream (Denta 5000 Plus) fluoxetine 20 mg capsule 20 mg PO QAM 03/06/22 07/13/22 fluoxetine 40 mg capsule 40 mg PO QAM 03/06/22 07/13/22 fluticasone propionate 50 2 spray intranasal QAM 03/06/22 07/13/22 mcg/actuation nasal spray,suspension guaifenesin 600 mg tablet, 600 mg PO Q12H PRN Congestion 03/06/22 07/13/22 extended release 12 hr (Mucinex) insulin aspart U-100 100 unit/mL 1 sliding scale dose BID 03/06/22 07/13/22 (3 mL) subcutaneous pen (Novolog FlexPen U-100 Insulin aspart) insulin glargine 100 unit/mL (3 36 unit subcut BID 03/06/22 07/13/22 mL) subcutaneous pen (Basaglar Doug U-100 Insulin) ipratropium 0.5 mg-albuterol 3 mg 3 ml inhalation QID PRN Shortness 03/06/22 07/13/22 (2.5 mg base)/3 mL nebulization Of Breath Or Wheezing soln levalbuterol tartrate 45 2 puff inhalation Q6 PRN Shortness 03/06/22 07/13/22 mcg/actuation aerosol inhaler Of Breath levothyroxine 100 mcg tablet 100 mcg PO QAM 03/06/22 07/13/22 lisinopril 20 mg tablet 20 mg PO QAM 03/06/22 07/13/22 loratadine 10 mg tablet 10 mg PO QAM 03/06/22 07/13/22 menthol 0.44 %-zinc oxide 20.6 % 1 applic topical DIRECTED PRN 03/06/22 07/13/22 topical ointment (Calmoseptine) itching metformin 1,000 mg tablet 1,000 mg PO BID 03/06/22 07/13/22 mirtazapine 30 mg tablet 30 mg PO HS 03/06/22 07/13/22 omeprazole 40 mg capsule,delayed 40 mg PO BID 03/06/22 07/13/22 release paliperidone 9 mg tablet,extended 9 mg PO HS 03/06/22 07/13/22 release 24 hr potassium chloride 20 mEq 20 meq PO QAM 03/06/22 07/13/22 tablet,extended release(part/cryst) semaglutide 1 mg/dose (4 mg/3 mL) 1 mg subcut WK 03/06/22 07/13/22 subcutaneous pen injector (Ozempic) simvastatin 40 mg tablet 40 mg PO DAILY 03/06/22 07/13/22 temazepam 30 mg capsule 30 mg PO HS 03/06/22 07/13/22 Previous Rx's Medication Instructions Recorded fluticasone furoate 100 1 ea inhalation QAM #60 ea 07/05/22 mcg-vilanterol 25 mcg/dose inhalation powder (Breo Ellipta) ipratropium 20 mcg-albuterol 100 2 puff inhalation QID PRN 07/05/22 mcg/actuation mist for inhalation Shortness Of Breath Or Wheezing #4 (Combivent Respimat) grams Results & Data (ED) Vital Signs Vital Signs - 24 hr 09/29/22 12:28 09/29/22 13:04 09/29/22 13:04 Temperature 36.8 C Temperature Source Temporal Artery Scan Pulse Rate 132 H 126 H Pulse Rate [Right Finger] 126 H Pulse Rate from SpO2 Sensor Respiratory Rate 18 32 H 32 H Respiratory Effort / Characteristics Non-Labored Respiratory Depth Normal Blood Pressure 132/72 Blood Pressure [Right Arm] 158/86 H Blood Pressure Mean 92 Blood Pressure Mean [Right Arm] 110 Pulse Oximetry 92 93 93 Oxygen Delivery Method Room Air Room Air Room Air Sepsis Recent Fever Within 48 Hours No Sepsis New/Unexplained Change in Mental Status No Sepsis Action Taken by Nursing No Action Required 09/29/22 13:12 09/29/22 12:58 09/29/22 13:00 Temperature Temperature Source Pulse Rate 127 H 127 H 127 H Pulse Rate [Right Finger] Pulse Rate from SpO2 Sensor 127 H 128 H Respiratory Rate 31 H 36 H Respiratory Effort / Characteristics Respiratory Depth Blood Pressure Blood Pressure [Right Arm] Blood Pressure Mean Blood Pressure Mean [Right Arm] Pulse Oximetry 92 92 Oxygen Delivery Method Sepsis Recent Fever Within 48 Hours Sepsis New/Unexplained Change in Mental Status Sepsis Action Taken by Nursing 09/29/22 13:15 09/29/22 13:20 09/29/22 13:23 Temperature Temperature Source Pulse Rate Pulse Rate [Right Finger] Pulse Rate from SpO2 Sensor 128 H 129 H Respiratory Rate Respiratory Effort / Characteristics Respiratory Depth Blood Pressure 122/84 Blood Pressure [Right Arm] Blood Pressure Mean 96 Blood Pressure Mean [Right Arm] Pulse Oximetry 97 97 Oxygen Delivery Method Sepsis Recent Fever Within 48 Hours Sepsis New/Unexplained Change in Mental Status Sepsis Action Taken by Nursing 09/29/22 13:23 09/29/22 13:30 09/29/22 13:30 Temperature Temperature Source Pulse Rate 130 H 132 H Pulse Rate [Right Finger] Pulse Rate from SpO2 Sensor 129 H 128 H Respiratory Rate 37 H 23 Respiratory Effort / Characteristics Respiratory Depth Blood Pressure 138/85 Blood Pressure [Right Arm] Blood Pressure Mean 102 Blood Pressure Mean [Right Arm] Pulse Oximetry 92 93 Oxygen Delivery Method Sepsis Recent Fever Within 48 Hours Sepsis New/Unexplained Change in Mental Status Sepsis Action Taken by Nursing 09/29/22 14:15 Temperature Temperature Source Pulse Rate Pulse Rate [Right Finger] 124 H Pulse Rate from SpO2 Sensor Respiratory Rate 32 H Respiratory Effort / Characteristics Respiratory Depth Blood Pressure Blood Pressure [Right Arm] 140/88 Blood Pressure Mean Blood Pressure Mean [Right Arm] 105 Pulse Oximetry 92 Oxygen Delivery Method Room Air Sepsis Recent Fever Within 48 Hours Sepsis New/Unexplained Change in Mental Status Sepsis Action Taken by Long Term Medications Current Medication List: was personally reviewed by me Laboratory Data Attestation: I reviewed the patient's lab results. 09/29/22 13:09 09/29/22 13:09 Lab Results 09/29/22 09/29/22 09/29/22 Range/Units 12:59 13:09 13:09 WBC 12.95 H (4.8-10.8) K/ul RBC 4.97 (4.70-6.10) M/uL Hgb 12.8 L (14.0-18.0) g/dl Hct 40.2 L (42.0-52.0) % MCV 80.9 (80.0-100.0) fL MCH 25.8 (25.0-34.0) pg MCHC 31.8 L (32.0-36.0) g/dL RDW Std Deviation 42.6 (36.4-46.3) fL RDW Coeff of Yadiel 14.6 H (11.5-14.5) % Plt Count 144 (130-400) K/uL MPV 11.1 (9.4-12.4) fL Immature Gran % (Auto) 0.6 % Neut % (Auto) 83.7 % Lymph % (Auto) 7.4 % [place] % (Auto) 8.1 % Eos % (Auto) 0.0 % Baso % (Auto) 0.2 % Neut # (Auto) 10.83 H (1.40-6.50) K/uL Lymph # (Auto) 0.96 L (1.2-3.4) K/uL Linn # (Auto) 1.05 H (0.11-0.59) K/uL Eos # (Auto) 0.00 (0-0.50) K/uL Baso # (Auto) 0.03 (0-0.2) K/uL Immature Gran # (Auto) 0.08 (0.01-0.20) K/uL PT 11.0 (9.0-12.0) Seconds INR 1.0 (0.9-1.1) APTT 23.4 (21.0-31.0) Seconds PTT Ratio 0.8 D-Dimer 620 H* (0-500) ug/L FEU VBG pH (7.36-7.41) VBG pCO2 (38-50) mmHg VBG pO2 mmHg VBG HCO3 mmol/L VBG O2 Saturation % VBG Base Excess mEq/L Sodium (136-145) mmol/L Potassium (3.5-5.1) mmol/L Chloride (98-107) mmol/L Carbon Dioxide (21-32) mmol/L Anion Gap (3-11) BUN (6-23) mg/dl Creatinine (0.6-1.4) mg/dl Est Cr Clr Drug Dosing ml/min Est GFR ( Amer) ml/min Est GFR (Non-Af Amer) ml/min BUN/Creatinine Ratio (10-20) Glucose (70-99(Fasting)) mg/dl POC Glucose 189 H (70-99) mg/dl Calcium (8.6-10.3) mg/dl Total Bilirubin (0.2-1.0) mg/dl AST (13-39) U/L ALT (7-52) U/L Alkaline Phosphatase (34-104) U/L Troponin I High Sens (0-20) pg/ml C-Reactive Protein (0-0.5) mg/dl Total Protein (6.0-8.3) gm/dl Albumin (3.4-5.0) gm/dl Globulin (2.5-4.0) gm/dl Albumin/Globulin Ratio (0.9-2) Procalcitonin (0-0.5) ng/ml Urine Color Urine Appearance (Clear) Urine pH (4.5-7.5) Ur Specific [place] (1.000-1.030) Urine Protein (Negative) Urine Glucose (UA) (Negative) Urine Ketones (Negative) Urine Blood (Negative) Urine Nitrite (Negative) Urine Bilirubin (Negative) Urine Urobilinogen (Negative) Ur Leukocyte Esterase (Negative) Urine WBC (Auto) (0-5) /hpf Urine RBC (Auto) (0-4) /hpf U Hyaline Cast (Auto) (0-5) /lpf U Epithel Cells (Auto) (0-5) /lpf Urine Bacteria (Auto) (Negative) SARS-CoV-2 (PCR) (Negative) Influenza Type A (PCR) (Neg) Influenza Type B (PCR) (Neg) RSV (RT-PCR) (Neg) 09/29/22 09/29/22 09/29/22 Range/Units 13:09 13:09 13:12 WBC (4.8-10.8) K/ul RBC (4.70-6.10) M/uL Hgb (14.0-18.0) g/dl Hct (42.0-52.0) % MCV (80.0-100.0) fL MCH (25.0-34.0) pg MCHC (32.0-36.0) g/dL RDW Std Deviation (36.4-46.3) fL RDW Coeff of Yadiel (11.5-14.5) % Plt Count (130-400) K/uL MPV (9.4-12.4) fL Immature Gran % (Auto) % Neut % (Auto) % Lymph % (Auto) % [place] % (Auto) % Eos % (Auto) % Baso % (Auto) % Neut # (Auto) (1.40-6.50) K/uL Lymph # (Auto) (1.2-3.4) K/uL Linn # (Auto) (0.11-0.59) K/uL Eos # (Auto) (0-0.50) K/uL Baso # (Auto) (0-0.2) K/uL Immature Gran # (Auto) (0.01-0.20) K/uL PT (9.0-12.0) Seconds INR (0.9-1.1) APTT (21.0-31.0) Seconds PTT Ratio D-Dimer (0-500) ug/L FEU VBG pH (7.36-7.41) VBG pCO2 (38-50) mmHg VBG pO2 mmHg VBG HCO3 mmol/L VBG O2 Saturation % VBG Base Excess mEq/L Sodium 136 (136-145) mmol/L Potassium 4.3 (3.5-5.1) mmol/L Chloride 104 (98-107) mmol/L Carbon Dioxide 22 (21-32) mmol/L Anion Gap 10 (3-11) BUN 23 (6-23) mg/dl Creatinine 1.14 (0.6-1.4) mg/dl Est Cr Clr Drug Dosing 95.2 ml/min Est GFR ( Amer) 87.0 ml/min Est GFR (Non-Af Amer) 75.1 ml/min BUN/Creatinine Ratio 20.2 H (10-20) Glucose 189 H (70-99(Fasting)) mg/dl POC Glucose (70-99) mg/dl Calcium 9.0 (8.6-10.3) mg/dl Total Bilirubin 0.5 (0.2-1.0) mg/dl AST 21 (13-39) U/L ALT 29 (7-52) U/L Alkaline Phosphatase 65 (34-104) U/L Troponin I High Sens 5.1 (0-20) pg/ml C-Reactive Protein 1.17 H (0-0.5) mg/dl Total Protein 7.2 (6.0-8.3) gm/dl Albumin 4.1 (3.4-5.0) gm/dl Globulin 3.1 (2.5-4.0) gm/dl Albumin/Globulin Ratio 1.3 (0.9-2) Procalcitonin 0.26 (0-0.5) ng/ml Urine Color Urine Appearance (Clear) Urine pH (4.5-7.5) Ur Specific [place] (1.000-1.030) Urine Protein (Negative) Urine Glucose (UA) (Negative) Urine Ketones (Negative) Urine Blood (Negative) Urine Nitrite (Negative) Urine Bilirubin (Negative) Urine Urobilinogen (Negative) Ur Leukocyte Esterase (Negative) Urine WBC (Auto) (0-5) /hpf Urine RBC (Auto) (0-4) /hpf U Hyaline Cast (Auto) (0-5) /lpf U Epithel Cells (Auto) (0-5) /lpf Urine Bacteria (Auto) (Negative) SARS-CoV-2 (PCR) NEGATIVE (Negative) Influenza Type A (PCR) Negative (Neg) Influenza Type B (PCR) Negative (Neg) RSV (RT-PCR) Negative (Neg) 09/29/22 09/29/22 Range/Units 13:13 13:57 WBC (4.8-10.8) K/ul RBC (4.70-6.10) M/uL Hgb (14.0-18.0) g/dl Hct (42.0-52.0) % MCV (80.0-100.0) fL MCH (25.0-34.0) pg MCHC (32.0-36.0) g/dL RDW Std Deviation (36.4-46.3) fL RDW Coeff of Yadiel (11.5-14.5) % Plt Count (130-400) K/uL MPV (9.4-12.4) fL Immature Gran % (Auto) % Neut % (Auto) % Lymph % (Auto) % [place] % (Auto) % Eos % (Auto) % Baso % (Auto) % Neut # (Auto) (1.40-6.50) K/uL Lymph # (Auto) (1.2-3.4) K/uL [place] # (Auto) (0.11-0.59) K/uL Eos # (Auto) (0-0.50) K/uL Baso # (Auto) (0-0.2) K/uL Immature Gran # (Auto) (0.01-0.20) K/uL PT (9.0-12.0) Seconds INR (0.9-1.1) APTT (21.0-31.0) Seconds PTT Ratio D-Dimer (0-500) ug/L FEU VBG pH 7.46 H (7.36-7.41) VBG pCO2 32 L (38-50) mmHg VBG pO2 57 mmHg VBG HCO3 23 mmol/L VBG O2 Saturation 86.1 % VBG Base Excess -0.3 mEq/L Sodium (136-145) mmol/L Potassium (3.5-5.1) mmol/L Chloride (98-107) mmol/L Carbon Dioxide (21-32) mmol/L Anion Gap (3-11) BUN (6-23) mg/dl Creatinine (0.6-1.4) mg/dl Est Cr Clr Drug Dosing ml/min Est GFR ( Amer) ml/min Est GFR (Non-Af Amer) ml/min BUN/Creatinine Ratio (10-20) Glucose (70-99(Fasting)) mg/dl POC Glucose (70-99) mg/dl Calcium (8.6-10.3) mg/dl Total Bilirubin (0.2-1.0) mg/dl AST (13-39) U/L ALT (7-52) U/L Alkaline Phosphatase (34-104) U/L Troponin I High Sens (0-20) pg/ml C-Reactive Protein (0-0.5) mg/dl Total Protein (6.0-8.3) gm/dl Albumin (3.4-5.0) gm/dl Globulin (2.5-4.0) gm/dl Albumin/Globulin Ratio (0.9-2) Procalcitonin (0-0.5) ng/ml Urine Color Yellow Urine Appearance Clear (Clear) Urine pH 5.0 (4.5-7.5) Ur Specific [place] 1.034 H (1.000-1.030) Urine Protein Negative (Negative) Urine Glucose (UA) 3+ H (Negative) Urine Ketones Negative (Negative) Urine Blood Negative (Negative) Urine Nitrite Negative (Negative) Urine Bilirubin Negative (Negative) Urine Urobilinogen Negative (Negative) Ur Leukocyte Esterase Trace H (Negative) Urine WBC (Auto) 1-5 (0-5) /hpf Urine RBC (Auto) 0-4 (0-4) /hpf U Hyaline Cast (Auto) 0 (0-5) /lpf U Epithel Cells (Auto) >30 H (0-5) /lpf Urine Bacteria (Auto) Negative (Negative) SARS-CoV-2 (PCR) (Negative) Influenza Type A (PCR) (Neg) Influenza Type B (PCR) (Neg) RSV (RT-PCR) (Neg) Administered Medications Discontinued Medications Albuterol (Albut/Ipratrop 3mg/0.5mg Neb 3 Ml Vial) 3 ml NEB NOW STA; Protocol Stop: 09/29/22 12:54 Last Admin: 09/29/22 13:12 Dose: 3 ml Documented By: NRB Sodium Chloride (Nss 1000ml) 1,000 mls @ 999 mls/hr IV .Q1H1M ONE Stop: 09/29/22 15:00 Last Admin: 09/29/22 14:19 Dose: 999 mls/hr Documented By: NRB Piperacillin Sod/Tazobactam Sod (Zosyn) 4.5 gm in 120 mls @ 240 mls/hr IV NOW ONE Stop: 09/29/22 14:29 Last Infusion: 09/29/22 14:49 Dose: 0 mls/hr Documented By: Admin: 09/29/22 14:19 Dose: 240 mls/hr Documented By: LIZZY Methylprednisolone (Methylprednisolone 125 Mg/2 Ml Vial) 125 mg IV NOW STA Stop: 09/29/22 12:54 Last Admin: 09/29/22 13:24 Dose: 125 mg Documented By: SANDY Imaging Data Attestation: I personally reviewed and interpreted this imaging study as follows: My Impression: 1 view chest x-ray was obtained in the emergency department. My interpretation is left-sided infiltrate, no free air, final report below. Radiologist's Impression: Chest X-Ray 09/29/22 12:34 SINGLE VIEW CHEST CLINICAL HISTORY: Atypical chest pain FINDINGS: An AP, portable, upright chest radiograph is compared to study dated 03/05/2022 and correlated with chest CT dated 05/26/2022. A hiatal hernia is noted. The cardiomediastinal silhouette is unremarkable. There is airspace consolidation at the left lung base. Right lung appears clear. No pleural effusion or pneumothorax is seen. The bony thorax is grossly intact. IMPRESSION: Left basilar airspace consolidation is typical for pneumonia/aspiration pneumonitis. Clinical correlation will be required and radiographic follow-up to resolution is recommended. ACT 112: Negative or not required by law. Electronically signed by: Russell Wade M.D. 09/29/2022 1:35 PM Discharge Plan Visit Data Chief Complaint: Respiratory Problems Stated Complaint: WHEEZING,COUGHING,CHEST PAIN, ED Provider: Bennett Tapia Discharge Problem: Pneumonia, COPD exacerbation, Dyspnea, Tachycardia Patient Disposition: Being Evaluated by Hospitalist Forms Stand Alone Forms: My [facility] Prescriptions Prescriptions: No Action fluticasone furoate-vilanterol [Breo Ellipta] 100-25 mcg/dose blister with device 1 ea INHALATION QAM Qty: 60 12RF Combivent Respimat 20-100 mcg/actuation mist 2 puff INHALATION QID PRN (Reason: Shortness Of Breath Or Wheezing) Qty: 4 5RF fluoxetine 40 mg capsule 40 mg PO QAM carvedilol 25 mg tablet 25 mg PO BID acetaminophen [Tylenol] 325 mg Tablet 650 mg PO QID PRN (Reason: Fever Or Pain) ipratropium-albuterol 0.5 mg-3 mg(2.5 mg base)/3 mL Solution For Nebulization 3 ml INHALATION QID PRN (Reason: Shortness Of Breath Or Wheezing) chlorpromazine 100 mg tablet 100 mg PO HS Rx Instructions: Take with 200 mg =300mg lisinopril 20 mg Tablet 20 mg PO QAM levothyroxine 100 mcg Tablet 100 mcg PO QAM temazepam 30 mg capsule 30 mg PO HS mirtazapine 30 mg tablet 30 mg PO HS metformin 1,000 mg tablet 1,000 mg PO BID epinephrine [EpiPen] 0.3 mg/0.3 mL Auto-Injector 0.3 mg IM UD PRN (Reason: .anaphylaxis) chlorpromazine 200 mg tablet 200 mg PO HS Rx Instructions: Take with 100mg = 300mg fluoxetine 20 mg capsule 20 mg PO QAM fluticasone propionate 50 mcg/actuation spray,suspension 2 spray INTRANASAL QAM loratadine 10 mg Tablet 10 mg PO QAM ezetimibe 10 mg tablet 10 mg PO QAM insulin aspart U-100 [Novolog FlexPen U-100 Insulin] 100 unit/mL (3 mL) Insulin Pen 1 sliding scale dose BID Patient Comments: mostly he needs it Rx Instructions: sliding scale: 150-174=2units, 175-199=3units, 200-224=4, 225-249=5, 250- 274=6, 275-299=7, 300-324=8, 324-349=9, 350-374=10,every 24 add 1 unit, end 650- 674=24. levalbuterol tartrate 45 mcg/actuation HFA aerosol inhaler 2 puff INHALATION Q6 PRN (Reason: Shortness Of Breath) fluoride (sodium) [Denta 5000 Plus] 1.1 % Cream 1 applic DENTAL DAILY Rx Instructions: brush gently for 2 min, do not spit or rinse. insulin glargine [Basaglar KwikPen U-100 Insulin] 100 unit/mL (3 mL) insulin pen 36 unit SUBCUT BID menthol-zinc oxide [Calmoseptine] 0.44-20.6 % Ointment 1 applic TOPICAL DIRECTED PRN (Reason: itching ) Rx Instructions: may self administer guaifenesin [Mucinex] 600 mg Tablet Extended Release 12hr 600 mg PO Q12H PRN (Reason: Congestion) Jardiance 25 mg tablet 25 mg PO QAM omeprazole 40 mg capsule,delayed release(DR/EC) 40 mg PO BID simvastatin 40 mg Tablet 40 mg PO DAILY potassium chloride 20 mEq tablet,ER particles/crystals 20 meq PO QAM paliperidone 9 mg tablet extended release 24 hr 9 mg PO HS cholecalciferol (vitamin D3) [Vitamin D3] 50 mcg (2,000 unit) Tablet 50 mcg PO QAM Ozempic 1 mg/dose (4 mg/3 mL) pen injector 1 mg SUBCUT WK Referrals Referrals: Freddie Montoya DO [Primary Care Provider] -
--- NOTE | 2022-09-29 13:36 | XRay Report ---
SINGLE VIEW CHEST CLINICAL HISTORY: Atypical chest pain FINDINGS: An AP, portable, upright chest radiograph is compared to study dated 03/05/2022 and correlat ed with chest CT dated 05/26/2022. A hiatal hernia is noted. The cardiomediastinal silhouette is unrem arkable. There is airspace consolidation at the left lung base. Right lung appears clear. No pleural effusion or pneumothorax is seen. The bony thorax is grossly intact. IMPRESSION: Left basilar airspace consolidation is typical for pneumonia/aspiration pneumonitis. Clin ical correlation will be required and radiographic follow-up to resolution is recommended. ACT 112: Negative or not required by law. Electronically signed by: Russell Wade M.D. 09/29/2022 1:35 PM
[2022-09-29 13:37] LABS: Basophils # (auto) 0.03 K/uL (0-0.2); Basophils % (auto) 0.2 %; Hematocrit (blood only) 40.2 % (42.0-52.0); Hemoglobin 12.8 g/dl (14.0-18.0); Immature Granulocytes # (auto) 0.08 K/uL (0.01-0.20); Immature Granulocytes % (auto) 0.6 %; Lymphocytes # (auto) 0.96 K/uL (1.2-3.4); Lymphocytes % (auto) 7.4 %; Mean Corpuscular Hemoglobin 25.8 pg (25.0-34.0); Mean Corpuscular Hgb Conc 31.8 g/dL (32.0-36.0); Mean Corpuscular Volume 80.9 fL (80.0-100.0); Mean Platelet Volume 11.1 fL (9.4-12.4); Monocytes # (auto) 1.05 K/uL (0.11-0.59); Monocytes % (auto) 8.1 %; Neutrophils # (auto) 10.83 K/uL (1.40-6.50); Neutrophils % (auto) 83.7 %; Platelet Count 144 K/uL (130-400); RDW Coefficient of Variation 14.6 % (11.5-14.5); RDW Standard Deviation 42.6 fL (36.4-46.3); Red Blood Count 4.97 M/uL (4.70-6.10); White Blood Count 12.95 K/ul (4.8-10.8)
[2022-09-29 13:47] LABS: Albumin Globulin Ratio 1.3 (0.9-2); Albumin Level 4.1 gm/dl (3.4-5.0); BUN Creatinine Ratio 20.2 (10-20); Bilirubin,Total 0.5 mg/dl (0.2-1.0); Creatinine Clr Calc Pharmacy 95.2 ml/min; Est GFR (Non-African American) 75.1 ml/min; Globulin 3.1 gm/dl (2.5-4.0); Potassium 4.3 mmol/L (3.5-5.1); Total Protein 7.2 gm/dl (6.0-8.3)
[2022-09-29 13:52] LABS: Troponin I High Sensitivity 5.1 pg/ml (0-20)
[2022-09-29] MEDS ORDERED: PIPERACILLIN/TAZOBACTAM 4.5 GM/120 ML BAG IV ONE (14:00)
[2022-09-29] MEDS ORDERED: SODIUM CHLORIDE 0.9% 1000ML 1,000 ML IV ONE ×2 (14:00→17:27)
[2022-09-29 14:03] LABS: Appearance Urine Clear (Clear); Bacteria Urine Automated Negative (Negative); Bilirubin Urine Negative (Negative); Blood Urine Negative (Negative); Cast Urine Automated 0 /lpf (0-5); Color Urine Yellow; Epithelial Cell Urine Auto >30 /lpf (0-5); Glucose Urine UA 3+ (Negative); Ketones Urine Negative (Negative); Leukocyte Esterase Urine Trace (Negative); Nitrite Urine Negative (Negative); Protein Urine Negative (Negative); RBC Urine Automated 0-4 /hpf (0-4); Specific Gravity Urine 1.034 (1.000-1.030); Urobilinogen Urine Negative (Negative)
[2022-09-29 14:05] LABS: Base Excess VBG -0.3 mEq/L; HCO3 VBG 23 mmol/L; Oxygen Saturation VBG 86.1 %; PCO2 VBG 32 mmHg (38-50); PO2 VBG 57 mmHg; pH VBG 7.46 (7.36-7.41)
[2022-09-29 14:06] LABS: Partial Thromboplastin Ratio 0.8; Partial Thromboplastin Time 23.4 Seconds (21.0-31.0)
[2022-09-29 14:11] LABS: D Dimer 620 ug/L FEU (0-500)
[2022-09-29 14:25] LABS: Influenza A virus by PCR Negative (Neg); Influenza B virus by PCR Negative (Neg); RSV by PCR Negative (Neg); SARS CoV2 RNA(COVID-19) Ceph NEGATIVE (Negative)
[2022-09-29 14:42] LABS: C Reactive Protein 1.17 mg/dl (0-0.5)
--- NOTE | 2022-09-29 16:34 | History & Physical Report ---
Date of Service September 29, 2022 Assessment & Plan (1) Sepsis: (2) Pneumonia: (3) COPD (chronic obstructive pulmonary disease): Plan: Admit to med/surg with tele Patient presenting from home (community living situation through [facility]) with reports of shortness of breath and cough. I attempted to contact patient's caregiver however was unable to reach them. In the ED, tachycardic, tachypneic, WBC 12.9 K, lactate 2.5. Afebrile, BP stable. Saturating well on room air. CXR and CTA chest showing left basilar consolidation consistent with pneumonia S/p Zosyn in the ED, will continue with IV ceftriaxone and IV azithromycin Blood and sputum cultures Urine for Legionella S/p Solu-Medrol 105 mg in the ED. no wheezing on exam, saturating well on room air. Will hold on additional steroids at this time. Pulmonary toilet with nebs, Mucinex, incentive spirometer, flutter valve (4) Elevated d-dimer: Plan: CTA chest negative for PE, BL LE Doppler negative for DVT (5) DM type 2 (diabetes mellitus, type 2): Plan: Hgb A1c 9.0 05/2022, will update A1c with a.m. labs Lantus and NovoLog per protocol while hospitalized (6) Paranoid schizophrenia: Plan: Stable, continue home meds (7) Hypertension: Plan: BP controlled, continue carvedilol, lisinopril (8) Neurogenic bladder: Plan: Previously self cathed Patient reporting urinary frequency, bladder scan shows 175 cc, UA unremarkable Continue to monitor (9) Hypothyroidism: Plan: TSH 1.045 Continue levothyroxine (10) Sleep apnea: Plan: Noncompliant with CPAP DVT PROPHYLAXIS SQ Lovenox Patient seen in collaboration with Dr. Quiñones. I spent a total of 75 minutes coordinating, documenting, and providing care for this patient excluding time spent in the performance of separately billed services. This included personally reviewing all current laboratories and imaging studies, medication reconciliation, outpatient chart review, and discussion with specialists. History of Present Illness Chief Complaint: Shortness of breath Primary Care Provider: Freddie Montoya DO 47-year-old male with PMH DM type II, dyslipidemia, COPD, HTN, neurogenic bladder, depression, paranoid schizophrenia, intellectual disability, and other problems listed below who presents to the ED for evaluation of shortness of breath. History is somewhat limited from the patient due to underlying intellectual disability history obtained from review of outpatient PCP records. I attempted to call patient's caregiver however was unable to reach them. Patient states he developed a non productive cough last night. This morning he reports he was short of breath with minimal exertion. Denies shortness of breath at rest. No chest pain or palpitations. Denies lightheadedness, dizziness, syncopal event. Patient does report being diaphoretic today. No abdominal pain, nausea, vomiting, diarrhea. Currently reporting urinary frequency. No dysuria. Denies fevers and chills. In the ED, labs show WBC 12.9 K, D-dimer 620, lactate 2.5, CRP 1.17. CXR shows left basilar consolidation consistent with pneumonia. Patient is afebrile. Was tachycardic on presentation. Patient was also given albuterol, IV Solu-Medrol, IV Zosyn. Allergies Allergy/AdvReac Type Severity Reaction Status Date / Time bee venom protein (honey bee) Allergy Unknown ANAPHYLAXIS Verified 07/13/22 07:12 diphenhydramine Allergy Unknown pt care Verified 07/13/22 07:12 ruffling hemmer automatic unsure Home Medications Medication Instructions Recorded Confirmed Type acetaminophen 325 mg tablet 650 mg PO QID PRN Fever Or Pain 03/06/22 09/29/22 History (Tylenol) carvedilol 25 mg tablet 25 mg PO BID 03/06/22 09/29/22 History chlorpromazine 100 mg tablet 100 mg PO HS 03/06/22 09/29/22 History chlorpromazine 200 mg tablet 200 mg PO HS 03/06/22 09/29/22 History cholecalciferol (vitamin D3) 50 50 mcg PO QAM 03/06/22 09/29/22 History mcg (2,000 unit) tablet (Vitamin D3) empagliflozin 25 mg tablet 25 mg PO QAM 03/06/22 09/29/22 History (Jardiance) epinephrine 0.3 mg/0.3 mL 0.3 mg IM UD PRN .anaphylaxis 03/06/22 09/29/22 History injection, auto-injector (EpiPen) ezetimibe 10 mg tablet 10 mg PO QAM 03/06/22 09/29/22 History fluoride (sodium) 1.1 % dental 1 applic dental DAILY 12/05/22 06/30/23 History cream (Denta 5000 Plus) fluoxetine 20 mg capsule 20 mg PO QAM 03/06/22 09/29/22 History fluoxetine 40 mg capsule 40 mg PO QAM 03/06/22 09/29/22 History fluticasone propionate 50 2 spray intranasal QAM 03/06/22 09/29/22 History mcg/actuation nasal spray,suspension guaifenesin 600 mg tablet, 600 mg PO Q12H PRN Congestion 03/06/22 09/29/22 History extended release 12 hr (Mucinex) insulin aspart U-100 100 unit/mL 6 unit subcut DAILYBB 03/06/22 09/29/22 History (3 mL) subcutaneous pen (Novolog FlexPen U-100 Insulin aspart) insulin glargine 100 unit/mL (3 40 unit subcut BID 03/06/22 09/29/22 History mL) subcutaneous pen (Basaglar KwikPen U-100 Insulin) ipratropium 0.5 mg-albuterol 3 mg 3 ml inhalation QID PRN Shortness 03/06/22 09/29/22 History (2.5 mg base)/3 mL nebulization Of Breath Or Wheezing soln levalbuterol tartrate 45 2 puff inhalation Q6 PRN Shortness 03/06/22 09/29/22 History mcg/actuation aerosol inhaler Of Breath levothyroxine 100 mcg tablet 100 mcg PO QAM 03/06/22 09/29/22 History lisinopril 20 mg tablet 20 mg PO QAM 03/06/22 09/29/22 History loratadine 10 mg tablet 10 mg PO QAM 03/06/22 09/29/22 History menthol 0.44 %-zinc oxide 20.6 % 1 applic topical DIRECTED PRN 03/06/22 09/29/22 History topical ointment (Calmoseptine) itching metformin 1,000 mg tablet 1,000 mg PO BID 03/06/22 09/29/22 History mirtazapine 30 mg tablet 30 mg PO HS 03/06/22 09/29/22 History omeprazole 40 mg capsule,delayed 40 mg PO BID 03/06/22 09/29/22 History release paliperidone 9 mg tablet,extended 9 mg PO HS 03/06/22 09/29/22 History release 24 hr potassium chloride 20 mEq 20 meq PO QAM 03/06/22 09/29/22 History tablet,extended release(part/cryst) semaglutide 1 mg/dose (4 mg/3 mL) 1 mg subcut WK 03/06/22 09/29/22 History subcutaneous pen injector (Ozempic) fluticasone furoate 100 1 ea inhalation QAM #60 ea 07/05/22 09/29/22 Rx mcg-vilanterol 25 mcg/dose inhalation powder (Breo Ellipta) insulin aspart U-100 100 unit/mL See Rx Instructions .Route .COMPLEX 09/29/22 09/29/22 History (3 mL) subcutaneous pen (Novolog FlexPen U-100 Insulin aspart) ipratropium 20 mcg-albuterol 100 1 puff inhalation Q4H PRN 09/29/22 09/29/22 History mcg/actuation mist for inhalation Shortness Of Breath Or Wheezing (Combivent Respimat) rosuvastatin 5 mg tablet 5 mg PO DAILY 09/29/22 09/29/22 History Past Med/Surg History Medical History (Updated 09/29/22 @ 20:10 by KATIE Jaffe) COPD (chronic obstructive pulmonary disease) Depression Diabetes mellitus DM type 2 (diabetes mellitus, type 2) Dyslipidemia GERD (gastroesophageal reflux disease) History of COVID-19 History of pneumonia Hypertension Hypothyroidism Intellectual disability Neurogenic bladder Paranoid schizophrenia Pulmonary nodule Sleep apnea cpap/non compliant Unknown family medical history Vitamin D deficiency Surgical History H/O inguinal hernia repair this sx verified with caregiver/unsure further surgical hx History of cataract surgery Family History Mother Diabetes Father Hypertension Social History Smoking Status: Former smoker Tobacco Type: Cigarettes Second Hand Exposure: No; Do You Dip or Chew Tobacco: No; Hx Alcohol Use: No Hx Substance Use: No Preferred Language: Kosovan Communication Ability: Effective Communication Ability Comment: PT CAREGIVER BERNADETTE SHARDA MAST PHONE INTERVIEW Gift Basket Packer Required: No Beliefs That Will Affect Care: None Current Living Situation: Alone Current Living Situation [facility] Other Information That Helps Us Care for You: No Feels Safe at Home: Yes Safety Concerns: Feels Safe At This Time Assistive Devices: CPAP, Denture - Upper and Glasses Review of Systems Review of Systems: ROS per HPI, all other systems reviewed and negative Physical Exam Constitutional: WD/WN, vitals as above + diaphoretic Eyes: PERRL, conjunctivae normal, anicteric sclerae ENMT: external ear and nose normal, oropharynx normal Respiratory: normal respiratory effort, lungs clear to auscultation Cardiovascular: Rate/Rhythm: regular rate and regular rhythm Vessels: normal peripheral pulses Extremities: no edema Gastrointestinal (Abdomen): normal bowel sounds, soft, nontender, no hepatosplenomegaly Musculoskeletal: no cyanosis or clubbing, extremities motor strength 5/5 Skin: no rashes Neurologic: PERRL, EOMI, accommodation nl, no face palsy, no dysarthria Psychiatric: Orientation: alert and oriented x 3 Insight: + limited insight Underlying intellectual disability Results & Data Results & Data Vital Signs (Past 12 Hours) Vital Signs Temp Pulse Pulse Resp BP BP Pulse Ox 09/29/22 14:15 124 H 32 H 140/88 92 09/29/22 13:30 132 H 23 93 09/29/22 13:30 138/85 09/29/22 13:23 130 H 37 H 92 09/29/22 13:23 122/84 09/29/22 13:20 97 09/29/22 13:15 97 09/29/22 13:00 127 H 36 H 92 09/29/22 12:58 127 H 31 H 92 09/29/22 13:12 127 H 09/29/22 13:04 126 H 32 H 93 09/29/22 13:04 126 H 32 H 158/86 H 93 09/29/22 12:28 36.8 C 132 H 18 132/72 92 O2 Del Method 09/29/22 14:15 Room Air 09/29/22 13:30 09/29/22 13:30 09/29/22 13:23 09/29/22 13:23 09/29/22 13:20 09/29/22 13:15 09/29/22 13:00 09/29/22 12:58 09/29/22 13:12 09/29/22 13:04 Room Air 09/29/22 13:04 Room Air 09/29/22 12:28 Room Air Laboratory Results Short CBC 09/29/22 Range/Units 13:09 WBC 12.95 H (4.8-10.8) K/ul Hgb 12.8 L (14.0-18.0) g/dl Hct 40.2 L (42.0-52.0) % Plt Count 144 (130-400) K/uL BMP 09/29/22 13:09 Sodium 136 Potassium 4.3 Chloride 104 Carbon Dioxide 22 BUN 23 Creatinine 1.14 Glucose 189 H Calcium 9.0 Liver Function 09/29/22 Range/Units 13:09 Total Bilirubin 0.5 (0.2-1.0) mg/dl AST 21 (13-39) U/L ALT 29 (7-52) U/L Alkaline Phosphatase 65 (34-104) U/L Albumin 4.1 (3.4-5.0) gm/dl Urine 09/29/22 Range/Units 13:13 Urine Color Yellow Urine Appearance Clear (Clear) Urine pH 5.0 (4.5-7.5) Ur Specific [place] 1.034 H (1.000-1.030) Urine Protein Negative (Negative) Urine Glucose (UA) 3+ H (Negative) Diagnostic Findings Chest X-Ray 09/29/22 12:34 SINGLE VIEW CHEST CLINICAL HISTORY: Atypical chest pain FINDINGS: An AP, portable, upright chest radiograph is compared to study dated 03/05/2022 and correlated with chest CT dated 05/26/2022. A hiatal hernia is noted. The cardiomediastinal silhouette is unremarkable. There is airspace consolidation at the left lung base. Right lung appears clear. No pleural effusion or pneumothorax is seen. The bony thorax is grossly intact. IMPRESSION: Left basilar airspace consolidation is typical for pneumonia/aspiration pneumonitis. Clinical correlation will be required and radiographic follow-up to resolution is recommended. ACT 112: Negative or not required by law. Electronically signed by: Russell Wade M.D. 09/29/2022 1:35 PM Venous Doppler Study 09/29/22 14:44 US venous doppler LE CLINICAL HISTORY: elevated dimer TECHNIQUE: Bilateral lower extremity real-time compression venous ultrasound with Color Doppler imaging. Utilizing real-time ultrasonic imaging multiple real time high-resolution ultrasonic images with compression and noncompression maneuvers of the deep venous system in addition to color doppler imaging were performed from the common femoral vein through the proximal calf veins. COMPARISON: Comparison is made to Doppler ultrasound 08/15/2021 FINDINGS/IMPRESSION: Currently there is normal compressibility of the deep venous system from the common femoral vein through the proximal calf veins. No superficial venous thrombosis is identified. ACT 112: Negative or not required by law. Electronically signed by: Madi Smith M.D. 09/29/2022 4:34 PM Code Status & VTE Plan VTE Prophylaxis Plan VTE Prophylaxis will be ordered: Yes Supervising Physician Co-Signing Physician Notes I have seen and examined the patient and have discussed the case with the provider above. I agree with the assessment and plan as stated. 47 yo M with an intellectual delay (ID) presents with sepsis 2/2 pneumonia. He reports significant recent coughing, however, his ID limits the history. He is currently eating at bedside independently, sitting up on the side of the bed. He appears obese, comfortable and in no acute distress. He appears to be sweating less than he was earlier in the ER. His heart rate has come down some with the fluid boluses. Lungs are clear to auscultation throughout. He demonstrates no respiratory distress. Diagnostic review includes WBC 13K, mild anemia, Dimer 620 with no evidence of PE, chem panel within normal limits with hyperglycemia. Lactate is elevated. CRP 1.17, Biofire resp panel negative. UA and U tox screen negative 1. sepsis 2/2 pneumonia 2. neurogenic bladder 3. Schizophrenia with intellectual delay 4. Uncontrolled DMII Importantly the patient has a h/o on records of neurogenic bladder. He has clear hyperglycemia with uncontrolled DMII and is on jardiance. He was going to the bathroom so many times, it was difficult for the nurses to get the IVF into him in the ER. Jardiance is not a recommended medication for him. This will be held inpatient and should be discontinued at discharge. Ongoing tachycardia related to sepsis, nebulized bronchodilators and steroids. We are unable to understand if any missed doses of medications (eg: coreg) may be contributing to his current clinical picture as his master control operator is unavailable to add to history. Continue with Rocephin/Azithro for treatment of pneumonia. Agree with holding steroids and minimizing nebulizer therapy without wheezing. Will cont to monitor bladder scan q6 hrs. Review his glycemic regimen for opportunities. DO Ishmael (2) Pneumonia Laterality: left Lung location: lower lobe of lung Pneumonia type: due to unspecified organism Qualified Code(s): J18.9 - Pneumonia, unspecified organism
--- NOTE | 2022-09-29 16:35 | Ultrasound Report ---
US venous doppler LE BI CLINICAL HISTORY: elevated dimer TECHNIQUE: Bilateral lower extremity real-time compression venous ultrasound with Color Doppler imagi ng. Utilizing real-time ultrasonic imaging multiple real time high-resolution ultrasonic images with compression and noncompression maneuvers of the deep venous system in addition to color doppler imagi ng were performed from the common femoral vein through the proximal calf veins. COMPARISON: Comparison is made to Doppler ultrasound 08/15/2021 FINDINGS/IMPRESSION: Currently there is normal compressibility of the deep venous system from the common femoral vein thro ugh the proximal calf veins. No superficial venous thrombosis is identified. ACT 112: Negative or not required by law. Electronically signed by: Madi Smith M.D. 09/29/2022 4:34 PM
[2022-09-29] MEDS ORDERED: OPTIRAY 320 125ml IV ONE (16:54)
--- NOTE | 2022-09-29 17:06 | CT Scan Report ---
CT ANGIOGRAM OF THE CHEST CLINICAL HISTORY: Atypical chest pain. Dyspnea. Wheezing. COMPARISON STUDY: Chest x-ray dated 09/29/2022. Chest CT dated 05/26/2022. TECHNIQUE: Following the IV administration of 120 cc of Optiray 320, CT angiogram of the chest was pe rformed from the upper abdomen to the thoracic inlet utilizing the pulmonary embolus protocol. Images are reviewed in the axial, sagittal, and coronal planes. 3-D MIPS images are created and assessed. I V contrast was administered without complication. A dose lowering technique was utilized adhering to the principles of ALARA. CT DOSE: 910.48 mGy.cm FINDINGS: Thyroid: Imaged portions of the thyroid gland are normal in size and attenuation. Thoracic aorta: The thoracic aorta is normal in caliber and demonstrates 4-vessel variant arch anatom y. An aberrant right subclavian artery arises as a fourth branch and courses posterior to the esophag us. No dissection is seen. Pulmonary vasculature: The pulmonary trunk is normal in caliber. There are no filling defects identif ied in main, lobar, or segmental pulmonary branches to suggest pulmonary embolus. Heart: The heart is normal in size and without pericardial effusion. Lungs and pleural spaces: There is patchy nodular airspace consolidation throughout the left lung, gr eatest at the left lung bases. There is minimal atelectasis at the right lung base The right lung oth erwise appears clear. No pleural effusion is seen. Minimal secretions are noted in the trachea. A 3 m m right upper lobe pulmonary nodule in image #134 is unchanged. Mediastinum: There is no mediastinal lymphadenopathy. Tamara: Mildly enlarged left hilar nodes measure up to 13 mm in short axis. These are likely reactive. No right hilar adenopathy is seen. Axillae: There is no axillary lymphadenopathy. Upper abdomen: There is a moderate to large hiatal hernia. Partially visualized upper abdominal visc era is otherwise grossly unremarkable. Skeletal structures: No lytic or blastic bony lesions are seen. IMPRESSION: 1. There is no evidence of pulmonary embolus in the main, lobar, or segmental pulmonary arteries. 2. Airspace consolidation throughout the left lung is typical for pneumonia/aspiration pneumonitis. C linical correlation will be required and radiographic follow-up to resolution is recommended. 3. The right lung appears clear. No pleural effusion is seen. 4. Mildly enlarged left hilar nodes are likely reactive. 5. Moderate to large hiatal hernia. 6. Additional findings as above. ACT 112: Negative or not required by law. Electronically signed by: Russell Wade M.D. 09/29/2022 5:04 PM
[2022-09-29] MEDS: SODIUM CHLORIDE 0.9% 1000ML 1,000 ML IV SCH (17:16)
[2022-09-29 18:50] LABS: Amphetamines+Metham, Urine Neg (Neg); Barbiturates, Urine Neg (Neg); Benzodiazepine, Urine Neg (Neg); Cocaine, Urine Neg (Neg); MDMA (Ecstacy), Urine Neg (Neg); Methadone, Urine Neg (Neg); Opiate, Urine Neg (Neg); Phencyclidine, Urine Neg (Neg)
[2022-09-29] MEDS ORDERED: ALBUT/IPRATROP 3MG/0.5MG NEB 3 ML VIAL NEB SCH (19:25)
[2022-09-29] MEDS ORDERED: GLUCOSE 40% GEL 15 GM TUBE PO PRN (19:25)
[2022-09-29] MEDS ORDERED: GLUCOSE 10 TAB/TUBE PO PRN (19:25)
[2022-09-29] MEDS ORDERED: DEXTROSE 50% 50 ML SYRINGE IV PRN (19:25)
[2022-09-29] MEDS ORDERED: GLUCAGON FOR INJ 1 MG VIAL SQ PRN (19:25)
[2022-09-29] MEDS ORDERED: CARBOHYDRATES FOR HYPOGLYCEMIA PO PRN (19:25)
[2022-09-29] MEDS ORDERED: ACETAMINOPHEN 325 MG TAB PO PRN (19:25)
[2022-09-29] MEDS ORDERED: PHARMACY GLYCEMIC MGMT CONSULT PRN (19:25)
[2022-09-29] MEDS: AZITHROMYCIN 500 MG in DEXTROSE 5% 250 ML IV SCH (20:57)
[2022-09-29] MEDS: cefTRIAXone SODIUM 2,000 MG in DEXTROSE 5% 50 ML IV SCH (20:58)
[2022-09-29] MEDS: MIRTAZAPINE TAB 15 MG TAB PO SCH (21:01)
[2022-09-29] MEDS: ENOXAPARIN INJ 40 MG/0.4 ML SYR SQ SCH (21:01)
[2022-09-29] MEDS: PALIPERIDONE 3 MG TABCR PO SCH (21:01)
[2022-09-29] MEDS: guaiFENesin 600 MG TABCR PO SCH (21:03)
[2022-09-29] MEDS: PANTOprazole 40 MG TAB PO SCH (21:04)
[2022-09-29] MEDS: carvediloL 25 MG TAB PO SCH (21:04)
[2022-09-29 21:13] LABS: Adenovirus PCR Not Detected (NotDetected); Bordetella parapertussis PCR Not Detected (NotDetected); Bordetella pertussis PCR Not Detected (NotDetected); Chlamydia pneumoniae PCR Not Detected (NotDetected); Coronavirus 229E PCR Not Detected (NotDetected); Coronavirus CoV-2 (COVID19)PCR Not Detected (NotDetected); Coronavirus HKU1 PCR Not Detected (NotDetected); Coronavirus NL63 PCR Not Detected (NotDetected); Coronavirus OC43PCR Not Detected (NotDetected); Human Metapneumovirus PCR Not Detected (NotDetected); Influenza A PCR Not Detected (NotDetected); Influenza B PCR Not Detected (NotDetected); Mycoplasma pneumoniae PCR Not Detected (NotDetected); Parainfluenza Virus 1 PCR Not Detected (NotDetected); Parainfluenza Virus 2 PCR Not Detected (NotDetected); Parainfluenza Virus 3 PCR Not Detected (NotDetected); Parainfluenza Virus 4 PCR Not Detected (NotDetected); Respiratory Syncytial VirusPCR Not Detected (NotDetected); Rhinovirus/Enterovirus PCR Not Detected (NotDetected)
[2022-09-29] MEDS ORDERED: LANTUS PER UNIT CHARGE SC ONE (21:15)
[2022-09-29] MEDS: INSULIN ASPART PER UNIT CHARGE SC SCH (21:18)
[2022-09-30] MEDS ORDERED: INSULIN ASPART PER UNIT CHARGE SC ONE (02:00)
[2022-09-30] MEDS: ALBUT/IPRATROP 3MG/0.5MG NEB 3 ML VIAL NEB SCH ×2 (06:54→19:10)
[2022-09-30 07:09] LABS: Hematocrit (blood only) 35.8 % (42.0-52.0); Hemoglobin 11.3 g/dl (14.0-18.0); Mean Corpuscular Hemoglobin 25.4 pg (25.0-34.0); Mean Corpuscular Hgb Conc 31.6 g/dL (32.0-36.0); Mean Corpuscular Volume 80.4 fL (80.0-100.0); Mean Platelet Volume 10.6 fL (9.4-12.4); Platelet Count 155 K/uL (130-400); RDW Coefficient of Variation 14.8 % (11.5-14.5); Red Blood Count 4.45 M/uL (4.70-6.10); White Blood Count 13.24 K/ul (4.8-10.8)
[2022-09-30 07:44] LABS: BUN Creatinine Ratio 24.5 (10-20); Calcium 8.2 mg/dl (8.6-10.3); Creatinine Clr Calc Pharmacy 113.3 ml/min; Est GFR (African American) 104.5 ml/min; Est GFR (Non-African American) 90.2 ml/min
[2022-09-30] MEDS: LORATADINE 10 MG TAB PO SCH (08:02)
[2022-09-30] MEDS: carvediloL 25 MG TAB PO SCH ×2 (08:02→20:12)
[2022-09-30] MEDS: ROSUVASTATIN CALCIUM 5 MG TAB PO SCH (08:02)
[2022-09-30] MEDS: guaiFENesin 600 MG TABCR PO SCH ×2 (08:02→20:12)
[2022-09-30] MEDS: PANTOprazole 40 MG TAB PO SCH ×2 (08:02→20:12)
[2022-09-30] MEDS: FLUoxetine HCL 20 MG CAP PO SCH ×2 (08:02→08:03)
[2022-09-30] MEDS: lisinopril 20 MG TAB PO SCH (08:02)
[2022-09-30 08:03] LABS: Estimated Average Glucose 258 mg/dl; Hemoglobin A1C 10.6 % (4.5-5.6)
[2022-09-30] MEDS: LEVOTHYROXINE SODIUM 100 MCG TABLET PO SCH (08:03)
[2022-09-30] MEDS: FLUTICASONE/VILANTEROL 100/25MCG 14 PUFFS/INHALER INH SCH (08:03)
[2022-09-30] MEDS: POTASSIUM CHLORIDE CRTAB 20 MEQ TABCR PO SCH (08:03)
[2022-09-30] MEDS: EZETIMIBE 10 MG TABLET PO SCH (08:04)
[2022-09-30] MEDS: INSULIN ASPART PER UNIT CHARGE SC SCH ×4 (08:30→20:27)
[2022-09-30] MEDS: SODIUM CHLORIDE 0.9% 1000ML 1,000 ML IV SCH ×2 (08:33→16:20)
[2022-09-30] MEDS ORDERED: LANTUS PER UNIT CHARGE SC ONE (09:00)
--- NOTE | 2022-09-30 14:13 | Pharmacy Report ---
Pharmacy Glycemic Short Note 2 - Date of Service September 30, 2022 - Glycemic Short BSG Results (Last 24 hours): 09/29/22 09/29/22 09/30/22 18:22 20:37 02:12 Glucose POC Glucose 258 H 291 H 240 H 09/30/22 09/30/22 09/30/22 06:39 07:15 11:15 Glucose 153 H POC Glucose 162 H 214 H OUTPATIENT ANTIDIABETIC REGIMEN: * Basaglar 40 units BID * Jardiance 25 mg PO daily * Ozempic 1 mg SQ weekly * metformin 1000 mg PO BIDM * HbA1C = 10.6% (09/30/22) ASSESSMENT: * Mr Dayne is a 47 y/o M with a PMH of IDDM who presents with pneumonia. The patient is currently on Rocephin and Zithromax IV. * He received Solu-Medrol 125 mg IV x 1 in the ER (yesterday). Patient's BSG prior to this was 189 mg/dL. His BSGs after this were 258-291 mg/dL. * Yesterday (day of admission), patient received Lantus 40 units plus 14 units of Novolog. * Fasting today was 162 mg/dL. Continue Lantus 40 units this morning to help cover steroid hyperglycemia then utilized weight-based Lantus doses going forward. * Novolog weight-based stress of 3 due to steroids + insulin use at home. PLAN FOR INPATIENT GLYCEMIC CONTROL: * Hold outpatient oral diabetes medications * Basal insulin * Lantus 40 units SQ x 1 then 20-30 units SQ BID * Bolus insulin * NovoLog per scale ACHS or Q6hrs while NPO * Goal Range: Low 110 mg/dL - High 140 mg/dL * Correction Factor: 20 mg/dL/unit * Nutritional / Prandial insulin per carb ratio of 1 unit per 5 grams CHO consumed
--- NOTE | 2022-09-30 15:56 | Hospitalist Progress Note ---
Date of Service September 30, 2022 Assessment & Plan (1) Sepsis: (2) Pneumonia: (3) COPD (chronic obstructive pulmonary disease): Plan: Sepsis Secondary to Pneumonia Elevated D-dimer Lactic acidosis --CTA:There is no evidence of pulmonary embolus in the main, lobar, or segmental pulmonary arteries. Airspace consolidation throughout the left lung is typical for pneumonia/aspiration pneumonitis. Clinical correlation will be required and radiographic follow-up to resolution is recommended. The right lung appears clear. No pleural effusion is seen. Mildly enlarged left hilar nodes are likely reactive. --Venous Doppler:Currently there is normal compressibility of the deep venous system from the common femoral vein through the proximal calf veins. No superficial venous thrombosis is identified. --Blood Cx:Negative to date --Urine for Legionella pending Continue Rocephin, azithromycin Continue IV fluids Aspiration precautions Continue Pulmonary toilet with nebs, Mucinex, incentive spirometer, flutter valve (4) Elevated d-dimer: Plan: CTA chest negative for PE, BL LE Doppler negative for DVT (5) DM type 2 (diabetes mellitus, type 2): Plan: Uncontrolled Hgb A1c 10.6 Lantus and NovoLog per protocol while hospitalized Glycemic pharmacist consulted (6) Paranoid schizophrenia: Plan: Stable, continue home meds (7) Hypertension: Plan: Continue carvedilol, lisinopril with holding parameters (8) Neurogenic bladder: Plan: Previously self cathed Continue to monitor Monitor for retention (9) Hypothyroidism: Plan: TSH 1.045 Continue levothyroxine (10) Sleep apnea: Plan: Noncompliant with CPAP DVT Px SQ Lovenox Admission and Anticipated Discharge Date Admission Date: September 29, 2022 Subjective Patient is seen and examined at bedside Feels better today Reports cough with expectoration Denies any chest pain, dyspnea, dizziness, nausea, abdominal pain No other complaints Review of Systems Review of Systems: All systems reviewed & are unremarkable except as noted in Subjective Physical Exam Physical Exam: Physical Exam: Vitals signs as noted above General Appearance:Obese, no apparent distress Head: normocephalic, Atraumatic Eyes: normal inspection, EOMI Neck: supple, Trachea midline Respiratory/Chest: Decreased breath sounds, CTA, No accessory muscle use Cardiovascular: S1, S2, No murmur,+Tachycardia Abdomen/GI:Soft, Non tender, Bowel sounds present Extremities/Musculoskeletal:normal inspection, no edema Neurologic/Psych:AAOX3, grossly no focal neurological deficits Skin: normal color, warm Results & Data Results & Data Vital Signs (Past 12 Hours) Vital Signs Temp Pulse Pulse Resp BP Pulse Ox O2 Del Method 09/30/22 15:04 36.3 C L 110 H 16 113/56 L 97 Room Air 09/30/22 10:00 Room Air 09/30/22 07:44 36.6 C 104 H 16 122/81 93 Room Air 09/30/22 07:00 99 H 09/30/22 06:55 104 H 18 94 Room Air Laboratory Results Short CBC 09/30/22 Range/Units 06:39 WBC 13.24 H (4.8-10.8) K/ul Hgb 11.3 L (14.0-18.0) g/dl Hct 35.8 L (42.0-52.0) % Plt Count 155 (130-400) K/uL BMP 09/30/22 06:39 Sodium 140 Potassium 4.0 Chloride 109 H Carbon Dioxide 24 BUN 24 H Creatinine 0.98 Glucose 153 H Calcium 8.2 L (2) Pneumonia Laterality: left Lung location: lower lobe of lung Pneumonia type: due to unspecified organism Qualified Code(s): J18.9 - Pneumonia, unspecified organism
[2022-09-30] MEDS ORDERED: MAGNESIUM SULFATE / D5W 1 GM/100 ML BAG IV ONE (17:06)
[2022-09-30] MEDS: PALIPERIDONE 3 MG TABCR PO SCH (20:12)
[2022-09-30] MEDS: MIRTAZAPINE TAB 15 MG TAB PO SCH (20:12)
[2022-09-30] MEDS: ENOXAPARIN INJ 40 MG/0.4 ML SYR SQ SCH (20:14)
[2022-09-30] MEDS: cefTRIAXone SODIUM 2,000 MG in DEXTROSE 5% 50 ML IV SCH (20:26)
[2022-09-30] MEDS: AZITHROMYCIN 500 MG in DEXTROSE 5% 250 ML IV SCH (20:26)
[2022-09-30] MEDS: LANTUS PER UNIT CHARGE SC SCH (20:27)
--- NOTE | 2022-09-30 20:54 | Electrocardiogram Report ---
Test Reason : Blood Pressure : / mmHG Vent. Rate : 132 BPM Atrial Rate : 132 BPM P-R Int : 124 ms QRS Dur : 128 ms QT Int : 312 ms P-R-T Axes : 048 051 010 degrees QTc Int : 462 ms Sinus tachycardia Right bundle branch block Cannot rule out Inferior infarct , age undetermined Abnormal ECG When compared with ECG of 06-MAR-2022 16:26, No significant change was found Confirmed by Orestes Gilmore ([id number]) on 09/30/2022 8:53:48 PM Referred By: Confirmed By:Orestes Gilmore
[2022-10-01] MEDS: SODIUM CHLORIDE 0.9% 1000ML 1,000 ML IV SCH (02:51)
[2022-10-01] MEDS: ALBUT/IPRATROP 3MG/0.5MG NEB 3 ML VIAL NEB SCH ×2 (06:56→19:49)
[2022-10-01 07:11] LABS: Hematocrit (blood only) 34.5 % (42.0-52.0); Hemoglobin 10.5 g/dl (14.0-18.0); Mean Corpuscular Hemoglobin 25.4 pg (25.0-34.0); Mean Corpuscular Hgb Conc 30.4 g/dL (32.0-36.0); Mean Corpuscular Volume 83.5 fL (80.0-100.0); Mean Platelet Volume 10.5 fL (9.4-12.4); Platelet Count 138 K/uL (130-400); RDW Coefficient of Variation 15.2 % (11.5-14.5); RDW Standard Deviation 46.1 fL (36.4-46.3); Red Blood Count 4.13 M/uL (4.70-6.10)
[2022-10-01 07:40] LABS: BUN Creatinine Ratio 22.4 (10-20); Calcium 7.4 mg/dl (8.6-10.3); Creatinine Clr Calc Pharmacy 103.2 ml/min; Est GFR (Non-African American) 81.1 ml/min; Magnesium 2.2 mg/dl (1.7-2.4); Potassium 4.1 mmol/L (3.5-5.1)
[2022-10-01] MEDS: guaiFENesin 600 MG TABCR PO SCH ×2 (07:56→20:48)
[2022-10-01] MEDS: FLUTICASONE/VILANTEROL 100/25MCG 14 PUFFS/INHALER INH SCH (07:56)
[2022-10-01] MEDS: FLUoxetine HCL 20 MG CAP PO SCH ×2 (07:57)
[2022-10-01] MEDS: POTASSIUM CHLORIDE CRTAB 20 MEQ TABCR PO SCH (07:57)
[2022-10-01] MEDS: lisinopril 20 MG TAB PO SCH (07:57)
[2022-10-01] MEDS: LORATADINE 10 MG TAB PO SCH (07:57)
[2022-10-01] MEDS: ROSUVASTATIN CALCIUM 5 MG TAB PO SCH (07:57)
[2022-10-01] MEDS: PANTOprazole 40 MG TAB PO SCH ×2 (07:57→20:47)
[2022-10-01] MEDS: carvediloL 25 MG TAB PO SCH ×2 (07:57→20:48)
[2022-10-01] MEDS: EZETIMIBE 10 MG TABLET PO SCH (07:57)
[2022-10-01] MEDS: LEVOTHYROXINE SODIUM 100 MCG TABLET PO SCH (07:58)
[2022-10-01] MEDS: INSULIN ASPART PER UNIT CHARGE SC SCH ×4 (08:04→20:45)
[2022-10-01] MEDS: LANTUS PER UNIT CHARGE SC SCH ×2 (08:58→20:45)
[2022-10-01] MEDS ORDERED: STAT IV STA (09:24)
[2022-10-01] MEDS ORDERED: CALCIUM GLUCONATE 10% 1,000 MG in DEXTROSE 5% 50 ML IV ONE (09:24)
--- NOTE | 2022-10-01 16:06 | Hospitalist Progress Note ---
Date of Service October 01, 2022 Assessment & Plan (1) Sepsis: (2) Pneumonia: (3) COPD (chronic obstructive pulmonary disease): Plan: Sepsis Secondary to Pneumonia Elevated D-dimer Lactic acidosis --CTA:There is no evidence of pulmonary embolus in the main, lobar, or segmental pulmonary arteries. Airspace consolidation throughout the left lung is typical for pneumonia/aspiration pneumonitis. Clinical correlation will be required and radiographic follow-up to resolution is recommended. The right lung appears clear. No pleural effusion is seen. Mildly enlarged left hilar nodes are likely reactive. --Venous Doppler:Currently there is normal compressibility of the deep venous system from the common femoral vein through the proximal calf veins. No superficial venous thrombosis is identified. --Blood Cx:Negative to date --Urine for Legionella pending Continue Rocephin, azithromycin Received IV fluids Aspiration precautions Continue Pulmonary toilet with nebs, Mucinex, incentive spirometer, flutter valve Clinically improving Likely discharge tomorrow (4) Elevated d-dimer: Plan: CTA chest negative for PE, BL LE Doppler negative for DVT (5) DM type 2 (diabetes mellitus, type 2): Plan: Uncontrolled Hgb A1c 10.6 Lantus and NovoLog per protocol while hospitalized Glycemic pharmacist consulted (6) Paranoid schizophrenia: Plan: Stable, continue home meds (7) Hypertension: Plan: Continue carvedilol, lisinopril with holding parameters (8) Neurogenic bladder: Plan: Previously self cathed Continue to monitor Monitor for retention (9) Hypothyroidism: Plan: TSH 1.045 Continue levothyroxine (10) Sleep apnea: Plan: Noncompliant with CPAP DVT Px SQ Lovenox Admission and Anticipated Discharge Date Admission Date: September 29, 2022 Subjective Patient is seen and examined at bedside Cough continues to improve No new complaints Denies any chest pain, dyspnea, dizziness, nausea, abdominal pain Review of Systems Review of Systems: All systems reviewed & are unremarkable except as noted in Subjective Physical Exam Physical Exam: Physical Exam: Vitals signs as noted above General Appearance:Obese, no apparent distress Head: normocephalic, Atraumatic Eyes: normal inspection, EOMI Neck: supple, Trachea midline Respiratory/Chest: Decreased breath sounds, CTA, No accessory muscle use Cardiovascular: S1, S2, No murmur,+Tachycardia Abdomen/GI:Soft, Non tender, Bowel sounds present Extremities/Musculoskeletal:normal inspection, no edema Neurologic/Psych:AAOX3, grossly no focal neurological deficits Skin: normal color, warm Results & Data Results & Data Vital Signs (Past 12 Hours) Vital Signs Temp Pulse Pulse Resp BP Pulse Ox O2 Del Method 10/01/22 15:28 36.4 C L 84 20 116/80 94 Room Air 10/01/22 15:00 82 10/01/22 11:47 33.4 C L 86 16 99/64 L 95 Room Air 10/01/22 08:00 Room Air 10/01/22 08:16 36.5 C 102 H 16 122/78 95 Room Air 10/01/22 07:46 72 10/01/22 06:56 96 H 16 95 Room Air Laboratory Results Short CBC 10/01/22 Range/Units 06:11 WBC 8.20 (4.8-10.8) K/ul Hgb 10.5 L (14.0-18.0) g/dl Hct 34.5 L (42.0-52.0) % Plt Count 138 (130-400) K/uL BMP 10/01/22 06:11 Sodium 139 Potassium 4.1 Chloride 111 H Carbon Dioxide 21 BUN 24 H Creatinine 1.07 Glucose 125 H Calcium 7.4 L (2) Pneumonia Laterality: left Lung location: lower lobe of lung Pneumonia type: due to unspecified organism Qualified Code(s): J18.9 - Pneumonia, unspecified organism
[2022-10-01] MEDS: cefTRIAXone SODIUM 2,000 MG in DEXTROSE 5% 50 ML IV SCH (20:47)
[2022-10-01] MEDS: ENOXAPARIN INJ 40 MG/0.4 ML SYR SQ SCH (20:47)
[2022-10-01] MEDS: PALIPERIDONE 3 MG TABCR PO SCH (20:49)
[2022-10-01] MEDS: MIRTAZAPINE TAB 15 MG TAB PO SCH (20:50)
[2022-10-01] MEDS: AZITHROMYCIN 500 MG in DEXTROSE 5% 250 ML IV SCH (21:44)
[2022-10-02] MEDS: LEVOTHYROXINE SODIUM 100 MCG TABLET PO SCH (06:17)
[2022-10-02] MEDS: ALBUT/IPRATROP 3MG/0.5MG NEB 3 ML VIAL NEB SCH (06:50)
[2022-10-02 07:37] LABS: Hematocrit (blood only) 36.4 % (42.0-52.0); Hemoglobin 11.2 g/dl (14.0-18.0); Mean Corpuscular Hemoglobin 25.5 pg (25.0-34.0); Mean Corpuscular Hgb Conc 30.8 g/dL (32.0-36.0); Mean Corpuscular Volume 82.9 fL (80.0-100.0); Mean Platelet Volume 10.6 fL (9.4-12.4); Platelet Count 156 K/uL (130-400); RDW Coefficient of Variation 14.8 % (11.5-14.5); Red Blood Count 4.39 M/uL (4.70-6.10); White Blood Count 6.62 K/ul (4.8-10.8)
[2022-10-02 07:56] LABS: BUN Creatinine Ratio 15.2 (10-20); Calcium 8.2 mg/dl (8.6-10.3); Creatinine Clr Calc Pharmacy 104.8 ml/min; Est GFR (African American) 96.1 ml/min; Potassium 4.4 mmol/L (3.5-5.1)
[2022-10-02] MEDS: LORATADINE 10 MG TAB PO SCH (08:28)
[2022-10-02] MEDS: ROSUVASTATIN CALCIUM 5 MG TAB PO SCH (08:28)
[2022-10-02] MEDS: lisinopril 20 MG TAB PO SCH (08:28)
[2022-10-02] MEDS: carvediloL 25 MG TAB PO SCH (08:28)
[2022-10-02] MEDS: guaiFENesin 600 MG TABCR PO SCH (08:28)
[2022-10-02] MEDS: FLUoxetine HCL 20 MG CAP PO SCH ×2 (08:29)
[2022-10-02] MEDS: POTASSIUM CHLORIDE CRTAB 20 MEQ TABCR PO SCH (08:29)
[2022-10-02] MEDS: EZETIMIBE 10 MG TABLET PO SCH (08:29)
[2022-10-02] MEDS: PANTOprazole 40 MG TAB PO SCH (08:29)
[2022-10-02] MEDS: FLUTICASONE/VILANTEROL 100/25MCG 14 PUFFS/INHALER INH SCH (08:29)
[2022-10-02] MEDS: LANTUS PER UNIT CHARGE SC SCH (08:32)
[2022-10-02] MEDS: INSULIN ASPART PER UNIT CHARGE SC SCH ×2 (08:32→12:06)
[2022-10-02] MEDS ORDERED: CHOLECALCIFEROL 1,000 UNITS 25 MCG TAB PO SCH (09:00)
--- NOTE | 2022-10-02 14:06 | Hospitalist Progress Note ---
Date of Service October 02, 2022 Assessment & Plan (1) Sepsis: (2) Pneumonia: (3) COPD (chronic obstructive pulmonary disease): Plan: Sepsis Secondary to Pneumonia Elevated D-dimer Lactic acidosis --CTA:There is no evidence of pulmonary embolus in the main, lobar, or segmental pulmonary arteries. Airspace consolidation throughout the left lung is typical for pneumonia/aspiration pneumonitis. Clinical correlation will be required and radiographic follow-up to resolution is recommended. The right lung appears clear. No pleural effusion is seen. Mildly enlarged left hilar nodes are likely reactive. --Venous Doppler:Currently there is normal compressibility of the deep venous system from the common femoral vein through the proximal calf veins. No superficial venous thrombosis is identified. --Blood Cx:Negative to date --Urine for Legionella pending Continue Rocephin, azithromycin Received IV fluids Aspiration precautions Continue Pulmonary toilet with nebs, Mucinex, incentive spirometer, flutter valve Stable for discharge Plan to discharge to [facility] when accepted (4) Elevated d-dimer: Plan: CTA chest negative for PE, BL LE Doppler negative for DVT (5) DM type 2 (diabetes mellitus, type 2): Plan: Uncontrolled Hgb A1c 10.6 Lantus and NovoLog per protocol while hospitalized Glycemic pharmacist consulted (6) Paranoid schizophrenia: Plan: Stable, continue home meds (7) Hypertension: Plan: Continue carvedilol, lisinopril with holding parameters (8) Neurogenic bladder: Plan: Previously self cathed Continue to monitor Monitor for retention (9) Hypothyroidism: Plan: TSH 1.045 Continue levothyroxine (10) Sleep apnea: Plan: Noncompliant with CPAP DVT Px SQ Lovenox Admission and Anticipated Discharge Date Admission Date: September 29, 2022 Subjective Patient is seen and examined at bedside States feeling well No new complaints Denies any significant cough Also denies any chest pain, dyspnea, dizziness, nausea, abdominal pain Review of Systems Review of Systems: All systems reviewed & are unremarkable except as noted in Subjective Physical Exam 2 Physical Exam: Physical Exam: Vitals signs as noted above General Appearance:Obese, no apparent distress Head: normocephalic, Atraumatic Eyes: normal inspection, EOMI Neck: supple, Trachea midline Respiratory/Chest: Decreased breath sounds, CTA, No accessory muscle use Cardiovascular: S1, S2, No murmur Abdomen/GI:Soft, Non tender, Bowel sounds present Extremities/Musculoskeletal:normal inspection, no edema Neurologic/Psych:AAOX3, grossly no focal neurological deficits Skin: normal color, warm Results & Data Results & Data Vital Signs (Past 12 Hours) Vital Signs Temp Pulse Pulse Resp BP Pulse Ox O2 Del Method 10/02/22 11:04 36.9 C 74 22 126/81 99 Room Air 10/02/22 07:58 36.4 C L 81 18 115/69 93 Room Air 10/02/22 07:11 107 H 10/02/22 06:51 74 18 96 Room Air 10/02/22 04:31 36.5 C 77 20 107/52 L 94 Room Air Laboratory Results Short CBC 10/02/22 Range/Units 06:53 WBC 6.62 (4.8-10.8) K/ul Hgb 11.2 L (14.0-18.0) g/dl Hct 36.4 L (42.0-52.0) % Plt Count 156 (130-400) K/uL BMP 10/02/22 06:53 Sodium 138 Potassium 4.4 Chloride 108 H Carbon Dioxide 25 BUN 16 Creatinine 1.05 Glucose 150 H Calcium 8.2 L (2) Pneumonia Laterality: left Lung location: lower lobe of lung Pneumonia type: due to unspecified organism Qualified Code(s): J18.9 - Pneumonia, unspecified organism
[2022-10-02] MEDS ORDERED: CEFDINIR 300 MG CAP PO ONE (15:13)
--- NOTE | 2022-10-02 15:17 | Discharge Summary ---
Date of Service October 02, 2022 Admission HPI Per Admitting Provider 47-year-old male with PMH DM type II, dyslipidemia, COPD, HTN, neurogenic bladder, depression, paranoid schizophrenia, intellectual disability, and other problems listed below who presents to the ED for evaluation of shortness of breath. History is somewhat limited from the patient due to underlying intellectual disability history obtained from review of outpatient PCP records. I attempted to call patient's caregiver however was unable to reach them. Patient states he developed a non productive cough last night. This morning he reports he was short of breath with minimal exertion. Denies shortness of breath at rest. No chest pain or palpitations. Denies lightheadedness, dizziness, syncopal event. Patient does report being diaphoretic today. No abdominal pain, nausea, vomiting, diarrhea. Currently reporting urinary frequency. No dysuria. Denies fevers and chills. In the ED, labs show WBC 12.9 K, D-dimer 620, lactate 2.5, CRP 1.17. CXR shows left basilar consolidation consistent with pneumonia. Patient is afebrile. Was tachycardic on presentation. Patient was also given albuterol, IV Solu-Medrol, IV Zosyn. Admission Exam Per Admitting Provider Physical Exam Constitutional: WD/WN, vitals as above + diaphoretic Eyes: PERRL, conjunctivae normal, anicteric sclerae ENMT: external ear and nose normal, oropharynx normal Respiratory: normal respiratory effort, lungs clear to auscultation Cardiovascular: Rate/Rhythm: regular rate and regular rhythm Vessels: normal peripheral pulses Extremities: no edema Gastrointestinal (Abdomen): normal bowel sounds, soft, nontender, no hepatosplenomegaly Musculoskeletal: no cyanosis or clubbing, extremities motor strength 5/5 Skin: no rashes Neurologic: PERRL, EOMI, accommodation nl, no face palsy, no dysarthria Psychiatric: Orientation: alert and oriented x 3 Insight: + limited insight Underlying intellectual disability Principal Diagnosis Sepsis Pneumonia Discharge Data Allergies Allergy/AdvReac Type Severity Reaction Status Date / Time bee venom protein (honey bee) Allergy Unknown ANAPHYLAXIS Verified 07/13/22 07:12 diphenhydramine Allergy Unknown pt care Verified 07/13/22 07:12 home health caregiver unsure Consultations 09/29/22 14:07 ED Decision to Admit Stat Procedures Performed Laboratory Results WBC 6.62 K/ul (4.8-10.8) 10/02/22 06:53 RBC 4.39 M/uL (4.70-6.10) L 10/02/22 06:53 Hgb 11.2 g/dl (14.0-18.0) L 10/02/22 06:53 Hct 36.4 % (42.0-52.0) L 10/02/22 06:53 MCV 82.9 fL (80.0-100.0) 10/02/22 06:53 MCH 25.5 pg (25.0-34.0) 10/02/22 06:53 MCHC 30.8 g/dL (32.0-36.0) L 10/02/22 06:53 RDW Std Deviation 45.0 fL (36.4-46.3) 10/02/22 06:53 RDW Coeff of Yadiel 14.8 % (11.5-14.5) H 10/02/22 06:53 Plt Count 156 K/uL (130-400) 10/02/22 06:53 MPV 10.6 fL (9.4-12.4) 10/02/22 06:53 Immature Gran % (Auto) 0.6 % 09/29/22 13:09 Neut % (Auto) 83.7 % 09/29/22 13:09 Lymph % (Auto) 7.4 % 09/29/22 13:09 [place] % (Auto) 8.1 % 09/29/22 13:09 Eos % (Auto) 0.0 % 09/29/22 13:09 Baso % (Auto) 0.2 % 09/29/22 13:09 Neut # (Auto) 10.83 K/uL (1.40-6.50) H 09/29/22 13:09 Lymph # (Auto) 0.96 K/uL (1.2-3.4) L 09/29/22 13:09 [place] # (Auto) 1.05 K/uL (0.11-0.59) H 09/29/22 13:09 Eos # (Auto) 0.00 K/uL (0-0.50) 09/29/22 13:09 Baso # (Auto) 0.03 K/uL (0-0.2) 09/29/22 13:09 Immature Gran # (Auto) 0.08 K/uL (0.01-0.20) 09/29/22 13:09 PT 11.0 Seconds (9.0-12.0) 09/29/22 13:09 INR 1.0 (0.9-1.1) 09/29/22 13:09 APTT 23.4 Seconds (21.0-31.0) 09/29/22 13:09 PTT Ratio 0.8 09/29/22 13:09 D-Dimer 620 ug/L FEU (0-500) H* 09/29/22 13:09 VBG pH 7.46 (7.36-7.41) H 09/29/22 13:57 VBG pCO2 32 mmHg (38-50) L 09/29/22 13:57 VBG pO2 57 mmHg 09/29/22 13:57 VBG HCO3 23 mmol/L 09/29/22 13:57 VBG O2 Saturation 86.1 % 09/29/22 13:57 VBG Base Excess -0.3 mEq/L 09/29/22 13:57 Sodium 138 mmol/L (136-145) 10/02/22 06:53 Potassium 4.4 mmol/L (3.5-5.1) 10/02/22 06:53 Chloride 108 mmol/L (98-107) H 10/02/22 06:53 Carbon Dioxide 25 mmol/L (21-32) 10/02/22 06:53 Anion Gap 5 (3-11) 10/02/22 06:53 BUN 16 mg/dl (6-23) 10/02/22 06:53 Creatinine 1.05 mg/dl (0.6-1.4) 10/02/22 06:53 Est Cr Clr Drug Dosing 104.8 ml/min 10/02/22 06:53 Est GFR ( Amer) 96.1 ml/min 10/02/22 06:53 Est GFR (Non-Af Amer) 83.0 ml/min 10/02/22 06:53 BUN/Creatinine Ratio 15.2 (10-20) 10/02/22 06:53 Glucose 150 mg/dl (70-99(Fasting)) H 10/02/22 06:53 POC Glucose 171 mg/dl (70-99) H 10/02/22 11:34 Estimat Average Glucose 258 mg/dl 09/30/22 06:39 Hemoglobin A1c 10.6 % (4.5-5.6) H 09/30/22 06:39 Lactate 1.6 mmol/L (0.4-2.0) 09/29/22 22:30 Calcium 8.2 mg/dl (8.6-10.3) L 10/02/22 06:53 Magnesium 2.2 mg/dl (1.7-2.4) 10/01/22 06:11 Total Bilirubin 0.5 mg/dl (0.2-1.0) 09/29/22 13:09 AST 21 U/L (13-39) 09/29/22 13:09 ALT 29 U/L (7-52) 09/29/22 13:09 Alkaline Phosphatase 65 U/L (34-104) 09/29/22 13:09 Troponin I High Sens 5.1 pg/ml (0-20) 09/29/22 13:09 C-Reactive Protein 1.17 mg/dl (0-0.5) H 09/29/22 13:09 Total Protein 7.2 gm/dl (6.0-8.3) 09/29/22 13:09 Albumin 4.1 gm/dl (3.4-5.0) 09/29/22 13:09 Globulin 3.1 gm/dl (2.5-4.0) 09/29/22 13:09 Albumin/Globulin Ratio 1.3 (0.9-2) 09/29/22 13:09 Procalcitonin 0.26 ng/ml (0-0.5) 09/29/22 13:12 TSH 1.045 uIu/ml (0.300-4.500) 09/29/22 13:12 Urine Color Yellow 09/29/22 13:13 Urine Appearance Clear (Clear) 09/29/22 13:13 Urine pH 5.0 (4.5-7.5) 09/29/22 13:13 Ur Specific [place] 1.034 (1.000-1.030) H 09/29/22 13:13 Urine Protein Negative (Negative) 09/29/22 13:13 Urine Glucose (UA) 3+ (Negative) H 09/29/22 13:13 Urine Ketones Negative (Negative) 09/29/22 13:13 Urine Blood Negative (Negative) 09/29/22 13:13 Urine Nitrite Negative (Negative) 09/29/22 13:13 Urine Bilirubin Negative (Negative) 09/29/22 13:13 Urine Urobilinogen Negative (Negative) 09/29/22 13:13 Ur Leukocyte Esterase Trace (Negative) H 09/29/22 13:13 Urine WBC (Auto) 1-5 /hpf (0-5) 09/29/22 13:13 Urine RBC (Auto) 0-4 /hpf (0-4) 09/29/22 13:13 U Hyaline Cast (Auto) 0 /lpf (0-5) 09/29/22 13:13 U Epithel Cells (Auto) >30 /lpf (0-5) H 09/29/22 13:13 Urine Bacteria (Auto) Negative (Negative) 09/29/22 13:13 Urine Opiates Screen Neg (Neg) 09/29/22 17:40 Ur Methadone, Qual Neg (Neg) 09/29/22 17:40 Urine Barbiturates Neg (Neg) 09/29/22 17:40 Ur Phencyclidine (PCP) Neg (Neg) 09/29/22 17:40 U Amphetamin/Meth Scrn Neg (Neg) 09/29/22 17:40 MDMA (Ecstasy) Screen Neg (Neg) 09/29/22 17:40 U Benzodiazepines Scrn Neg (Neg) 09/29/22 17:40 Ur Cocaine Metabolite Neg (Neg) 09/29/22 17:40 U Marijuana (THC) Screen Neg (Neg) 09/29/22 17:40 Adenovirus (PCR) Not Detected (NotDetected) 09/29/22 19:46 B. pertussis DNA (PCR) Not Detected (NotDetected) 09/29/22 19:46 B.parapertussis DNA PCR Not Detected (NotDetected) 09/29/22 19:46 C. pneumoniae DNA (PCR) Not Detected (NotDetected) 09/29/22 19:46 Coronavirus OC43 (PCR) Not Detected (NotDetected) 09/29/22 19:46 Coronavirus HKU1 (PCR) Not Detected (NotDetected) 09/29/22 19:46 Coronavirus 229E (PCR) Not Detected (NotDetected) 09/29/22 19:46 SARS-CoV-2 (PCR) Not Detected (NotDetected) 09/29/22 19:46 Coronavirus NL63 (PCR) Not Detected (NotDetected) 09/29/22 19:46 Human Metapneumovir PCR Not Detected (NotDetected) 09/29/22 19:46 Influenza Type A (PCR) Not Detected (NotDetected) 09/29/22 19:46 Influenza Type B (PCR) Not Detected (NotDetected) 09/29/22 19:46 M. pneumoniae (PCR) Not Detected (NotDetected) 09/29/22 19:46 Parainfluenza 1 (PCR) Not Detected (NotDetected) 09/29/22 19:46 Parainfluenza 2 (PCR) Not Detected (NotDetected) 09/29/22 19:46 Parainfluenza 3 (PCR) Not Detected (NotDetected) 09/29/22 19:46 Parainfluenza 4 (PCR) Not Detected (NotDetected) 09/29/22 19:46 RSV (RT-PCR) Negative (Neg) 09/29/22 13:09 RSV (PCR) Not Detected (NotDetected) 09/29/22 19:46 Entero/Rhino (PCR) Not Detected (NotDetected) 09/29/22 19:46 Impressions Chest X-Ray 09/29/22 12:34 SINGLE VIEW CHEST CLINICAL HISTORY: Atypical chest pain FINDINGS: An AP, portable, upright chest radiograph is compared to study dated 03/05/2022 and correlated with chest CT dated 05/26/2022. A hiatal hernia is noted. The cardiomediastinal silhouette is unremarkable. There is airspace consolidation at the left lung base. Right lung appears clear. No pleural effusion or pneumothorax is seen. The bony thorax is grossly intact. IMPRESSION: Left basilar airspace consolidation is typical for pneumonia/aspiration pneumonitis. Clinical correlation will be required and radiographic follow-up to resolution is recommended. ACT 112: Negative or not required by law. Electronically signed by: Russell Wade M.D. 09/29/2022 1:35 PM Venous Doppler Study 09/29/22 14:44 US venous doppler LE BI CLINICAL HISTORY: elevated dimer TECHNIQUE: Bilateral lower extremity real-time compression venous ultrasound with Color Doppler imaging. Utilizing real-time ultrasonic imaging multiple real time high-resolution ultrasonic images with compression and noncompression maneuvers of the deep venous system in addition to color doppler imaging were performed from the common femoral vein through the proximal calf veins. COMPARISON: Comparison is made to Doppler ultrasound 08/15/2021 FINDINGS/IMPRESSION: Currently there is normal compressibility of the deep venous system from the common femoral vein through the proximal calf veins. No superficial venous thrombosis is identified. ACT 112: Negative or not required by law. Electronically signed by: Madi Smith M.D. 09/29/2022 4:34 PM Chest CTA 09/29/22 14:45 CT ANGIOGRAM OF THE CHEST CLINICAL HISTORY: Atypical chest pain. Dyspnea. Wheezing. COMPARISON STUDY: Chest x-ray dated 09/29/2022. Chest CT dated 05/26/2022. TECHNIQUE: Following the IV administration of 120 cc of Optiray 320, CT angiogram of the chest was performed from the upper abdomen to the thoracic inlet utilizing the pulmonary embolus protocol. Images are reviewed in the axial, sagittal, and coronal planes. 3-D MIPS images are created and assessed. IV contrast was administered without complication. A dose lowering technique was utilized adhering to the principles of ALARA. CT DOSE: 910.48 mGy.cm FINDINGS: Thyroid: Imaged portions of the thyroid gland are normal in size and attenuation. Thoracic aorta: The thoracic aorta is normal in caliber and demonstrates 4- vessel variant arch anatomy. An aberrant right subclavian artery arises as a fourth branch and courses posterior to the esophagus. No dissection is seen. Pulmonary vasculature: The pulmonary trunk is normal in caliber. There are no filling defects identified in main, lobar, or segmental pulmonary branches to suggest pulmonary embolus. Heart: The heart is normal in size and without pericardial effusion. Lungs and pleural spaces: There is patchy nodular airspace consolidation throughout the left lung, greatest at the left lung bases. There is minimal atelectasis at the right lung base The right lung otherwise appears clear. No pleural effusion is seen. Minimal secretions are noted in the trachea. A 3 mm right upper lobe pulmonary nodule in image #134 is unchanged. Mediastinum: There is no mediastinal lymphadenopathy. Tamara: Mildly enlarged left hilar nodes measure up to 13 mm in short axis. These are likely reactive. No right hilar adenopathy is seen. Axillae: There is no axillary lymphadenopathy. Upper abdomen: There is a moderate to large hiatal hernia. Partially visualized upper abdominal viscera is otherwise grossly unremarkable. Skeletal structures: No lytic or blastic bony lesions are seen. IMPRESSION: 1. There is no evidence of pulmonary embolus in the main, lobar, or segmental pulmonary arteries. 2. Airspace consolidation throughout the left lung is typical for pneumonia/aspiration pneumonitis. Clinical correlation will be required and radiographic follow-up to resolution is recommended. 3. The right lung appears clear. No pleural effusion is seen. 4. Mildly enlarged left hilar nodes are likely reactive. 5. Moderate to large hiatal hernia. 6. Additional findings as above. ACT 112: Negative or not required by law. Electronically signed by: Russell Wade M.D. 09/29/2022 5:04 PM Ordered Studies 09/29/22 14:44 US venous doppler LE BI Stat 09/29/22 14:45 CT angio chest PE protocol Stat Diabetes Follow up Diabetes Follow-up Needed for HgbA1c >9% Hospital Course (1) Sepsis: (2) Pneumonia: (3) COPD (chronic obstructive pulmonary disease): Sepsis Secondary to Pneumonia Elevated D-dimer Lactic acidosis --CTA:There is no evidence of pulmonary embolus in the main, lobar, or segmental pulmonary arteries. Airspace consolidation throughout the left lung is typical for pneumonia/aspiration pneumonitis. Clinical correlation will be required and radiographic follow-up to resolution is recommended. The right lung appears clear. No pleural effusion is seen. Mildly enlarged left hilar nodes are likely reactive. --Venous Doppler:Currently there is normal compressibility of the deep venous system from the common femoral vein through the proximal calf veins. No superficial venous thrombosis is identified. --Blood Cx:Negative to date --Urine for Legionella pending Continue Rocephin, azithromycin Received IV fluids Aspiration precautions Continue Pulmonary toilet with nebs, Mucinex, incentive spirometer, flutter valve Stable for discharge Plan to discharge to [facility] when accepted (4) Elevated d-dimer: CTA chest negative for PE, BL LE Doppler negative for DVT (5) DM type 2 (diabetes mellitus, type 2): Uncontrolled Hgb A1c 10.6 Lantus and NovoLog per protocol while hospitalized Glycemic pharmacist consulted (6) Paranoid schizophrenia: Stable, continue home meds (7) Hypertension: Continue carvedilol, lisinopril with holding parameters (8) Neurogenic bladder: Previously self cathed Continue to monitor Monitor for retention (9) Hypothyroidism: TSH 1.045 Continue levothyroxine (10) Sleep apnea: Noncompliant with CPAP DVT Px SQ Lovenox Total Time Total Time Spent Total Time Spent (In Minutes): 56 minutes Discharge Plan Discharge Items Patient Disposition: Transfer Intermediate Fac Reason For Visit: PNEUMONIA Discharge Diagnosis: Sepsis Pneumonia Activity: Per Instructions section Exercise/Sports: Gradually increase as tolerated Non-emergency contact: Primary Care Provider Call non-emergency contact if: you have any medication questions, your symptoms worsen, your pain is concerning for you and you have a fever Follow-up/Referrals: Freddie Montoya DO [Primary Care Provider] - Diet: Carb Consistent or DM2 Addtl Attending Provider Instructions: Follow up with your primary care physician in 1 week as advised. --- Complete antibiotic course azithromycin, cefdinir course as prescribed for pneumonia. Seek immediate medical attention if your symptoms reoccur or worsen Please take all medications as instructed on discharge list below. Please call if you have any questions or problems. You can reach a [facility] hospitalist on duty at [facility] 24 hours a day by calling [phone] Pending Studies at Discharge: Yes Studies:: Blood Cultures Stand-Alone Forms: My [facility] Skilled Items Patient informed of condition?: Yes DNR: No Discharge Level of Care: Skilled Communicable Disease: No Discharge Prognosis: Stable Lines: None Urinary Catheter: No Medications and DC Order Prescriptions: New azithromycin 500 mg tablet 500 mg PO DAILY Qty: 2 0RF Rx Instructions: Start taking from 10/03/22 cefdinir 300 mg capsule 300 mg PO BID Qty: 10 0RF Rx Instructions: Start taking from 10/02/22 Continued fluticasone furoate-vilanterol [Breo Ellipta] 100-25 mcg/dose blister with device 1 ea INHALATION QAM Qty: 60 12RF fluoxetine 40 mg capsule 40 mg PO QAM carvedilol 25 mg tablet 25 mg PO BID acetaminophen [Tylenol] 325 mg Tablet 650 mg PO QID PRN (Reason: Fever Or Pain) ipratropium-albuterol 0.5 mg-3 mg(2.5 mg base)/3 mL Solution For Nebulization 3 ml INHALATION QID PRN (Reason: Shortness Of Breath Or Wheezing) chlorpromazine 100 mg tablet 100 mg PO HS Rx Instructions: Take with 200 mg =300mg lisinopril 20 mg Tablet 20 mg PO QAM levothyroxine 100 mcg Tablet 100 mcg PO QAM mirtazapine 30 mg tablet 30 mg PO HS metformin 1,000 mg tablet 1,000 mg PO BID epinephrine [EpiPen] 0.3 mg/0.3 mL Auto-Injector 0.3 mg IM UD PRN (Reason: .anaphylaxis) chlorpromazine 200 mg tablet 200 mg PO HS Rx Instructions: Take with 100mg = 300mg fluoxetine 20 mg capsule 20 mg PO QAM fluticasone propionate 50 mcg/actuation spray,suspension 2 spray INTRANASAL QAM loratadine 10 mg Tablet 10 mg PO QAM ezetimibe 10 mg tablet 10 mg PO QAM insulin aspart U-100 [Novolog FlexPen U-100 Insulin] 100 unit/mL (3 mL) Insulin Pen 6 unit subcut DAILYBB Patient Comments: mostly he needs it Rx Instructions: plus sliding scale levalbuterol tartrate 45 mcg/actuation HFA aerosol inhaler 2 puff INHALATION Q6 PRN (Reason: Shortness Of Breath) fluoride (sodium) [Denta 5000 Plus] 1.1 % Cream 1 applic DENTAL DAILY Rx Instructions: brush gently for 2 min, do not spit or rinse. insulin glargine [Basaglar KwikPen U-100 Insulin] 100 unit/mL (3 mL) insulin pen 40 unit SUBCUT BID menthol-zinc oxide [Calmoseptine] 0.44-20.6 % Ointment 1 applic TOPICAL DIRECTED PRN (Reason: itching ) Rx Instructions: may self administer guaifenesin [Mucinex] 600 mg Tablet Extended Release 12hr 600 mg PO Q12H PRN (Reason: Congestion) Jardiance 25 mg tablet 25 mg PO QAM omeprazole 40 mg capsule,delayed release(DR/EC) 40 mg PO BID potassium chloride 20 mEq tablet,ER particles/crystals 20 meq PO QAM paliperidone 9 mg tablet extended release 24 hr 9 mg PO HS cholecalciferol (vitamin D3) [Vitamin D3] 50 mcg (2,000 unit) Tablet 50 mcg PO QAM Ozempic 1 mg/dose (4 mg/3 mL) pen injector 1 mg SUBCUT WK insulin aspart U-100 [Novolog FlexPen U-100 Insulin] 100 unit/mL (3 mL) insulin pen See Rx Instructions .ROUTE .COMPLEX Rx Instructions: sliding scale with dinner rosuvastatin 5 mg tablet 5 mg PO DAILY Combivent Respimat 20-100 mcg/actuation mist 1 puff INHALATION Q4H PRN (Reason: Shortness Of Breath Or Wheezing) Discharge Orders: Discharge Order (Routine); Ordered 10/02/22 Ordered By: Colin Garzon Admission Data Admit Date/Time: 09/29/22 21:29 Attending Provider: Colin Garzon Admit Provider: Erika Quiñones Primary Care Provider: Freddie Montoya Other Providers: Erika Quiñones
[2022-10-02] MEDS ORDERED: CEFDINIR 300 MG CAP PO SCH (21:00)
== END 2022-10-02 15:40 | DRG 871 ==
LOC: 2W 12:16 → ED 12:16 → 2W 18:45 → SUATTDRO 21:29